=== PATIENT | female | born 1980 | race Caucasian/White ===

== ENCOUNTER 2016-11-12 00:10 | Inpatient (IN) | payer SELFPAY ==
[~2016-11-12] VITALS: Ht 162.6 cm; Wt 65.1 kg
[~2016-11-12 00:10] MED LIST: AMOX875T PO; CHLO118L4 TP; HYDR-971 PO; METH-37 PO; NITR100C62 PO; ONDA4TAB7 PO
--- NOTE | 2016-11-12 00:47 | PHYS DOC ---
Past Medical History Past Medical History: Anemia, Diabetes-Type I Additional Past Medical Histor: LOW IRON, Past Surgical History: Alcohol Use: None Drug Use: None Adult General Chief Complaint Chief Complaint: MULTIPLE COMPLAINTS HPI HPI Patient is a 36 year old F who presents with chest pain and elevated blood sugars. Patient states she's had elevated blood sugars for the past week which she is a insulin-dependent diabetic. Patient states that the chest pain started today central nonradiating rates the pain 10 out of 10 however in the emergency room she rates the pain a 5 out of 10. Patient denies any shortness of breath. Patient denies any nausea/vomiting/diarrhea. Patient denies any fevers. Patient denies any dysuria. Patient has no other complaints. Review of Systems Review of Systems GEN: Denies fevers, chills, sweats HEENT: Denies blurred vision, sore throat CV: Chest pain RESP: Denies shortness of air, cough GI: Denies n/v/d NEURO: Denies confusion, dizziness MSK: Denies weakness, joint pain/swelling Current Medications Current Medications Current Medications Medications (Trade) Dose Ordered Sig/Lucio Start Time Stop Time Status Last Admin Dose Admin Sodium Chloride 1,000 ml @ 1,000 mls/hr 1X ONCE 11/12/16 01:00 11/12/16 01:59 11/12/16 00:52 1,000 MLS/HR Allergies Allergies Allergies Coded Allergies Type Severity Reaction Last Updated Verified No Known Drug Allergies 03/03/15 No Physical Exam Physical Exam GEN.: No apparent distress. Alert and oriented. HEENT: Head is normocephalic, atraumatic NECK: Supple. LUNGS: CTAB. HEART: Tachycardia, S1, S2 present. Peripheral pulses intact ABDOMEN: Soft, nontender. Positive bowel sounds. EXTREMITIES: Without any cyanosis. NEUROLOGIC: Normal speech, normal tone PSYCHIATRIC: Normal affect, normal mood. SKIN: No ulcerations Current Patient Data Vital Signs Vital Signs Date Time Temp Pulse Resp B/P (MAP) Pulse Ox O2 Delivery O2 Flow Rate FiO2 11/12/16 00:33 98.0 117 20 142/83 (102) 99 Room Air 98.0 Lab Values Laboratory Tests Test 11/12/16 00:16 11/12/16 00:28 11/12/16 00:30 Urine Collection Type Unknown Urine Color Yellow Urine Clarity Clear Urine pH 6.0 Urine Specific [place] 1.025 Urine Protein Negative mg/dL (NEG-TRACE) Urine Glucose (UA) >=1000 mg/dL (NEG) Urine Ketones (Stick) Trace mg/dL (NEG) Urine Blood Small (NEG) Urine Nitrite Negative (NEG) Urine Bilirubin Negative (NEG) Urine Urobilinogen Dipstick 0.2 mg/dL (0.2 mg/dL) Urine Leukocyte Esterase Trace (NEG) Urine RBC Occ /HPF (0-2) Urine WBC 5-10 /HPF (0-4) Urine Squamous Epithelial Cells Few /LPF Urine Bacteria Few /HPF (0-FEW) POC Urine HCG, Qualitative Hcg negative (Negative) White Blood Count 6.4 x10^3/uL (4.0-11.0) Red Blood Count 4.31 x10^6/uL (3.50-5.40) Hemoglobin 13.6 g/dL (12.0-15.5) Hematocrit 41.6 % (36.0-47.0) Mean Corpuscular Volume 97 fL (79-100) Mean Corpuscular Hemoglobin 32 pg (25-35) Mean Corpuscular Hemoglobin Concent 33 g/dL (31-37) Red Cell Distribution Width 16.8 % (11.5-14.5) H Platelet Count 233 x10^3/uL (140-400) Neutrophils (%) (Auto) 66 % (31-73) Lymphocytes (%) (Auto) 24 % (24-48) Monocytes (%) (Auto) 8 % (0-9) Eosinophils (%) (Auto) 2 % (0-3) Basophils (%) (Auto) 1 % (0-3) Neutrophils # (Auto) 4.2 x10^3uL (1.8-7.7) Lymphocytes # (Auto) 1.5 x10^3/uL (1.0-4.8) Monocytes # (Auto) 0.5 x10^3/uL (0.0-1.1) Eosinophils # (Auto) 0.1 x10^3/uL (0.0-0.7) Basophils # (Auto) 0.0 x10^3/uL (0.0-0.2) Sodium Level 134 mmol/L (136-145) L Potassium Level 3.2 mmol/L (3.5-5.1) L Chloride Level 95 mmol/L (98-107) L Carbon Dioxide Level 25 mmol/L (21-32) Anion Gap 14 (6-14) Blood Urea Nitrogen 9 mg/dL (7-20) Creatinine 0.7 mg/dL (0.6-1.0) Estimated GFR (Cockcroft-Gault) 95.2 BUN/Creatinine Ratio 13 (6-20) Glucose Level 488 mg/dL (70-99) H Glucose (Fingerstick) 509 mg/dL (70-99) *H Calcium Level 9.9 mg/dL (8.5-10.1) Total Bilirubin 0.3 mg/dL (0.2-1.0) Aspartate Amino Transferase (AST) 43 U/L (15-37) H Alanine Aminotransferase (ALT) 40 U/L (14-59) Alkaline Phosphatase 151 U/L (46-116) H Troponin I Quantitative < 0.017 ng/mL (0.000-0.055) Total Protein 9.0 g/dL (6.4-8.2) H Albumin 4.4 g/dL (3.4-5.0) Albumin/Globulin Ratio 1.0 (1.0-1.7) Lipase 80 U/L (73-393) Laboratory Tests 11/12/16 00:30 Laboratory Tests 11/12/16 00:30 EKG EKG 0027: EKG shows sinus tachycardia rate of 117 no STEMI[] Radiology/Procedures Radiology/Procedures Chest x-ray NAD[] Course & Med Decision Making Course & Med Decision Making Pertinent Labs and Imaging studies reviewed. (See chart for details) ED course: Patient was seen and examined emergency room cardiac workup was ordered 0040: Lab results of blood sugar being 509 0200: Patient was reevaluated and updated on lab work. We'll make the patient for hyperglycemia for further management and treatment. Discussed CC/HP/PMH with Dr. Vazquez and recommends admit [] MDM: After reviewing the chart, CC/HPI/PMH, physical exam, [lab results], [ radiological results], I do not believe the patient is in DKA however the patient has a blood sugar above 500 with no PCP therefore will admit for further evaluation and management. [] Dragon Disclaimer Dragon Disclaimer This electronic medical record was generated, in whole or in part, using a voice recognition dictation system. Departure Departure Impression: Primary Impression: Hyperglycemia Additional Impression: Chest pain Disposition: ADMITTED INPATIENT Admitting Physician: Ellyn Vazquez Condition: STABLE Referrals: NO PCP (PCP) Problem Qualifiers DEAN BOATENG DO Nov 12, 2016 00:47
[2016-11-12 00:49] LABS: BASO % 1 % (0-3); EOS % 2 % (0-3); HEMATOCRIT 41.6 % (36.0-47.0); HEMOGLOBIN 13.6 g/dL (12.0-15.5); LYMPH # 1.5 x10^3/uL (1.0-4.8); LYMPH % 24 % (24-48); MEAN CORPUSCULAR HEMOGLOBIN 32 pg (25-35); MEAN CORPUSCULAR HGB CONC 33 g/dL (31-37); MEAN CORPUSCULAR VOLUME 97 fL (79-100); MONO % 8 % (0-9); NEUT % 66 % (31-73); PLATELET COUNT 233 x10^3/uL (140-400); RED BLOOD COUNT 4.31 x10^6/uL (3.50-5.40); RED CELL DISTRIBUTION WIDTH 16.8 % (11.5-14.5); WHITE BLOOD COUNT 6.4 x10^3/uL (4.0-11.0)
[2016-11-12 00:52] LABS: BILIRUBIN,URINE NEGATIVE (NEG); GLUCOSE,URINE >=1000 mg/dL (NEG); NITRITE,URINE NEGATIVE (NEG); PROTEIN,URINE NEGATIVE (NEG-TRACE); UROBILINOGEN,URINE 0.2 mg/dL (0.2 mg/dL)
[2016-11-12] MEDS ORDERED: IV NORMAL SALINE 1000ML BAG 1,000 ML IV ONE (01:00)
[2016-11-12 01:02] LABS: BACTERIA,URINE FEW /HPF (0-FEW); RBC,URINE OCC /HPF (0-2); SQUAMOUS EPITHELIAL CELL,UR FEW /LPF
[2016-11-12 01:07] LABS: CALCIUM 9.9 mg/dL (8.5-10.1); CREATININE 0.7 mg/dL (0.6-1.0); GFR 95.2; POTASSIUM 3.2 mmol/L (3.5-5.1)
[2016-11-12 01:11] LABS: ALBUMIN 4.4 g/dL (3.4-5.0); TOTAL BILIRUBIN 0.3 mg/dL (0.2-1.0)
[2016-11-12] MEDS: MORPHINE SULFATE 4 MG/ML DISP.SYRIN. IV PRN ×3 (02:10→08:59)
[2016-11-12] MEDS: IV NORMAL SALINE 1000ML BAG 1,000 ML IV SCH ×2 (02:11→05:57)
[2016-11-12] MEDS ORDERED: ONDANSETRON PF 4 MG/2 ML VIAL. IV PRN (02:15)
[2016-11-12] MEDS ORDERED: INSULIN REGULAR 100 UNIT/ML 10ML VIAL. IV ONE (02:45)
[2016-11-12 02:55] VITALS: BP 133/88
[2016-11-12] MEDS ORDERED: INSU100C4 SQ (06:57)
[2016-11-12 07:40] VITALS: BP 127/71
[2016-11-12] MEDS ORDERED: INSU100I13 SQ (07:55)
--- NOTE | 2016-11-12 08:08 | RAD ---
PA and lateral chest. History: Chest pain PA and lateral views were taken of the chest. Lungs are clear. Heart is normal in size without heart failure. There is no effusion. Impression: 1. No acute chest disease.
[2016-11-12] MEDS ORDERED: POTASSIUM CHLORIDE 20 MEQ TABLET.ER. PO ONE (08:30)
[2016-11-12] MEDS ORDERED: DEXTROSE 50% 25 GM / 50ML DISP.SYRIN. IV PRN (08:45)
[2016-11-12] MEDS ORDERED: INSULIN ASPART 300 UNITS/3 ML INSULN.PEN SQ ONE ×2 (09:00→11:00)
[2016-11-12 10:43] VITALS: BP 136/88
--- NOTE | 2016-11-12 12:52 | EKG ---
[facility] [address] [place] [address] Test Date: 2016-11-12 Test Time: 00:22:59 Pat Name: FLORESITA JORGE Department: Room: [facility] Gender: F Double Backer: [id number] : 1980 Requested By: DEAN BOATENG Order Number: [id number] Reading MD: Marvin Lockhart Measurements Intervals [place] Rate: 117 P: 43 TN: 126 QRS: 43 QRSD: 68 T: 51 QT: 316 QTc: 445 Interpretive Statements SINUS TACHYCARDIA LEFT ATRIAL ABNORMALITY RI6.01 Unconfirmed report Compared to ECG 12/27/2015 23:42:52 Atrial abnormality now present Electronically Signed On 11-30-2016 10:44:10 CDT by Marvin Lockhart
--- NOTE | 2016-11-12 14:41 | SSS ---
ADMIT DATE: 11/12/2016 CHIEF COMPLAINT: Hyperglycemia. HISTORY OF PRESENT ILLNESS: The patient is a pleasant middle-aged female who has diabetes. Basically, she presented to the ER with complaints of chest pain and elevated blood sugars. She was admitted. We did a brief cardiac evaluation, it is all negative. Her glucose is improving. She is back to her baseline. She wants to be discharged. PAST MEDICAL HISTORY: Diabetes. ALLERGIES: None. FAMILY HISTORY: Diabetes. SOCIAL HISTORY: She does not drink, smoke or take drugs. MEDICATIONS: Reviewed. REVIEW OF SYSTEMS: GENERAL: No history of weight change, weakness or fevers. SKIN: No bruising, hair changes or rashes. EYES: No blurred, double or loss of vision. NOSE AND THROAT: No history of nosebleeds, hoarseness or sore throat. HEART: No history of palpitations, chest pain or shortness of breath on exertion. LUNGS: Denies cough, hemoptysis, wheezing or shortness of breath. GASTROINTESTINAL: Denies changes in appetite, nausea, vomiting, diarrhea or constipation. GENITOURINARY: No history of frequency, urgency, hesitancy or nocturia. NEUROLOGIC: Denies history of numbness, tingling, tremor or weakness. PSYCHIATRIC: No history of panic, anxiety or depression. ENDOCRINE: No history of heat or cold intolerance, polyuria or polydipsia. EXTREMITIES: Denies muscle weakness, joint pain, pain on walking or stiffness. PHYSICAL EXAMINATION: VITAL SIGNS: Stable. GENERAL: She is alert, cooperative. HEART: Normal S1, S2. LUNGS: Clear. ABDOMEN: Soft. EXTREMITIES: No edema. SKIN: No rashes. PSYCHIATRIC: She is stable. VASCULAR: Good capillary refill. ENDOCRINE: No thyromegaly. LYMPHATICS: No cervical nodes. HEMATOPOIETIC: No bruising. DISPOSITION: Home. ACTIVITY: As tolerated. DIET: Low sodium. MEDICATIONS: Please see the MRAD. TOTAL TIME: 32 minutes. JB THAPA DO DR: SALVATORE/natividad JOB#: [id number] / [id number]
--- NOTE | 2016-12-01 12:33 | DS ---
DATE OF DISCHARGE: 11/12/2016 ADMISSION DIAGNOSIS: Hyperglycemia. DISCHARGE DIAGNOSIS: Resolving hyperglycemia. HOSPITAL COURSE: The patient is a pleasant 36-year-old female who presented with hyperglycemia. She was admitted. We gave her fluids and insulin. She did well. We discharged to home. DISPOSITION: Home. ACTIVITY: As tolerated. DIET: Low sodium. MEDICATIONS: Please see the MRAD. JB THAPA DO DR: SALVATORE/natividad JOB#: [id number] / [id number]
== END 2016-11-12 12:56 | disposition home or self-care (01) | DRG 638 ==
LOC: ER 00:10 → 6 SOUTH 01:59
PROVIDERS: ADMIT Internal Medicine; ATTEND Internal Medicine
DX: E10.65 Type 1 diabetes mellitus with hyperglycemia (principal); E87.1 Hypo-osmolality and hyponatremia; K21.9 Gastro-esophageal reflux disease without esophagitis; R07.89 Other chest pain; Z83.3 Family history of diabetes mellitus; Z79.4 Long term (current) use of insulin
CPT/HCPCS: 36415; 71020; 80053; 81001; 81025; 82962; 83690; 84484; 85025; 87086; 87186; 93005; 96361; 96374; J1815; J2270; J2405; J7030; 99285-25

== ENCOUNTER 2017-09-27 12:53 | Inpatient (IN) | payer SELFPAY ==
[~2017-09-27] VITALS: Ht 162.6 cm; Wt 68.0 kg
[~2017-09-27 12:53] MED LIST changes: +INSU100C4 SQ; +INSU100I13 SQ
--- NOTE | 2017-09-27 14:38 | PHYS DOC ---
Past Medical History Past Medical History: Anemia, Diabetes-Type I Additional Past Medical Histor: LOW IRON, Past Surgical History: Alcohol Use: None Drug Use: None Adult General Chief Complaint Chief Complaint: VAGINAL BLEEDING HPI HPI Patient is a 37 year old female with a history of diabetes and presents to the ED complaining of vaginal bleeding 3 hours ago. She states she' s had 2 miscarriages and one tubal in the past. LMP was the end of June. States she woke up and then had some lower abdominal cramping. States she had some vaginal bleeding and has been passing clots since 11:00 am. Describes the pain as crampy. Rates the pain as 4 out of 10. Denies nausea/vomiting, headache, diarrhea, blood in stool, dysuria, vaginal discharge, chest pain, shortness of breath or fever. Review of Systems Review of Systems Constitutional: Denies fever or chills [] Eyes: Denies change in visual acuity, redness, or eye pain [] HENT: Denies nasal congestion or sore throat [] Respiratory: Denies cough or shortness of breath [] Cardiovascular: No additional information not addressed in HPI [] GI: Denies abdominal pain, nausea, vomiting, bloody stools or diarrhea [] : Complains of vaginal bleeding. Denies dysuria or hematuria [] Musculoskeletal: Denies back pain or joint pain [] Integument: Denies rash or skin lesions [] Neurologic: Denies headache, focal weakness or sensory changes [] All other systems were reviewed and found to be within normal limits, except as documented in this note. Current Medications Current Medications Current Medications Medications (Trade) Dose Ordered Sig/Lucio Start Time Stop Time Status Last Admin Dose Admin Acetaminophen (Tylenol) 650 mg 1X ONCE 09/27/17 16:30 09/28/17 09:02 DC Morphine Sulfate (Morphine Sulfate) 4 mg 1X ONCE 09/27/17 16:15 09/28/17 09:02 DC 09/27/17 16:15 4 MG Ondansetron HCl (Zofran) 4 mg 1X ONCE 09/27/17 16:15 09/27/17 16:16 DC 09/27/17 16:13 4 MG Allergies Allergies Allergies Coded Allergies Type Severity Reaction Last Updated Verified No Known Drug Allergies 03/03/15 No Physical Exam Physical Exam Constitutional: Well developed, well nourished, no acute distress, non-toxic appearance. [] HENT: Normocephalic, atraumatic Cardiovascular:Heart rate regular rhythm, no murmur [] Lungs & Thorax: Bilateral breath sounds clear to auscultation [] Abdomen: Bowel sounds normal, soft, no tenderness, no masses, no pulsatile masses. [] : Refused Exam. Skin: Warm, dry, no erythema, no rash. [] Back: No tenderness, no CVA tenderness. [] Extremities: No tenderness, no cyanosis, no clubbing, ROM intact, no edema. [] Neurologic: Alert and oriented X 3, normal motor function, normal sensory function, no focal deficits noted. [] Psychologic: Affect normal, judgement normal, mood normal. [] Current Patient Data Vital Signs Vital Signs Date Time Temp Pulse Resp B/P (MAP) Pulse Ox O2 Delivery O2 Flow Rate FiO2 09/27/17 16:30 98 20 126/83 (97) 98 Room Air 09/27/17 14:06 98.6 98.6 Lab Values Laboratory Tests Test 09/27/17 15:30 White Blood Count 5.5 x10^3/uL (4.0-11.0) Red Blood Count 4.38 x10^6/uL (3.50-5.40) Hemoglobin 12.5 g/dL (12.0-15.5) Hematocrit 37.4 % (36.0-47.0) Mean Corpuscular Volume 86 fL (79-100) Mean Corpuscular Hemoglobin 29 pg (25-35) Mean Corpuscular Hemoglobin Concent 33 g/dL (31-37) Red Cell Distribution Width 26.3 % (11.5-14.5) H Platelet Count 245 x10^3/uL (140-400) Neutrophils (%) (Auto) 59 % (31-73) Lymphocytes (%) (Auto) 31 % (24-48) Monocytes (%) (Auto) 7 % (0-9) Eosinophils (%) (Auto) 3 % (0-3) Basophils (%) (Auto) 0 % (0-3) Neutrophils # (Auto) 3.2 x10^3uL (1.8-7.7) Lymphocytes # (Auto) 1.7 x10^3/uL (1.0-4.8) Monocytes # (Auto) 0.4 x10^3/uL (0.0-1.1) Eosinophils # (Auto) 0.1 x10^3/uL (0.0-0.7) Basophils # (Auto) 0.0 x10^3/uL (0.0-0.2) Platelet Estimate Adequate (ADEQUATE) Anisocytosis Mod Maternal Serum HCG Beta Subunit 1 mIU/mL (0-5) Sodium Level 136 mmol/L (136-145) Potassium Level 4.3 mmol/L (3.5-5.1) Chloride Level 101 mmol/L (98-107) Carbon Dioxide Level 22 mmol/L (21-32) Anion Gap 13 (6-14) Blood Urea Nitrogen 7 mg/dL (7-20) Creatinine 0.6 mg/dL (0.6-1.0) Estimated GFR (Cockcroft-Gault) 113.1 BUN/Creatinine Ratio 12 (6-20) Glucose Level 275 mg/dL (70-99) H Calcium Level 9.4 mg/dL (8.5-10.1) Total Bilirubin 0.5 mg/dL (0.2-1.0) Aspartate Amino Transferase (AST) 28 U/L (15-37) Alanine Aminotransferase (ALT) 22 U/L (14-59) Alkaline Phosphatase 110 U/L (46-116) Total Protein 7.3 g/dL (6.4-8.2) Albumin 3.5 g/dL (3.4-5.0) Albumin/Globulin Ratio 0.9 (1.0-1.7) L Laboratory Tests 09/27/17 15:30 Laboratory Tests 09/27/17 15:30 EKG EKG [] Radiology/Procedures Radiology/Procedures PROCEDURE: OB < 14 WKS Early OB ultrasound History: Vaginal bleeding in . No correlative beta hCG levels are not available at time of dictation. Comparison: None this . Technique: Transabdominal imaging was performed for initial evaluation of the pelvis. Endovaginal imaging was performed to evaluate optimally the lower uterine segment and to increase sensitivity for detection of intrauterine . Findings: Transabdominal imaging: Uterus measures 9.7 cm in length. No intrauterine is identified. Left ovary measures by 0.8 x 4.7 x 3.8 cm and demonstrates dominant corpus luteum cyst measuring 3.3 cm. Right ovary measures 2.8 x 2.1 x 3.1 cm and demonstrates small dominant follicle. Both ovaries demonstrate normal vascular flow upon Doppler interrogation and are without evidence of torsion. Endovaginal imaging: No intrauterine is identified. Endometrial thickness is 9 mm. Left ovary measures 4.4 x 2.7 x 4.4 cm and demonstrates dominant follicle measuring 2.5 cm. Right ovary is not seen with endovaginal imaging. No adnexal masses are seen. Impression: 1. No intrauterine is identified. No adnexal masses are seen. Assuming positive beta hCG, statistically most likely etiology is exceedingly early intrauterine . Additional possibilities include ectopic and completed spontaneous , although there is no positive ultrasound evidence of such. Recommend serial beta hCG levels and pelvic ultrasound as clinically indicated.[] Course & Med Decision Making Course & Med Decision Making Pertinent Labs and Imaging studies reviewed. (See chart for details) Patient refused pelvic exam due to cramping/pain. Patient soaked through two chucks in the ED. Discussed case with Dr. Mccullough (GAS [employer]TER), Plan to take patient to the OR for D&C. Patient stable for admission and procedure. Last meal was last night. Dragon Disclaimer Dragon Disclaimer This electronic medical record was generated, in whole or in part, using a voice recognition dictation system. Departure Departure Impression: Primary Impression: Miscarriage Disposition: ADMITTED INPATIENT Admitting Physician: Other (IRENA) Condition: STABLE Referrals: NO PCP (PCP) Scripts Hydrocodone/Apap 5-325 (NORCO 5-325 TABLET) 1 Each Tablet 1 TAB PO PRN Q6HRS PRN for PAIN, #20 TAB 0 Refills Prov: LEVAR MCCULLOUGH MD 09/28/17 Naproxen (NAPROXEN) 500 Mg Tablet 500 MG PO BID, #60 TAB Prov: LEVAR MCCULLOUGH MD 09/28/17 AGUSTIN ARRIETA Sep 27, 2017 14:38
--- NOTE | 2017-09-27 15:33 | RAD ---
Early OB ultrasound History: Vaginal bleeding in . No correlative beta hCG levels are not available at time of dictation. Comparison: None this . Technique: Transabdominal imaging was performed for initial evaluation of the pelvis. Endovaginal imaging was performed to evaluate optimally the lower uterine segment and to increase sensitivity for detection of intrauterine . Findings: Transabdominal imaging: Uterus measures 9.7 cm in length. No intrauterine is identified. Left ovary measures by 0.8 x 4.7 x 3.8 cm and demonstrates dominant corpus luteum cyst measuring 3.3 cm. Right ovary measures 2.8 x 2.1 x 3.1 cm and demonstrates small dominant follicle. Both ovaries demonstrate normal vascular flow upon Doppler interrogation and are without evidence of torsion. Endovaginal imaging: No intrauterine is identified. Endometrial thickness is 9 mm. Left ovary measures 4.4 x 2.7 x 4.4 cm and demonstrates dominant follicle measuring 2.5 cm. Right ovary is not seen with endovaginal imaging. No adnexal masses are seen. Impression: 1. No intrauterine is identified. No adnexal masses are seen. Assuming positive beta hCG, statistically most likely etiology is exceedingly early intrauterine . Additional possibilities include ectopic and completed spontaneous , although there is no positive ultrasound evidence of such. Recommend serial beta hCG levels and pelvic ultrasound as clinically indicated. Electronically signed by: Mega Angeles MD (09/27/2017 3:29 PM) [place] [id number]
[2017-09-27 15:42] LABS: BASO % 0 % (0-3); EOS # 0.1 x10^3/uL (0.0-0.7); EOS % 3 % (0-3); HEMATOCRIT 37.4 % (36.0-47.0); HEMOGLOBIN 12.5 g/dL (12.0-15.5); LYMPH # 1.7 x10^3/uL (1.0-4.8); LYMPH % 31 % (24-48); MEAN CORPUSCULAR HEMOGLOBIN 29 pg (25-35); MEAN CORPUSCULAR HGB CONC 33 g/dL (31-37); MEAN CORPUSCULAR VOLUME 86 fL (79-100); MONO # 0.4 x10^3/uL (0.0-1.1); MONO % 7 % (0-9); NEUT # 3.2 x10^3uL (1.8-7.7); NEUT % 59 % (31-73); PLATELET COUNT 245 x10^3/uL (140-400); RED BLOOD COUNT 4.38 x10^6/uL (3.50-5.40); RED CELL DISTRIBUTION WIDTH 26.3 % (11.5-14.5); WHITE BLOOD COUNT 5.5 x10^3/uL (4.0-11.0)
[2017-09-27 16:00] LABS: CALCIUM 9.4 mg/dL (8.5-10.1); CREATININE 0.6 mg/dL (0.6-1.0); GFR 113.1; POTASSIUM 4.3 mmol/L (3.5-5.1)
[2017-09-27 16:03] LABS: ANISOCYTOSIS MOD; PLT ESTIMATE ADEQUATE (ADEQUATE)
[2017-09-27 16:07] LABS: ALBUMIN 3.5 g/dL (3.4-5.0); ALBUMIN/GLOBULIN RATIO 0.9 (1.0-1.7); TOTAL BILIRUBIN 0.5 mg/dL (0.2-1.0); TOTAL PROTEIN 7.3 g/dL (6.4-8.2)
[2017-09-27] MEDS ORDERED: MORPHINE SULFATE 4 MG/ML VIAL. IV ONE (16:15)
[2017-09-27] MEDS ORDERED: ONDANSETRON PF 4 MG/2 ML VIAL. IV ONE ×2 (16:15→17:15)
[2017-09-27] MEDS ORDERED: ACETAMINOPHEN 325 MG TABLET. PO ONE (16:30)
[2017-09-27] MEDS ORDERED: ACETAMINOPHEN 325 MG TABLET. PO PRN (16:45)
[2017-09-27] MEDS ORDERED: ONDANSETRON PF 4 MG/2 ML VIAL. IV PRN ×4 (16:45→18:00)
[2017-09-27] MEDS: fentaNYL PF VIAL 100 MCG/2 ML VIAL IV PRN ×3 (16:59→23:05)
[2017-09-27] MEDS ORDERED: ONDANSETRON PF 4 MG/2 ML VIAL. ONE (17:28)
[2017-09-27] MEDS ORDERED: DEXAMETHASONE SOD PHOS 20 MG/5 ML VIAL. ONE (17:28)
[2017-09-27] MEDS ORDERED: fentaNYL PF VIAL 100 MCG/2 ML VIAL ONE (17:28)
[2017-09-27] MEDS ORDERED: PROPOFOL 20 ML IV ONE (17:28)
[2017-09-27] MEDS ORDERED: DESFLURANE 16 TO 30 MINUTES. IH ONE (17:28)
[2017-09-27] MEDS ORDERED: IV RINGERS,LACTATED 1000ML 1,000 ML IV SCH (17:45)
[2017-09-27] MEDS ORDERED: HYDROmorphone 2 MG/ML VIAL IV PRN (17:45)
[2017-09-27] MEDS ORDERED: MORPHINE SULFATE 2 MG/ML VIAL. IV PRN (17:45)
[2017-09-27] MEDS ORDERED: LIDOCAINE 1% PF 2 ML VIAL. ID PRN (17:45)
[2017-09-27] MEDS ORDERED: fentaNYL PF VIAL 100 MCG/2 ML VIAL IV PRN ×2 (17:45)
[2017-09-27] MEDS ORDERED: PROCHLORPERAZINE 10 MG/2 ML VIAL. IV PRN (17:45)
[2017-09-27] MEDS ORDERED: 0.9 % SODIUM CHLORIDE 10 ML DISP.SYRIN. IV PRN (18:00)
[2017-09-27] MEDS ORDERED: MAG HYDROX/ALUMINUM HYD/SIMETH 30 ML ORAL.SUSP PO PRN (18:00)
[2017-09-27] MEDS ORDERED: METOCLOPRAMIDE HCL 10 MG/2 ML VIAL. IV PRN (18:00)
[2017-09-27] MEDS ORDERED: KETOROLAC 30 MG/ML VIAL. IV PRN (18:00)
[2017-09-27] MEDS ORDERED: oxyCODONE/APAP 5/325 1 TAB TABLET PO PRN ×2 (18:00)
[2017-09-27] MEDS ORDERED: diphenhydrAMINE HCL 25 MG CAPSULE PO PRN (18:00)
[2017-09-27] MEDS ORDERED: DEXTROSE 50% 25 GM / 50ML DISP.SYRIN. IV PRN (18:00)
[2017-09-27] MEDS ORDERED: ceFAZolin SODIUM 1 GM VIAL ONE (18:02)
[2017-09-27] MEDS: IV NORMAL SALINE 1000ML BAG 1,000 ML IV SCH (19:42)
[2017-09-27 20:10] VITALS: BP 121/78
[2017-09-27] MEDS: NICOTINE 14MG PATCH. TD SCH (22:16)
[2017-09-28 00:10] VITALS: BP 119/80
[2017-09-28 03:46] VITALS: BP 107/66
[2017-09-28] MEDS: IV NORMAL SALINE 1000ML BAG 1,000 ML IV SCH (05:00)
[2017-09-28 05:18] LABS: BASO % 0 % (0-3); EOS % 0 % (0-3); HEMOGLOBIN 11.4 g/dL (12.0-15.5); LYMPH # 0.6 x10^3/uL (1.0-4.8); LYMPH % 5 % (24-48); MEAN CORPUSCULAR HEMOGLOBIN 29 pg (25-35); MEAN CORPUSCULAR HGB CONC 32 g/dL (31-37); MEAN CORPUSCULAR VOLUME 90 fL (79-100); MONO # 0.3 x10^3/uL (0.0-1.1); MONO % 3 % (0-9); NEUT # 9.9 x10^3uL (1.8-7.7); NEUT % 92 % (31-73); PLATELET COUNT 188 x10^3/uL (140-400); RED BLOOD COUNT 3.98 x10^6/uL (3.50-5.40); RED CELL DISTRIBUTION WIDTH 24.5 % (11.5-14.5); WHITE BLOOD COUNT 10.8 x10^3/uL (4.0-11.0)
[2017-09-28 05:28] LABS: ALBUMIN 3.4 g/dL (3.4-5.0); ALBUMIN/GLOBULIN RATIO 1.1 (1.0-1.7); CALCIUM 8.6 mg/dL (8.5-10.1); CREATININE 0.9 mg/dL (0.6-1.0); GFR 70.8; POTASSIUM 4.8 mmol/L (3.5-5.1); TOTAL BILIRUBIN 0.5 mg/dL (0.2-1.0); TOTAL PROTEIN 6.6 g/dL (6.4-8.2)
[2017-09-28] MEDS: INSULIN LISPRO 300 UNITS/3 ML INSULN.PEN. SQ SCH ×2 (05:49→07:14)
[2017-09-28] MEDS: NICOTINE 14MG PATCH. TD SCH (06:14)
[2017-09-28 07:37] LABS: % BANDS 4 % (0-9); % LYMPHS 6 % (24-48); % MONOS 1 % (0-10); % SEGS 89 % (35-66); PLT ESTIMATE ADEQUATE (ADEQUATE)
[2017-09-28] MEDS ORDERED: INSULIN ASPART 100 UNIT/ML 10ML VIAL. SQ ONE (08:45)
[2017-09-28] MEDS ORDERED: NAPR-514 PO (08:53)
[2017-09-28] MEDS ORDERED: HYDR-971 PO (08:53)
--- NOTE | 2017-09-28 08:58 | PDOC1 ---
History and Physical Date of Admission Date of Admission DATE: 09/27/17 TIME: 08:53 Identification/Chief Complaint Chief Complaint AUB History of Present Illness History of Present Illness VB since 0500 Family History Family History: Diabetes Social History Smoke: 1 pack per day ALCOHOL: occassional Current Problem List Problem List Problems Medical Problems: (1) Miscarriage Status: Acute Current Medications Current Medications Current Medications Acetaminophen (Tylenol) 650 mg 1X ONCE PO ; Start 09/27/17 at 16:30; Stop 09/27 at 16:31; Status DC Morphine Sulfate (Morphine Sulfate) 4 mg 1X ONCE IV Last administered on at 16:15; Start 09/27/17 at 16:15; Stop 09/27/17 at 16:16; Status DC Ondansetron HCl (Zofran) 4 mg 1X ONCE IV Last administered on 09/27/17at 16:13 ; Start 09/27/17 at 16:15; Stop 09/27/17 at 16:16; Status DC Ondansetron HCl (Zofran) 4 mg PRN Q8HRS PRN IV NAUSEA/VOMITING; Start 09/27/17 at 16:45; Stop 09/27/17 at 17:48; Status DC Fentanyl Citrate (Fentanyl 2ml Vial) 50 mcg PRN Q1HR PRN IV PAIN Last administered on 09/27/17at 23:05; Start 09/27/17 at 16:45; Stop 09/28/17 at 16:44 Acetaminophen (Tylenol) 650 mg PRN Q4HRS PRN PO FEVER; Start 09/27/17 at 16:45 ; Stop 09/28/17 at 16:44 Ondansetron HCl (Zofran) 4 mg 1X ONCE IV Last administered on 09/27/17at 17:11 ; Start 09/27/17 at 17:15; Stop 09/27/17 at 17:16; Status DC Fentanyl Citrate (Fentanyl 2ml Vial) 100 mcg STK-MED ONCE .ROUTE ; Start at 17:28; Stop 09/27/17 at 17:29; Status DC Desflurane (Suprane) 15 ml STK-MED ONCE IH ; Start 09/27/17 at 17:28; Stop 09/27 at 17:29; Status DC Propofol 20 ml @ As Directed STK-MED ONCE IV ; Start 09/27/17 at 17:28; Stop at 17:29; Status DC Dexamethasone Sodium Phosphate (Decadron) 20 mg STK-MED ONCE .ROUTE ; Start at 17:28; Stop 09/27/17 at 17:29; Status DC Ondansetron HCl (Zofran) 4 mg STK-MED ONCE .ROUTE ; Start 09/27/17 at 17:28; Stop 09/27/17 at 17:29; Status DC Ondansetron HCl (Zofran) 4 mg PRN Q6HRS PRN IV NAUSEA/VOMITING; Start 09/27/17 at 17:45; Stop 09/28/17 at 08:51; Status DC Fentanyl Citrate (Fentanyl 2ml Vial) 25 mcg PRN Q5MIN PRN IV MILD PAIN; Start 09/27/17 at 17:45; Stop 09/28/17 at 00:45; Status DC Fentanyl Citrate (Fentanyl 2ml Vial) 50 mcg PRN Q5MIN PRN IV MODERATE TO SEVERE PAIN; Start 09/27/17 at 17:45; Stop 09/28/17 at 00:45; Status DC Morphine Sulfate (Morphine Sulfate) 1 mg PRN Q10MIN PRN IV SEVERE PAIN; Start 09/27/17 at 17:45; Stop 09/28/17 at 00:45; Status DC Ringer's Solution 1,000 ml @ 30 mls/hr Q24H IV ; Start 09/27/17 at 17:45; Stop 09/28/17 at 00:45; Status DC Lidocaine HCl (Xylocaine-Mpf 1% 2ml Vial) 2 ml 1X PRN PRN ID IV START; Start at 17:45; Stop 09/28/17 at 17:44 Hydromorphone HCl (Dilaudid) 0.5 mg PRN Q10MIN PRN IV SEV PAIN, Second choice; Start 09/27/17 at 17:45; Stop 09/28/17 at 00:46; Status DC Prochlorperazine Edisylate (Compazine) 5 mg PACU PRN PRN IV NAUSEA, MRX1; Start 09/27/17 at 17:45; Stop 09/28/17 at 00:45; Status DC Ondansetron HCl (Zofran) 4 mg PRN Q8HRS PRN IV NAUSEA/VOMITING; Start 09/27/17 at 18:00; Stop 09/27/17 at 18:14; Status DC Cefazolin Sodium (Ancef) 1 gm STK-MED ONCE .ROUTE ; Start 09/27/17 at 18:02; Stop 09/27/17 at 18:03; Status DC Al Hydroxide/Mg Hydroxide (Mylanta Plus Xs) 30 ml PRN Q3HRS PRN PO HEARTBURN / GAS; Start 09/27/17 at 18:00 Diphenhydramine HCl (Benadryl) 25 mg PRN Q6HRS PRN PO ITCHING; Start 09/27/17 at 18:00 Sodium Chloride (Normal Saline Flush) 3 ml QSHIFT PRN IV AFTER MEDS AND BLOOD DRAWS; Start 09/27/17 at 18:00 Sodium Chloride 1,000 ml @ 100 mls/hr Q10H IV Last administered on 09/28/17at 05:00; Start 09/27/17 at 17:53 Insulin Human Lispro (HumaLOG) 0-5 UNITS TIDWMEALS SQ Last administered on 09/28at 07:14; Start 09/28/17 at 08:00 Dextrose (Dextrose 50%-Water Syringe) 12.5 gm PRN Q15MIN PRN IV SEE COMMENTS; Start 09/27/17 at 18:00 Oxycodone/ Acetaminophen (Percocet 5/325) 1 tab PRN Q4HRS PRN PO MILD PAIN, 1ST CHOICE; Start 09/27/17 at 18:00 Oxycodone/ Acetaminophen (Percocet 5/325) 2 tab PRN Q4HRS PRN PO MODERATE PAIN , SEVERE PAIN; Start 09/27/17 at 18:00 Ketorolac Tromethamine (Toradol 30mg Vial) 30 mg PRN Q6HRS PRN IV PAIN; Start 09/27/17 at 18:00; Stop 10/02/17 at 17:59 Ondansetron HCl (Zofran) 4 mg PRN Q6HRS PRN IV NAUESA, 1ST CHOICE Last administered on 09/27/17at 21:23; Start 09/27/17 at 18:00 Metoclopramide HCl (Reglan Vial) 10 mg PRN Q6HRS PRN IV Nausea/Vomiting, 2ND Choice; Start 09/27/17 at 18:00 Nicotine (Nicoderm Cq 14mg) 1 patch DAILY TD ; Start 09/28/17 at 09:00; Stop at 09:00; Status DC Nicotine (Nicoderm Cq 14mg) 1 patch DAILY TD Last administered on 09/27/17at 22: 16; Start 09/27/17 at 22:00 Insulin Aspart (NovoLOG VIAL) 10 unit 1X ONCE SQ Last administered on at 08:45; Start 09/28/17 at 08:45; Stop 09/28/17 at 08:52; Status DC Insulin Human Lispro (HumaLOG) 10 units 1X ONCE SQ ; Start 09/28/17 at 09:00; Stop 09/28/17 at 09:01 Active Scripts Active [place] 5-325 Tablet (Acetaminophen/Hydrocodone Bitart) 1 Each Tablet 1 Tab PO PRN Q6HRS PRN Naproxen 500 Mg Tablet 500 Mg PO BID Robaxin (Methocarbamol) 500 Mg Tablet 500 Mg PO QID [place] 5-325 Tablet (Acetaminophen/Hydrocodone Bitart) 1 Each Tablet 1 Tab PO PRN Q6HRS PRN Macrobid 100 Mg Capsule (Nitrofurantoin Monohyd/M-Cryst) 100 Mg Capsule 100 Mg PO BID Zofran (Ondansetron Hcl) 4 Mg Tablet 4 Mg PO BID PRN Chlorhexidine Gluconate 118 Ml Liquid 5 Ml TP BID rinse and spit [place] 5-325 Tablet (Acetaminophen/Hydrocodone Bitart) 1 Each Tablet 1-2 Tab PO Q4-6HRS Amoxicillin 875 Mg Tablet 1 Tab PO BID Reported Lantus Solostar (Insulin Glargine,Hum.rec.anlog) 100 Unit/1 Ml Insuln.pen 12 Unit SQ QHS Novolog (Insulin Aspart) Unknown Strength Cartridge Unknown Dose SQ Allergies Allergies: Coded Allergies: No Known Drug Allergies (Unverified , 03/03/15) Physical Exam General: Alert, Oriented X3, Cooperative, No acute distress HEENT: PERRLA Lungs: Clear to auscultation, Normal air movement Breasts: Normal, Rt breast nml w/o mass, Lt breast nml w/o mass, Nipples normal Abdomen: Normal bowel sounds, Soft, No tenderness, No hepatosplenomegaly, No masses Rectal Exam: not examined PELVIC: Nml ext genitalia, Nml ext vulva, Nml ext vagina, Other (enlarge uterus 10 week) Extremities: No clubbing, No cyanosis, No edema, Normal pulses, No tenderness/ swelling Skin: No rashes, No breakdown, No significant lesion Vitals Vitals Vital Signs Date Time Temp Pulse Resp B/P (MAP) Pulse Ox O2 Delivery O2 Flow Rate FiO2 09/28/17 03:46 97.5 99 14 107/66 (80) 100 Room Air 97.5 09/27/17 18:11 10 Labs Labs Laboratory Tests Test 09/27/17 15:30 09/27/17 17:19 09/27/17 18:31 09/28/17 04:30 White Blood Count 5.5 x10^3/uL (4.0-11.0) 10.8 x10^3/uL (4.0-11.0) Red Blood Count 4.38 x10^6/uL (3.50-5.40) 3.98 x10^6/uL (3.50-5.40) Hemoglobin 12.5 g/dL (12.0-15.5) 11.4 g/dL (12.0-15.5) Hematocrit 37.4 % (36.0-47.0) 36.0 % (36.0-47.0) Mean Corpuscular Volume 86 fL (79-100) 90 fL (79-100) Mean Corpuscular Hemoglobin 29 pg (25-35) 29 pg (25-35) Mean Corpuscular Hemoglobin Concent 33 g/dL (31-37) 32 g/dL (31-37) Red Cell Distribution Width 26.3 % (11.5-14.5) 24.5 % (11.5-14.5) Platelet Count 245 x10^3/uL (140-400) 188 x10^3/uL (140-400) Neutrophils (%) (Auto) 59 % (31-73) 92 % (31-73) Lymphocytes (%) (Auto) 31 % (24-48) 5 % (24-48) Monocytes (%) (Auto) 7 % (0-9) 3 % (0-9) Eosinophils (%) (Auto) 3 % (0-3) 0 % (0-3) Basophils (%) (Auto) 0 % (0-3) 0 % (0-3) Neutrophils # (Auto) 3.2 x10^3uL (1.8-7.7) 9.9 x10^3uL (1.8-7.7) Lymphocytes # (Auto) 1.7 x10^3/uL (1.0-4.8) 0.6 x10^3/uL (1.0-4.8) Monocytes # (Auto) 0.4 x10^3/uL (0.0-1.1) 0.3 x10^3/uL (0.0-1.1) Eosinophils # (Auto) 0.1 x10^3/uL (0.0-0.7) 0.0 x10^3/uL (0.0-0.7) Basophils # (Auto) 0.0 x10^3/uL (0.0-0.2) 0.0 x10^3/uL (0.0-0.2) Platelet Estimate Adequate (ADEQUATE) Adequate (ADEQUATE) Anisocytosis Mod Maternal Serum HCG Beta Subunit 1 mIU/mL (0-5) Sodium Level 136 mmol/L (136-145) 131 mmol/L (136-145) Potassium Level 4.3 mmol/L (3.5-5.1) 4.8 mmol/L (3.5-5.1) Chloride Level 101 mmol/L (98-107) 97 mmol/L (98-107) Carbon Dioxide Level 22 mmol/L (21-32) 19 mmol/L (21-32) Anion Gap 13 (6-14) 15 (6-14) Blood Urea Nitrogen 7 mg/dL (7-20) 15 mg/dL (7-20) Creatinine 0.6 mg/dL (0.6-1.0) 0.9 mg/dL (0.6-1.0) Estimated GFR (Cockcroft-Gault) 113.1 70.8 BUN/Creatinine Ratio 12 (6-20) 17 (6-20) Glucose Level 275 mg/dL (70-99) 620 mg/dL (70-99) Calcium Level 9.4 mg/dL (8.5-10.1) 8.6 mg/dL (8.5-10.1) Total Bilirubin 0.5 mg/dL (0.2-1.0) 0.5 mg/dL (0.2-1.0) Aspartate Amino Transf (AST/SGOT) 28 U/L (15-37) 16 U/L (15-37) Alanine Aminotransferase (ALT/SGPT) 22 U/L (14-59) 19 U/L (14-59) Alkaline Phosphatase 110 U/L (46-116) 117 U/L (46-116) Total Protein 7.3 g/dL (6.4-8.2) 6.6 g/dL (6.4-8.2) Albumin 3.5 g/dL (3.4-5.0) 3.4 g/dL (3.4-5.0) Albumin/Globulin Ratio 0.9 (1.0-1.7) 1.1 (1.0-1.7) Glucose (Fingerstick) 175 mg/dL (70-99) 100 mg/dL (70-99) Segmented Neutrophils % 89 % (35-66) Band Neutrophils % 4 % (0-9) Lymphocytes % 6 % (24-48) Monocytes % 1 % (0-10) Test 09/28/17 05:44 09/28/17 07:04 09/28/17 08:09 Glucose (Fingerstick) 557 mg/dL (70-99) 460 mg/dL (70-99) 363 mg/dL (70-99) Laboratory Tests Test 09/27/17 15:30 09/27/17 17:19 09/27/17 18:31 09/28/17 04:30 White Blood Count 5.5 x10^3/uL (4.0-11.0) 10.8 x10^3/uL (4.0-11.0) Red Blood Count 4.38 x10^6/uL (3.50-5.40) 3.98 x10^6/uL (3.50-5.40) Hemoglobin 12.5 g/dL (12.0-15.5) 11.4 g/dL (12.0-15.5) Hematocrit 37.4 % (36.0-47.0) 36.0 % (36.0-47.0) Mean Corpuscular Volume 86 fL (79-100) 90 fL (79-100) Mean Corpuscular Hemoglobin 29 pg (25-35) 29 pg (25-35) Mean Corpuscular Hemoglobin Concent 33 g/dL (31-37) 32 g/dL (31-37) Red Cell Distribution Width 26.3 % (11.5-14.5) 24.5 % (11.5-14.5) Platelet Count 245 x10^3/uL (140-400) 188 x10^3/uL (140-400) Neutrophils (%) (Auto) 59 % (31-73) 92 % (31-73) Lymphocytes (%) (Auto) 31 % (24-48) 5 % (24-48) Monocytes (%) (Auto) 7 % (0-9) 3 % (0-9) Eosinophils (%) (Auto) 3 % (0-3) 0 % (0-3) Basophils (%) (Auto) 0 % (0-3) 0 % (0-3) Neutrophils # (Auto) 3.2 x10^3uL (1.8-7.7) 9.9 x10^3uL (1.8-7.7) Lymphocytes # (Auto) 1.7 x10^3/uL (1.0-4.8) 0.6 x10^3/uL (1.0-4.8) Monocytes # (Auto) 0.4 x10^3/uL (0.0-1.1) 0.3 x10^3/uL (0.0-1.1) Eosinophils # (Auto) 0.1 x10^3/uL (0.0-0.7) 0.0 x10^3/uL (0.0-0.7) Basophils # (Auto) 0.0 x10^3/uL (0.0-0.2) 0.0 x10^3/uL (0.0-0.2) Platelet Estimate Adequate (ADEQUATE) Adequate (ADEQUATE) Anisocytosis Mod Maternal Serum HCG Beta Subunit 1 mIU/mL (0-5) Sodium Level 136 mmol/L (136-145) 131 mmol/L (136-145) Potassium Level 4.3 mmol/L (3.5-5.1) 4.8 mmol/L (3.5-5.1) Chloride Level 101 mmol/L (98-107) 97 mmol/L (98-107) Carbon Dioxide Level 22 mmol/L (21-32) 19 mmol/L (21-32) Anion Gap 13 (6-14) 15 (6-14) Blood Urea Nitrogen 7 mg/dL (7-20) 15 mg/dL (7-20) Creatinine 0.6 mg/dL (0.6-1.0) 0.9 mg/dL (0.6-1.0) Estimated GFR (Cockcroft-Gault) 113.1 70.8 BUN/Creatinine Ratio 12 (6-20) 17 (6-20) Glucose Level 275 mg/dL (70-99) 620 mg/dL (70-99) Calcium Level 9.4 mg/dL (8.5-10.1) 8.6 mg/dL (8.5-10.1) Total Bilirubin 0.5 mg/dL (0.2-1.0) 0.5 mg/dL (0.2-1.0) Aspartate Amino Transf (AST/SGOT) 28 U/L (15-37) 16 U/L (15-37) Alanine Aminotransferase (ALT/SGPT) 22 U/L (14-59) 19 U/L (14-59) Alkaline Phosphatase 110 U/L (46-116) 117 U/L (46-116) Total Protein 7.3 g/dL (6.4-8.2) 6.6 g/dL (6.4-8.2) Albumin 3.5 g/dL (3.4-5.0) 3.4 g/dL (3.4-5.0) Albumin/Globulin Ratio 0.9 (1.0-1.7) 1.1 (1.0-1.7) Glucose (Fingerstick) 175 mg/dL (70-99) 100 mg/dL (70-99) Segmented Neutrophils % 89 % (35-66) Band Neutrophils % 4 % (0-9) Lymphocytes % 6 % (24-48) Monocytes % 1 % (0-10) Test 09/28/17 05:44 09/28/17 07:04 09/28/17 08:09 Glucose (Fingerstick) 557 mg/dL (70-99) 460 mg/dL (70-99) 363 mg/dL (70-99) VTE Prophylaxis Ordered VTE Prophylaxis Devices: No VTE Pharmacological Prophylaxi: No Assessment/Plan Assessment/Plan BRAD D & C LEVAR OSBORN MD Sep 28, 2017 08:58
[2017-09-28] MEDS ORDERED: NICOTINE 14MG PATCH. TD SCH (09:00)
[2017-09-28] MEDS ORDERED: INSULIN LISPRO 300 UNITS/3 ML INSULN.PEN. SQ ONE ×2 (09:00)
--- NOTE | 2017-09-28 09:00 | PDOC3 ---
Discharge Summary Visit Information Date of Admission: Sep 27, 2017 Date of Discharge: Sep 28, 2017 Admitting Diagnosis Comment: AUB Final Diagnosis Problems Medical Problems: (1) Miscarriage Status: Acute Brief Hospital Course Allergies Allergies Coded Allergies Type Severity Reaction Last Updated Verified No Known Drug Allergies 03/03/15 No Vital Signs Vital Signs Date Time Temp Pulse Resp B/P (MAP) Pulse Ox O2 Delivery O2 Flow Rate FiO2 09/28/17 03:46 97.5 99 14 107/66 (80) 100 Room Air 97.5 09/27/17 18:11 10 Lab Results Laboratory Tests Test 09/27/17 15:30 09/27/17 17:19 09/27/17 18:31 09/28/17 04:30 White Blood Count 5.5 x10^3/uL (4.0-11.0) 10.8 x10^3/uL (4.0-11.0) Red Blood Count 4.38 x10^6/uL (3.50-5.40) 3.98 x10^6/uL (3.50-5.40) Hemoglobin 12.5 g/dL (12.0-15.5) 11.4 g/dL (12.0-15.5) Hematocrit 37.4 % (36.0-47.0) 36.0 % (36.0-47.0) Mean Corpuscular Volume 86 fL (79-100) 90 fL (79-100) Mean Corpuscular Hemoglobin 29 pg (25-35) 29 pg (25-35) Mean Corpuscular Hemoglobin Concent 33 g/dL (31-37) 32 g/dL (31-37) Red Cell Distribution Width 26.3 % (11.5-14.5) 24.5 % (11.5-14.5) Platelet Count 245 x10^3/uL (140-400) 188 x10^3/uL (140-400) Neutrophils (%) (Auto) 59 % (31-73) 92 % (31-73) Lymphocytes (%) (Auto) 31 % (24-48) 5 % (24-48) Monocytes (%) (Auto) 7 % (0-9) 3 % (0-9) Eosinophils (%) (Auto) 3 % (0-3) 0 % (0-3) Basophils (%) (Auto) 0 % (0-3) 0 % (0-3) Neutrophils # (Auto) 3.2 x10^3uL (1.8-7.7) 9.9 x10^3uL (1.8-7.7) Lymphocytes # (Auto) 1.7 x10^3/uL (1.0-4.8) 0.6 x10^3/uL (1.0-4.8) Monocytes # (Auto) 0.4 x10^3/uL (0.0-1.1) 0.3 x10^3/uL (0.0-1.1) Eosinophils # (Auto) 0.1 x10^3/uL (0.0-0.7) 0.0 x10^3/uL (0.0-0.7) Basophils # (Auto) 0.0 x10^3/uL (0.0-0.2) 0.0 x10^3/uL (0.0-0.2) Platelet Estimate Adequate (ADEQUATE) Adequate (ADEQUATE) Anisocytosis Mod Maternal Serum HCG Beta Subunit 1 mIU/mL (0-5) Sodium Level 136 mmol/L (136-145) 131 mmol/L (136-145) Potassium Level 4.3 mmol/L (3.5-5.1) 4.8 mmol/L (3.5-5.1) Chloride Level 101 mmol/L (98-107) 97 mmol/L (98-107) Carbon Dioxide Level 22 mmol/L (21-32) 19 mmol/L (21-32) Anion Gap 13 (6-14) 15 (6-14) Blood Urea Nitrogen 7 mg/dL (7-20) 15 mg/dL (7-20) Creatinine 0.6 mg/dL (0.6-1.0) 0.9 mg/dL (0.6-1.0) Estimated GFR (Cockcroft-Gault) 113.1 70.8 BUN/Creatinine Ratio 12 (6-20) 17 (6-20) Glucose Level 275 mg/dL (70-99) 620 mg/dL (70-99) Calcium Level 9.4 mg/dL (8.5-10.1) 8.6 mg/dL (8.5-10.1) Total Bilirubin 0.5 mg/dL (0.2-1.0) 0.5 mg/dL (0.2-1.0) Aspartate Amino Transf (AST/SGOT) 28 U/L (15-37) 16 U/L (15-37) Alanine Aminotransferase (ALT/SGPT) 22 U/L (14-59) 19 U/L (14-59) Alkaline Phosphatase 110 U/L (46-116) 117 U/L (46-116) Total Protein 7.3 g/dL (6.4-8.2) 6.6 g/dL (6.4-8.2) Albumin 3.5 g/dL (3.4-5.0) 3.4 g/dL (3.4-5.0) Albumin/Globulin Ratio 0.9 (1.0-1.7) 1.1 (1.0-1.7) Glucose (Fingerstick) 175 mg/dL (70-99) 100 mg/dL (70-99) Segmented Neutrophils % 89 % (35-66) Band Neutrophils % 4 % (0-9) Lymphocytes % 6 % (24-48) Monocytes % 1 % (0-10) Test 09/28/17 05:44 09/28/17 07:04 09/28/17 08:09 Glucose (Fingerstick) 557 mg/dL (70-99) 460 mg/dL (70-99) 363 mg/dL (70-99) Laboratory Tests Test 09/27/17 15:30 09/27/17 17:19 09/27/17 18:31 09/28/17 04:30 White Blood Count 5.5 x10^3/uL (4.0-11.0) 10.8 x10^3/uL (4.0-11.0) Red Blood Count 4.38 x10^6/uL (3.50-5.40) 3.98 x10^6/uL (3.50-5.40) Hemoglobin 12.5 g/dL (12.0-15.5) 11.4 g/dL (12.0-15.5) Hematocrit 37.4 % (36.0-47.0) 36.0 % (36.0-47.0) Mean Corpuscular Volume 86 fL (79-100) 90 fL (79-100) Mean Corpuscular Hemoglobin 29 pg (25-35) 29 pg (25-35) Mean Corpuscular Hemoglobin Concent 33 g/dL (31-37) 32 g/dL (31-37) Red Cell Distribution Width 26.3 % (11.5-14.5) 24.5 % (11.5-14.5) Platelet Count 245 x10^3/uL (140-400) 188 x10^3/uL (140-400) Neutrophils (%) (Auto) 59 % (31-73) 92 % (31-73) Lymphocytes (%) (Auto) 31 % (24-48) 5 % (24-48) Monocytes (%) (Auto) 7 % (0-9) 3 % (0-9) Eosinophils (%) (Auto) 3 % (0-3) 0 % (0-3) Basophils (%) (Auto) 0 % (0-3) 0 % (0-3) Neutrophils # (Auto) 3.2 x10^3uL (1.8-7.7) 9.9 x10^3uL (1.8-7.7) Lymphocytes # (Auto) 1.7 x10^3/uL (1.0-4.8) 0.6 x10^3/uL (1.0-4.8) Monocytes # (Auto) 0.4 x10^3/uL (0.0-1.1) 0.3 x10^3/uL (0.0-1.1) Eosinophils # (Auto) 0.1 x10^3/uL (0.0-0.7) 0.0 x10^3/uL (0.0-0.7) Basophils # (Auto) 0.0 x10^3/uL (0.0-0.2) 0.0 x10^3/uL (0.0-0.2) Platelet Estimate Adequate (ADEQUATE) Adequate (ADEQUATE) Anisocytosis Mod Maternal Serum HCG Beta Subunit 1 mIU/mL (0-5) Sodium Level 136 mmol/L (136-145) 131 mmol/L (136-145) Potassium Level 4.3 mmol/L (3.5-5.1) 4.8 mmol/L (3.5-5.1) Chloride Level 101 mmol/L (98-107) 97 mmol/L (98-107) Carbon Dioxide Level 22 mmol/L (21-32) 19 mmol/L (21-32) Anion Gap 13 (6-14) 15 (6-14) Blood Urea Nitrogen 7 mg/dL (7-20) 15 mg/dL (7-20) Creatinine 0.6 mg/dL (0.6-1.0) 0.9 mg/dL (0.6-1.0) Estimated GFR (Cockcroft-Gault) 113.1 70.8 BUN/Creatinine Ratio 12 (6-20) 17 (6-20) Glucose Level 275 mg/dL (70-99) 620 mg/dL (70-99) Calcium Level 9.4 mg/dL (8.5-10.1) 8.6 mg/dL (8.5-10.1) Total Bilirubin 0.5 mg/dL (0.2-1.0) 0.5 mg/dL (0.2-1.0) Aspartate Amino Transf (AST/SGOT) 28 U/L (15-37) 16 U/L (15-37) Alanine Aminotransferase (ALT/SGPT) 22 U/L (14-59) 19 U/L (14-59) Alkaline Phosphatase 110 U/L (46-116) 117 U/L (46-116) Total Protein 7.3 g/dL (6.4-8.2) 6.6 g/dL (6.4-8.2) Albumin 3.5 g/dL (3.4-5.0) 3.4 g/dL (3.4-5.0) Albumin/Globulin Ratio 0.9 (1.0-1.7) 1.1 (1.0-1.7) Glucose (Fingerstick) 175 mg/dL (70-99) 100 mg/dL (70-99) Segmented Neutrophils % 89 % (35-66) Band Neutrophils % 4 % (0-9) Lymphocytes % 6 % (24-48) Monocytes % 1 % (0-10) Test 09/28/17 05:44 09/28/17 07:04 09/28/17 08:09 Glucose (Fingerstick) 557 mg/dL (70-99) 460 mg/dL (70-99) 363 mg/dL (70-99) Brief Hospital Course Ms. Gibson is a 37 old female who presented with AUB Discharge Information Condition at Discharge: Stable Follow Up: Weeks (1) Disposition/Orders: D/C to Home Scheduled Amoxicillin (Amoxicillin) 875 Mg Tablet, 1 TAB PO BID, #20 Prescribed by: Kaya Guzman APRN on 09/30/151 Chlorhexidine Gluconate (Chlorhexidine Gluconate) 118 Ml Liquid, 5 ML TP BID, #1 rinse and spit Prescribed by: Kaya Guzman APRN on 09/30/15 2321 Hydrocodone/Apap 5-325 ([place] 5-325 Tablet) 1 Each Tablet, 1-2 TAB PO Q4-6HRS, # 20 Prescribed by: Kaya Guzman APRN on 09/30/15 2321 Insulin Glargine,Hum.rec.anlog (Lantus Solostar) 100 Unit/1 Ml Insuln.pen, 12 UNIT SQ QHS, #15 Ref 3 (Reported) Entered as Reported by: AJ WOO on 11/12/16 0755 Methocarbamol (Robaxin) 500 Mg Tablet, 500 MG PO QID, #20 Prescribed by: GOPI BAUTISTA on 01/02/16 2351 Naproxen (Naproxen) 500 Mg Tablet, 500 MG PO BID, #60 Prescribed by: LEVAR OSBORN on 09/28/17 0853 Nitrofurantoin Monohyd/M-Cryst (Macrobid 100 Mg Capsule) 100 Mg Capsule, 100 MG PO BID, #10 Prescribed by: FLOYD GEORGE D.O. on 12/28/15 0143 Scheduled PRN Hydrocodone/Apap 5-325 ([place] 5-325 Tablet) 1 Each Tablet, 1 TAB PO PRN Q6HRS PRN for PAIN, #20 Prescribed by: GOPI BAUTISTA on 01/02/16 2351 Hydrocodone/Apap 5-325 ([place] 5-325 Tablet) 1 Each Tablet, 1 TAB PO PRN Q6HRS PRN for PAIN, #20 Ref 0 Prescribed by: LEVAR OSBORN on 09/28/17 0853 Ondansetron Hcl (Zofran) 4 Mg Tablet, 4 MG PO BID PRN for NAUSEA/VOMITING, #14 Prescribed by: FLOYD GEORGE D.O. on 12/28/15 0109 Miscellaneous Medications Insulin Aspart (Novolog) Unknown Strength Cartridge, Unknown Dose SQ, (Reported) Entered as Reported by: Kayden Mccoy RN on 11/12/16 0657 LEVAR OSBORN MD Sep 28, 2017 09:00
--- NOTE | 2017-09-28 11:05 | OP ---
DATE OF SURGERY: 09/27/2017 PREOPERATIVE DIAGNOSIS: Abnormal uterine bleeding. POSTOPERATIVE DIAGNOSIS: Abnormal uterine bleeding. PROCEDURE: Dilatation and curettage. SURGEON: oDnis Mccullough MD ANESTHESIA: General. ESTIMATED BLOOD LOSS: 100 mL FLUIDS: Crystalloid. SPECIMENS: Endometrial curettings. COMPLICATIONS: None. CONDITION: Stable. DESCRIPTION OF PROCEDURE: After risks, benefits, indications, alternatives, and expectations were discussed in detail with the patient, the patient was brought to OR theater, placed in the dorsal lithotomy position in Norman stirrups. Under adequate general anesthesia, the patient was prepped and draped in usual sterile manner. Exam under anesthesia was performed. Uterus was anteflexed, approximately 10 weeks size and firm. There was considerable amount of clot in the vaginal vault. Cervix was open to fingertip and thick. A sharp curettage was then performed until the usual cry was heard. Curettings were placed on Telfa, handed off to the operative field. Another curettage of all quadrants was performed and endometrial curettings were noted. Procedure was terminated. Previously placed single-tooth tenaculum and posterior weighted speculum were removed. Vaginal vault was wiped down of any blood or debris. Sponge, needle, instrument counts were correct x 2 per nursing staff. The patient went to postop anesthesia recovery in stable condition. DONIS MCCULLOUGH MD DR: RIDDHI/natividad JOB#: [id number] / [id number]
[2017-09-28 16:19] LABS: HEMOGLOBIN A1C 7.9 % (4.8-5.6)
--- NOTE | 2017-10-02 15:09 | PATHOLOGY ---
[facility] Accession Number: [id number] . 01 Material submitted: . ENDOMETRIAL CURETTINGS (POC) . 01 Clinical history: . Miscarriage . 02 Diagnosis: Endometrial curettings: - Segments of secretory endometrium showing extensive glandular / stromal breakdown. [facility]/09/30/2017 . 02 Comment: No chorionic villi are identified. . (JPM:mml; 09/30/17) . 02 Electronically signed: . Mark Denise MD, Pathologist NPI- [id number] . 01 Gross description: . The specimen is received in formalin, labeled "Enid Gibson, endometrial curettings for path/POC" and consists of blood clot admixed with duong-brown soft tissue measuring 3.8 x 3.0 x 0.5 cm. The specimen is entirely submitted in A1-A3. (SD; 09/28/2017) SYU/SYU . 02 Pathologist provided ICD-10: O02.89 . 02 CPT . 329340 [facility]formed at: [facility] [address], [place] [id number] MD Jorge Chappell MD Phone: [phone] [facility]formed [facility]: [facility] [address] [place], [place] [id number] MD Mark Denise MD Phone: [phone]
== END 2017-09-28 13:25 | disposition home or self-care (01) | DRG 770 ==
LOC: ER 12:53 → 3 NORTH 16:30
PROVIDERS: ADMIT Specialist; ATTEND Specialist
PROC: 10D17ZZ Extraction of Products of Conception, Retained, Via Natural or Artificial Opening (ICD-10-PCS; principal; 2017-09-27 16:40)
DX: O03.9 Complete or unspecified spontaneous abortion without complication (principal); O24.011 Pre-existing type 1 diabetes mellitus, in pregnancy, first trimester; O46.91 Antepartum hemorrhage, unspecified, first trimester; F17.210 Nicotine dependence, cigarettes, uncomplicated; O09.40 Supervision of pregnancy with grand multiparity, unspecified trimester; Z79.4 Long term (current) use of insulin; Z83.3 Family history of diabetes mellitus; Z98.891 History of uterine scar from previous surgery; Z3A.14 14 weeks gestation of pregnancy
CPT/HCPCS: 36415; 76801; 80053; 82962; 83036; 84702; 85007; 85025; 86900; 86901; 96374; 96376; J0690; J1100; J1815; J2270; J2405; J2704; J3010; J7030; 99285-25

== ENCOUNTER 2018-10-25 20:17 | Inpatient (IN) | payer SELFPAY ==
[~2018-10-25] VITALS: Ht 162.6 cm; Wt 60.3 kg
[~2018-10-25 20:17] MED LIST changes: +HYDR-3164 PO; -HYDR-971 PO; +NAPR-514 PO
[2018-10-25] MEDS ORDERED: HYDROmorphone 2 MG/ML VIAL IV/SQ PRN (21:00)
[2018-10-25] MEDS ORDERED: diphenhydrAMINE 50 MG/ML VIAL IVP ONE (21:00)
[2018-10-25] MEDS ORDERED: IV NORMAL SALINE 1000ML BAG 1,000 ML IV SCH (21:00)
[2018-10-25] MEDS ORDERED: METOCLOPRAMIDE HCL 10 MG/2 ML VIAL. IV ONE (21:00)
[2018-10-25] MEDS ORDERED: INSULIN REGULAR 100 UNIT/ML 3ML VIAL. IV ONE (21:00)
[2018-10-25 21:04] LABS: BILIRUBIN,URINE NEGATIVE (NEG); CLARITY,URINE CLEAR; COLOR,URINE YELLOW; NITRITE,URINE NEGATIVE (NEG); PROTEIN,URINE NEGATIVE (NEG-TRACE); UROBILINOGEN,URINE 0.2 mg/dL (0.2 mg/dL)
[2018-10-25 21:11] LABS: BARBITURATES NEG (NEG); BENZODIAZEPINES NEG (NEG); CANNABINOIDS NEG (NEG); COCAINE NEG (NEG); METHADONE NEG (NEG); OPIATES NEG (NEG); PHENCYCLIDINE NEG (NEG)
[2018-10-25 21:12] LABS: AMPHETAMINE/METHAMPHETAMINE POS (NEG)
[2018-10-25 21:27] LABS: BASO % 0 % (0-3); EOS % 0 % (0-3); HEMATOCRIT 35.8 % (36.0-47.0); HEMOGLOBIN 10.7 g/dL (12.0-15.5); LYMPH # 0.5 x10^3/uL (1.0-4.8); LYMPH % 3 % (24-48); MEAN CORPUSCULAR HEMOGLOBIN 27 pg (25-35); MEAN CORPUSCULAR HGB CONC 30 g/dL (31-37); MEAN CORPUSCULAR VOLUME 91 fL (79-100); MONO # 0.1 x10^3/uL (0.0-1.1); MONO % 1 % (0-9); NEUT # 16.5 x10^3/uL (1.8-7.7); NEUT % 96 % (31-73); PLATELET COUNT 458 x10^3/uL (140-400); RED BLOOD COUNT 3.93 x10^6/uL (3.50-5.40); RED CELL DISTRIBUTION WIDTH 16.1 % (11.5-14.5); WHITE BLOOD COUNT 17.1 x10^3/uL (4.0-11.0)
[2018-10-25 21:34] LABS: BACTERIA,URINE FEW /HPF (0-FEW); RBC,URINE 0 /HPF (0-2); SQUAMOUS EPITHELIAL CELL,UR FEW /LPF
[2018-10-25 21:41] LABS: ALBUMIN 4.1 g/dL (3.4-5.0); ALBUMIN/GLOBULIN RATIO 1.1 (1.0-1.7); CALCIUM 9.7 mg/dL (8.5-10.1); CREATININE 1.4 mg/dL (0.6-1.0); GFR 42.3; TOTAL BILIRUBIN 0.5 mg/dL (0.2-1.0); TOTAL PROTEIN 7.9 g/dL (6.4-8.2)
[2018-10-25 22:03] LABS: PLT ESTIMATE INCREASED (ADEQUATE)
[2018-10-25 22:06] LABS: ANISOCYTOSIS SLIGHT; POIKILOCYTOSIS SLIGHT; POLYCHROMASIA SLIGHT
[2018-10-25] MEDS ORDERED: IV DEXTROSE 5% 250 ML BAG. IV PRN ×2 (22:15)
[2018-10-25] MEDS ORDERED: INSULIN REGULAR VIAL 150 UNIT in 0.9 % SODIUM CHLORIDE 150ML 150 ML IV PRN ×2 (22:15→23:15)
[2018-10-25] MEDS ORDERED: DEXTROSE 50% 25 GM / 50ML DISP.SYRIN. IV PRN ×2 (22:15)
--- NOTE | 2018-10-25 22:25 | PHYS DOC ---
Past Medical History Past Medical History: Anemia, Diabetes-Type I Additional Past Medical Histor: LOW IRON, Past Surgical History: Alcohol Use: None Drug Use: None Adult General Chief Complaint Chief Complaint: ABDOMINAL PAIN HPI HPI Patient is a 38-year-old female with type 1 diabetes who presents with complaint of acute onset of upper abdominal pain that radiates into her back along with nausea and vomiting that started earlier this morning. Patient states the pain is progressively worsening throughout the day. She rates her pain to be a 10 out of 10 and states that there is nothing that improves the pain. She states the pain is worsened if she tries to eat or when she is throwing up. Patient is not sure how high her blood sugar is. She does indicate that she has had DKA in the past.[] Review of Systems Review of Systems Constitutional: Denies fever or chills [] Respiratory: Denies cough or shortness of breath [] Cardiovascular: No additional information not addressed in HPI [] GI: Complains of abdominal pain with nausea and vomiting. Denies diarrhea [] : Denies dysuria or hematuria [] Musculoskeletal: Complains of mid back pain [] Integument: Denies rash or skin lesions [] All other systems were reviewed and found to be within normal limits, except as documented in this note. Current Medications Current Medications Current Medications Medications (Trade) Dose Ordered Sig/Lucio Start Time Stop Time Status Last Admin Dose Admin Diphenhydramine HCl (Benadryl) 25 mg 1X ONCE 10/25/18 21:00 10/25/18 21:01 DC 10/25/18 21:05 25 MG Hydromorphone HCl (Dilaudid) 1 mg PRN Q15MIN PRN 10/25/18 21:00 10/26/18 20:59 10/25/18 21:05 1 MG Insulin Human Regular (HumuLIN R VIAL) 10 unit 1X ONCE 10/25/18 21:00 10/25/18 21:01 DC 10/25/18 21:05 10 UNIT Metoclopramide HCl (Reglan Vial) 10 mg 1X ONCE 10/25/18 21:00 10/25/18 21:01 DC 10/25/18 21:05 10 MG Sodium Chloride 1,000 ml @ 1,000 mls/hr Q1H 10/25/18 21:00 10/25/18 21:59 DC 10/25/18 21:05 1,000 MLS/HR Allergies Allergies Allergies Coded Allergies Type Severity Reaction Last Updated Verified No Known Drug Allergies 03/03/15 No Physical Exam Physical Exam Constitutional: Well developed, well nourished, in moderate distress. [] HENT: Normocephalic, atraumatic, bilateral external ears normal, oropharynx dry, no oral exudates, nose normal. [] Eyes: PERRLA, EOMI, conjunctiva normal, no discharge. [] Neck: Normal range of motion, no tenderness, supple, no stridor. [] Cardiovascular: Tachycardic rate with regular rhythm[] Lungs & Thorax: Bilateral breath sounds clear to auscultation [] Abdomen: Bowel sounds normal, soft, with moderate tenderness to palpation in epigastric region. [] Skin: Warm, dry, no erythema, no rash. [] Extremities: No tenderness, no cyanosis, no clubbing, ROM intact, no edema. [] Neurologic: Alert and oriented X 3, no focal deficits noted. [] Current Patient Data Vital Signs Vital Signs Date Time Temp Pulse Resp B/P (MAP) Pulse Ox O2 Delivery O2 Flow Rate FiO2 10/25/18 21:51 124 106/57 (73) 100 Room Air 10/25/18 21:05 18 10/25/18 20:20 97.9 97.9 Lab Values Laboratory Tests Test 10/25/18 20:40 10/25/18 20:45 10/25/18 20:48 10/25/18 21:00 Urine Collection Type U cath Urine Color Yellow Urine Clarity Clear Urine pH 5.0 Urine Specific [place] 1.025 Urine Protein Negative mg/dL (NEG-TRACE) Urine Glucose (UA) >=1000 mg/dL (NEG) Urine Ketones (Stick) >=80 mg/dL (NEG) Urine Blood Negative (NEG) Urine Nitrite Negative (NEG) Urine Bilirubin Negative (NEG) Urine Urobilinogen Dipstick 0.2 mg/dL (0.2 mg/dL) Urine Leukocyte Esterase Negative (NEG) Urine RBC 0 /HPF (0-2) Urine WBC 1-4 /HPF (0-4) Urine Squamous Epithelial Cells Few /LPF Urine Bacteria Few /HPF (0-FEW) Urine Opiates Screen Neg (NEG) Urine Methadone Screen Neg (NEG) Urine Barbiturates Neg (NEG) Urine Phencyclidine Screen Neg (NEG) Urine Amphetamine/Methamphetamine Pos (NEG) Urine Benzodiazepines Screen Neg (NEG) Urine Cocaine Screen Neg (NEG) Urine Cannabinoids Screen Neg (NEG) Urine Ethyl Alcohol Neg (NEG) POC Urine HCG, Qualitative Hcg negative (Negative) O2 Saturation 96 % (92-99) Arterial Blood pH 7.03 (7.35-7.45) *L Arterial Blood pCO2 at Patient Temp < 15 mmHg (35-46) *L Arterial Blood pO2 at Patient Temp 117 mmHg (85-108) H Arterial Blood HCO3 4 mmol/L (21-28) L Arterial Blood Base Excess -25 mmol/L (-3-3) L White Blood Count 17.1 x10^3/uL (4.0-11.0) H Red Blood Count 3.93 x10^6/uL (3.50-5.40) Hemoglobin 10.7 g/dL (12.0-15.5) L Hematocrit 35.8 % (36.0-47.0) L Mean Corpuscular Volume 91 fL (79-100) Mean Corpuscular Hemoglobin 27 pg (25-35) Mean Corpuscular Hemoglobin Concent 30 g/dL (31-37) L Red Cell Distribution Width 16.1 % (11.5-14.5) H Platelet Count 458 x10^3/uL (140-400) H Neutrophils (%) (Auto) 96 % (31-73) H Lymphocytes (%) (Auto) 3 % (24-48) L Monocytes (%) (Auto) 1 % (0-9) Eosinophils (%) (Auto) 0 % (0-3) Basophils (%) (Auto) 0 % (0-3) Neutrophils # (Auto) 16.5 x10^3/uL (1.8-7.7) H Lymphocytes # (Auto) 0.5 x10^3/uL (1.0-4.8) L Monocytes # (Auto) 0.1 x10^3/uL (0.0-1.1) Eosinophils # (Auto) 0.0 x10^3/uL (0.0-0.7) Basophils # (Auto) 0.0 x10^3/uL (0.0-0.2) Platelet Estimate Increased (ADEQUATE) Polychromasia Slight Poikilocytosis Slight Anisocytosis Slight Sodium Level 139 mmol/L (136-145) Potassium Level 5.0 mmol/L (3.5-5.1) Chloride Level 96 mmol/L (98-107) L Carbon Dioxide Level 6 mmol/L (21-32) *L Anion Gap 37 (6-14) H Blood Urea Nitrogen 28 mg/dL (7-20) H Creatinine 1.4 mg/dL (0.6-1.0) H Estimated GFR (Cockcroft-Gault) 42.3 BUN/Creatinine Ratio 20 (6-20) Glucose Level 743 mg/dL (70-99) *H Calcium Level 9.7 mg/dL (8.5-10.1) Total Bilirubin 0.5 mg/dL (0.2-1.0) Aspartate Amino Transferase (AST) 6 U/L (15-37) L Alanine Aminotransferase (ALT) 18 U/L (14-59) Alkaline Phosphatase 131 U/L (46-116) H Total Protein 7.9 g/dL (6.4-8.2) Albumin 4.1 g/dL (3.4-5.0) Albumin/Globulin Ratio 1.1 (1.0-1.7) Lipase 222 U/L (73-393) Acetone Level Mod pos (NEG) Laboratory Tests 10/25/18 21:00 Laboratory Tests 10/25/18 21:00 EKG EKG [] Radiology/Procedures Radiology/Procedures [] Course & Med Decision Making Course & Med Decision Making Pertinent Labs and Imaging studies reviewed. (See chart for details) [] Dragon Disclaimer Dragon Disclaimer This electronic medical record was generated, in whole or in part, using a voice recognition dictation system. Departure Departure Impression: Primary Impression: DKA (diabetic ketoacidoses) Disposition: ADMITTED INPATIENT Admitting Physician: PEPE (Dr. Martin) Condition: IMPROVED Referrals: NO PCP (PCP) Problem Qualifiers Primary Impression: DKA (diabetic ketoacidoses) Diabetes mellitus type: type 1 Diabetes mellitus complication detail: without coma Qualified Codes: E10.10 - Type 1 diabetes mellitus with ketoac idosis without coma DENYS HOOD Jr. DO Oct 25, 2018 22:25
[2018-10-25 22:38] LABS: BASE EXCESS ABG -25 mmol/L (-3-3); HCO3 ABG 4 mmol/L (21-28); PO2 ABG 117 mmHg (85-108); SAT O2 ABG 96 % (92-99)
[2018-10-25 22:39] LABS: PCO2 ABG < 15 mmHg (35-46)
--- NOTE | 2018-10-25 22:53 | RAD ---
CT scan of the abdomen and pelvis without contrast 06/24/2018 CLINICAL HISTORY: Abdominal pain. TECHNIQUE: Unenhanced, contiguous, 5 mm axial sections were obtained through the abdomen and pelvis. One or more of the following individualized dose reduction techniques were utilized for this study: 1. Automated exposure control. 2. Adjustment of the mA and/or kV according to patient size. 3. Use of iterative reconstruction technique. FINDINGS: Images through the lung bases demonstrate minimal dependent subsegmental atelectasis bilaterally. The liver, spleen, pancreas, adrenal glands and kidneys are within normal limits. The abdominal aorta tapers normally. The appendix is well-visualized and is within normal limits. Images through the pelvis demonstrate the urinary bladder distended with urine. Calcifications are seen within the pelvis consistent with phleboliths. A 3.7 cm oval-shaped low-attenuation structure seen in the left adnexa. This likely represents a left ovarian cyst. No free fluid is seen. Minimal S-shaped curvature of the thoracolumbar spine is noted. IMPRESSION: 3.7 cm probable left ovarian cyst. Electronically signed by: Jalen Clayton MD (10/25/2018 10:50 PM) [facility]
[2018-10-25] MEDS ORDERED: IV NORMAL SALINE 1000ML BAG 1,000 ML IV ONE (23:00)
[2018-10-25] MEDS ORDERED: SODIUM BICARB ADULT 8.4% 50 MEQ/50 ML DISP.SYRIN. IV ONE (23:00)
[2018-10-25] MEDS ORDERED: POTASSIUM CHLORIDE 10MEQ 100 ML IV PRN ×3 (23:15)
[2018-10-25 23:45] VITALS: BP 113/77
[2018-10-25] MEDS ORDERED: IV 1/2 NORMAL SALINE 1,000 ML IV ONE (23:45)
--- NOTE | 2018-10-25 23:50 | NUR ---
Patient admitted to room 103. Pt taken to restroom and set up in bed. Pt is very anxious at this time due to severe dry mouth, but then calmed after drinking a few sips of water. Pt answered admission questions, but could not tell this RN a good emergency contact number or exactly how much insulin she is currently supposed to be on at home. DKA protocol in place at time of admit. Patient oriented to room and plan of care was discussed.
[2018-10-26] VITALS (17 sets, daily range): BP systolic 104–139; BP diastolic 47–94
[2018-10-26 01:33] LABS: CREATININE 1.5 mg/dL (0.6-1.0); GFR 39.1; MAGNESIUM 1.9 mg/dL (1.8-2.4); PHOSPHORUS 4.4 mg/dL (2.6-4.7); POTASSIUM 4.4 mmol/L (3.5-5.1)
[2018-10-26] MEDS: POTASSIUM CHLORIDE 10MEQ 100 ML IV SCH ×4 (02:20→07:47)
[2018-10-26] MEDS: IV 1/2 NORMAL SALINE 1,000 ML IV SCH ×2 (02:20→06:30)
[2018-10-26] MEDS ORDERED: FERR325T14 PO (02:58)
[2018-10-26] MEDS ORDERED: GABA300C18 PO (02:58)
[2018-10-26] MEDS: IV DEXTROSE 5 %-0.45 % NACL 1,000 ML IV SCH ×2 (03:33→07:47)
[2018-10-26] MEDS: ONDANSETRON PF 4 MG/2 ML VIAL. IV PRN ×2 (03:33→12:12)
[2018-10-26 05:10] LABS: CREATININE 1.3 mg/dL (0.6-1.0); GFR 46.1; MAGNESIUM 1.6 mg/dL (1.8-2.4); POTASSIUM 4.3 mmol/L (3.5-5.1)
[2018-10-26] MEDS ORDERED: MAGNESIUM SULFATE 4GM 100 ML IV ONE (07:00)
[2018-10-26] MEDS: INSULIN LISPRO 300 UNITS/3 ML VIAL. SQ SCH ×3 (08:00→17:25)
[2018-10-26 10:05] LABS: CALCIUM 8.3 mg/dL (8.5-10.1); GFR 62.4; MAGNESIUM 2.6 mg/dL (1.8-2.4); POTASSIUM 3.8 mmol/L (3.5-5.1)
[2018-10-26] MEDS ORDERED: PANTOPRAZOLE 40 MG TABLET.DR. PO ONE (10:45)
--- NOTE | 2018-10-26 11:25 | HP ---
ADMIT DATE: 10/26/2018 CHIEF COMPLAINT: Abdominal pain. HISTORY OF PRESENT ILLNESS: The patient is a pleasant 38-year-old female, type 1 diabetic since she was 15. She is well known to our service. She gets admitted periodically with DKA. Once again, she presents with DKA. She has abdominal pain. She has got some nausea. Her anion gap is elevated to 37. The patient is being admitted to the ICU with IV fluids and IV insulin. PAST MEDICAL HISTORY: Noncompliance, DKA, diabetes, anemia, . ALLERGIES: None. FAMILY HISTORY: Diabetes. SOCIAL HISTORY: She does not drink, smoke, or take drugs. MEDICATIONS: Reviewed, please refer to the MRAD. REVIEW OF SYSTEMS: GENERAL: No history of weight change, weakness or fevers. SKIN: No bruising, hair changes or rashes. EYES: No blurred, double or loss of vision. NOSE AND THROAT: No history of nosebleeds, hoarseness or sore throat. HEART: No history of palpitations, chest pain or shortness of breath on exertion. LUNGS: Denies cough, hemoptysis, wheezing or shortness of breath. GASTROINTESTINAL: She complains of abdominal pain. GENITOURINARY: No history of frequency, urgency, hesitancy or nocturia. NEUROLOGIC: Denies history of numbness, tingling, tremor or weakness. PSYCHIATRIC: No history of panic, anxiety or depression. ENDOCRINE: No history of heat or cold intolerance, polyuria or polydipsia. EXTREMITIES: Denies muscle weakness, joint pain, pain on walking or stiffness. PHYSICAL EXAMINATION: VITALS: Within normal limits and are stable. GENERAL: No apparent distress. Alert and oriented. HEENT: Head is normocephalic, atraumatic, pupils were equally round and reactive to light and accommodation. NECK: Supple, no JVD, no thyromegaly was noted. LUNGS: Clear to auscultation in all lung nogueira without rhonchi or wheezing. HEART: RRR, S1, S2 present. Peripheral pulses intact, no obvious murmurs were noted. ABDOMEN: Soft, nontender. Positive bowel sounds no organomegaly, normal bowel sounds. EXTREMITIES: Without any cyanosis, clubbing, or edema. Pedal pulses intact, Homans sign is negative. NEUROLOGIC: She is quite weak. PSYCHIATRIC: Normal affect, normal mood. Stable. SKIN: No ulcerations or rashes, good skin turgor, no jaundice. VASCULAR: Good capillary refill, neurovascular bundle appears to be intact. LABORATORY DATA: Anion gap was 37. It is now improving and is down to 16, still high. ASSESSMENT AND PLAN: DKA. The patient has been admitted to the ICU on DKA protocol, IV fluids, IV insulin, frequent labs. Once her anion gap clears, we hope to get her on to subcutaneous insulin and advance her diet. PROGNOSIS: Guarded. JB THAPA DO DR: SALVATORE/natividad JOB#: [id number] / [id number]
--- NOTE | 2018-10-26 12:44 | NUR ---
SS following for discharge planning. SS reviewed pt chart. Pt is self pay pt. [facility] following for self pay status. Pt is from home and is currently on room air. Pt positive for Meth. PAT team called for assessment and recommendations. SS met with pt and provided resources for [facility], [facility], $4 medication list, community resource guide, and prescription savings card. No other discharge needs noted at this time. SS will continue to follow for discharge planning.
--- NOTE | 2018-10-26 13:21 | NUR ---
pt arrived to unit at 1300 in stable condition. pt is oriented but drowsy and on RA. pt is rating her pain 7/10 but appears to be resting comfortably and falls back asleep after answering questions. call light is within reach and pt states she does not need anything at this time. received report from VIDAL Valenzuela in ICU. will continue to monitor.
--- NOTE | 2018-10-26 15:22 | NUR ---
SW following pt for dc planning. Chart reviewed and pt is a transfer from ICU. Pt was seen by PAT team. Discharge disposition is home. D/w NICHO Loredo.
[2018-10-26] MEDS: fentaNYL PF VIAL 100 MCG/2 ML VIAL IV PRN (20:49)
[2018-10-27] VITALS (11 sets, daily range): BP systolic 102–136; BP diastolic 53–77
[2018-10-27] MEDS: fentaNYL PF VIAL 100 MCG/2 ML VIAL IV PRN ×5 (03:44→20:39)
--- NOTE | 2018-10-27 07:24 | PDOC ---
PROGRESS NOTES History of Present Illness History of Present Illness ASSESSMENT AND PLAN: DKA. METH ABUSE HX 3.7 cm probable left ovarian cyst. admitted DKA UNCONTROLLED DIABETES protocol, DKA IV fluids, IV insulin, PRN frequent labs. SS subcutaneous insulin and advance her diet. 36 MIN PT EXAM, CHART REVIEW, > 50% OF TIME SPENT WITH EXAM, CHART REVIEW, PT CARE COORDINATION Vitals Vitals Vital Signs Date Time Temp Pulse Resp B/P (MAP) Pulse Ox O2 Delivery O2 Flow Rate FiO2 10/27/18 04:33 18 Room Air 10/27/18 03:00 98.5 92 102/54 (70) 97 98.5 Physical Exam Physical Exam HEENT: Head is normocephalic, atraumatic, pupils were equally round and reactive to light and accommodation. NECK: Supple, no JVD, no thyromegaly was noted. LUNGS: Clear to auscultation in all lung nogueira without rhonchi or wheezing. HEART: RRR, S1, S2 present. Peripheral pulses intact, no obvious murmurs were noted. ABDOMEN: Soft, nontender. Positive bowel sounds no organomegaly, normal bowel sounds. EXTREMITIES: Without any cyanosis, clubbing, or edema. Pedal pulses intact, Homans sign is negative. NEUROLOGIC: She is quite weak. PSYCHIATRIC: Normal affect, normal mood. Stable. SKIN: No ulcerations or rashes, good skin turgor, no jaundice. VASCULAR: Good capillary refill, neurovascular bundle appears to be intact General: Alert, Oriented X3, Cooperative Heart: Regular rate, Normal S1, Normal S2 Lungs: Clear Abdomen: Normal bowel sounds, Soft, No tenderness Extremities: No cyanosis Labs LABS STATUS: REG ER ORD. PHYSICIAN: DENYS HOOD Jr. DO REASON: abd pain PROCEDURE: CT ABDOMEN PELVIS WO CONTRAST CT scan of the abdomen and pelvis without contrast 06/24/2018 CLINICAL HISTORY: Abdominal pain. TECHNIQUE: Unenhanced, contiguous, 5 mm axial sections were obtained through the abdomen and pelvis. One or more of the following individualized dose reduction techniques were utilized for this study: 1. Automated exposure control. 2. Adjustment of the mA and/or kV according to patient size. 3. Use of iterative reconstruction technique. FINDINGS: Images through the lung bases demonstrate minimal dependent subsegmental atelectasis bilaterally. The liver, spleen, pancreas, adrenal glands and kidneys are within normal limits. The abdominal aorta tapers normally. The appendix is well-visualized and is within normal limits. Images through the pelvis demonstrate the urinary bladder distended with urine. Calcifications are seen within the pelvis consistent with phleboliths. A 3.7 cm oval-shaped low-attenuation structure seen in the left adnexa. This likely represents a left ovarian cyst. No free fluid is seen. Minimal S-shaped curvature of the thoracolumbar spine is noted. IMPRESSION: 3.7 cm probable left ovarian cyst. Electronically signed by: Jalen Clayton MD (10/25/2018 10:50 PM) [facility] Laboratory Tests Test 10/26/18 07:49 10/26/18 08:49 10/26/18 09:00 10/26/18 09:58 Glucose (Fingerstick) 149 mg/dL (70-99) 126 mg/dL (70-99) 122 mg/dL (70-99) Sodium Level 141 mmol/L (136-145) Potassium Level 3.8 mmol/L (3.5-5.1) Chloride Level 107 mmol/L (98-107) Carbon Dioxide Level 25 mmol/L (21-32) Anion Gap 9 (6-14) Blood Urea Nitrogen 22 mg/dL (7-20) Creatinine 1.0 mg/dL (0.6-1.0) Estimated GFR (Cockcroft-Gault) 62.4 Glucose Level 120 mg/dL (70-99) Calcium Level 8.3 mg/dL (8.5-10.1) Phosphorus Level 2.0 mg/dL (2.6-4.7) Magnesium Level 2.6 mg/dL (1.8-2.4) Test 10/26/18 12:05 10/26/18 16:44 10/26/18 21:25 Glucose (Fingerstick) 182 mg/dL (70-99) 243 mg/dL (70-99) 253 mg/dL (70-99) Assessment and Plan Assessmemt and Plan Problems Medical Problems: (1) DKA (diabetic ketoacidoses) Status: Acute Comment Review of Relevant I have reviewed the following items olena (where applicable) has been applied. Labs Laboratory Tests Test 10/25/18 20:40 10/25/18 20:45 10/25/18 20:48 10/25/18 21:00 Urine Collection Type U cath Urine Color Yellow Urine Clarity Clear Urine pH 5.0 Urine Specific [place] 1.025 Urine Protein Negative mg/dL (NEG-TRACE) Urine Glucose (UA) >=1000 mg/dL (NEG) Urine Ketones (Stick) >=80 mg/dL (NEG) Urine Blood Negative (NEG) Urine Nitrite Negative (NEG) Urine Bilirubin Negative (NEG) Urine Urobilinogen Dipstick 0.2 mg/dL (0.2 mg/dL) Urine Leukocyte Esterase Negative (NEG) Urine RBC 0 /HPF (0-2) Urine WBC 1-4 /HPF (0-4) Urine Squamous Epithelial Cells Few /LPF Urine Bacteria Few /HPF (0-FEW) Urine Opiates Screen Neg (NEG) Urine Methadone Screen Neg (NEG) Urine Barbiturates Neg (NEG) Urine Phencyclidine Screen Neg (NEG) Urine Amphetamine/Methamphetamine Pos (NEG) Urine Benzodiazepines Screen Neg (NEG) Urine Cocaine Screen Neg (NEG) Urine Cannabinoids Screen Neg (NEG) Urine Ethyl Alcohol Neg (NEG) Bedside Urine HCG, Qualitative Hcg negative (Negative) O2 Saturation 96 % (92-99) Arterial Blood pH 7.03 (7.35-7.45) Arterial Blood pCO2 at Patient Temp < 15 mmHg (35-46) Arterial Blood pO2 at Patient Temp 117 mmHg (85-108) Arterial Blood HCO3 4 mmol/L (21-28) Arterial Blood Base Excess -25 mmol/L (-3-3) White Blood Count 17.1 x10^3/uL (4.0-11.0) Red Blood Count 3.93 x10^6/uL (3.50-5.40) Hemoglobin 10.7 g/dL (12.0-15.5) Hematocrit 35.8 % (36.0-47.0) Mean Corpuscular Volume 91 fL (79-100) Mean Corpuscular Hemoglobin 27 pg (25-35) Mean Corpuscular Hemoglobin Concent 30 g/dL (31-37) Red Cell Distribution Width 16.1 % (11.5-14.5) Platelet Count 458 x10^3/uL (140-400) Neutrophils (%) (Auto) 96 % (31-73) Lymphocytes (%) (Auto) 3 % (24-48) Monocytes (%) (Auto) 1 % (0-9) Eosinophils (%) (Auto) 0 % (0-3) Basophils (%) (Auto) 0 % (0-3) Neutrophils # (Auto) 16.5 x10^3/uL (1.8-7.7) Lymphocytes # (Auto) 0.5 x10^3/uL (1.0-4.8) Monocytes # (Auto) 0.1 x10^3/uL (0.0-1.1) Eosinophils # (Auto) 0.0 x10^3/uL (0.0-0.7) Basophils # (Auto) 0.0 x10^3/uL (0.0-0.2) Platelet Estimate Increased (ADEQUATE) Polychromasia Slight Poikilocytosis Slight Anisocytosis Slight Sodium Level 139 mmol/L (136-145) Potassium Level 5.0 mmol/L (3.5-5.1) Chloride Level 96 mmol/L (98-107) Carbon Dioxide Level 6 mmol/L (21-32) Anion Gap 37 (6-14) Blood Urea Nitrogen 28 mg/dL (7-20) Creatinine 1.4 mg/dL (0.6-1.0) Estimated GFR (Cockcroft-Gault) 42.3 BUN/Creatinine Ratio 20 (6-20) Glucose Level 743 mg/dL (70-99) Calcium Level 9.7 mg/dL (8.5-10.1) Total Bilirubin 0.5 mg/dL (0.2-1.0) Aspartate Amino Transf (AST/SGOT) 6 U/L (15-37) Alanine Aminotransferase (ALT/SGPT) 18 U/L (14-59) Alkaline Phosphatase 131 U/L (46-116) Total Protein 7.9 g/dL (6.4-8.2) Albumin 4.1 g/dL (3.4-5.0) Albumin/Globulin Ratio 1.1 (1.0-1.7) Lipase 222 U/L (73-393) Acetone Level Mod pos (NEG) Test 10/25/18 22:57 10/26/18 00:05 10/26/18 01:08 10/26/18 01:10 Glucose (Fingerstick) 496 mg/dL (70-99) 470 mg/dL (70-99) 379 mg/dL (70-99) Sodium Level 143 mmol/L (136-145) Potassium Level 4.4 mmol/L (3.5-5.1) Chloride Level 102 mmol/L (98-107) Carbon Dioxide Level 12 mmol/L (21-32) Anion Gap 29 (6-14) Blood Urea Nitrogen 29 mg/dL (7-20) Creatinine 1.5 mg/dL (0.6-1.0) Estimated GFR (Cockcroft-Gault) 39.1 Glucose Level 401 mg/dL (70-99) Calcium Level 9.0 mg/dL (8.5-10.1) Phosphorus Level 4.4 mg/dL (2.6-4.7) Magnesium Level 1.9 mg/dL (1.8-2.4) Test 10/26/18 02:17 10/26/18 03:21 10/26/18 04:24 10/26/18 04:35 Glucose (Fingerstick) 283 mg/dL (70-99) 196 mg/dL (70-99) 192 mg/dL (70-99) Sodium Level 142 mmol/L (136-145) Potassium Level 4.3 mmol/L (3.5-5.1) Chloride Level 104 mmol/L (98-107) Carbon Dioxide Level 22 mmol/L (21-32) Anion Gap 16 (6-14) Blood Urea Nitrogen 28 mg/dL (7-20) Creatinine 1.3 mg/dL (0.6-1.0) Estimated GFR (Cockcroft-Gault) 46.1 Glucose Level 189 mg/dL (70-99) Calcium Level 9.0 mg/dL (8.5-10.1) Phosphorus Level 3.0 mg/dL (2.6-4.7) Magnesium Level 1.6 mg/dL (1.8-2.4) Test 10/26/18 05:31 10/26/18 06:42 10/26/18 07:49 10/26/18 08:49 Glucose (Fingerstick) 194 mg/dL (70-99) 167 mg/dL (70-99) 149 mg/dL (70-99) 126 mg/dL (70-99) Test 10/26/18 09:00 10/26/18 09:58 10/26/18 12:05 10/26/18 16:44 Sodium Level 141 mmol/L (136-145) Potassium Level 3.8 mmol/L (3.5-5.1) Chloride Level 107 mmol/L (98-107) Carbon Dioxide Level 25 mmol/L (21-32) Anion Gap 9 (6-14) Blood Urea Nitrogen 22 mg/dL (7-20) Creatinine 1.0 mg/dL (0.6-1.0) Estimated GFR (Cockcroft-Gault) 62.4 Glucose Level 120 mg/dL (70-99) Calcium Level 8.3 mg/dL (8.5-10.1) Phosphorus Level 2.0 mg/dL (2.6-4.7) Magnesium Level 2.6 mg/dL (1.8-2.4) Glucose (Fingerstick) 122 mg/dL (70-99) 182 mg/dL (70-99) 243 mg/dL (70-99) Test 10/26/18 21:25 Glucose (Fingerstick) 253 mg/dL (70-99) Laboratory Tests Test 10/26/18 07:49 10/26/18 08:49 10/26/18 09:00 10/26/18 09:58 Glucose (Fingerstick) 149 mg/dL (70-99) 126 mg/dL (70-99) 122 mg/dL (70-99) Sodium Level 141 mmol/L (136-145) Potassium Level 3.8 mmol/L (3.5-5.1) Chloride Level 107 mmol/L (98-107) Carbon Dioxide Level 25 mmol/L (21-32) Anion Gap 9 (6-14) Blood Urea Nitrogen 22 mg/dL (7-20) Creatinine 1.0 mg/dL (0.6-1.0) Estimated GFR (Cockcroft-Gault) 62.4 Glucose Level 120 mg/dL (70-99) Calcium Level 8.3 mg/dL (8.5-10.1) Phosphorus Level 2.0 mg/dL (2.6-4.7) Magnesium Level 2.6 mg/dL (1.8-2.4) Test 10/26/18 12:05 10/26/18 16:44 10/26/18 21:25 Glucose (Fingerstick) 182 mg/dL (70-99) 243 mg/dL (70-99) 253 mg/dL (70-99) Medications Current Medications Hydromorphone HCl (Dilaudid) 1 mg PRN Q15MIN PRN IV/SQ PAIN GREATER THAN 3/10 Last administered on 10/25/18at 21:05; Start 10/25/18 at 21:00; Stop 10/26/18 at 20:59; Status DC Sodium Chloride 1,000 ml @ 1,000 mls/hr Q1H IV Last administered on 10/25/18at 21:05; Start 10/25/18 at 21:00; Stop 10/25/18 at 21:59; Status DC Metoclopramide HCl (Reglan Vial) 10 mg 1X ONCE IV Last administered on 10/25/18at 21:05; Start 10/25/18 at 21:00; Stop 10/25/18 at 21:01; Status DC Diphenhydramine HCl (Benadryl) 25 mg 1X ONCE IVP Last administered on 10/25/18at 21:05; Start 10/25/18 at 21:00; Stop 10/25/18 at 21:01; Status DC Insulin Human Regular (HumuLIN R VIAL) 10 unit 1X ONCE IV Last administered on 10/25/18at 21:05; Start 10/25/18 at 21:00; Stop 10/25/18 at 21:01; Status DC Insulin Human Regular 150 unit/ Sodium Chloride 151.5 ml @ 0 mls/hr CONT PRN IV SEE I/O RECORD Last administered on 10/25/18at 23:02; Start 10/25/18 at 22:15; Stop 10/26/18 at 12:29; Status DC Dextrose (Dextrose 50%-Water Syringe) 12.5 gm PRN Q15MIN PRN IV LOW BLOOD SUGAR; Start 10/25/18 at 22:15 Dextrose 250 ml PRN Q15MIN PRN IV LOW BLOOD SUGAR; Start 10/25/18 at 22:15 Insulin Human Lispro (HumaLOG) 0-7 UNITS TIDWMEALS SQ Last administered on 10/26/18at 17:25; Start 10/26/18 at 08:00 Dextrose (Dextrose 50%-Water Syringe) 12.5 gm PRN Q15MIN PRN IV SEE COMMENTS; Start 10/25/18 at 22:15; Stop 10/25/18 at 22:16; Status DC Dextrose 250 ml PRN Q15MIN PRN IV SEE COMMENTS; Start 10/25/18 at 22:15; Stop 10/25/18 at 22:16; Status DC Sodium Chloride 1,000 ml @ 1,000 mls/hr 1X ONCE IV ; Start 10/25/18 at 23:00; Stop 10/25/18 at 23:59; Status DC Sodium Bicarbonate (Sodium Bicarb Adult 8.4% Syr) 50 meq 1X ONCE IV Last administered on 10/26/18at 00:21; Start 10/25/18 at 23:00; Stop 10/25/18 at 23:01; Status DC Insulin Human Regular 150 unit/ Sodium Chloride 151.5 ml @ 0 mls/hr CONT PRN PRN IV PER PROTOCOL; Start 10/25/18 at 23:15; Status Cancel Potassium Chloride/Water 100 ml @ 100 mls/hr PRN Q1HR PRN IV SEE COMMENTS; Start 10/25/18 at 23:15; Stop 10/26/18 at 12:29; Status DC Potassium Chloride/Water 100 ml @ 100 mls/hr PRN Q1HR PRN IV SEE COMMENTS; Start 10/25/18 at 23:15; Stop 10/26/18 at 12:29; Status DC Potassium Chloride/Water 100 ml @ 100 mls/hr PRN Q1HR PRN IV SEE COMMENTS; Start 10/25/18 at 23:15; Stop 10/26/18 at 12:29; Status DC Sodium Chloride 1,000 ml @ 500 mls/hr 1X ONCE IV Last administered on 10/26/18at 00:15; Start 10/25/18 at 23:45; Stop 10/26/18 at 03:29; Status DC Ondansetron HCl (Zofran) 4 mg PRN Q4HRS PRN IV NAUSEA/VOMITING 1ST CHOICE Last administered on 10/26/18at 12:14; Start 10/26/18 at 01:30 Fentanyl Citrate (Fentanyl 2ml Vial) 25 mcg PRN Q3HRS PRN IV SEVERE PAIN 7-10 Last administered on 10/27/18at 03:44; Start 10/26/18 at 01:30 Sodium Chloride 1,000 ml @ 250 mls/hr Q4H IV Last administered on 10/26/18at 02:20; Start 10/26/18 at 02:30; Stop 10/26/18 at 06:33; Status DC Potassium Chloride/Water 100 ml @ 100 mls/hr Q1H IV Last administered on 10/26/18at 03:55; Start 10/26/18 at 03:00; Stop 10/26/18 at 04:59; Status DC Dextrose/Sodium Chloride 1,000 ml @ 250 mls/hr Q4H IV Last administered on 10/26/18at 07:47; Start 10/26/18 at 03:30; Stop 10/26/18 at 12:29; Status DC Potassium Chloride/Water 100 ml @ 100 mls/hr Q1H IV Last administered on 10/26/18at 07:47; Start 10/26/18 at 06:00; Stop 10/26/18 at 07:59; Status DC Magnesium Sulfate 100 ml @ 25 mls/hr 1X ONCE IV Last administered on 10/26/18at 06:34; Start 10/26/18 at 07:00; Stop 10/26/18 at 10:59; Status DC Pantoprazole Sodium (Protonix) 40 mg DAILYAC PO ; Start 10/27/18 at 07:30 Pantoprazole Sodium (Protonix) 40 mg 1X ONCE PO Last administered on 10/26/18at 10:39; Start 10/26/18 at 10:45; Stop 10/26/18 at 10:46; Status DC Active Scripts Active [place] 5-325 Tablet (Acetaminophen/Hydrocodone Bitart) 1 Each Tablet 1 Tab PO PRN Q6HRS PRN Naproxen 500 Mg Tablet 500 Mg PO BID Robaxin (Methocarbamol) 500 Mg Tablet 500 Mg PO QID [place] 5-325 Tablet (Acetaminophen/Hydrocodone Bitart) 1 Each Tablet 1 Tab PO PRN Q6HRS PRN Macrobid 100 Mg Capsule (Nitrofurantoin Monohyd/M-Cryst) 100 Mg Capsule 100 Mg PO BID Zofran (Ondansetron Hcl) 4 Mg Tablet 4 Mg PO BID PRN Chlorhexidine Gluconate 118 Ml Liquid 5 Ml TP BID rinse and spit [place] 5-325 Tablet (Acetaminophen/Hydrocodone Bitart) 1 Each Tablet 1-2 Tab PO Q4-6HRS Reported Ferrous Sulfate 325 Mg Tablet 1 Tab PO DAILY Gabapentin (Gabapentin) 300 Mg Capsule 300 Mg PO TID Lantus Solostar (Insulin Glargine,Hum.rec.anlog) 100 Unit/1 Ml Insuln.pen 12 Unit SQ QHS Novolog (Insulin Aspart) Unknown Strength Cartridge Unknown Dose SQ Vitals/I & O Vital Sign - Last 24 Hours 10/26/18 10/26/18 10/26/18 10/26/18 08:00 08:00 09:00 10:00 Temp 98.6 98.6 Pulse 110 102 102 Resp 19 19 18 B/P (MAP) 119/63 (81) 112/57 (75) 107/58 (74) Pulse Ox 98 98 98 O2 Delivery Room Air Room Air Room Air Room Air 10/26/18 10/26/18 10/26/18 10/26/18 12:00 13:08 15:38 19:00 Temp 98.4 98.8 98.8 98.4 98.8 98.8 Pulse 102 103 108 Resp 17 16 18 B/P (MAP) 112/60 (77) 104/47 (66) 119/70 (86) Pulse Ox 99 99 99 O2 Delivery Room Air Room Air Room Air Room Air 10/26/18 10/26/18 10/27/18 10/27/18 20:00 23:00 03:00 03:44 Temp 99.1 98.5 99.1 98.5 Pulse 103 92 Resp 18 18 20 B/P (MAP) 125/68 (87) 102/54 (70) Pulse Ox 96 97 O2 Delivery Room Air Room Air Room Air Room Air 10/27/18 04:33 Resp 18 O2 Delivery Room Air Intake and Output 10/26/18 10/26/18 10/27/18 14:59 22:59 06:59 Intake Total 300 ml Balance 300 ml LINO BUITRAGO MD Oct 27, 2018 07:24
[2018-10-27] MEDS: INSULIN LISPRO 300 UNITS/3 ML VIAL. SQ SCH ×2 (08:00→13:15)
--- NOTE | 2018-10-27 08:02 | NUR ---
Dr. Hernandez paged at [phone] and [phone] for fsbg of [phone]. No return phone call at this time. Shift change completed. Mora RN caring for pt now, up to date of pt lab and no return physician call yet. Lab previously ordered stat, no yet drawn yet either.
--- NOTE | 2018-10-27 08:45 | NUR ---
CALL PLACED TO DR. THAPA REGARDING PATIENTS BLOOD GLUCOSE [phone] FROM LAB DRAW AND NO CALL BACK HAS BEEN RECEIVED SINCE NIGHT NURSE PLACED A CALL PRIOR TO LEAVING, PATIENT ASYMPTOMATIC AND WITHOUT S/S OF HYPOGLYCEMIA.
--- NOTE | 2018-10-27 09:05 | NUR ---
CALL NUMBER THREE PLACED TO [address]. THAPA OR CUT OUT MARKER MD REGARDING BLOOD SUGAR LEVEL AWAITING CALL BACK AT THIS TIME.
[2018-10-27] MEDS: PANTOPRAZOLE 40 MG TABLET.DR. PO SCH (09:13)
[2018-10-27] MEDS: ONDANSETRON PF 4 MG/2 ML VIAL. IV PRN ×3 (09:14→21:57)
--- NOTE | 2018-10-27 09:25 | NUR ---
CALL PLACED TO DR. BUITRAGO AT THIS TIME REGARDING BLOOD SUGAR LEVEL, WILL NOTIFY NURSING COMMERCIAL LOAN ADMINISTRATOR NEXT.
[2018-10-27] MEDS ORDERED: INSULIN LISPRO 300 UNITS/3 ML VIAL. SQ ONE (09:45)
--- NOTE | 2018-10-27 09:56 | NUR ---
RECEIVED A CALL BACK FROM DR. BUITRAGO ORDERS RECEIVED TO GIVE 10 UNITS OF NOVOLOG INSULIN NOW AND RECHECK BLOOD SUGAR LEVELS EVERY 30 MINS. RETURN CALL IF BLOOD SUGAR LEVELS ARE NOT DECREASING.
[2018-10-27 14:15] LABS: BASO # 0.1 x10^3/uL (0.0-0.2); BASO % 0 % (0-3); EOS # 0.1 x10^3/uL (0.0-0.7); EOS % 1 % (0-3); HEMATOCRIT 32.4 % (36.0-47.0); HEMOGLOBIN 9.8 g/dL (12.0-15.5); LYMPH # 1.4 x10^3/uL (1.0-4.8); LYMPH % 13 % (24-48); MEAN CORPUSCULAR HEMOGLOBIN 27 pg (25-35); MEAN CORPUSCULAR HGB CONC 30 g/dL (31-37); MEAN CORPUSCULAR VOLUME 91 fL (79-100); MONO # 0.4 x10^3/uL (0.0-1.1); MONO % 4 % (0-9); NEUT # 9.3 x10^3/uL (1.8-7.7); NEUT % 82 % (31-73); PLATELET COUNT 308 x10^3/uL (140-400); RED BLOOD COUNT 3.57 x10^6/uL (3.50-5.40); RED CELL DISTRIBUTION WIDTH 16.5 % (11.5-14.5); WHITE BLOOD COUNT 11.3 x10^3/uL (4.0-11.0)
[2018-10-27 14:27] LABS: ALBUMIN 3.4 g/dL (3.4-5.0); CALCIUM 9.1 mg/dL (8.5-10.1); GFR 62.4; POTASSIUM 5.6 mmol/L (3.5-5.1); TOTAL BILIRUBIN 0.4 mg/dL (0.2-1.0); TOTAL PROTEIN 6.7 g/dL (6.4-8.2)
--- NOTE | 2018-10-27 15:30 | NUR ---
DR. BUITRAGO INFORMED THAT PATIENTS' BLOOD SUGAR LEVELS HAVE DECREASED BUT HER ANION GAP LEVEL IS 21, STATED HE WOULD RESTART INSULIN DRIP AND TRANSFER TO ICU FOR CLOSER OBSERVATION.
[2018-10-27 15:44] LABS: CALCIUM 9.5 mg/dL (8.5-10.1); GFR 62.4; POTASSIUM 4.8 mmol/L (3.5-5.1)
[2018-10-27] MEDS ORDERED: INSULIN REGULAR VIAL 150 UNIT in 0.9 % SODIUM CHLORIDE 150ML 150 ML IV PRN (16:45)
[2018-10-27] MEDS ORDERED: DEXTROSE 50% 25 GM / 50ML DISP.SYRIN. IV PRN (16:45)
[2018-10-27] MEDS ORDERED: IV NORMAL SALINE 1000ML BAG 1,000 ML IV SCH (17:30)
[2018-10-27] MEDS ORDERED: IV DEXTROSE 5% - 0.9 % NACL 1,000 ML IV SCH (17:45)
--- NOTE | 2018-10-27 19:02 | PDOC ---
PROGRESS NOTES History of Present Illness History of Present Illness ASSESSMENT AND PLAN: DKA. incompletely resolved METH ABUSE HX 3.7 cm probable left ovarian cyst. admitted DKA UNCONTROLLED DIABETES protocol, DKA IV fluids, IV insulin, PRN frequent labs. SS subcutaneous insulin and advance her diet. transfer to [facility], dka protocol , drip 36 MIN PT EXAM, CHART REVIEW cc time , Vitals Vitals Vital Signs Date Time Temp Pulse Resp B/P (MAP) Pulse Ox O2 Delivery O2 Flow Rate FiO2 10/27/18 18:45 18 96 Room Air 10/27/18 18:00 107 123/71 (88) 10/27/18 17:33 99.1 99.1 Physical Exam Physical Exam HEENT: Head is normocephalic, atraumatic, pupils were equally round and reactive to light and accommodation. NECK: Supple, no JVD, no thyromegaly was noted. LUNGS: Clear to auscultation in all lung nogue[place] without rhonchi or wheezing. HEART: RRR, S1, S2 present. Peripheral pulses intact, no obvious murmurs were noted. ABDOMEN: Soft, nontender. Positive bowel sounds no organomegaly, normal bowel sounds. EXTREMITIES: Without any cyanosis, clubbing, or edema. Pedal pulses intact, Homans sign is negative. NEUROLOGIC: She is quite weak. PSYCHIATRIC: Normal affect, normal mood. Stable. SKIN: No ulcerations or rashes, good skin turgor, no jaundice. VASCULAR: Good capillary refill, neurovascular bundle appears to be intact General: Alert, Oriented X3, Cooperative, mild distress Heart: Regular rate, Normal S1, Normal S2 Lungs: Clear Abdomen: Normal bowel sounds, Soft, No tenderness Extremities: No cyanosis Labs LABS CT scan of the abdomen and pelvis without contrast 06/24/2018 CLINICAL HISTORY: Abdominal pain. TECHNIQUE: Unenhanced, contiguous, 5 mm axial sections were obtained through the abdomen and pelvis. One or more of the following individualized dose reduction techniques were utilized for this study: 1. Automated exposure control. 2. Adjustment of the mA and/or kV according to patient size. 3. Use of iterative reconstruction technique. FINDINGS: Images through the lung bases demonstrate minimal dependent subsegmental atelectasis bilaterally. The liver, spleen, pancreas, adrenal glands and kidneys are within normal limits. The abdominal aorta tapers normally. The appendix is well-visualized and is within normal limits. Images through the pelvis demonstrate the urinary bladder distended with urine. Calcifications are seen within the pelvis consistent with phleboliths. A 3.7 cm oval-shaped low-attenuation structure seen in the left adnexa. This likely represents a left ovarian cyst. No free fluid is seen. Minimal S-shaped curvature of the thoracolumbar spine is noted. IMPRESSION: 3.7 cm probable left ovarian cyst. Electronically signed by: Jalen Clayton MD (10/25/2018 10:50 PM) [facility] Laboratory Tests Test 10/26/18 21:25 10/27/18 07:30 10/27/18 08:05 10/27/18 10:21 Glucose (Fingerstick) 253 mg/dL (70-99) 537 mg/dL (70-99) 514 mg/dL (70-99) White Blood Count 11.3 x10^3/uL (4.0-11.0) Red Blood Count 3.57 x10^6/uL (3.50-5.40) Hemoglobin 9.8 g/dL (12.0-15.5) Hematocrit 32.4 % (36.0-47.0) Mean Corpuscular Volume 91 fL (79-100) Mean Corpuscular Hemoglobin 27 pg (25-35) Mean Corpuscular Hemoglobin Concent 30 g/dL (31-37) Red Cell Distribution Width 16.5 % (11.5-14.5) Platelet Count 308 x10^3/uL (140-400) Neutrophils (%) (Auto) 82 % (31-73) Lymphocytes (%) (Auto) 13 % (24-48) Monocytes (%) (Auto) 4 % (0-9) Eosinophils (%) (Auto) 1 % (0-3) Basophils (%) (Auto) 0 % (0-3) Neutrophils # (Auto) 9.3 x10^3/uL (1.8-7.7) Lymphocytes # (Auto) 1.4 x10^3/uL (1.0-4.8) Monocytes # (Auto) 0.4 x10^3/uL (0.0-1.1) Eosinophils # (Auto) 0.1 x10^3/uL (0.0-0.7) Basophils # (Auto) 0.1 x10^3/uL (0.0-0.2) Sodium Level 134 mmol/L (136-145) Potassium Level 5.6 mmol/L (3.5-5.1) Chloride Level 97 mmol/L (98-107) Carbon Dioxide Level 11 mmol/L (21-32) Anion Gap 26 (6-14) Blood Urea Nitrogen 15 mg/dL (7-20) Creatinine 1.0 mg/dL (0.6-1.0) Estimated GFR (Cockcroft-Gault) 62.4 BUN/Creatinine Ratio 15 (6-20) Glucose Level 529 mg/dL (70-99) Calcium Level 9.1 mg/dL (8.5-10.1) Total Bilirubin 0.4 mg/dL (0.2-1.0) Aspartate Amino Transf (AST/SGOT) 9 U/L (15-37) Alanine Aminotransferase (ALT/SGPT) 14 U/L (14-59) Alkaline Phosphatase 112 U/L (46-116) Total Protein 6.7 g/dL (6.4-8.2) Albumin 3.4 g/dL (3.4-5.0) Albumin/Globulin Ratio 1.0 (1.0-1.7) Test 10/27/18 11:04 10/27/18 11:35 10/27/18 12:55 10/27/18 15:05 Glucose (Fingerstick) 437 mg/dL (70-99) 384 mg/dL (70-99) 296 mg/dL (70-99) 200 mg/dL (70-99) Test 10/27/18 15:20 10/27/18 16:48 10/27/18 18:28 Sodium Level 139 mmol/L (136-145) Potassium Level 4.8 mmol/L (3.5-5.1) Chloride Level 103 mmol/L (98-107) Carbon Dioxide Level 15 mmol/L (21-32) Anion Gap 21 (6-14) Blood Urea Nitrogen 14 mg/dL (7-20) Creatinine 1.0 mg/dL (0.6-1.0) Estimated GFR (Cockcroft-Gault) 62.4 Glucose Level 223 mg/dL (70-99) Calcium Level 9.5 mg/dL (8.5-10.1) Glucose (Fingerstick) 189 mg/dL (70-99) 198 mg/dL (70-99) Assessment and Plan Assessmemt and Plan Problems Medical Problems: (1) DKA (diabetic ketoacidoses) Status: Acute Comment Review of Relevant I have reviewed the following items olena (where applicable) has been applied. Labs Laboratory Tests Test 10/25/18 20:40 10/25/18 20:45 10/25/18 20:48 10/25/18 21:00 Urine Collection Type U cath Urine Color Yellow Urine Clarity Clear Urine pH 5.0 Urine Specific [place] 1.025 Urine Protein Negative mg/dL (NEG-TRACE) Urine Glucose (UA) >=1000 mg/dL (NEG) Urine Ketones (Stick) >=80 mg/dL (NEG) Urine Blood Negative (NEG) Urine Nitrite Negative (NEG) Urine Bilirubin Negative (NEG) Urine Urobilinogen Dipstick 0.2 mg/dL (0.2 mg/dL) Urine Leukocyte Esterase Negative (NEG) Urine RBC 0 /HPF (0-2) Urine WBC 1-4 /HPF (0-4) Urine Squamous Epithelial Cells Few /LPF Urine Bacteria Few /HPF (0-FEW) Urine Opiates Screen Neg (NEG) Urine Methadone Screen Neg (NEG) Urine Barbiturates Neg (NEG) Urine Phencyclidine Screen Neg (NEG) Urine Amphetamine/Methamphetamine Pos (NEG) Urine Benzodiazepines Screen Neg (NEG) Urine Cocaine Screen Neg (NEG) Urine Cannabinoids Screen Neg (NEG) Urine Ethyl Alcohol Neg (NEG) Bedside Urine HCG, Qualitative Hcg negative (Negative) O2 Saturation 96 % (92-99) Arterial Blood pH 7.03 (7.35-7.45) Arterial Blood pCO2 at Patient Temp < 15 mmHg (35-46) Arterial Blood pO2 at Patient Temp 117 mmHg (85-108) Arterial Blood HCO3 4 mmol/L (21-28) Arterial Blood Base Excess -25 mmol/L (-3-3) White Blood Count 17.1 x10^3/uL (4.0-11.0) Red Blood Count 3.93 x10^6/uL (3.50-5.40) Hemoglobin 10.7 g/dL (12.0-15.5) Hematocrit 35.8 % (36.0-47.0) Mean Corpuscular Volume 91 fL (79-100) Mean Corpuscular Hemoglobin 27 pg (25-35) Mean Corpuscular Hemoglobin Concent 30 g/dL (31-37) Red Cell Distribution Width 16.1 % (11.5-14.5) Platelet Count 458 x10^3/uL (140-400) Neutrophils (%) (Auto) 96 % (31-73) Lymphocytes (%) (Auto) 3 % (24-48) Monocytes (%) (Auto) 1 % (0-9) Eosinophils (%) (Auto) 0 % (0-3) Basophils (%) (Auto) 0 % (0-3) Neutrophils # (Auto) 16.5 x10^3/uL (1.8-7.7) Lymphocytes # (Auto) 0.5 x10^3/uL (1.0-4.8) Monocytes # (Auto) 0.1 x10^3/uL (0.0-1.1) Eosinophils # (Auto) 0.0 x10^3/uL (0.0-0.7) Basophils # (Auto) 0.0 x10^3/uL (0.0-0.2) Platelet Estimate Increased (ADEQUATE) Polychromasia Slight Poikilocytosis Slight Anisocytosis Slight Sodium Level 139 mmol/L (136-145) Potassium Level 5.0 mmol/L (3.5-5.1) Chloride Level 96 mmol/L (98-107) Carbon Dioxide Level 6 mmol/L (21-32) Anion Gap 37 (6-14) Blood Urea Nitrogen 28 mg/dL (7-20) Creatinine 1.4 mg/dL (0.6-1.0) Estimated GFR (Cockcroft-Gault) 42.3 BUN/Creatinine Ratio 20 (6-20) Glucose Level 743 mg/dL (70-99) Calcium Level 9.7 mg/dL (8.5-10.1) Total Bilirubin 0.5 mg/dL (0.2-1.0) Aspartate Amino Transf (AST/SGOT) 6 U/L (15-37) Alanine Aminotransferase (ALT/SGPT) 18 U/L (14-59) Alkaline Phosphatase 131 U/L (46-116) Total Protein 7.9 g/dL (6.4-8.2) Albumin 4.1 g/dL (3.4-5.0) Albumin/Globulin Ratio 1.1 (1.0-1.7) Lipase 222 U/L (73-393) Acetone Level Mod pos (NEG) Test 10/25/18 22:57 10/26/18 00:05 10/26/18 01:08 10/26/18 01:10 Glucose (Fingerstick) 496 mg/dL (70-99) 470 mg/dL (70-99) 379 mg/dL (70-99) Sodium Level 143 mmol/L (136-145) Potassium Level 4.4 mmol/L (3.5-5.1) Chloride Level 102 mmol/L (98-107) Carbon Dioxide Level 12 mmol/L (21-32) Anion Gap 29 (6-14) Blood Urea Nitrogen 29 mg/dL (7-20) Creatinine 1.5 mg/dL (0.6-1.0) Estimated GFR (Cockcroft-Gault) 39.1 Glucose Level 401 mg/dL (70-99) Calcium Level 9.0 mg/dL (8.5-10.1) Phosphorus Level 4.4 mg/dL (2.6-4.7) Magnesium Level 1.9 mg/dL (1.8-2.4) Test 10/26/18 02:17 10/26/18 03:21 10/26/18 04:24 10/26/18 04:35 Glucose (Fingerstick) 283 mg/dL (70-99) 196 mg/dL (70-99) 192 mg/dL (70-99) Sodium Level 142 mmol/L (136-145) Potassium Level 4.3 mmol/L (3.5-5.1) Chloride Level 104 mmol/L (98-107) Carbon Dioxide Level 22 mmol/L (21-32) Anion Gap 16 (6-14) Blood Urea Nitrogen 28 mg/dL (7-20) Creatinine 1.3 mg/dL (0.6-1.0) Estimated GFR (Cockcroft-Gault) 46.1 Glucose Level 189 mg/dL (70-99) Calcium Level 9.0 mg/dL (8.5-10.1) Phosphorus Level 3.0 mg/dL (2.6-4.7) Magnesium Level 1.6 mg/dL (1.8-2.4) Test 10/26/18 05:31 10/26/18 06:42 10/26/18 07:49 10/26/18 08:49 Glucose (Fingerstick) 194 mg/dL (70-99) 167 mg/dL (70-99) 149 mg/dL (70-99) 126 mg/dL (70-99) Test 10/26/18 09:00 10/26/18 09:58 10/26/18 12:05 10/26/18 16:44 Sodium Level 141 mmol/L (136-145) Potassium Level 3.8 mmol/L (3.5-5.1) Chloride Level 107 mmol/L (98-107) Carbon Dioxide Level 25 mmol/L (21-32) Anion Gap 9 (6-14) Blood Urea Nitrogen 22 mg/dL (7-20) Creatinine 1.0 mg/dL (0.6-1.0) Estimated GFR (Cockcroft-Gault) 62.4 Glucose Level 120 mg/dL (70-99) Calcium Level 8.3 mg/dL (8.5-10.1) Phosphorus Level 2.0 mg/dL (2.6-4.7) Magnesium Level 2.6 mg/dL (1.8-2.4) Glucose (Fingerstick) 122 mg/dL (70-99) 182 mg/dL (70-99) 243 mg/dL (70-99) Test 10/26/18 21:25 10/27/18 07:30 10/27/18 08:05 10/27/18 10:21 Glucose (Fingerstick) 253 mg/dL (70-99) 537 mg/dL (70-99) 514 mg/dL (70-99) White Blood Count 11.3 x10^3/uL (4.0-11.0) Red Blood Count 3.57 x10^6/uL (3.50-5.40) Hemoglobin 9.8 g/dL (12.0-15.5) Hematocrit 32.4 % (36.0-47.0) Mean Corpuscular Volume 91 fL (79-100) Mean Corpuscular Hemoglobin 27 pg (25-35) Mean Corpuscular Hemoglobin Concent 30 g/dL (31-37) Red Cell Distribution Width 16.5 % (11.5-14.5) Platelet Count 308 x10^3/uL (140-400) Neutrophils (%) (Auto) 82 % (31-73) Lymphocytes (%) (Auto) 13 % (24-48) Monocytes (%) (Auto) 4 % (0-9) Eosinophils (%) (Auto) 1 % (0-3) Basophils (%) (Auto) 0 % (0-3) Neutrophils # (Auto) 9.3 x10^3/uL (1.8-7.7) Lymphocytes # (Auto) 1.4 x10^3/uL (1.0-4.8) Monocytes # (Auto) 0.4 x10^3/uL (0.0-1.1) Eosinophils # (Auto) 0.1 x10^3/uL (0.0-0.7) Basophils # (Auto) 0.1 x10^3/uL (0.0-0.2) Sodium Level 134 mmol/L (136-145) Potassium Level 5.6 mmol/L (3.5-5.1) Chloride Level 97 mmol/L (98-107) Carbon Dioxide Level 11 mmol/L (21-32) Anion Gap 26 (6-14) Blood Urea Nitrogen 15 mg/dL (7-20) Creatinine 1.0 mg/dL (0.6-1.0) Estimated GFR (Cockcroft-Gault) 62.4 BUN/Creatinine Ratio 15 (6-20) Glucose Level 529 mg/dL (70-99) Calcium Level 9.1 mg/dL (8.5-10.1) Total Bilirubin 0.4 mg/dL (0.2-1.0) Aspartate Amino Transf (AST/SGOT) 9 U/L (15-37) Alanine Aminotransferase (ALT/SGPT) 14 U/L (14-59) Alkaline Phosphatase 112 U/L (46-116) Total Protein 6.7 g/dL (6.4-8.2) Albumin 3.4 g/dL (3.4-5.0) Albumin/Globulin Ratio 1.0 (1.0-1.7) Test 10/27/18 11:04 10/27/18 11:35 10/27/18 12:55 10/27/18 15:05 Glucose (Fingerstick) 437 mg/dL (70-99) 384 mg/dL (70-99) 296 mg/dL (70-99) 200 mg/dL (70-99) Test 10/27/18 15:20 10/27/18 16:48 10/27/18 18:28 Sodium Level 139 mmol/L (136-145) Potassium Level 4.8 mmol/L (3.5-5.1) Chloride Level 103 mmol/L (98-107) Carbon Dioxide Level 15 mmol/L (21-32) Anion Gap 21 (6-14) Blood Urea Nitrogen 14 mg/dL (7-20) Creatinine 1.0 mg/dL (0.6-1.0) Estimated GFR (Cockcroft-Gault) 62.4 Glucose Level 223 mg/dL (70-99) Calcium Level 9.5 mg/dL (8.5-10.1) Glucose (Fingerstick) 189 mg/dL (70-99) 198 mg/dL (70-99) Laboratory Tests Test 10/26/18 21:25 10/27/18 07:30 10/27/18 08:05 10/27/18 10:21 Glucose (Fingerstick) 253 mg/dL (70-99) 537 mg/dL (70-99) 514 mg/dL (70-99) White Blood Count 11.3 x10^3/uL (4.0-11.0) Red Blood Count 3.57 x10^6/uL (3.50-5.40) Hemoglobin 9.8 g/dL (12.0-15.5) Hematocrit 32.4 % (36.0-47.0) Mean Corpuscular Volume 91 fL (79-100) Mean Corpuscular Hemoglobin 27 pg (25-35) Mean Corpuscular Hemoglobin Concent 30 g/dL (31-37) Red Cell Distribution Width 16.5 % (11.5-14.5) Platelet Count 308 x10^3/uL (140-400) Neutrophils (%) (Auto) 82 % (31-73) Lymphocytes (%) (Auto) 13 % (24-48) Monocytes (%) (Auto) 4 % (0-9) Eosinophils (%) (Auto) 1 % (0-3) Basophils (%) (Auto) 0 % (0-3) Neutrophils # (Auto) 9.3 x10^3/uL (1.8-7.7) Lymphocytes # (Auto) 1.4 x10^3/uL (1.0-4.8) Monocytes # (Auto) 0.4 x10^3/uL (0.0-1.1) Eosinophils # (Auto) 0.1 x10^3/uL (0.0-0.7) Basophils # (Auto) 0.1 x10^3/uL (0.0-0.2) Sodium Level 134 mmol/L (136-145) Potassium Level 5.6 mmol/L (3.5-5.1) Chloride Level 97 mmol/L (98-107) Carbon Dioxide Level 11 mmol/L (21-32) Anion Gap 26 (6-14) Blood Urea Nitrogen 15 mg/dL (7-20) Creatinine 1.0 mg/dL (0.6-1.0) Estimated GFR (Cockcroft-Gault) 62.4 BUN/Creatinine Ratio 15 (6-20) Glucose Level 529 mg/dL (70-99) Calcium Level 9.1 mg/dL (8.5-10.1) Total Bilirubin 0.4 mg/dL (0.2-1.0) Aspartate Amino Transf (AST/SGOT) 9 U/L (15-37) Alanine Aminotransferase (ALT/SGPT) 14 U/L (14-59) Alkaline Phosphatase 112 U/L (46-116) Total Protein 6.7 g/dL (6.4-8.2) Albumin 3.4 g/dL (3.4-5.0) Albumin/Globulin Ratio 1.0 (1.0-1.7) Test 10/27/18 11:04 10/27/18 11:35 10/27/18 12:55 10/27/18 15:05 Glucose (Fingerstick) 437 mg/dL (70-99) 384 mg/dL (70-99) 296 mg/dL (70-99) 200 mg/dL (70-99) Test 10/27/18 15:20 10/27/18 16:48 10/27/18 18:28 Sodium Level 139 mmol/L (136-145) Potassium Level 4.8 mmol/L (3.5-5.1) Chloride Level 103 mmol/L (98-107) Carbon Dioxide Level 15 mmol/L (21-32) Anion Gap 21 (6-14) Blood Urea Nitrogen 14 mg/dL (7-20) Creatinine 1.0 mg/dL (0.6-1.0) Estimated GFR (Cockcroft-Gault) 62.4 Glucose Level 223 mg/dL (70-99) Calcium Level 9.5 mg/dL (8.5-10.1) Glucose (Fingerstick) 189 mg/dL (70-99) 198 mg/dL (70-99) Medications Current Medications Hydromorphone HCl (Dilaudid) 1 mg PRN Q15MIN PRN IV/SQ PAIN GREATER THAN 3/10 Last administered on 10/25/18at 21:05; Start 10/25/18 at 21:00; Stop 10/26/18 at 20:59; Status DC Sodium Chloride 1,000 ml @ 1,000 mls/hr Q1H IV Last administered on 10/25/18at 21:05; Start 10/25/18 at 21:00; Stop 10/25/18 at 21:59; Status DC Metoclopramide HCl (Reglan Vial) 10 mg 1X ONCE IV Last administered on 10/25/18at 21:05; Start 10/25/18 at 21:00; Stop 10/25/18 at 21:01; Status DC Diphenhydramine HCl (Benadryl) 25 mg 1X ONCE IVP Last administered on 10/25/18at 21:05; Start 10/25/18 at 21:00; Stop 10/25/18 at 21:01; Status DC Insulin Human Regular (HumuLIN R VIAL) 10 unit 1X ONCE IV Last administered on 10/25/18at 21:05; Start 10/25/18 at 21:00; Stop 10/25/18 at 21:01; Status DC Insulin Human Regular 150 unit/ Sodium Chloride 151.5 ml @ 0 mls/hr CONT PRN IV SEE I/O RECORD Last administered on 10/25/18at 23:02; Start 10/25/18 at 22:15; Stop 10/26/18 at 12:29; Status DC Dextrose (Dextrose 50%-Water Syringe) 12.5 gm PRN Q15MIN PRN IV LOW BLOOD SUGAR; Start 10/25/18 at 22:15; Stop 10/27/18 at 16:40; Status DC Dextrose 250 ml PRN Q15MIN PRN IV LOW BLOOD SUGAR; Start 10/25/18 at 22:15; Stop 10/27/18 at 16:40; Status DC Insulin Human Lispro (HumaLOG) 0-7 UNITS TIDWMEALS SQ Last administered on 10/27/18at 13:15; Start 10/26/18 at 08:00; Stop 10/27/18 at 17:16; Status DC Dextrose (Dextrose 50%-Water Syringe) 12.5 gm PRN Q15MIN PRN IV SEE COMMENTS; Start 10/25/18 at 22:15; Stop 10/25/18 at 22:16; Status DC Dextrose 250 ml PRN Q15MIN PRN IV SEE COMMENTS; Start 10/25/18 at 22:15; Stop 10/25/18 at 22:16; Status DC Sodium Chloride 1,000 ml @ 1,000 mls/hr 1X ONCE IV ; Start 10/25/18 at 23:00; Stop 10/25/18 at 23:59; Status DC Sodium Bicarbonate (Sodium Bicarb Adult 8.4% Syr) 50 meq 1X ONCE IV Last administered on 10/26/18at 00:21; Start 10/25/18 at 23:00; Stop 10/25/18 at 23:01; Status DC Insulin Human Regular 150 unit/ Sodium Chloride 151.5 ml @ 0 mls/hr CONT PRN PRN IV PER PROTOCOL; Start 10/25/18 at 23:15; Status Cancel Potassium Chloride/Water 100 ml @ 100 mls/hr PRN Q1HR PRN IV SEE COMMENTS; Start 10/25/18 at 23:15; Stop 10/26/18 at 12:29; Status DC Potassium Chloride/Water 100 ml @ 100 mls/hr PRN Q1HR PRN IV SEE COMMENTS; Start 10/25/18 at 23:15; Stop 10/26/18 at 12:29; Status DC Potassium Chloride/Water 100 ml @ 100 mls/hr PRN Q1HR PRN IV SEE COMMENTS; Start 10/25/18 at 23:15; Stop 10/26/18 at 12:29; Status DC Sodium Chloride 1,000 ml @ 500 mls/hr 1X ONCE IV Last administered on 10/26/18at 00:15; Start 10/25/18 at 23:45; Stop 10/26/18 at 03:29; Status DC Ondansetron HCl (Zofran) 4 mg PRN Q4HRS PRN IV NAUSEA/VOMITING 1ST CHOICE Last administered on 10/27/18at 17:35; Start 10/26/18 at 01:30 Fentanyl Citrate (Fentanyl 2ml Vial) 25 mcg PRN Q3HRS PRN IV SEVERE PAIN 7-10 Last administered on 10/27/18at 17:35; Start 10/26/18 at 01:30 Sodium Chloride 1,000 ml @ 250 mls/hr Q4H IV Last administered on 10/26/18at 02:20; Start 10/26/18 at 02:30; Stop 10/26/18 at 06:33; Status DC Potassium Chloride/Water 100 ml @ 100 mls/hr Q1H IV Last administered on 10/26/18at 03:55; Start 10/26/18 at 03:00; Stop 10/26/18 at 04:59; Status DC Dextrose/Sodium Chloride 1,000 ml @ 250 mls/hr Q4H IV Last administered on 10/26/18at 07:47; Start 10/26/18 at 03:30; Stop 10/26/18 at 12:29; Status DC Potassium Chloride/Water 100 ml @ 100 mls/hr Q1H IV Last administered on 10/26/18at 07:47; Start 10/26/18 at 06:00; Stop 10/26/18 at 07:59; Status DC Magnesium Sulfate 100 ml @ 25 mls/hr 1X ONCE IV Last administered on 10/26/18at 06:34; Start 10/26/18 at 07:00; Stop 10/26/18 at 10:59; Status DC Pantoprazole Sodium (Protonix) 40 mg DAILYAC PO Last administered on 10/27/18at 09:14; Start 10/27/18 at 07:30 Pantoprazole Sodium (Protonix) 40 mg 1X ONCE PO Last administered on 10/26/18at 10:39; Start 10/26/18 at 10:45; Stop 10/26/18 at 10:46; Status DC Insulin Human Lispro (HumaLOG) 10 units 1X ONCE SQ Last administered on 10/27/18at 09:56; Start 10/27/18 at 09:45; Stop 10/27/18 at 09:47; Status DC Insulin Human Regular 150 unit/ Sodium Chloride 151.5 ml @ 0 mls/hr CONT PRN IV SEE I/O RECORD Last administered on 10/27/18at 17:30; Start 10/27/18 at 16:45 Dextrose (Dextrose 50%-Water Syringe) 12.5 gm PRN Q15MIN PRN IV LOW BLOOD SUGAR; Start 10/27/18 at 16:45 Sodium Chloride 1,000 ml @ 125 mls/hr Q8H IV Last administered on 10/27/18at 17:30; Start 10/27/18 at 17:30; Stop 10/27/18 at 17:41; Status DC Dextrose/Sodium Chloride 1,000 ml @ 150 mls/hr Q6H40M IV Last administered on 10/27/18at 17:43; Start 10/27/18 at 17:45 Active Scripts Active [place] 5-325 Tablet (Acetaminophen/Hydrocodone Bitart) 1 Each Tablet 1 Tab PO PRN Q6HRS PRN Naproxen 500 Mg Tablet 500 Mg PO BID Robaxin (Methocarbamol) 500 Mg Tablet 500 Mg PO QID [place] 5-325 Tablet (Acetaminophen/Hydrocodone Bitart) 1 Each Tablet 1 Tab PO PRN Q6HRS PRN Macrobid 100 Mg Capsule (Nitrofurantoin Monohyd/M-Cryst) 100 Mg Capsule 100 Mg PO BID Zofran (Ondansetron Hcl) 4 Mg Tablet 4 Mg PO BID PRN Chlorhexidine Gluconate 118 Ml Liquid 5 Ml TP BID rinse and spit [place] 5-325 Tablet (Acetaminophen/Hydrocodone Bitart) 1 Each Tablet 1-2 Tab PO Q4-6HRS Reported Ferrous Sulfate 325 Mg Tablet 1 Tab PO DAILY Gabapentin (Gabapentin) 300 Mg Capsule 300 Mg PO TID Lantus Solostar (Insulin Glargine,Hum.rec.anlog) 100 Unit/1 Ml Insuln.pen 12 Unit SQ QHS Novolog (Insulin Aspart) Unknown Strength Cartridge Unknown Dose SQ Vitals/I & O Vital Sign - Last 24 Hours 10/26/18 10/26/18 10/26/18 10/27/18 19:00 20:00 23:00 03:00 Temp 98.8 99.1 98.5 98.8 99.1 98.5 Pulse 108 103 92 Resp 18 18 18 B/P (MAP) 119/70 (86) 125/68 (87) 102/54 (70) Pulse Ox 99 96 97 O2 Delivery Room Air Room Air Room Air Room Air 10/27/18 10/27/18 10/27/18 10/27/18 03:44 04:33 07:00 07:32 Temp 97.7 97.7 Pulse 105 Resp 20 18 18 20 B/P (MAP) 115/53 (73) Pulse Ox 100 O2 Delivery Room Air Room Air Room Air Room Air 10/27/18 10/27/18 10/27/18 10/27/18 09:07 11:00 14:03 15:00 Temp 98.3 98.4 98.3 98.4 Pulse 112 104 Resp 20 16 20 18 B/P (MAP) 136/71 (92) 136/72 (93) Pulse Ox 93 100 94 100 O2 Delivery Room Air Room Air Room Air Room Air 10/27/18 10/27/18 10/27/18 10/27/18 17:30 17:33 17:35 18:00 Temp 99.1 99.1 Pulse 100 107 Resp 16 16 18 B/P (MAP) 127/77 (94) 123/71 (88) Pulse Ox 99 100 99 O2 Delivery Room Air Room Air Room Air Room Air 10/27/18 18:45 Resp 18 Pulse Ox 96 O2 Delivery Room Air Intake and Output 10/26/18 10/26/18 10/27/18 15:00 23:00 07:00 Intake Total 300 ml Balance 300 ml LINO BUITRAGO MD Oct 27, 2018 19:02
[2018-10-27] MEDS: cefTRIAXone IV Push 1 GM VIAL. IVP SCH (20:39)
[2018-10-27 22:10] LABS: CALCIUM 9.3 mg/dL (8.5-10.1); CREATININE 0.8 mg/dL (0.6-1.0); GFR 80.7; POTASSIUM 4.4 mmol/L (3.5-5.1)
[2018-10-28] VITALS (15 sets, daily range): BP systolic 86–128; BP diastolic 50–73
[2018-10-28] MEDS ORDERED: DEXTROSE 50% 25 GM / 50ML DISP.SYRIN. IV PRN (00:15)
[2018-10-28] MEDS ORDERED: IV DEXTROSE 5% 250 ML BAG. IV PRN (00:15)
[2018-10-28] MEDS: IV NORMAL SALINE 1000ML BAG 1,000 ML IV SCH ×3 (00:37→15:23)
[2018-10-28] MEDS: fentaNYL PF VIAL 100 MCG/2 ML VIAL IV PRN ×7 (00:42→22:01)
[2018-10-28] MEDS ORDERED: INSULIN GLARGINE SYRINGE. SQ ONE (01:00)
[2018-10-28 05:15] LABS: BASO % 0 % (0-3); EOS # 0.2 x10^3/uL (0.0-0.7); EOS % 2 % (0-3); HEMATOCRIT 27.1 % (36.0-47.0); HEMOGLOBIN 8.7 g/dL (12.0-15.5); LYMPH # 1.5 x10^3/uL (1.0-4.8); LYMPH % 22 % (24-48); MEAN CORPUSCULAR HEMOGLOBIN 27 pg (25-35); MEAN CORPUSCULAR HGB CONC 32 g/dL (31-37); MEAN CORPUSCULAR VOLUME 85 fL (79-100); MONO # 0.5 x10^3/uL (0.0-1.1); MONO % 7 % (0-9); NEUT # 4.8 x10^3/uL (1.8-7.7); NEUT % 69 % (31-73); PLATELET COUNT 244 x10^3/uL (140-400); RED BLOOD COUNT 3.18 x10^6/uL (3.50-5.40); RED CELL DISTRIBUTION WIDTH 15.5 % (11.5-14.5)
[2018-10-28 05:37] LABS: CALCIUM 8.7 mg/dL (8.5-10.1); CREATININE 0.7 mg/dL (0.6-1.0); GFR 94.2; POTASSIUM 3.8 mmol/L (3.5-5.1)
[2018-10-28] MEDS: PANTOPRAZOLE 40 MG TABLET.DR. PO SCH (07:25)
[2018-10-28] MEDS: INSULIN LISPRO 300 UNITS/3 ML VIAL. SQ SCH ×5 (07:26→17:57)
--- NOTE | 2018-10-28 12:06 | PDOC ---
[facility] [facility] PROGRESS NOTE Chief Complaint Chief Complaint DKA Noncompliance history Anemia Meth abuse Hx Probable left ovarian cyst History of Present Illness History of Present Illness 10/28/18 Pt seen/examined in the ICU Pt's anion gap has improved to 11 DW RN plan to transfer pt to floor Chart Reviewed Vitals/I&O Vitals/I&O: Vital Signs Date Time Temp Pulse Resp B/P (MAP) Pulse Ox O2 Delivery O2 Flow Rate FiO2 10/28/18 11:00 98.0 78 17 99/56 (70) 100 Room Air 98.0 I & O 10/27/18 10/27/18 10/28/18 15:00 23:00 07:00 Intake Total 500 ml 1278 ml Output Total 1100 ml 720 ml Balance -600 ml -720 ml 1278 ml Physical Exam Physical Exam: HEENT: Head is normocephalic, atraumatic, pupils were equally round and reactive to light and accommodation. NECK: Supple, no JVD, no thyromegaly was noted. LUNGS: Clear to auscultation in all lung nogueira without rhonchi or wheezing. HEART: RRR, S1, S2 present. Peripheral pulses intact, no obvious murmurs were noted. ABDOMEN: Soft, nontender. Positive bowel sounds no organomegaly, normal bowel sounds. EXTREMITIES: Without any cyanosis, clubbing, or edema. Pedal pulses intact, Homans sign is negative. NEUROLOGIC: She is quite weak. PSYCHIATRIC: Normal affect, normal mood. Stable. SKIN: No ulcerations or rashes, good skin turgor, no jaundice. VASCULAR: Good capillary refill, neurovascular bundle appears to be intact General: Alert, Oriented X3, Cooperative, mild distress Heart: Regular rate, Normal S1, Normal S2 Lungs: Clear Abdomen: Normal bowel sounds, Soft, No tenderness Extremities: No cyanosis Labs Labs: Laboratory Tests Test 10/27/18 12:55 10/27/18 15:05 10/27/18 15:20 10/27/18 16:48 Glucose (Fingerstick) 296 mg/dL (70-99) 200 mg/dL (70-99) 189 mg/dL (70-99) Sodium Level 139 mmol/L (136-145) Potassium Level 4.8 mmol/L (3.5-5.1) Chloride Level 103 mmol/L (98-107) Carbon Dioxide Level 15 mmol/L (21-32) Anion Gap 21 (6-14) Blood Urea Nitrogen 14 mg/dL (7-20) Creatinine 1.0 mg/dL (0.6-1.0) Estimated GFR (Cockcroft-Gault) 62.4 Glucose Level 223 mg/dL (70-99) Calcium Level 9.5 mg/dL (8.5-10.1) Test 10/27/18 18:28 10/27/18 19:36 10/27/18 20:40 10/27/18 21:55 Glucose (Fingerstick) 198 mg/dL (70-99) 102 mg/dL (70-99) 90 mg/dL (70-99) 84 mg/dL (70-99) Test 10/27/18 21:58 10/27/18 23:04 10/28/18 00:37 10/28/18 02:30 Sodium Level 137 mmol/L (136-145) Potassium Level 4.4 mmol/L (3.5-5.1) Chloride Level 106 mmol/L (98-107) Carbon Dioxide Level 18 mmol/L (21-32) Anion Gap 13 (6-14) Blood Urea Nitrogen 12 mg/dL (7-20) Creatinine 0.8 mg/dL (0.6-1.0) Estimated GFR (Cockcroft-Gault) 80.7 Glucose Level 89 mg/dL (70-99) Calcium Level 9.3 mg/dL (8.5-10.1) Glucose (Fingerstick) 109 mg/dL (70-99) 97 mg/dL (70-99) 135 mg/dL (70-99) Test 10/28/18 04:30 10/28/18 07:16 10/28/18 11:07 White Blood Count 7.0 x10^3/uL (4.0-11.0) Red Blood Count 3.18 x10^6/uL (3.50-5.40) Hemoglobin 8.7 g/dL (12.0-15.5) Hematocrit 27.1 % (36.0-47.0) Mean Corpuscular Volume 85 fL (79-100) Mean Corpuscular Hemoglobin 27 pg (25-35) Mean Corpuscular Hemoglobin Concent 32 g/dL (31-37) Red Cell Distribution Width 15.5 % (11.5-14.5) Platelet Count 244 x10^3/uL (140-400) Neutrophils (%) (Auto) 69 % (31-73) Lymphocytes (%) (Auto) 22 % (24-48) Monocytes (%) (Auto) 7 % (0-9) Eosinophils (%) (Auto) 2 % (0-3) Basophils (%) (Auto) 0 % (0-3) Neutrophils # (Auto) 4.8 x10^3/uL (1.8-7.7) Lymphocytes # (Auto) 1.5 x10^3/uL (1.0-4.8) Monocytes # (Auto) 0.5 x10^3/uL (0.0-1.1) Eosinophils # (Auto) 0.2 x10^3/uL (0.0-0.7) Basophils # (Auto) 0.0 x10^3/uL (0.0-0.2) Sodium Level 141 mmol/L (136-145) Potassium Level 3.8 mmol/L (3.5-5.1) Chloride Level 108 mmol/L (98-107) Carbon Dioxide Level 22 mmol/L (21-32) Anion Gap 11 (6-14) Blood Urea Nitrogen 10 mg/dL (7-20) Creatinine 0.7 mg/dL (0.6-1.0) Estimated GFR (Cockcroft-Gault) 94.2 Glucose Level 194 mg/dL (70-99) Calcium Level 8.7 mg/dL (8.5-10.1) Glucose (Fingerstick) 310 mg/dL (70-99) 203 mg/dL (70-99) Review of Systems Review of Systems: co weakness no co chest pain Assessment and Plan Assessmemt and Plan Problems Medical Problems: (1) DKA (diabetic ketoacidoses) Status: Acute Assessment: DKA Noncompliance history Anemia Meth abuse Hx Probable left ovarian cyst Plan: ICU monitoring IV Fluids Increase long acting insulin Switch to SubQ insulin Novolog 10 TID PT/OT DVT prophylaxis Home Meds Transfer pt to the floor Probable discharge tomorrow Comment Review of Relevant I have reviewed the following items olena (where applicable) has been applied. Medications: Current Medications Medications (Trade) Dose Ordered Sig/Lucio Route PRN Reason Start Time Stop Time Status Last Admin Dose Admin Insulin Human Regular 150 unit/ Sodium Chloride 151.5 ml @ 0 mls/hr CONT PRN IV SEE I/O RECORD 10/27/18 16:45 10/28/18 00:11 DC 10/27/18 17:30 Sodium Chloride 1,000 ml @ 125 mls/hr Q8H IV 10/27/18 17:30 10/27/18 17:41 DC 10/27/18 17:30 Dextrose/Sodium Chloride 1,000 ml @ 150 mls/hr Q6H40M IV 10/27/18 17:45 10/28/18 00:11 DC 10/27/18 17:43 Ceftriaxone Sodium (Rocephin) 1 gm Q24H IVP 10/27/18 20:00 10/27/18 20:39 Sodium Chloride 1,000 ml @ 125 mls/hr Q8H IV 10/28/18 00:15 10/28/18 08:35 Insulin Human Lispro (HumaLOG) 0-9 UNITS TIDWMEALS SQ 10/28/18 08:00 10/28/18 07:26 Insulin Glargine (Lantus Syringe) 12 unit 1X ONCE SQ 10/28/18 01:00 10/28/18 01:01 DC 10/28/18 00:40 JB THAPA III DO Oct 28, 2018 12:06
--- NOTE | 2018-10-28 15:29 | NUR ---
Received pt as a transfer from ICU at 1515,arrived per w/c to room 572,medicated for pain and positioned for comfort.
[2018-10-28] MEDS ORDERED: INSULIN GLARGINE SYRINGE. SQ SCH (21:00)
[2018-10-28] MEDS: cefTRIAXone IV Push 1 GM VIAL. IVP SCH (21:06)
[2018-10-28] MEDS: LACTOBACILLUS RHAMNOSUS GG 1 CAPSULE. PO SCH (21:06)
[2018-10-28] MEDS: INSULIN GLARGINE SYRINGE. SQ SCH (21:14)
[2018-10-29] MEDS: IV NORMAL SALINE 1000ML BAG 1,000 ML IV SCH ×3 (00:20→16:52)
[2018-10-29] MEDS: fentaNYL PF VIAL 100 MCG/2 ML VIAL IV PRN ×6 (01:04→20:17)
[2018-10-29 03:00] VITALS: BP 114/66
[2018-10-29 03:07] LABS: HEMOGLOBIN A1C 9.3 % (4.8-5.6)
[2018-10-29 07:00] VITALS: BP 113/69
[2018-10-29 07:49] LABS: BASO % 0 % (0-3); EOS # 0.1 x10^3/uL (0.0-0.7); EOS % 4 % (0-3); HEMATOCRIT 26.5 % (36.0-47.0); HEMOGLOBIN 8.5 g/dL (12.0-15.5); LYMPH # 1.4 x10^3/uL (1.0-4.8); LYMPH % 34 % (24-48); MEAN CORPUSCULAR HEMOGLOBIN 27 pg (25-35); MEAN CORPUSCULAR HGB CONC 32 g/dL (31-37); MEAN CORPUSCULAR VOLUME 85 fL (79-100); MONO # 0.4 x10^3/uL (0.0-1.1); MONO % 9 % (0-9); NEUT # 2.2 x10^3/uL (1.8-7.7); NEUT % 53 % (31-73); PLATELET COUNT 187 x10^3/uL (140-400); RED BLOOD COUNT 3.11 x10^6/uL (3.50-5.40); RED CELL DISTRIBUTION WIDTH 15.6 % (11.5-14.5); WHITE BLOOD COUNT 4.1 x10^3/uL (4.0-11.0)
--- NOTE | 2018-10-29 07:59 | PDOC ---
PROGRESS NOTES Chief Complaint Chief Complaint DKA Noncompliance history Anemia Meth abuse Hx Probable 3.7cm left ovarian cyst History of Present Illness History of Present Illness Ms Gibson is a 38yo F w/ PMHx DM admitted with DKA to ICU. Recovering on the floor now. She is c/o left foot pain, notes she was seen at [facility] for a fracture, has 3 bones fractured. She notes worsening pain and swelling, but also notes she has been walking on it without her boot. Otherwise glucose better controlled. Gap closed. Taking PO well. 10/28/18 Pt seen/examined in the ICU Pt's anion gap has improved to 11 DW RN plan to transfer pt to floor Chart Reviewed Plan: Left foot XR 3view and likely d/c after with boot, anti-inflammatories Educated on methamphetamine and alcohol abstinence Vitals Vitals Vital Signs Date Time Temp Pulse Resp B/P (MAP) Pulse Ox O2 Delivery O2 Flow Rate FiO2 10/29/18 06:01 98 Room Air 10/29/18 03:00 98.3 82 18 114/66 (82) 98.3 Physical Exam Physical Exam HEENT: Head is normocephalic, atraumatic, pupils were equally round and reactive to light and accommodation. NECK: Supple, no JVD, no thyromegaly was noted. LUNGS: Clear to auscultation in all lung nogueira without rhonchi or wheezing. HEART: RRR, S1, S2 present. Peripheral pulses intact, no obvious murmurs were noted. ABDOMEN: Soft, nontender. Positive bowel sounds no organomegaly, normal bowel sounds. EXTREMITIES: Without any cyanosis, clubbing, or edema. Pedal pulses intact, Homans sign is negative. NEUROLOGIC: She is quite weak. PSYCHIATRIC: Normal affect, normal mood. Stable. SKIN: No ulcerations or rashes, good skin turgor, no jaundice. VASCULAR: Good capillary refill, neurovascular bundle appears to be intact General: Alert, Oriented X3, Cooperative, mild distress Heart: Regular rate, Normal S1, Normal S2 Lungs: Clear Abdomen: Normal bowel sounds, Soft, No tenderness Extremities: No cyanosis Labs LABS Laboratory Tests Test 10/28/18 11:07 10/28/18 16:39 10/28/18 17:52 10/28/18 20:47 Glucose (Fingerstick) 203 mg/dL (70-99) 87 mg/dL (70-99) 128 mg/dL (70-99) 131 mg/dL (70-99) Test 10/29/18 06:35 White Blood Count 4.1 x10^3/uL (4.0-11.0) Red Blood Count 3.11 x10^6/uL (3.50-5.40) Hemoglobin 8.5 g/dL (12.0-15.5) Hematocrit 26.5 % (36.0-47.0) Mean Corpuscular Volume 85 fL (79-100) Mean Corpuscular Hemoglobin 27 pg (25-35) Mean Corpuscular Hemoglobin Concent 32 g/dL (31-37) Red Cell Distribution Width 15.6 % (11.5-14.5) Platelet Count 187 x10^3/uL (140-400) Neutrophils (%) (Auto) 53 % (31-73) Lymphocytes (%) (Auto) 34 % (24-48) Monocytes (%) (Auto) 9 % (0-9) Eosinophils (%) (Auto) 4 % (0-3) Basophils (%) (Auto) 0 % (0-3) Neutrophils # (Auto) 2.2 x10^3/uL (1.8-7.7) Lymphocytes # (Auto) 1.4 x10^3/uL (1.0-4.8) Monocytes # (Auto) 0.4 x10^3/uL (0.0-1.1) Eosinophils # (Auto) 0.1 x10^3/uL (0.0-0.7) Basophils # (Auto) 0.0 x10^3/uL (0.0-0.2) Assessment and Plan Assessmemt and Plan Problems Medical Problems: (1) DKA (diabetic ketoacidoses) Status: Acute Comment Review of Relevant I have reviewed the following items olena (where applicable) has been applied. Labs Laboratory Tests Test 10/27/18 08:05 10/27/18 10:21 10/27/18 11:04 10/27/18 11:35 White Blood Count 11.3 x10^3/uL (4.0-11.0) Red Blood Count 3.57 x10^6/uL (3.50-5.40) Hemoglobin 9.8 g/dL (12.0-15.5) Hematocrit 32.4 % (36.0-47.0) Mean Corpuscular Volume 91 fL (79-100) Mean Corpuscular Hemoglobin 27 pg (25-35) Mean Corpuscular Hemoglobin Concent 30 g/dL (31-37) Red Cell Distribution Width 16.5 % (11.5-14.5) Platelet Count 308 x10^3/uL (140-400) Neutrophils (%) (Auto) 82 % (31-73) Lymphocytes (%) (Auto) 13 % (24-48) Monocytes (%) (Auto) 4 % (0-9) Eosinophils (%) (Auto) 1 % (0-3) Basophils (%) (Auto) 0 % (0-3) Neutrophils # (Auto) 9.3 x10^3/uL (1.8-7.7) Lymphocytes # (Auto) 1.4 x10^3/uL (1.0-4.8) Monocytes # (Auto) 0.4 x10^3/uL (0.0-1.1) Eosinophils # (Auto) 0.1 x10^3/uL (0.0-0.7) Basophils # (Auto) 0.1 x10^3/uL (0.0-0.2) Sodium Level 134 mmol/L (136-145) Potassium Level 5.6 mmol/L (3.5-5.1) Chloride Level 97 mmol/L (98-107) Carbon Dioxide Level 11 mmol/L (21-32) Anion Gap 26 (6-14) Blood Urea Nitrogen 15 mg/dL (7-20) Creatinine 1.0 mg/dL (0.6-1.0) Estimated GFR (Cockcroft-Gault) 62.4 BUN/Creatinine Ratio 15 (6-20) Glucose Level 529 mg/dL (70-99) Hemoglobin A1c 9.3 % (4.8-5.6) Calcium Level 9.1 mg/dL (8.5-10.1) Total Bilirubin 0.4 mg/dL (0.2-1.0) Aspartate Amino Transf (AST/SGOT) 9 U/L (15-37) Alanine Aminotransferase (ALT/SGPT) 14 U/L (14-59) Alkaline Phosphatase 112 U/L (46-116) Total Protein 6.7 g/dL (6.4-8.2) Albumin 3.4 g/dL (3.4-5.0) Albumin/Globulin Ratio 1.0 (1.0-1.7) Glucose (Fingerstick) 514 mg/dL (70-99) 437 mg/dL (70-99) 384 mg/dL (70-99) Test 10/27/18 12:55 10/27/18 15:05 10/27/18 15:20 10/27/18 16:48 Glucose (Fingerstick) 296 mg/dL (70-99) 200 mg/dL (70-99) 189 mg/dL (70-99) Sodium Level 139 mmol/L (136-145) Potassium Level 4.8 mmol/L (3.5-5.1) Chloride Level 103 mmol/L (98-107) Carbon Dioxide Level 15 mmol/L (21-32) Anion Gap 21 (6-14) Blood Urea Nitrogen 14 mg/dL (7-20) Creatinine 1.0 mg/dL (0.6-1.0) Estimated GFR (Cockcroft-Gault) 62.4 Glucose Level 223 mg/dL (70-99) Calcium Level 9.5 mg/dL (8.5-10.1) Test 10/27/18 18:28 10/27/18 19:36 10/27/18 20:40 10/27/18 21:55 Glucose (Fingerstick) 198 mg/dL (70-99) 102 mg/dL (70-99) 90 mg/dL (70-99) 84 mg/dL (70-99) Test 10/27/18 21:58 10/27/18 23:04 10/28/18 00:37 10/28/18 02:30 Sodium Level 137 mmol/L (136-145) Potassium Level 4.4 mmol/L (3.5-5.1) Chloride Level 106 mmol/L (98-107) Carbon Dioxide Level 18 mmol/L (21-32) Anion Gap 13 (6-14) Blood Urea Nitrogen 12 mg/dL (7-20) Creatinine 0.8 mg/dL (0.6-1.0) Estimated GFR (Cockcroft-Gault) 80.7 Glucose Level 89 mg/dL (70-99) Calcium Level 9.3 mg/dL (8.5-10.1) Glucose (Fingerstick) 109 mg/dL (70-99) 97 mg/dL (70-99) 135 mg/dL (70-99) Test 10/28/18 04:30 10/28/18 07:16 10/28/18 11:07 10/28/18 16:39 White Blood Count 7.0 x10^3/uL (4.0-11.0) Red Blood Count 3.18 x10^6/uL (3.50-5.40) Hemoglobin 8.7 g/dL (12.0-15.5) Hematocrit 27.1 % (36.0-47.0) Mean Corpuscular Volume 85 fL (79-100) Mean Corpuscular Hemoglobin 27 pg (25-35) Mean Corpuscular Hemoglobin Concent 32 g/dL (31-37) Red Cell Distribution Width 15.5 % (11.5-14.5) Platelet Count 244 x10^3/uL (140-400) Neutrophils (%) (Auto) 69 % (31-73) Lymphocytes (%) (Auto) 22 % (24-48) Monocytes (%) (Auto) 7 % (0-9) Eosinophils (%) (Auto) 2 % (0-3) Basophils (%) (Auto) 0 % (0-3) Neutrophils # (Auto) 4.8 x10^3/uL (1.8-7.7) Lymphocytes # (Auto) 1.5 x10^3/uL (1.0-4.8) Monocytes # (Auto) 0.5 x10^3/uL (0.0-1.1) Eosinophils # (Auto) 0.2 x10^3/uL (0.0-0.7) Basophils # (Auto) 0.0 x10^3/uL (0.0-0.2) Sodium Level 141 mmol/L (136-145) Potassium Level 3.8 mmol/L (3.5-5.1) Chloride Level 108 mmol/L (98-107) Carbon Dioxide Level 22 mmol/L (21-32) Anion Gap 11 (6-14) Blood Urea Nitrogen 10 mg/dL (7-20) Creatinine 0.7 mg/dL (0.6-1.0) Estimated GFR (Cockcroft-Gault) 94.2 Glucose Level 194 mg/dL (70-99) Calcium Level 8.7 mg/dL (8.5-10.1) Glucose (Fingerstick) 310 mg/dL (70-99) 203 mg/dL (70-99) 87 mg/dL (70-99) Test 10/28/18 17:52 10/28/18 20:47 10/29/18 06:35 Glucose (Fingerstick) 128 mg/dL (70-99) 131 mg/dL (70-99) White Blood Count 4.1 x10^3/uL (4.0-11.0) Red Blood Count 3.11 x10^6/uL (3.50-5.40) Hemoglobin 8.5 g/dL (12.0-15.5) Hematocrit 26.5 % (36.0-47.0) Mean Corpuscular Volume 85 fL (79-100) Mean Corpuscular Hemoglobin 27 pg (25-35) Mean Corpuscular Hemoglobin Concent 32 g/dL (31-37) Red Cell Distribution Width 15.6 % (11.5-14.5) Platelet Count 187 x10^3/uL (140-400) Neutrophils (%) (Auto) 53 % (31-73) Lymphocytes (%) (Auto) 34 % (24-48) Monocytes (%) (Auto) 9 % (0-9) Eosinophils (%) (Auto) 4 % (0-3) Basophils (%) (Auto) 0 % (0-3) Neutrophils # (Auto) 2.2 x10^3/uL (1.8-7.7) Lymphocytes # (Auto) 1.4 x10^3/uL (1.0-4.8) Monocytes # (Auto) 0.4 x10^3/uL (0.0-1.1) Eosinophils # (Auto) 0.1 x10^3/uL (0.0-0.7) Basophils # (Auto) 0.0 x10^3/uL (0.0-0.2) Laboratory Tests Test 10/28/18 11:07 10/28/18 16:39 10/28/18 17:52 10/28/18 20:47 Glucose (Fingerstick) 203 mg/dL (70-99) 87 mg/dL (70-99) 128 mg/dL (70-99) 131 mg/dL (70-99) Test 10/29/18 06:35 White Blood Count 4.1 x10^3/uL (4.0-11.0) Red Blood Count 3.11 x10^6/uL (3.50-5.40) Hemoglobin 8.5 g/dL (12.0-15.5) Hematocrit 26.5 % (36.0-47.0) Mean Corpuscular Volume 85 fL (79-100) Mean Corpuscular Hemoglobin 27 pg (25-35) Mean Corpuscular Hemoglobin Concent 32 g/dL (31-37) Red Cell Distribution Width 15.6 % (11.5-14.5) Platelet Count 187 x10^3/uL (140-400) Neutrophils (%) (Auto) 53 % (31-73) Lymphocytes (%) (Auto) 34 % (24-48) Monocytes (%) (Auto) 9 % (0-9) Eosinophils (%) (Auto) 4 % (0-3) Basophils (%) (Auto) 0 % (0-3) Neutrophils # (Auto) 2.2 x10^3/uL (1.8-7.7) Lymphocytes # (Auto) 1.4 x10^3/uL (1.0-4.8) Monocytes # (Auto) 0.4 x10^3/uL (0.0-1.1) Eosinophils # (Auto) 0.1 x10^3/uL (0.0-0.7) Basophils # (Auto) 0.0 x10^3/uL (0.0-0.2) Microbiology 10/27/18 Blood Culture - Preliminary, Resulted NO GROWTH AFTER 1 DAY Medications Current Medications Hydromorphone HCl (Dilaudid) 1 mg PRN Q15MIN PRN IV/SQ PAIN GREATER THAN 3/10 Last administered on 10/25/18at 21:05; Start 10/25/18 at 21:00; Stop 10/26/18 at 20:59; Status DC Sodium Chloride 1,000 ml @ 1,000 mls/hr Q1H IV Last administered on 10/25/18at 21:05; Start 10/25/18 at 21:00; Stop 10/25/18 at 21:59; Status DC Metoclopramide HCl (Reglan Vial) 10 mg 1X ONCE IV Last administered on 10/25/18at 21:05; Start 10/25/18 at 21:00; Stop 10/25/18 at 21:01; Status DC Diphenhydramine HCl (Benadryl) 25 mg 1X ONCE IVP Last administered on 10/25/18at 21:05; Start 10/25/18 at 21:00; Stop 10/25/18 at 21:01; Status DC Insulin Human Regular (HumuLIN R VIAL) 10 unit 1X ONCE IV Last administered on 10/25/18at 21:05; Start 10/25/18 at 21:00; Stop 10/25/18 at 21:01; Status DC Insulin Human Regular 150 unit/ Sodium Chloride 151.5 ml @ 0 mls/hr CONT PRN IV SEE I/O RECORD Last administered on 10/25/18at 23:02; Start 10/25/18 at 22:15; Stop 10/26/18 at 12:29; Status DC Dextrose (Dextrose 50%-Water Syringe) 12.5 gm PRN Q15MIN PRN IV LOW BLOOD SUGAR; Start 10/25/18 at 22:15; Stop 10/27/18 at 16:40; Status DC Dextrose 250 ml PRN Q15MIN PRN IV LOW BLOOD SUGAR; Start 10/25/18 at 22:15; Stop 10/27/18 at 16:40; Status DC Insulin Human Lispro (HumaLOG) 0-7 UNITS TIDWMEALS SQ Last administered on 10/27/18at 13:15; Start 10/26/18 at 08:00; Stop 10/27/18 at 17:16; Status DC Dextrose (Dextrose 50%-Water Syringe) 12.5 gm PRN Q15MIN PRN IV SEE COMMENTS; Start 10/25/18 at 22:15; Stop 10/25/18 at 22:16; Status DC Dextrose 250 ml PRN Q15MIN PRN IV SEE COMMENTS; Start 10/25/18 at 22:15; Stop 10/25/18 at 22:16; Status DC Sodium Chloride 1,000 ml @ 1,000 mls/hr 1X ONCE IV ; Start 10/25/18 at 23:00; Stop 10/25/18 at 23:59; Status DC Sodium Bicarbonate (Sodium Bicarb Adult 8.4% Syr) 50 meq 1X ONCE IV Last administered on 10/26/18at 00:21; Start 10/25/18 at 23:00; Stop 10/25/18 at 23:01; Status DC Insulin Human Regular 150 unit/ Sodium Chloride 151.5 ml @ 0 mls/hr CONT PRN PRN IV PER PROTOCOL; Start 10/25/18 at 23:15; Status Cancel Potassium Chloride/Water 100 ml @ 100 mls/hr PRN Q1HR PRN IV SEE COMMENTS; S tart 10/25/18 at 23:15; Stop 10/26/18 at 12:29; Status DC Potassium Chloride/Water 100 ml @ 100 mls/hr PRN Q1HR PRN IV SEE COMMENTS; Start 10/25/18 at 23:15; Stop 10/26/18 at 12:29; Status DC Potassium Chloride/Water 100 ml @ 100 mls/hr PRN Q1HR PRN IV SEE COMMENTS; Start 10/25/18 at 23:15; Stop 10/26/18 at 12:29; Status DC Sodium Chloride 1,000 ml @ 500 mls/hr 1X ONCE IV Last administered on 10/26/18at 00:15; Start 10/25/18 at 23:45; Stop 10/26/18 at 03:29; Status DC Ondansetron HCl (Zofran) 4 mg PRN Q4HRS PRN IV NAUSEA/VOMITING 1ST CHOICE Last administered on 10/27/18at 21:57; Start 10/26/18 at 01:30 Fentanyl Citrate (Fentanyl 2ml Vial) 25 mcg PRN Q3HRS PRN IV SEVERE PAIN 7-10 Last administered on 10/29/18at 06:01; Start 10/26/18 at 01:30 Sodium Chloride 1,000 ml @ 250 mls/hr Q4H IV Last administered on 10/26/18at 02:20; Start 10/26/18 at 02:30; Stop 10/26/18 at 06:33; Status DC Potassium Chloride/Water 100 ml @ 100 mls/hr Q1H IV Last administered on 10/26/18at 03:55; Start 10/26/18 at 03:00; Stop 10/26/18 at 04:59; Status DC Dextrose/Sodium Chloride 1,000 ml @ 250 mls/hr Q4H IV Last administered on 10/26/18at 07:47; Start 10/26/18 at 03:30; Stop 10/26/18 at 12:29; Status DC Potassium Chloride/Water 100 ml @ 100 mls/hr Q1H IV Last administered on 10/26/18at 07:47; Start 10/26/18 at 06:00; Stop 10/26/18 at 07:59; Status DC Magnesium Sulfate 100 ml @ 25 mls/hr 1X ONCE IV Last administered on 10/26/18at 06:34; Start 10/26/18 at 07:00; Stop 10/26/18 at 10:59; Status DC Pantoprazole Sodium (Protonix) 40 mg DAILYAC PO Last administered on 10/28/18at 07:26; Start 10/27/18 at 07:30 Pantoprazole Sodium (Protonix) 40 mg 1X ONCE PO Last administered on 10/26/18at 10:39; Start 10/26/18 at 10:45; Stop 10/26/18 at 10:46; Status DC Insulin Human Lispro (HumaLOG) 10 units 1X ONCE SQ Last administered on 10/27/18at 09:56; Start 10/27/18 at 09:45; Stop 10/27/18 at 09:47; Status DC Insulin Human Regular 150 unit/ Sodium Chloride 151.5 ml @ 0 mls/hr CONT PRN IV SEE I/O RECORD Last administered on 10/27/18at 17:30; Start 10/27/18 at 16:45; Stop 10/28/18 at 00:11; Status DC Dextrose (Dextrose 50%-Water Syringe) 12.5 gm PRN Q15MIN PRN IV LOW BLOOD SUGAR; Start 10/27/18 at 16:45 Sodium Chloride 1,000 ml @ 125 mls/hr Q8H IV Last administered on 10/27/18at 17:30; Start 10/27/18 at 17:30; Stop 10/27/18 at 17:41; Status DC Dextrose/Sodium Chloride 1,000 ml @ 150 mls/hr Q6H40M IV Last administered on 10/27/18at 17:43; Start 10/27/18 at 17:45; Stop 10/28/18 at 00:11; Status DC Ceftriaxone Sodium (Rocephin) 1 gm Q24H IVP Last administered on 10/28/18at 21:14; Start 10/27/18 at 20:00 Insulin Glargine (Lantus Syringe) 12 unit QHS SQ ; Start 10/28/18 at 21:00; Stop 10/28/18 at 11:25; Status DC Sodium Chloride 1,000 ml @ 125 mls/hr Q8H IV Last administered on 10/29/18at 00:20; Start 10/28/18 at 00:15 Insulin Human Lispro (HumaLOG) 0-9 UNITS TIDWMEALS SQ Last administered on 10/28/18at 12:16; Start 10/28/18 at 08:00 Dextrose (Dextrose 50%-Water Syringe) 12.5 gm PRN Q15MIN PRN IV SEE COMMENTS; Start 10/28/18 at 00:15; Stop 10/28/18 at 20:32; Status DC Dextrose 250 ml PRN Q15MIN PRN IV SEE COMMENTS; Start 10/28/18 at 00:15 Insulin Glargine (Lantus Syringe) 12 unit 1X ONCE SQ Last administered on 10/28/18at 00:40; Start 10/28/18 at 01:00; Stop 10/28/18 at 01:01; Status DC Insulin Glargine (Lantus Syringe) 20 unit QHS SQ Last administered on 10/28/18at 21:14; Start 10/28/18 at 21:00 Insulin Human Lispro (HumaLOG) 10 units TIDWMEALS SQ Last administered on 10/28/18at 17:58; Start 10/28/18 at 12:00 Lactobacillus Rhamnosus (Culturelle) 1 cap BID PO Last administered on 10/28/18at 21:14; Start 10/28/18 at 21:00 Active Scripts Active [place] 5-325 Tablet (Acetaminophen/Hydrocodone Bitart) 1 Each Tablet 1 Tab PO PRN Q6HRS PRN Naproxen 500 Mg Tablet 500 Mg PO BID Robaxin (Methocarbamol) 500 Mg Tablet 500 Mg PO QID [place] 5-325 Tablet (Acetaminophen/Hydrocodone Bitart) 1 Each Tablet 1 Tab PO PRN Q6HRS PRN Macrobid 100 Mg Capsule (Nitrofurantoin Monohyd/M-Cryst) 100 Mg Capsule 100 Mg PO BID Zofran (Ondansetron Hcl) 4 Mg Tablet 4 Mg PO BID PRN Chlorhexidine Gluconate 118 Ml Liquid 5 Ml TP BID rinse and spit [place] 5-325 Tablet (Acetaminophen/Hydrocodone Bitart) 1 Each Tablet 1-2 Tab PO Q4-6HRS Reported Ferrous Sulfate 325 Mg Tablet 1 Tab PO DAILY Gabapentin (Gabapentin) 300 Mg Capsule 300 Mg PO TID Lantus Solostar (Insulin Glargine,Hum.rec.anlog) 100 Unit/1 Ml Insuln.pen 12 Unit SQ QHS Novolog (Insulin Aspart) Unknown Strength Cartridge Unknown Dose SQ Vitals/I & O Vital Sign - Last 24 Hours 10/28/18 10/28/18 10/28/18 10/28/18 08:00 08:00 08:41 09:00 Temp 98.3 98.0 98.3 98.0 Pulse 82 86 Resp 16 16 B/P (MAP) 105/50 (68) 107/66 (80) Pulse Ox 100 100 O2 Delivery Room Air Room Air Room Air Room Air 10/28/18 10/28/18 10/28/18 10/28/18 09:25 10:00 11:00 12:16 Temp 98.5 98.0 98.5 98.0 Pulse 86 78 Resp 16 17 B/P (MAP) 100/55 (70) 99/56 (70) Pulse Ox 100 100 O2 Delivery Room Air Room Air Room Air Room Air 10/28/18 10/28/18 10/28/18 10/28/18 12:48 14:39 15:24 16:19 Temp 98.5 98.5 Pulse 93 Resp 16 20 20 B/P (MAP) 96/61 (73) Pulse Ox 100 100 100 O2 Delivery Room Air Room Air Room Air Room Air 10/28/18 10/28/18 10/28/18 10/28/18 18:25 19:00 19:09 20:00 Temp 98.3 98.3 Pulse 96 Resp 20 18 20 B/P (MAP) 118/63 (81) Pulse Ox 100 97 100 O2 Delivery Room Air Room Air Room Air Room Air 10/28/18 10/28/18 10/28/18 10/29/18 22:03 22:35 23:00 01:04 Temp 98.5 98.5 Pulse 96 Resp 18 B/P (MAP) 128/73 (91) Pulse Ox 97 100 100 O2 Delivery Room Air Room Air Room Air Room Air 10/29/18 10/29/18 03:00 06:01 Temp 98.3 98.3 Pulse 82 Resp 18 B/P (MAP) 114/66 (82) Pulse Ox 98 98 O2 Delivery Room Air Room Air Intake and Output 10/28/18 10/28/18 10/29/18 14:59 22:59 06:59 Intake Total 1680 ml 240 ml Balance 1680 ml 240 ml COREY CAN MD Oct 29, 2018 07:59
[2018-10-29 08:07] LABS: CALCIUM 8.1 mg/dL (8.5-10.1); CREATININE 0.7 mg/dL (0.6-1.0); GFR 94.2; POTASSIUM 3.6 mmol/L (3.5-5.1)
[2018-10-29] MEDS: PANTOPRAZOLE 40 MG TABLET.DR. PO SCH (08:12)
[2018-10-29] MEDS: LACTOBACILLUS RHAMNOSUS GG 1 CAPSULE. PO SCH ×2 (08:12→20:18)
[2018-10-29] MEDS: INSULIN LISPRO 300 UNITS/3 ML VIAL. SQ SCH ×6 (08:21→16:55)
[2018-10-29 11:00] VITALS: BP 114/68
--- NOTE | 2018-10-29 14:03 | NUR ---
PERCY following pt. PERCY left a health resource guide and [facility] services information with RN. Will continue to follow pending dc needs.
[2018-10-29] MEDS ORDERED: ACETAMINOPHEN 325 MG TABLET. PO PRN (14:15)
[2018-10-29] MEDS ORDERED: TRAM50TA PO (14:56)
[2018-10-29] MEDS ORDERED: IBUP-1027 PO (14:56)
[2018-10-29] MEDS ORDERED: PANT40TA77 PO (14:56)
[2018-10-29 15:00] VITALS: BP 129/71
[2018-10-29] MEDS ORDERED: NALT50TA PO (15:21)
--- NOTE | 2018-10-29 15:23 | PDOC3 ---
Discharge Summary Visit Information Date of Admission: Oct 25, 2018 Date of Discharge: Oct 30, 2018 Admitting Diagnosis: DKA Final Diagnosis Problems Medical Problems: (1) DKA (diabetic ketoacidoses) Status: Acute Brief Hospital Course Allergies Allergies Coded Allergies Type Severity Reaction Last Updated Verified No Known Drug Allergies 03/03/15 No Vital Signs Vital Signs Date Time Temp Pulse Resp B/P (MAP) Pulse Ox O2 Delivery O2 Flow Rate FiO2 10/29/18 13:23 Room Air 10/29/18 11:00 98.0 91 17 114/68 (83) 100 98.0 Lab Results Laboratory Tests Test 10/27/18 16:48 10/27/18 18:28 10/27/18 19:36 10/27/18 20:40 Glucose (Fingerstick) 189 mg/dL (70-99) 198 mg/dL (70-99) 102 mg/dL (70-99) 90 mg/dL (70-99) Test 10/27/18 21:55 10/27/18 21:58 10/27/18 23:04 10/28/18 00:37 Glucose (Fingerstick) 84 mg/dL (70-99) 109 mg/dL (70-99) 97 mg/dL (70-99) Sodium Level 137 mmol/L (136-145) Potassium Level 4.4 mmol/L (3.5-5.1) Chloride Level 106 mmol/L (98-107) Carbon Dioxide Level 18 mmol/L (21-32) Anion Gap 13 (6-14) Blood Urea Nitrogen 12 mg/dL (7-20) Creatinine 0.8 mg/dL (0.6-1.0) Estimated GFR (Cockcroft-Gault) 80.7 Glucose Level 89 mg/dL (70-99) Calcium Level 9.3 mg/dL (8.5-10.1) Test 10/28/18 02:30 10/28/18 04:30 10/28/18 07:16 10/28/18 11:07 Glucose (Fingerstick) 135 mg/dL (70-99) 310 mg/dL (70-99) 203 mg/dL (70-99) White Blood Count 7.0 x10^3/uL (4.0-11.0) Red Blood Count 3.18 x10^6/uL (3.50-5.40) Hemoglobin 8.7 g/dL (12.0-15.5) Hematocrit 27.1 % (36.0-47.0) Mean Corpuscular Volume 85 fL (79-100) Mean Corpuscular Hemoglobin 27 pg (25-35) Mean Corpuscular Hemoglobin Concent 32 g/dL (31-37) Red Cell Distribution Width 15.5 % (11.5-14.5) Platelet Count 244 x10^3/uL (140-400) Neutrophils (%) (Auto) 69 % (31-73) Lymphocytes (%) (Auto) 22 % (24-48) Monocytes (%) (Auto) 7 % (0-9) Eosinophils (%) (Auto) 2 % (0-3) Basophils (%) (Auto) 0 % (0-3) Neutrophils # (Auto) 4.8 x10^3/uL (1.8-7.7) Lymphocytes # (Auto) 1.5 x10^3/uL (1.0-4.8) Monocytes # (Auto) 0.5 x10^3/uL (0.0-1.1) Eosinophils # (Auto) 0.2 x10^3/uL (0.0-0.7) Basophils # (Auto) 0.0 x10^3/uL (0.0-0.2) Sodium Level 141 mmol/L (136-145) Potassium Level 3.8 mmol/L (3.5-5.1) Chloride Level 108 mmol/L (98-107) Carbon Dioxide Level 22 mmol/L (21-32) Anion Gap 11 (6-14) Blood Urea Nitrogen 10 mg/dL (7-20) Creatinine 0.7 mg/dL (0.6-1.0) Estimated GFR (Cockcroft-Gault) 94.2 Glucose Level 194 mg/dL (70-99) Calcium Level 8.7 mg/dL (8.5-10.1) Test 10/28/18 16:39 10/28/18 17:52 10/28/18 20:47 10/29/18 06:35 Glucose (Fingerstick) 87 mg/dL (70-99) 128 mg/dL (70-99) 131 mg/dL (70-99) White Blood Count 4.1 x10^3/uL (4.0-11.0) Red Blood Count 3.11 x10^6/uL (3.50-5.40) Hemoglobin 8.5 g/dL (12.0-15.5) Hematocrit 26.5 % (36.0-47.0) Mean Corpuscular Volume 85 fL (79-100) Mean Corpuscular Hemoglobin 27 pg (25-35) Mean Corpuscular Hemoglobin Concent 32 g/dL (31-37) Red Cell Distribution Width 15.6 % (11.5-14.5) Platelet Count 187 x10^3/uL (140-400) Neutrophils (%) (Auto) 53 % (31-73) Lymphocytes (%) (Auto) 34 % (24-48) Monocytes (%) (Auto) 9 % (0-9) Eosinophils (%) (Auto) 4 % (0-3) Basophils (%) (Auto) 0 % (0-3) Neutrophils # (Auto) 2.2 x10^3/uL (1.8-7.7) Lymphocytes # (Auto) 1.4 x10^3/uL (1.0-4.8) Monocytes # (Auto) 0.4 x10^3/uL (0.0-1.1) Eosinophils # (Auto) 0.1 x10^3/uL (0.0-0.7) Basophils # (Auto) 0.0 x10^3/uL (0.0-0.2) Sodium Level 142 mmol/L (136-145) Potassium Level 3.6 mmol/L (3.5-5.1) Chloride Level 110 mmol/L (98-107) Carbon Dioxide Level 24 mmol/L (21-32) Anion Gap 8 (6-14) Blood Urea Nitrogen 3 mg/dL (7-20) Creatinine 0.7 mg/dL (0.6-1.0) Estimated GFR (Cockcroft-Gault) 94.2 Glucose Level 274 mg/dL (70-99) Calcium Level 8.1 mg/dL (8.5-10.1) Test 10/29/18 07:49 10/29/18 11:47 10/29/18 12:57 Glucose (Fingerstick) 278 mg/dL (70-99) 64 mg/dL (70-99) 96 mg/dL (70-99) Laboratory Tests Test 10/28/18 16:39 10/28/18 17:52 10/28/18 20:47 10/29/18 06:35 Glucose (Fingerstick) 87 mg/dL (70-99) 128 mg/dL (70-99) 131 mg/dL (70-99) White Blood Count 4.1 x10^3/uL (4.0-11.0) Red Blood Count 3.11 x10^6/uL (3.50-5.40) Hemoglobin 8.5 g/dL (12.0-15.5) Hematocrit 26.5 % (36.0-47.0) Mean Corpuscular Volume 85 fL (79-100) Mean Corpuscular Hemoglobin 27 pg (25-35) Mean Corpuscular Hemoglobin Concent 32 g/dL (31-37) Red Cell Distribution Width 15.6 % (11.5-14.5) Platelet Count 187 x10^3/uL (140-400) Neutrophils (%) (Auto) 53 % (31-73) Lymphocytes (%) (Auto) 34 % (24-48) Monocytes (%) (Auto) 9 % (0-9) Eosinophils (%) (Auto) 4 % (0-3) Basophils (%) (Auto) 0 % (0-3) Neutrophils # (Auto) 2.2 x10^3/uL (1.8-7.7) Lymphocytes # (Auto) 1.4 x10^3/uL (1.0-4.8) Monocytes # (Auto) 0.4 x10^3/uL (0.0-1.1) Eosinophils # (Auto) 0.1 x10^3/uL (0.0-0.7) Basophils # (Auto) 0.0 x10^3/uL (0.0-0.2) Sodium Level 142 mmol/L (136-145) Potassium Level 3.6 mmol/L (3.5-5.1) Chloride Level 110 mmol/L (98-107) Carbon Dioxide Level 24 mmol/L (21-32) Anion Gap 8 (6-14) Blood Urea Nitrogen 3 mg/dL (7-20) Creatinine 0.7 mg/dL (0.6-1.0) Estimated GFR (Cockcroft-Gault) 94.2 Glucose Level 274 mg/dL (70-99) Calcium Level 8.1 mg/dL (8.5-10.1) Test 10/29/18 07:49 10/29/18 11:47 10/29/18 12:57 Glucose (Fingerstick) 278 mg/dL (70-99) 64 mg/dL (70-99) 96 mg/dL (70-99) Brief Hospital Course Ms Gibson is a 38yo F w/ PMHx DM admitted with DKA to ICU. Recovering on the floor now. She is c/o left foot pain, notes she was seen at [facility] for a fracture, has 3 bones fractured. She notes worsening pain and swelling, but also notes she has been walking on it without her boot. Otherwise glucose better controlled. Gap closed. Taking PO well. Left foot XR confirmed her 2nd and 3rd metatarsal fractures, non-displaced. Has [facility] ortho f/u and her nephew is bringing her boot for the next 6-8 weeks to wear XR - Nondisplaced fractures of the base of the second and third metatarsal. No tarsometatarsal offset to suggest Lisfranc injury however these are nonweightbearing views and Lisfranc injury is not entirely excluded. 10/28/18 Pt seen/examined in the ICU Pt's anion gap has improved to 11 DW RN plan to transfer pt to floor Chart Reviewed DKA Noncompliance history Anemia Meth abuse Hx Probable 3.7cm left ovarian cyst Plan: Left foot XR 3view and likely d/c after with boot, anti-inflammatories Educated on methamphetamine and alcohol abstinence Greater than 30 minutes spent on discharge Discharge Information Condition at Discharge: Improved Follow Up: Weeks (1) Disposition/Orders: D/C to Home Scheduled Ferrous Sulfate (Ferrous Sulfate) 325 Mg Tablet, 1 TAB PO DAILY for supplement, #30 Ref 3 (Reported) Entered as Reported by: PACO MORENO RN on 10/26/18257 Last Taken: UNKNOWN on Unknown Date & Time Last Action: New Order on 10/26/18257 by PACO MORENO RN Gabapentin (Gabapentin ) 300 Mg Capsule, 300 MG PO TID for NEUROGENIC PAIN, (Reported) Entered as Reported by: PACO MORENO RN on 10/26/18257 Last Taken: UNKNOWN on Unknown Date & Time Last Action: New Order on 10/26/18 0258 by PACO MORENO, RN Insulin Glargine,Hum.rec.anlog (Lantus Solostar) 100 Unit/1 Ml Insuln.pen, 12 UNIT SQ QHS, #15 Ref 3 (Reported) Entered as Reported by: AJ AMNA on 11/12/16 0755 Last Action: Converted on 10/28/18 0008 by Lc Bae Naltrexone Hcl (Naltrexone Hcl) 50 Mg Tablet, 1 TAB PO DAILY for ETOh dependence for 30 Days, #30 Ref 2 Take daily when feeling urge to drink or use other substances. Do not take within 48 hours of using opioid medications (wait until done taking tramadol() Prescribed by: COREY CAN MD on 10/29/18 1521 Pantoprazole Sodium (Pantoprazole Sodium ) 40 Mg Tablet.dr, 40 MG PO DAILYAC for GERD for 30 Days, #30 Ref 1 Prescribed by: COREY CAN MD on 10/29/18 1456 Scheduled PRN Ibuprofen (Ibuprofen) 400 Mg Tablet, 800 MG PO PRN Q6HRS PRN for INFLAMMATION for 30 Days, #120 Prescribed by: COREY CAN MD on 10/29/18 1456 Ondansetron Hcl (Zofran) 4 Mg Tablet, 4 MG PO BID PRN for NAUSEA/VOMITING, #14 Prescribed by: FLOYD GEORGE D.O. on 12/28/15 0109 Tramadol Hcl (Tramadol Hcl) 50 Mg Tablet, 50 MG PO PRN Q6HRS PRN for MODERATE PAIN for 6 Days, #12 Prescribed by: COREY CAN MD on 10/29/18 1456 Miscellaneous Medications Insulin Aspart (Novolog) Unknown Strength Cartridge, Unknown Dose SQ, (Reported) Entered as Reported by: Kayden Mccoy RN on 11/12/16 0657 Discontinued Medications Chlorhexidine Gluconate (Chlorhexidine Gluconate) 118 Ml Liquid, 5 ML TP BID, #1 rinse and spit Prescribed by: Kaya Guzman APRN on 09/30/15 2321 Hydrocodone/Apap 5-325 (Gardena 5-325 Tablet) 1 Each Tablet, 1-2 TAB PO Q4-6HRS, #20 Prescribed by: Kaya Guzman APRN on 09/30/15 2321 Hydrocodone/Apap 5-325 (Gardena 5-325 Tablet) 1 Each Tablet, 1 TAB PO PRN Q6HRS PRN for PAIN, #20 Prescribed by: GOPI BAUTISTA on 01/02/16 2351 Hydrocodone/Apap 5-325 (Gardena 5-325 Tablet) 1 Each Tablet, 1 TAB PO PRN Q6HRS PRN for PAIN, #20 Ref 0 Prescribed by: LEVAR OSBORN on 09/28/17 0853 Methocarbamol (Robaxin) 500 Mg Tablet, 500 MG PO QID, #20 Prescribed by: GOPI BAUTISTA on 01/02/16 2351 Naproxen (Naproxen) 500 Mg Tablet, 500 MG PO BID, #60 Prescribed by: LEVAR OSBORN on 09/28/17 0853 Nitrofurantoin Monohyd/M-Cryst (Macrobid 100 Mg Capsule) 100 Mg Capsule, 100 MG PO BID, #10 Prescribed by: FLOYD GEORGE D.O. on 12/28/15 0143 COREY CAN MD Oct 29, 2018 15:23
--- NOTE | 2018-10-29 17:35 | RAD ---
EXAM: AP, oblique and lateral views of the left foot DATE: 10/29/2018 2:16 PM INDICATION: Fracture, pain and swelling COMPARISON: No Prior FINDINGS: Transverse fractures through the base of the second and third metatarsal shafts are seen. No tarsometatarsal offset on this nonweightbearing view. Moderate soft tissue swelling about the forefoot. IMPRESSION: Nondisplaced fractures of the base of the second and third metatarsal. No tarsometatarsal offset to suggest Lisfranc injury however these are nonweightbearing views and Lisfranc injury is not entirely excluded. Electronically signed by: Mayo Hall MD (10/29/2018 5:32 PM) [facility]
[2018-10-29] MEDS: traMADol 50 MG TABLET PO PRN (18:03)
[2018-10-29 19:00] VITALS: BP 135/81
[2018-10-29] MEDS: cefTRIAXone IV Push 1 GM VIAL. IVP SCH (20:18)
--- NOTE | 2018-10-29 20:37 | NUR ---
This nurse paged MD with results of foot x-ray and asked about DC orders. This nurse spoke with Dr. Hernandez. stated to hold pt. tonight and DC in the morning. Will continue to monitor.
[2018-10-29] MEDS: IBUPROFEN 400 MG TABLET. PO PRN (21:45)
[2018-10-29] MEDS: INSULIN GLARGINE SYRINGE. SQ SCH (21:48)
[2018-10-29 23:00] VITALS: BP 128/76
[2018-10-30] MEDS: traMADol 50 MG TABLET PO PRN ×2 (00:13→11:15)
[2018-10-30] MEDS: IV NORMAL SALINE 1000ML BAG 1,000 ML IV SCH ×2 (01:11→10:21)
[2018-10-30 03:00] VITALS: BP 127/77
[2018-10-30 05:06] LABS: BASO % 1 % (0-3); EOS # 0.1 x10^3/uL (0.0-0.7); EOS % 4 % (0-3); HEMATOCRIT 27.4 % (36.0-47.0); HEMOGLOBIN 8.8 g/dL (12.0-15.5); LYMPH # 1.2 x10^3/uL (1.0-4.8); LYMPH % 35 % (24-48); MEAN CORPUSCULAR HEMOGLOBIN 27 pg (25-35); MEAN CORPUSCULAR HGB CONC 32 g/dL (31-37); MEAN CORPUSCULAR VOLUME 84 fL (79-100); MONO # 0.3 x10^3/uL (0.0-1.1); MONO % 9 % (0-9); NEUT # 1.8 x10^3/uL (1.8-7.7); NEUT % 51 % (31-73); PLATELET COUNT 180 x10^3/uL (140-400); RED BLOOD COUNT 3.26 x10^6/uL (3.50-5.40); RED CELL DISTRIBUTION WIDTH 15.6 % (11.5-14.5); WHITE BLOOD COUNT 3.6 x10^3/uL (4.0-11.0)
[2018-10-30] MEDS: PANTOPRAZOLE 40 MG TABLET.DR. PO SCH (05:23)
[2018-10-30] MEDS: IBUPROFEN 400 MG TABLET. PO PRN (05:24)
[2018-10-30 05:27] LABS: CALCIUM 8.4 mg/dL (8.5-10.1); CREATININE 0.6 mg/dL (0.6-1.0); GFR 112.5; POTASSIUM 3.5 mmol/L (3.5-5.1)
[2018-10-30 07:00] VITALS: BP_SYST 115; BP_SYST 145; BP_DIAS 70; BP_DIAS 79
--- NOTE | 2018-10-30 08:23 | PDOC ---
PROGRESS NOTES Chief Complaint Chief Complaint DKA Noncompliance history Anemia Meth abuse Hx Probable 3.7cm left ovarian cyst Left foot fracture History of Present Illness History of Present Illness Ms Gibson is a 38yo F w/ PMHx DM admitted with DKA to ICU. Recovering on the floor now. She is c/o left foot pain, notes she was seen at [facility] for a fracture, has 3 bones fractured. She notes worsening pain and swelling, but also notes she has been walking on it without her boot. Otherwise glucose better controlled. Gap closed. Taking PO well. 10/28/18 Pt seen/examined in the ICU Pt's anion gap has improved to 11 DW RN plan to transfer pt to floor Chart Reviewed Plan: Left foot XR 3view and likely d/c after with boot, anti-inflammatories Educated on methamphetamine and alcohol abstinence Vitals Vitals Vital Signs Date Time Temp Pulse Resp B/P (MAP) Pulse Ox O2 Delivery O2 Flow Rate FiO2 10/30/18 07:00 98.2 80 18 115/70 (85) 97 Room Air 98.2 Physical Exam Physical Exam HEENT: Head is normocephalic, atraumatic, pupils were equally round and reactive to light and accommodation. NECK: Supple, no JVD, no thyromegaly was noted. LUNGS: Clear to auscultation in all lung nogueira without rhonchi or wheezing. HEART: RRR, S1, S2 present. Peripheral pulses intact, no obvious murmurs were noted. ABDOMEN: Soft, nontender. Positive bowel sounds no organomegaly, normal bowel sounds. EXTREMITIES: Without any cyanosis, clubbing, or edema. Pedal pulses intact, Homans sign is negative. NEUROLOGIC: She is quite weak. PSYCHIATRIC: Normal affect, normal mood. Stable. SKIN: No ulcerations or rashes, good skin turgor, no jaundice. VASCULAR: Good capillary refill, neurovascular bundle appears to be intact General: Alert, Oriented X3, Cooperative, mild distress Heart: Regular rate, Normal S1, Normal S2 Lungs: Clear Abdomen: Normal bowel sounds, Soft, No tenderness Extremities: No cyanosis Labs LABS Laboratory Tests Test 10/29/18 11:47 10/29/18 12:57 10/29/18 16:40 10/29/18 20:15 Glucose (Fingerstick) 64 mg/dL (70-99) 96 mg/dL (70-99) 318 mg/dL (70-99) 267 mg/dL (70-99) Test 10/29/18 20:54 10/30/18 04:25 10/30/18 08:02 Glucose (Fingerstick) 221 mg/dL (70-99) 298 mg/dL (70-99) White Blood Count 3.6 x10^3/uL (4.0-11.0) Red Blood Count 3.26 x10^6/uL (3.50-5.40) Hemoglobin 8.8 g/dL (12.0-15.5) Hematocrit 27.4 % (36.0-47.0) Mean Corpuscular Volume 84 fL (79-100) Mean Corpuscular Hemoglobin 27 pg (25-35) Mean Corpuscular Hemoglobin Concent 32 g/dL (31-37) Red Cell Distribution Width 15.6 % (11.5-14.5) Platelet Count 180 x10^3/uL (140-400) Neutrophils (%) (Auto) 51 % (31-73) Lymphocytes (%) (Auto) 35 % (24-48) Monocytes (%) (Auto) 9 % (0-9) Eosinophils (%) (Auto) 4 % (0-3) Basophils (%) (Auto) 1 % (0-3) Neutrophils # (Auto) 1.8 x10^3/uL (1.8-7.7) Lymphocytes # (Auto) 1.2 x10^3/uL (1.0-4.8) Monocytes # (Auto) 0.3 x10^3/uL (0.0-1.1) Eosinophils # (Auto) 0.1 x10^3/uL (0.0-0.7) Basophils # (Auto) 0.0 x10^3/uL (0.0-0.2) Sodium Level 139 mmol/L (136-145) Potassium Level 3.5 mmol/L (3.5-5.1) Chloride Level 104 mmol/L (98-107) Carbon Dioxide Level 31 mmol/L (21-32) Anion Gap 4 (6-14) Blood Urea Nitrogen 7 mg/dL (7-20) Creatinine 0.6 mg/dL (0.6-1.0) Estimated GFR (Cockcroft-Gault) 112.5 Glucose Level 370 mg/dL (70-99) Calcium Level 8.4 mg/dL (8.5-10.1) Assessment and Plan Assessmemt and Plan Problems Medical Problems: (1) DKA (diabetic ketoacidoses) Status: Acute Comment Review of Relevant I have reviewed the following items olena (where applicable) has been applied. Labs Laboratory Tests Test 10/28/18 11:07 10/28/18 16:39 10/28/18 17:52 10/28/18 20:47 Glucose (Fingerstick) 203 mg/dL (70-99) 87 mg/dL (70-99) 128 mg/dL (70-99) 131 mg/dL (70-99) Test 10/29/18 06:35 10/29/18 07:49 10/29/18 11:47 10/29/18 12:57 White Blood Count 4.1 x10^3/uL (4.0-11.0) Red Blood Count 3.11 x10^6/uL (3.50-5.40) Hemoglobin 8.5 g/dL (12.0-15.5) Hematocrit 26.5 % (36.0-47.0) Mean Corpuscular Volume 85 fL (79-100) Mean Corpuscular Hemoglobin 27 pg (25-35) Mean Corpuscular Hemoglobin Concent 32 g/dL (31-37) Red Cell Distribution Width 15.6 % (11.5-14.5) Platelet Count 187 x10^3/uL (140-400) Neutrophils (%) (Auto) 53 % (31-73) Lymphocytes (%) (Auto) 34 % (24-48) Monocytes (%) (Auto) 9 % (0-9) Eosinophils (%) (Auto) 4 % (0-3) Basophils (%) (Auto) 0 % (0-3) Neutrophils # (Auto) 2.2 x10^3/uL (1.8-7.7) Lymphocytes # (Auto) 1.4 x10^3/uL (1.0-4.8) Monocytes # (Auto) 0.4 x10^3/uL (0.0-1.1) Eosinophils # (Auto) 0.1 x10^3/uL (0.0-0.7) Basophils # (Auto) 0.0 x10^3/uL (0.0-0.2) Sodium Level 142 mmol/L (136-145) Potassium Level 3.6 mmol/L (3.5-5.1) Chloride Level 110 mmol/L (98-107) Carbon Dioxide Level 24 mmol/L (21-32) Anion Gap 8 (6-14) Blood Urea Nitrogen 3 mg/dL (7-20) Creatinine 0.7 mg/dL (0.6-1.0) Estimated GFR (Cockcroft-Gault) 94.2 Glucose Level 274 mg/dL (70-99) Calcium Level 8.1 mg/dL (8.5-10.1) Glucose (Fingerstick) 278 mg/dL (70-99) 64 mg/dL (70-99) 96 mg/dL (70-99) Test 10/29/18 16:40 10/29/18 20:15 10/29/18 20:54 10/30/18 04:25 Glucose (Fingerstick) 318 mg/dL (70-99) 267 mg/dL (70-99) 221 mg/dL (70-99) White Blood Count 3.6 x10^3/uL (4.0-11.0) Red Blood Count 3.26 x10^6/uL (3.50-5.40) Hemoglobin 8.8 g/dL (12.0-15.5) Hematocrit 27.4 % (36.0-47.0) Mean Corpuscular Volume 84 fL (79-100) Mean Corpuscular Hemoglobin 27 pg (25-35) Mean Corpuscular Hemoglobin Concent 32 g/dL (31-37) Red Cell Distribution Width 15.6 % (11.5-14.5) Platelet Count 180 x10^3/uL (140-400) Neutrophils (%) (Auto) 51 % (31-73) Lymphocytes (%) (Auto) 35 % (24-48) Monocytes (%) (Auto) 9 % (0-9) Eosinophils (%) (Auto) 4 % (0-3) Basophils (%) (Auto) 1 % (0-3) Neutrophils # (Auto) 1.8 x10^3/uL (1.8-7.7) Lymphocytes # (Auto) 1.2 x10^3/uL (1.0-4.8) Monocytes # (Auto) 0.3 x10^3/uL (0.0-1.1) Eosinophils # (Auto) 0.1 x10^3/uL (0.0-0.7) Basophils # (Auto) 0.0 x10^3/uL (0.0-0.2) Sodium Level 139 mmol/L (136-145) Potassium Level 3.5 mmol/L (3.5-5.1) Chloride Level 104 mmol/L (98-107) Carbon Dioxide Level 31 mmol/L (21-32) Anion Gap 4 (6-14) Blood Urea Nitrogen 7 mg/dL (7-20) Creatinine 0.6 mg/dL (0.6-1.0) Estimated GFR (Cockcroft-Gault) 112.5 Glucose Level 370 mg/dL (70-99) Calcium Level 8.4 mg/dL (8.5-10.1) Test 10/30/18 08:02 Glucose (Fingerstick) 298 mg/dL (70-99) Laboratory Tests Test 10/29/18 11:47 10/29/18 12:57 10/29/18 16:40 10/29/18 20:15 Glucose (Fingerstick) 64 mg/dL (70-99) 96 mg/dL (70-99) 318 mg/dL (70-99) 267 mg/dL (70-99) Test 10/29/18 20:54 10/30/18 04:25 10/30/18 08:02 Glucose (Fingerstick) 221 mg/dL (70-99) 298 mg/dL (70-99) White Blood Count 3.6 x10^3/uL (4.0-11.0) Red Blood Count 3.26 x10^6/uL (3.50-5.40) Hemoglobin 8.8 g/dL (12.0-15.5) Hematocrit 27.4 % (36.0-47.0) Mean Corpuscular Volume 84 fL (79-100) Mean Corpuscular Hemoglobin 27 pg (25-35) Mean Corpuscular Hemoglobin Concent 32 g/dL (31-37) Red Cell Distribution Width 15.6 % (11.5-14.5) Platelet Count 180 x10^3/uL (140-400) Neutrophils (%) (Auto) 51 % (31-73) Lymphocytes (%) (Auto) 35 % (24-48) Monocytes (%) (Auto) 9 % (0-9) Eosinophils (%) (Auto) 4 % (0-3) Basophils (%) (Auto) 1 % (0-3) Neutrophils # (Auto) 1.8 x10^3/uL (1.8-7.7) Lymphocytes # (Auto) 1.2 x10^3/uL (1.0-4.8) Monocytes # (Auto) 0.3 x10^3/uL (0.0-1.1) Eosinophils # (Auto) 0.1 x10^3/uL (0.0-0.7) Basophils # (Auto) 0.0 x10^3/uL (0.0-0.2) Sodium Level 139 mmol/L (136-145) Potassium Level 3.5 mmol/L (3.5-5.1) Chloride Level 104 mmol/L (98-107) Carbon Dioxide Level 31 mmol/L (21-32) Anion Gap 4 (6-14) Blood Urea Nitrogen 7 mg/dL (7-20) Creatinine 0.6 mg/dL (0.6-1.0) Estimated GFR (Cockcroft-Gault) 112.5 Glucose Level 370 mg/dL (70-99) Calcium Level 8.4 mg/dL (8.5-10.1) Microbiology 10/27/18 Blood Culture - Preliminary, Resulted NO GROWTH AFTER 2 DAYS Medications Current Medications Hydromorphone HCl (Dilaudid) 1 mg PRN Q15MIN PRN IV/SQ PAIN GREATER THAN 3/10 Last administered on 10/25/18at 21:05; Start 10/25/18 at 21:00; Stop 10/26/18 at 20:59; Status DC Sodium Chloride 1,000 ml @ 1,000 mls/hr Q1H IV Last administered on 10/25/18at 21:05; Start 10/25/18 at 21:00; Stop 10/25/18 at 21:59; Status DC Metoclopramide HCl (Reglan Vial) 10 mg 1X ONCE IV Last administered on 10/25/18at 21:05; Start 10/25/18 at 21:00; Stop 10/25/18 at 21:01; Status DC Diphenhydramine HCl (Benadryl) 25 mg 1X ONCE IVP Last administered on 10/25/18at 21:05; Start 10/25/18 at 21:00; Stop 10/25/18 at 21:01; Status DC Insulin Human Regular (HumuLIN R VIAL) 10 unit 1X ONCE IV Last administered on 10/25/18at 21:05; Start 10/25/18 at 21:00; Stop 10/25/18 at 21:01; Status DC Insulin Human Regular 150 unit/ Sodium Chloride 151.5 ml @ 0 mls/hr CONT PRN IV SEE I/O RECORD Last administered on 10/25/18at 23:02; Start 10/25/18 at 22:15; Stop 10/26/18 at 12:29; Status DC Dextrose (Dextrose 50%-Water Syringe) 12.5 gm PRN Q15MIN PRN IV LOW BLOOD SUGAR; Start 10/25/18 at 22:15; Stop 10/27/18 at 16:40; Status DC Dextrose 250 ml PRN Q15MIN PRN IV LOW BLOOD SUGAR; Start 10/25/18 at 22:15; Stop 10/27/18 at 16:40; Status DC Insulin Human Lispro (HumaLOG) 0-7 UNITS TIDWMEALS SQ Last administered on at 13:15; Start 10/26/18 at 08:00; Stop 10/27/18 at 17:16; Status DC Dextrose (Dextrose 50%-Water Syringe) 12.5 gm PRN Q15MIN PRN IV SEE COMMENTS; Start 10/25/18 at 22:15; Stop 10/25/18 at 22:16; Status DC Dextrose 250 ml PRN Q15MIN PRN IV SEE COMMENTS; Start 10/25/18 at 22:15; Stop 10/25/18 at 22:16; Status DC Sodium Chloride 1,000 ml @ 1,000 mls/hr 1X ONCE IV ; Start 10/25/18 at 23:00; Stop 10/25/18 at 23:59; Status DC Sodium Bicarbonate (Sodium Bicarb Adult 8.4% Syr) 50 meq 1X ONCE IV Last administered on 10/26/18at 00:21; Start 10/25/18 at 23:00; Stop 10/25/18 at 23:01; Status DC Insulin Human Regular 150 unit/ Sodium Chloride 151.5 ml @ 0 mls/hr CONT PRN PRN IV PER PROTOCOL; Start 10/25/18 at 23:15; Status Cancel Potassium Chloride/Water 100 ml @ 100 mls/hr PRN Q1HR PRN IV SEE COMMENTS; Start 10/25/18 at 23:15; Stop 10/26/18 at 12:29; Status DC Potassium Chloride/Water 100 ml @ 100 mls/hr PRN Q1HR PRN IV SEE COMMENTS; Start 10/25/18 at 23:15; Stop 10/26/18 at 12:29; Status DC Potassium Chloride/Water 100 ml @ 100 mls/hr PRN Q1HR PRN IV SEE COMMENTS; Start 10/25/18 at 23:15; Stop 10/26/18 at 12:29; Status DC Sodium Chloride 1,000 ml @ 500 mls/hr 1X ONCE IV Last administered on 10/26/18at 00:15; Start 10/25/18 at 23:45; Stop 10/26/18 at 03:29; Status DC Ondansetron HCl (Zofran) 4 mg PRN Q4HRS PRN IV NAUSEA/VOMITING 1ST CHOICE Last administered on 10/27/18at 21:57; Start 10/26/18 at 01:30 Fentanyl Citrate (Fentanyl 2ml Vial) 25 mcg PRN Q3HRS PRN IV SEVERE PAIN 7-10 Last administered on 10/29/18at 20:17; Start 10/26/18 at 01:30 Sodium Chloride 1,000 ml @ 250 mls/hr Q4H IV Last administered on 10/26/18at 02:20; Start 10/26/18 at 02:30; Stop 10/26/18 at 06:33; Status DC Potassium Chloride/Water 100 ml @ 100 mls/hr Q1H IV Last administered on 10/26/18at 03:55; Start 10/26/18 at 03:00; Stop 10/26/18 at 04:59; Status DC Dextrose/Sodium Chloride 1,000 ml @ 250 mls/hr Q4H IV Last administered on 10/26/18at 07:47; Start 10/26/18 at 03:30; Stop 10/26/18 at 12:29; Status DC Potassium Chloride/Water 100 ml @ 100 mls/hr Q1H IV Last administered on 10/26/18at 07:47; Start 10/26/18 at 06:00; Stop 10/26/18 at 07:59; Status DC Magnesium Sulfate 100 ml @ 25 mls/hr 1X ONCE IV Last administered on 10/26/18at 06:34; Start 10/26/18 at 07:00; Stop 10/26/18 at 10:59; Status DC Pantoprazole Sodium (Protonix) 40 mg DAILYAC PO Last administered on 10/30/18at 05:24; Start 10/27/18 at 07:30 Pantoprazole Sodium (Protonix) 40 mg 1X ONCE PO Last administered on 10/26/18at 10:39; Start 10/26/18 at 10:45; Stop 10/26/18 at 10:46; Status DC Insulin Human Lispro (HumaLOG) 10 units 1X ONCE SQ Last administered on 10/27/18at 09:56; Start 10/27/18 at 09:45; Stop 10/27/18 at 09:47; Status DC Insulin Human Regular 150 unit/ Sodium Chloride 151.5 ml @ 0 mls/hr CONT PRN IV SEE I/O RECORD Last administered on 10/27/18at 17:30; Start 10/27/18 at 16:45; Stop 10/28/18 at 00:11; Status DC Dextrose (Dextrose 50%-Water Syringe) 12.5 gm PRN Q15MIN PRN IV LOW BLOOD SUGAR; Start 10/27/18 at 16:45 Sodium Chloride 1,000 ml @ 125 mls/hr Q8H IV Last administered on 10/27/18at 17:30; Start 10/27/18 at 17:30; Stop 10/27/18 at 17:41; Status DC Dextrose/Sodium Chloride 1,000 ml @ 150 mls/hr Q6H40M IV Last administered on 10/27/18at 17:43; Start 10/27/18 at 17:45; Stop 10/28/18 at 00:11; Status DC Ceftriaxone Sodium (Rocephin) 1 gm Q24H IVP Last administered on 10/29/18at 20:19; Start 10/27/18 at 20:00 Insulin Glargine (Lantus Syringe) 12 unit QHS SQ ; Start 10/28/18 at 21:00; Stop 10/28/18 at 11:25; Status DC Sodium Chloride 1,000 ml @ 125 mls/hr Q8H IV Last administered on 10/30/18at 01:11; Start 10/28/18 at 00:15 Insulin Human Lispro (HumaLOG) 0-9 UNITS TIDWMEALS SQ Last administered on 10/29/18at 08:22; Start 10/28/18 at 08:00 Dextrose (Dextrose 50%-Water Syringe) 12.5 gm PRN Q15MIN PRN IV SEE COMMENTS; Start 10/28/18 at 00:15; Stop 10/28/18 at 20:32; Status DC Dextrose 250 ml PRN Q15MIN PRN IV SEE COMMENTS; Start 10/28/18 at 00:15 Insulin Glargine (Lantus Syringe) 12 unit 1X ONCE SQ Last administered on 10/28/18at 00:40; Start 10/28/18 at 01:00; Stop 10/28/18 at 01:01; Status DC Insulin Glargine (Lantus Syringe) 20 unit QHS SQ Last administered on 10/29/18at 21:48; Start 10/28/18 at 21:00 Insulin Human Lispro (HumaLOG) 10 units TIDWMEALS SQ Last administered on at 16:56; Start 10/28/18 at 12:00 Lactobacillus Rhamnosus (Culturelle) 1 cap BID PO Last administered on 10/29/18at 20:19; Start 10/28/18 at 21:00 Acetaminophen (Tylenol) 650 mg PRN Q6HRS PRN PO MILD PAIN 1-3; Start 10/29/18 at 14:15 Ibuprofen (Motrin) 800 mg PRN Q6HRS PRN PO INFLAMMATION Last administered on 10/30/18at 05:24; Start 10/29/18 at 14:15 Tramadol HCl (Ultram) 50 mg PRN Q6HRS PRN PO MODERATE PAIN Last administered on 10/30/18at 00:13; Start 10/29/18 at 16:00 Active Scripts Active Naltrexone Hcl 50 Mg Tablet 1 Tab PO DAILY 30 Days Take daily when feeling urge to drink or use other substances. Do not take within 48 hours of using opioid medications (wait until done taking tramadol() Pantoprazole Sodium (Pantoprazole Sodium) 40 Mg Tablet.dr 40 Mg PO DAILYAC 30 Days Tramadol Hcl 50 Mg Tablet 50 Mg PO PRN Q6HRS PRN 6 Days Ibuprofen 400 Mg Tablet 800 Mg PO PRN Q6HRS PRN 30 Days Zofran (Ondansetron Hcl) 4 Mg Tablet 4 Mg PO BID PRN Reported Ferrous Sulfate 325 Mg Tablet 1 Tab PO DAILY Gabapentin (Gabapentin) 300 Mg Capsule 300 Mg PO TID Lantus Solostar (Insulin Glargine,Hum.rec.anlog) 100 Unit/1 Ml Insuln.pen 12 Unit SQ QHS Novolog (Insulin Aspart) Unknown Strength Cartridge Unknown Dose SQ Vitals/I & O Vital Sign - Last 24 Hours 10/29/18 10/29/18 10/29/18 10/29/18 09:02 11:00 12:07 12:19 Temp 98.0 98.0 Pulse 91 Resp 17 B/P (MAP) 114/68 (83) Pulse Ox 100 O2 Delivery Room Air Room Air Room Air Room Air 10/29/18 10/29/18 10/29/18 10/29/18 13:23 15:00 15:44 18:03 Temp 98.2 98.2 Pulse 88 Resp 18 B/P (MAP) 129/71 (90) Pulse Ox 99 O2 Delivery Room Air Room Air Room Air Room Air 10/29/18 10/29/18 10/29/18 10/29/18 19:00 19:04 20:00 20:17 Temp 98.1 98.1 Pulse 83 Resp 18 18 B/P (MAP) 135/81 (99) Pulse Ox 98 99 O2 Delivery Room Air Room Air Room Air Room Air 10/29/18 10/29/18 10/30/18 10/30/18 21:44 23:00 00:13 02:22 Temp 98.1 98.1 Pulse 89 Resp 18 16 18 18 B/P (MAP) 128/76 (93) Pulse Ox 99 98 99 99 O2 Delivery Room Air Room Air Room Air Room Air 10/30/18 10/30/18 03:00 07:00 Temp 98.0 98.2 98.0 98.2 Pulse 90 80 Resp 16 18 B/P (MAP) 127/77 (94) 115/70 (85) Pulse Ox 93 97 O2 Delivery Room Air Room Air Intake and Output 10/29/18 10/29/18 10/30/18 14:59 22:59 06:59 Intake Total 1680 ml Balance 1680 ml COREY CAN MD Oct 30, 2018 08:22
[2018-10-30] MEDS: LACTOBACILLUS RHAMNOSUS GG 1 CAPSULE. PO SCH (08:27)
[2018-10-30] MEDS: INSULIN LISPRO 300 UNITS/3 ML VIAL. SQ SCH ×4 (08:30→12:00)
[2018-10-30 11:00] VITALS: BP 104/66
--- NOTE | 2018-10-30 12:37 | NUR ---
Pt glucose 53 at lunch time. Apple juice given and recheck performed. Pt glucose increased to 99. This RN non-administered pt's sliding scale and scheduled dose. Will continue to monitor this pt.
--- NOTE | 2018-10-30 15:00 | NUR ---
Pt left the unit by wheelchair at approx 1500 via private vehicle. Pt IV removed, no complications. Pt stable upon discharge. Discharge information discussed, additional concerns addressed.
== END 2018-10-30 15:04 | disposition home or self-care (01) | DRG 639 ==
LOC: ER 20:17 → 1 WEST ICU 22:14 → 5 SOUTH 10-26 13:20 → 1 WEST ICU 10-27 17:04 → 5 SOUTH 10-28 14:56
PROVIDERS: ADMIT Family Medicine; ATTEND Family Medicine
DX: E10.10 Type 1 diabetes mellitus with ketoacidosis without coma (principal); S92.323A Displaced fracture of second metatarsal bone, unspecified foot, initial encounter for closed fracture; D64.9 Anemia, unspecified; F15.10 Other stimulant abuse, uncomplicated; N83.202 Unspecified ovarian cyst, left side; S92.333A Displaced fracture of third metatarsal bone, unspecified foot, initial encounter for closed fracture; Z83.3 Family history of diabetes mellitus; Z91.19 Patient's noncompliance with other medical treatment and regimen; Z79.4 Long term (current) use of insulin; Y93.89 Activity, other specified; Y92.89 Other specified places as the place of occurrence of the external cause; Y99.8 Other external cause status; X58.XXXA Exposure to other specified factors, initial encounter
CPT/HCPCS: 36415; 36600; 73630; 74176; 80048; 80053; 80307; 81001; 81025; 82010; 82805; 82962; 83036; 83690; 83735; 84100; 85025; 87040; 96361; 96365; 96375; J0696; J1170; J1200; J1815; J2405; J2765; J3010; J3475; J3480; J7030; J7042; 99285-25; G0378

== ENCOUNTER 2019-09-06 19:55 | Inpatient (IN) | payer MEDICAID ==
[~2019-09-06] VITALS: Ht 162.6 cm; Wt 57.6 kg
[~2019-09-06 19:55] MED LIST changes: +ACET325T9 PO; +BUSP5TAB PO; +CIPR250T30 PO; +CITA20TA9 PO; +DAPT350V IV; +DOXY100C2 PO; +DOXY100T PO; +ERTA1VIA16 IJ; +FERR325T14 PO; +GABA300C18 PO; +HYDR-2761 PO; +HYDR50CA2 PO; +IBUP-1027 PO; +INSU100I11 SQ; +INSU100V8 SQ; +LACT1CAP19 PO; +NALT50TA PO; +PANT40TA77 PO; +TRAM50TA PO
[2019-09-06 21:05] LABS: BASO # 0.1 x10^3/uL (0.0-0.2); BASO % 1 % (0-3); EOS # 0.2 x10^3/uL (0.0-0.7); EOS % 3 % (0-3); HEMATOCRIT 30.6 % (36.0-47.0); HEMOGLOBIN 9.5 g/dL (12.0-15.5); LYMPH # 1.4 x10^3/uL (1.0-4.8); LYMPH % 23 % (24-48); MEAN CORPUSCULAR HEMOGLOBIN 24 pg (25-35); MEAN CORPUSCULAR HGB CONC 31 g/dL (31-37); MEAN CORPUSCULAR VOLUME 78 fL (79-100); MONO # 0.4 x10^3/uL (0.0-1.1); MONO % 6 % (0-9); NEUT # 4.1 x10^3/uL (1.8-7.7); NEUT % 66 % (31-73); PLATELET COUNT 246 x10^3/uL (140-400); RED BLOOD COUNT 3.89 x10^6/uL (3.50-5.40); WHITE BLOOD COUNT 6.2 x10^3/uL (4.0-11.0)
[2019-09-06 21:07] LABS: CALCIUM 8.9 mg/dL (8.5-10.1); GFR 62.1; PROTHROMBIN TIME PATIENT 12.6 SEC (11.7-14.0)
[2019-09-06 21:12] LABS: ALBUMIN 3.1 g/dL (3.4-5.0); ALBUMIN/GLOBULIN RATIO 0.7 (1.0-1.7); TOTAL BILIRUBIN 0.2 mg/dL (0.2-1.0); TOTAL PROTEIN 7.8 g/dL (6.4-8.2)
--- NOTE | 2019-09-06 21:13 | PHYS DOC ---
Past Medical History Past Medical History: Diabetes-Type I Additional Past Medical Histor: LOW IRON, (ISHMAELAGUSTIN APRN) Past Surgical History: Other Additional Past Surgical Histo: R AND L TOE SURGERY (AGUSTIN QUIÑONES APRN) Smoking Status: Current Every Day Smoker Additional Information: Alcohol Use: Heavy Drug Use: None (AGUSTIN QUIÑONES APRN) General Adult EDM: Chief Complaint: MULTIPLE COMPLAINTS HPI: HPI: Patient is a 39 year old [female patient who presents with wound to her right second toe. Patient reports she has had this swelling, discomfort, drainage from her right second toe for the last week. States she has not had any fevers, she has not been able to check her temperature at home however. Also reports she is a diabetic, she is taking her insulin, however she has not been checking it at home she has no way to check it at home with her machine not working. States she had previously had wounds on her bilateral great toes, surgically cleaned out, last was several months ago and reports she has had improvement with it. Also reports she believes she has an STI, as her partner former that he had which she believes is gonorrhea. States she has not been treated for anything, states she is not having any vaginal discharge, however she does have a little bit of abdominal cramping now and then. Also reports cramping pain in her right leg, causing discomfort (AGUSTIN QUIÑONES APRN) Review of Systems: Review of Systems: Constitutional: Denies fever or chills. [] Eyes: Denies change in visual acuity. [] HENT: Denies nasal congestion or sore throat. [] Respiratory: Denies cough or shortness of breath. [] Cardiovascular: Denies chest pain or edema. [] GI: Denies nausea, vomiting, bloody stools or diarrhea. [] Does report some abdominal cramping : Denies dysuria. Does report she believes she has been exposed to an STD [] Musculoskeletal: Complains of discomfort and pain to her right second digit of foot, as well as cramping and shooting pain up her right leg. [] Integument: Reports erythematous wound on foot Neurologic: Denies headache, focal weakness or sensory changes. [] Endocrine: Denies polyuria or polydipsia. [] Lymphatic: Denies swollen glands. [] Psychiatric: Denies depression or anxiety. [] (AGUSTIN QUIÑONES APRN) Heart Score: Risk Factors: Risk Factors: DM, Current or recent (<one month) smoker, HTN, HLP, family history of CAD, obesity. Risk Scores: Score 0 - 3: 2.5% MACE over next 6 weeks - Discharge Home Score 4 - 6: 20.3% MACE over next 6 weeks - Admit for Clinical Observation Score 7 - 10: 72.7% MACE over next 6 weeks - Early Invasive Strategies (AGUSTIN QUIÑONES APRN) Current Medications: Current Medications Medications (Trade) Dose Ordered Sig/Lucio Start Time Stop Time Status Last Admin Dose Admin Ketorolac Tromethamine (Toradol 15mg Vial) 15 mg 1X ONCE 09/06/19 21:15 09/06/19 21:16 UNV Sodium Chloride 1,000 ml @ 1,000 mls/hr 1X ONCE 09/06/19 21:15 09/06/19 22:14 UNV (AGUSTIN QUIÑONES APRN) Allergies: Allergies: Allergies Coded Allergies Type Severity Reaction Last Updated Verified I S O L A T I O N *CONTACT* Allergy Unknown Swelling 07/16/19 Yes No Known Medication Allergies Allergy Unknown Swelling 07/16/19 Yes (AGUSTIN QUIÑONES APRN) Physical Exam: PE: Constitutional: Well developed, well nourished, no acute distress, non-toxic appearance. [] HENT: Normocephalic,, nose normal. [] Eyes: PERRLA, EOMI, conjunctiva normal, no discharge. [] Neck: Normal range of motion, no tenderness, supple, no stridor. [] Cardiovascular:Heart rate regular rhythm, no murmur [] Lungs & Thorax: Bilateral breath sounds clear to auscultation [] Abdomen: Bowel sounds normal, soft, no tenderness, no masses, no pulsatile masses. [] Skin: Warm, dry, no erythema, no rash. Right second toe noted market swelling about distal end of foot, with discoloration, purulent drainage, right foot warmer than left foot. Unable to determine capillary refill as nail area developed by wound Back: No tenderness, no CVA tenderness. [] Extremities: No tenderness, no cyanosis, no clubbing, ROM intact, no edema. [] Neurologic: Alert and oriented X 3, normal motor function, normal sensory function, no focal deficits noted. [] Psychologic: Affect normal, judgement normal, mood normal. [] (AGUSTIN QUIÑONES APRN) Current Patient Data: Labs: Laboratory Tests Test 09/06/19 20:14 09/06/19 20:45 Glucose (Fingerstick) 460 mg/dL (70-99) H POC Urine HCG, Qualitative Hcg negative (Negative) Vital Signs: Vital Signs Date Time Temp Pulse Resp B/P (MAP) Pulse Ox O2 Delivery O2 Flow Rate FiO2 09/06/19 20:05 98.6 82 11 133/82 (99) 98 Room Air 98.6 (AGUSTIN QUIÑONES APRN) EKG: EKG: [] (AGUSTIN QUIÑONES APRN) Radiology/Procedures: Radiology/Procedures: CT right lower extremity without contrast HISTORY: Deep lesion to distal toe Axial helical images were obtained from above the ankle through the bottom of the right foot and axial coronal and sagittal reconstruction was performed. FINDINGS: There is a markedly comminuted fracture of the distal phalanx of the great toe. There is a soft tissue injury of the tip of the second toe. The remaining visualized osseous structures appear normal. IMPRESSION: 1. Markedly comminuted fractures of distal phalanx of the great toe. 2. Soft tissue laceration seen over the tip of the second toe without a fracture seen. Electronically signed by: Mookie Hess III, MD (09/06/2019 9:57 PM) [facility] DICTATED and SIGNED BY: MOOKIE HESS III, MD DATE: 09/06/192156 [] CHEST AP ONLY Clinical History: Reason: hyperglycemia / Spl. Instructions: / History: Technique: AP view of the chest was obtained at 09/06/2019 9:14 PM. Comparison: None. Findings: The cardiomediastinal silhouette is normal. The pulmonary vasculature is normal. The lungs and pleural margins are clear. Impression: No evidence of an acute cardiopulmonary process. Electronically signed by: Mookie Hess III, MD (09/06/2019 9:44 PM) [facility] (AGUSTIN QUIÑONES APRN) Course & Med Decision Making: Course & Med Decision Making Pertinent Labs and Imaging studies reviewed. (See chart for details) []DIscussed findings with patient, with hyperglycemia and cellulitis. Will plan for admission Discussed with Dr Guillen for admission, agrees with plan for admission. Administered dosage of antibiotics here, Clindamycin, as well as insulin to manage blood glucose with NS. (AGUSTIN QUIÑONES APRN) Dragon Disclaimer: Dragon Disclaimer: This electronic medical record was generated, in whole or in part, using a voice recognition dictation system. (AGUSTIN QUIÑONES APRN) Departure Departure Impression: Primary Impression: Hyperglycemia Additional Impression: Cellulitis and abscess of toe Qualified Codes: L03.031 - Cellulitis of right toe; L02.611 - Cutaneous abscess of right foot Disposition: ADMITTED INPATIENT Admitting Physician: PEPE (AGUSTIN QUIÑONES APRN) Condition: STABLE Referrals: NO PCP (PCP) Justicifation of Admission Dx: Justifications for Admission: Justification of Admission Dx: Yes Cellulitis: Cellulitis (AGUSTIN QUIÑONES APRN) Attending Signature Attending Signature I have reviewed the PA/SHEET TURNER's note and plan of care. I was available for consultation as needed during the patient's visit in the emergency department. I agree with the clinical impression, plan, and disposition. (JOSR GUILLEN DO) AGUSTIN QUIÑONES APRN Sep 06, 2019 21:13 JOSR GUILLEN DO Sep 07, 2019 02:09
[2019-09-06] MEDS ORDERED: cefTRIAXone IV Push 1 GM VIAL. IVP ONE (21:15)
[2019-09-06] MEDS ORDERED: IV NORMAL SALINE 1000ML BAG 1,000 ML IV ONE (21:15)
[2019-09-06] MEDS ORDERED: KETOROLAC 15 MG/ML VIAL. IVP ONE (21:15)
[2019-09-06 21:27] LABS: BILIRUBIN,URINE NEGATIVE (NEG); CLARITY,URINE CLEAR; COLOR,URINE YELLOW; NITRITE,URINE NEGATIVE (NEG); PROTEIN,URINE NEGATIVE (NEG-TRACE); UROBILINOGEN,URINE 0.2 mg/dL (0.2 mg/dL)
[2019-09-06] MEDS ORDERED: CLINDAMYCIN 600MG PREMIX 50 ML IV ONE (21:30)
[2019-09-06 21:35] LABS: BACTERIA,URINE FEW /HPF (0-FEW); RBC,URINE 0 /HPF (0-2); WBC,URINE 20-40 /HPF (0-4)
[2019-09-06 21:36] LABS: SQUAMOUS EPITHELIAL CELL,UR MOD /LPF
--- NOTE | 2019-09-06 21:47 | RAD ---
CHEST AP ONLY Clinical History: Reason: hyperglycemia / Spl. Instructions: / History: Technique: AP view of the chest was obtained at 09/06/2019 9:14 PM. Comparison: None. Findings: The cardiomediastinal silhouette is normal. The pulmonary vasculature is normal. The lungs and pleural margins are clear. Impression: No evidence of an acute cardiopulmonary process. Electronically signed by: Baljinder Paniagua III, MD (09/06/2019 9:44 PM) [facility]
--- NOTE | 2019-09-06 22:00 | RAD ---
CT right lower extremity without contrast HISTORY: Deep lesion to distal toe Axial helical images were obtained from above the ankle through the bottom of the right foot and axial coronal and sagittal reconstruction was performed. FINDINGS: There is a markedly comminuted fracture of the distal phalanx of the great toe. There is a soft tissue injury of the tip of the second toe. The remaining visualized osseous structures appear normal. IMPRESSION: 1. Markedly comminuted fractures of distal phalanx of the great toe. 2. Soft tissue laceration seen over the tip of the second toe without a fracture seen. Electronically signed by: Baljinder Paniagua III, MD (09/06/2019 9:57 PM) [facility]
[2019-09-06] MEDS ORDERED: MORPHINE SULFATE 2 MG/ML VIAL. IV ONE (22:15)
[2019-09-06] MEDS ORDERED: INSULIN REGULAR 100 UNIT/ML 3ML VIAL. IV ONE (23:45)
[2019-09-06] MEDS ORDERED: ONDANSETRON PF 4 MG/2 ML VIAL. IV PRN (23:45)
[2019-09-06] MEDS ORDERED: DEXTROSE 50% 25 GM / 50ML DISP.SYRIN. IV PRN (23:45)
[2019-09-06] MEDS ORDERED: MORPHINE SULFATE 2 MG/ML VIAL. IV PRN (23:45)
--- NOTE | 2019-09-07 01:49 | NUR ---
Pt.arrived around 0130 via bed from ED w/ a R-great toe wound and hyperglycemia. She is A/Ox4 and will make needs known.
[2019-09-07] MEDS: IV NORMAL SALINE 1000ML BAG 1,000 ML IV SCH ×3 (02:25→21:02)
[2019-09-07 03:00] LABS: CALCIUM 8.7 mg/dL (8.5-10.1); CREATININE 0.9 mg/dL (0.6-1.0); GFR 70.1; POTASSIUM 3.4 mmol/L (3.5-5.1)
[2019-09-07 03:04] LABS: BASO % 1 % (0-3); EOS # 0.2 x10^3/uL (0.0-0.7); EOS % 4 % (0-3); HEMATOCRIT 32.8 % (36.0-47.0); HEMOGLOBIN 9.7 g/dL (12.0-15.5); LYMPH % 37 % (24-48); MEAN CORPUSCULAR HEMOGLOBIN 25 pg (25-35); MEAN CORPUSCULAR HGB CONC 30 g/dL (31-37); MEAN CORPUSCULAR VOLUME 83 fL (79-100); MONO # 0.6 x10^3/uL (0.0-1.1); MONO % 11 % (0-9); NEUT # 2.5 x10^3/uL (1.8-7.7); NEUT % 47 % (31-73); PLATELET COUNT 294 x10^3/uL (140-400); RED BLOOD COUNT 3.97 x10^6/uL (3.50-5.40); WHITE BLOOD COUNT 5.4 x10^3/uL (4.0-11.0)
[2019-09-07 03:51] VITALS: BP 106/72
[2019-09-07 07:00] VITALS: BP 106/65
[2019-09-07] MEDS ORDERED: INSULIN LISPRO 300 UNITS/3 ML VIAL. SQ SCH (08:00)
[2019-09-07] MEDS ORDERED: ACETAMINOPHEN 325 MG TABLET. PO PRN (08:15)
[2019-09-07] MEDS ORDERED: ONDANSETRON PF 4 MG/2 ML VIAL. IV PRN (08:15)
[2019-09-07] MEDS ORDERED: INSULIN LISPRO 300 UNITS/3 ML VIAL. SQ ONE (08:15)
[2019-09-07] MEDS: CITALOPRAM 20 MG TABLET. PO SCH (08:41)
[2019-09-07] MEDS ORDERED: POTASSIUM CHLORIDE 20 MEQ TABLET.ER. PO ONE (08:45)
--- NOTE | 2019-09-07 08:45 | PDOC1 ---
History and Physical Date of Admission Date of Admission DATE: 09/07/19 TIME: 08:37 Identification/Chief Complaint Chief Complaint Right toe pain Source Source: Patient History of Present Illness History of Present Illness Ms Gibson is a 38 yo F w/ PMHx Diabetes type 1, poorly controlled; peripheral neuropathy with foot ulcers, asthma; gastroesophageal reflux; anxiety; anemia; substance abuse with methamphetamine and marijuana admitted for severe right 2nd toe pain with swelling, redness and radiation of the pain up her leg for the past week. She also c/o pain at the prior left great toe surgical site. When the nail fell off her second toe and her pain became unbearable and she noted the redness coming up into her foot she came to the ED. Patient had similar episode back in January and had surgery on that toe, then she returned in June 2019 with the same problem, went to OR for debridement at that time and was ordered for outpatient antibiotics. She believes she has an STI, as her partner informed her he thinks he was diagnosed with gonorrhea. Labs significant for WBC 5.4, CRP 30.6, glucose 320, and Na 138, K3.4,CT of right foot with phalanx fracture of great toe and laceration without signs of bony involvement of right 2nd toe. She continues to intermittently abuse methamphetamines, as well as heavy alcohol use, but has been cutting back significantly since her last visit in June 2019. Admitted for further treatment. Past Medical History Cardiovascular: HTN Pulmonary: Asthma CENTRAL NERVOUS SYSTEM: Periperal neuropathy Psych: Anxiety, Addictions Renal/: No pertinent hx Past Surgical History Past Surgical History: Other Family History Family History: Diabetes, Hypertension Social History ALCOHOL: heavy Drugs: Marijuana, Crystal meth Current Problem List Problem List Problems Medical Problems: (1) Cellulitis and abscess of toe Status: Acute Current Medications Current Medications Current Medications Sodium Chloride 1,000 ml @ 1,000 mls/hr 1X ONCE IV Last administered on 09/06/19at 21:14; Start 09/06/19 at 21:15; Stop 09/06/19 at 22:14; Status DC Ketorolac Tromethamine (Toradol 15mg Vial) 15 mg 1X ONCE IVP Last administered on 09/06/19at 21:14; Start 09/06/19 at 21:15; Stop 09/06/19 at 21:16; Status DC Ceftriaxone Sodium (Rocephin) 1 gm 1X ONCE IVP ; Start 09/06/19 at 21:15; Stop 09/06/19 at 21:13; Status DC Clindamycin Phosphate 50 ml @ 100 mls/hr 1X ONCE IV Last administered on 09/06/19at 21:32; Start 09/06/19 at 21:30; Stop 09/06/19 at 21:59; Status DC Morphine Sulfate (Morphine Sulfate) 2 mg 1X ONCE IV Last administered on 09/07/19at 02:23; Start 09/06/19 at 22:15; Stop 09/06/19 at 22:16; Status DC Insulin Human Regular (HumuLIN R VIAL) 10 unit 1X ONCE IV Last administered on 09/06/19at 23:53; Start 09/06/19 at 23:45; Stop 09/06/19 at 23:49; Status DC Insulin Human Lispro (HumaLOG) 0-5 UNITS TIDWMEALS SQ ; Start 09/07/19 at 08:00; Stop 09/07/19 at 08:19; Status DC Dextrose (Dextrose 50%-Water Syringe) 12.5 gm PRN Q15MIN PRN IV SEE COMMENTS; Start 09/06/19 at 23:45 Ondansetron HCl (Zofran) 4 mg PRN Q8HRS PRN IV NAUSEA/VOMITING; Start 09/06/19 at 23:45; Stop 09/07/19 at 08:19; Status DC Morphine Sulfate (Morphine Sulfate) 2 mg PRN Q2HR PRN IV PAIN; Start 09/06/19 at 23:45; Stop 09/07/19 at 23:44 Sodium Chloride 1,000 ml @ 125 mls/hr Q8H IV Last administered on 09/07/19at 02:25; Start 09/06/19 at 23:45; Stop 09/07/19 at 23:44 Ondansetron HCl (Zofran) 4 mg PRN Q4HRS PRN IV NAUSEA/VOMITING; Start 09/07/19 at 08:15 Acetaminophen (Tylenol) 650 mg PRN Q4HRS PRN PO FEVER > 100.3'F; Start 09/07/19 at 08:15 Citalopram Hydrobromide (CeleXA) 20 mg DAILY PO ; Start 09/07/19 at 09:00 Insulin Glargine (Lantus Syringe) 30 unit QHS SQ ; Start 09/07/19 at 21:00 Insulin Human Lispro (HumaLOG) 9 units TIDWMEALS SQ ; Start 09/07/19 at 12:00 Insulin Human Lispro (HumaLOG) 0-9 UNITS TIDACHC SQ ; Start 09/07/19 at 11:30 Dextrose (Dextrose 50%-Water Syringe) 12.5 gm PRN Q15MIN PRN IV SEE COMMENTS; Start 09/07/19 at 08:15 Insulin Human Lispro (HumaLOG) 18 units 1X ONCE SQ ; Start 09/07/19 at 08:15; Stop 09/07/19 at 08:22; Status DC Active Scripts Active Humalog (Insulin Lispro) 100 Unit/1 Ml Insuln.pen 9 Units SQ TIDAC 30 Days Lantus (Insulin Glargine,Hum.rec.anlog) 100 Unit/1 Ml Vial 30 Unit SQ QHS 30 Days Celexa (Citalopram Hydrobromide) 20 Mg Tablet 20 Mg PO DAILY 30 Days Tylenol (Acetaminophen) 325 Mg Tablet 650 Mg PO PRN Q4HRS PRN 30 Days Allergies Allergies: Coded Allergies: I S O L A T I O N *CONTACT* (Verified Allergy, Unknown, Swelling, 07/16/19) mrsa No Known Medication Allergies (Verified Allergy, Unknown, Swelling, 07/16/19) ROS General: YES: Fatigue, Malaise; No: Chills, Night Sweats, Appetite, Other PSYCHOLOGICAL ROS: No: Anxiety, Behavioral Disorder, Concentration difficultie, Decreased libido, Depression, Disorientation, Hallucinations, Hostility, Irritablity, Memory difficulties, Mood Swings, Obsessive thoughts, Physical abuse, Sexual abuse, Sleep disturbances, Suicidal ideation, Other Eyes: No Blurry vision, No Decreased vision, No Double vision, No Dry eyes, No Excessive tearing, No Eye Pain, No Itchy Eyes, No Loss of vision, No Photophobia, No Scotomata, No Uses contacts, No Uses glasses, No Other HEENT: No: Heacaches, Visual Changes, Hearing change, Nasal congestion, Nasal discharge, Oral lesions, Sinus pain, Sore Throat, Epistaxis, Sneezing, Snoring, Tinnitus, Vertigo, Vocal changes, Other ALLERGY AND IMMUNOLOGY: No: Hives, Insect Bite Sensitivity, Itchy/Watery Eyes, Nasal Congestion, Post Nasal Drip, Seasonal Allergies, Other Hematological and Lymphatic: No: Bleeding Problems, Blood Clots, Blood Transfusions, Brusing, Night Sweats, Pallor, Swollen Lymph Nodes, Other ENDOCRINE: No: Breast Changes, Galactorrhea, Hair Pattern Changes, Hot Flashes, Malaise/lethargy, Mood Swings, Palpitations, Polydipsia/polyuria, Skin Changes, Temperature Intolerance, Unexpected Weight Changes, Other Breast: No New/Changing Breast Lumps, No Nipple changes, No Nipple discharge, No Other Respiratory: No: Cough, Hemoptysis, Orthopnea, Pleuritic Pain, Shortness of breath, SOB with excertion, Sputum Changes, Stridor, Tachypnea, Wheezing, Other Cardiovascular: No Chest Pain, No Palpitations, No Orthopnea, No Paroxysmal Noc. Dyspnea, No Edema, No Lt Headedness, No Other Gastrointestinal: No Nausea, No Vomiting, No Abdominal Pain, No Diarrhea, No Constipation, No Melena, No Hematochezia, No Other Genitourinary: No Dysuria, No Frequency, No Incontinence, No Hematuria, No Retention, No Discharge, No Urgency, No Pain, No Flank Pain, No Other, No , No , No , No , No , No , No Musculoskeletal: Yes Gait Disturbance, Yes Joint Pain; No Joint Stiffness, No Joint Swelling, No Muscle Pain, No Muscular Weakness, No Pain In:, No Swelling In:, No Other Neurological: No Behavorial Changes, No Bowel/Bladder ControlChng, No Confusion, No Dizziness, No Gait Disturbance, No Headaches, No Impaired Coord/balance, No Memory Loss, No Numbness/Tingling, No Seizures, No Speech Problems, No Tremors, No Visual Changes, No Weakness, No Other Skin: Yes Rash, Yes Skin Lesion Changes; No Dry Skin, No Eczema, No Hair Changes, No Lumps, No Mole Changes, No Mottling, No Nail Changes, No Pruritus, No Other, No Acne Physical Exam General: Alert, Oriented X3, Cooperative, mild distress HEENT: Atraumatic, PERRLA, EOMI, Mucous membr. moist/pink Lungs: Clear to auscultation, Normal air movement Heart: S1S2, RRR, no thrills, no rubs, no gallops, no murmurs Abdomen: Normal bowel sounds, Soft, No tenderness, No hepatosplenomegaly, No masses Rectal Exam: not examined Extremities: No clubbing, No cyanosis, No edema, Other (Poorly healing laceration of the left great toe on the medial aspect near the distal phalanx, right great toe small ulcer, right second toe very swollen red to metatarsals with distal ulcer with slight drainage nails missing from great toe and second toe) Skin: No breakdown Neuro: Normal speech, Strength at 5/5 X4 ext, Normal tone, Sensation intact, Cranial nerves 3-12 NL, Reflexes 2+ Psych/Mental Status: Mental status NL, Mood NL Vitals Vitals Vital Signs Date Time Temp Pulse Resp B/P (MAP) Pulse Ox O2 Delivery O2 Flow Rate FiO2 09/07/19 07:00 98.0 91 18 106/65 (79) 98 Room Air 98.0 Labs Labs Laboratory Tests Test 09/06/19 20:14 09/06/19 20:38 09/06/19 20:45 09/06/19 20:47 Glucose (Fingerstick) 460 mg/dL (70-99) Urine Collection Type Unknown Urine Color Yellow Urine Clarity Clear Urine pH 6.0 (<5.0-8.0) Urine Specific [place] >=1.030 (1.000-1.030) Urine Protein Negative mg/dL (NEG-TRACE) Urine Glucose (UA) >=1000 mg/dL (NEG) Urine Ketones (Stick) 40 mg/dL (NEG) Urine Blood Negative (NEG) Urine Nitrite Negative (NEG) Urine Bilirubin Negative (NEG) Urine Urobilinogen Dipstick 0.2 mg/dL (0.2 mg/dL) Urine Leukocyte Esterase Small (NEG) Urine RBC 0 /HPF (0-2) Urine WBC 20-40 /HPF (0-4) Urine Squamous Epithelial Cells Mod /LPF Urine Bacteria Few /HPF (0-FEW) Bedside Urine HCG, Qualitative Hcg negative (Negative) White Blood Count 6.2 x10^3/uL (4.0-11.0) Red Blood Count 3.89 x10^6/uL (3.50-5.40) Hemoglobin 9.5 g/dL (12.0-15.5) Hematocrit 30.6 % (36.0-47.0) Mean Corpuscular Volume 78 fL (79-100) Mean Corpuscular Hemoglobin 24 pg (25-35) Mean Corpuscular Hemoglobin Concent 31 g/dL (31-37) Red Cell Distribution Width 19.0 % (11.5-14.5) Platelet Count 246 x10^3/uL (140-400) Neutrophils (%) (Auto) 66 % (31-73) Lymphocytes (%) (Auto) 23 % (24-48) Monocytes (%) (Auto) 6 % (0-9) Eosinophils (%) (Auto) 3 % (0-3) Basophils (%) (Auto) 1 % (0-3) Neutrophils # (Auto) 4.1 x10^3/uL (1.8-7.7) Lymphocytes # (Auto) 1.4 x10^3/uL (1.0-4.8) Monocytes # (Auto) 0.4 x10^3/uL (0.0-1.1) Eosinophils # (Auto) 0.2 x10^3/uL (0.0-0.7) Basophils # (Auto) 0.1 x10^3/uL (0.0-0.2) Prothrombin Time 12.6 SEC (11.7-14.0) Prothromb Time International Ratio 1.0 (0.8-1.1) Activated Partial Thromboplast Time 20 SEC (24-38) Sodium Level 131 mmol/L (136-145) Potassium Level 4.0 mmol/L (3.5-5.1) Chloride Level 95 mmol/L (98-107) Carbon Dioxide Level 22 mmol/L (21-32) Anion Gap 14 (6-14) Blood Urea Nitrogen 11 mg/dL (7-20) Creatinine 1.0 mg/dL (0.6-1.0) Estimated GFR (Cockcroft-Gault) 62.1 BUN/Creatinine Ratio 11 (6-20) Glucose Level 472 mg/dL (70-99) Lactic Acid Level 2.3 mmol/L (0.4-2.0) Calcium Level 8.9 mg/dL (8.5-10.1) Magnesium Level 1.9 mg/dL (1.8-2.4) Total Bilirubin 0.2 mg/dL (0.2-1.0) Aspartate Amino Transf (AST/SGOT) 13 U/L (15-37) Alanine Aminotransferase (ALT/SGPT) 20 U/L (14-59) Alkaline Phosphatase 196 U/L (46-116) Total Protein 7.8 g/dL (6.4-8.2) Albumin 3.1 g/dL (3.4-5.0) Albumin/Globulin Ratio 0.7 (1.0-1.7) Acetone Level Neg (NEG) Test 09/06/19 23:31 09/07/19 02:00 09/07/19 02:30 09/07/19 07:01 Glucose (Fingerstick) 345 mg/dL (70-99) 364 mg/dL (70-99) White Blood Count 5.4 x10^3/uL (4.0-11.0) Red Blood Count 3.97 x10^6/uL (3.50-5.40) Hemoglobin 9.7 g/dL (12.0-15.5) Hematocrit 32.8 % (36.0-47.0) Mean Corpuscular Volume 83 fL (79-100) Mean Corpuscular Hemoglobin 25 pg (25-35) Mean Corpuscular Hemoglobin Concent 30 g/dL (31-37) Red Cell Distribution Width 20.0 % (11.5-14.5) Platelet Count 294 x10^3/uL (140-400) Neutrophils (%) (Auto) 47 % (31-73) Lymphocytes (%) (Auto) 37 % (24-48) Monocytes (%) (Auto) 11 % (0-9) Eosinophils (%) (Auto) 4 % (0-3) Basophils (%) (Auto) 1 % (0-3) Neutrophils # (Auto) 2.5 x10^3/uL (1.8-7.7) Lymphocytes # (Auto) 2.0 x10^3/uL (1.0-4.8) Monocytes # (Auto) 0.6 x10^3/uL (0.0-1.1) Eosinophils # (Auto) 0.2 x10^3/uL (0.0-0.7) Basophils # (Auto) 0.0 x10^3/uL (0.0-0.2) Sodium Level 138 mmol/L (136-145) Potassium Level 3.4 mmol/L (3.5-5.1) Chloride Level 103 mmol/L (98-107) Carbon Dioxide Level 23 mmol/L (21-32) Anion Gap 12 (6-14) Blood Urea Nitrogen 11 mg/dL (7-20) Creatinine 0.9 mg/dL (0.6-1.0) Estimated GFR (Cockcroft-Gault) 70.1 Glucose Level 220 mg/dL (70-99) Lactic Acid Level 2.9 mmol/L (0.4-2.0) Calcium Level 8.7 mg/dL (8.5-10.1) Laboratory Tests Test 09/06/19 20:14 09/06/19 20:38 09/06/19 20:45 09/06/19 20:47 Glucose (Fingerstick) 460 mg/dL (70-99) Urine Collection Type Unknown Urine Color Yellow Urine Clarity Clear Urine pH 6.0 (<5.0-8.0) Urine Specific [place] >=1.030 (1.000-1.030) Urine Protein Negative mg/dL (NEG-TRACE) Urine Glucose (UA) >=1000 mg/dL (NEG) Urine Ketones (Stick) 40 mg/dL (NEG) Urine Blood Negative (NEG) Urine Nitrite Negative (NEG) Urine Bilirubin Negative (NEG) Urine Urobilinogen Dipstick 0.2 mg/dL (0.2 mg/dL) Urine Leukocyte Esterase Small (NEG) Urine RBC 0 /HPF (0-2) Urine WBC 20-40 /HPF (0-4) Urine Squamous Epithelial Cells Mod /LPF Urine Bacteria Few /HPF (0-FEW) Bedside Urine HCG, Qualitative Hcg negative (Negative) White Blood Count 6.2 x10^3/uL (4.0-11.0) Red Blood Count 3.89 x10^6/uL (3.50-5.40) Hemoglobin 9.5 g/dL (12.0-15.5) Hematocrit 30.6 % (36.0-47.0) Mean Corpuscular Volume 78 fL (79-100) Mean Corpuscular Hemoglobin 24 pg (25-35) Mean Corpuscular Hemoglobin Concent 31 g/dL (31-37) Red Cell Distribution Width 19.0 % (11.5-14.5) Platelet Count 246 x10^3/uL (140-400) Neutrophils (%) (Auto) 66 % (31-73) Lymphocytes (%) (Auto) 23 % (24-48) Monocytes (%) (Auto) 6 % (0-9) Eosinophils (%) (Auto) 3 % (0-3) Basophils (%) (Auto) 1 % (0-3) Neutrophils # (Auto) 4.1 x10^3/uL (1.8-7.7) Lymphocytes # (Auto) 1.4 x10^3/uL (1.0-4.8) Monocytes # (Auto) 0.4 x10^3/uL (0.0-1.1) Eosinophils # (Auto) 0.2 x10^3/uL (0.0-0.7) Basophils # (Auto) 0.1 x10^3/uL (0.0-0.2) Prothrombin Time 12.6 SEC (11.7-14.0) Prothromb Time International Ratio 1.0 (0.8-1.1) Activated Partial Thromboplast Time 20 SEC (24-38) Sodium Level 131 mmol/L (136-145) Potassium Level 4.0 mmol/L (3.5-5.1) Chloride Level 95 mmol/L (98-107) Carbon Dioxide Level 22 mmol/L (21-32) Anion Gap 14 (6-14) Blood Urea Nitrogen 11 mg/dL (7-20) Creatinine 1.0 mg/dL (0.6-1.0) Estimated GFR (Cockcroft-Gault) 62.1 BUN/Creatinine Ratio 11 (6-20) Glucose Level 472 mg/dL (70-99) Lactic Acid Level 2.3 mmol/L (0.4-2.0) Calcium Level 8.9 mg/dL (8.5-10.1) Magnesium Level 1.9 mg/dL (1.8-2.4) Total Bilirubin 0.2 mg/dL (0.2-1.0) Aspartate Amino Transf (AST/SGOT) 13 U/L (15-37) Alanine Aminotransferase (ALT/SGPT) 20 U/L (14-59) Alkaline Phosphatase 196 U/L (46-116) Total Protein 7.8 g/dL (6.4-8.2) Albumin 3.1 g/dL (3.4-5.0) Albumin/Globulin Ratio 0.7 (1.0-1.7) Acetone Level Neg (NEG) Test 09/06/19 23:31 09/07/19 02:00 09/07/19 02:30 09/07/19 07:01 Glucose (Fingerstick) 345 mg/dL (70-99) 364 mg/dL (70-99) White Blood Count 5.4 x10^3/uL (4.0-11.0) Red Blood Count 3.97 x10^6/uL (3.50-5.40) Hemoglobin 9.7 g/dL (12.0-15.5) Hematocrit 32.8 % (36.0-47.0) Mean Corpuscular Volume 83 fL (79-100) Mean Corpuscular Hemoglobin 25 pg (25-35) Mean Corpuscular Hemoglobin Concent 30 g/dL (31-37) Red Cell Distribution Width 20.0 % (11.5-14.5) Platelet Count 294 x10^3/uL (140-400) Neutrophils (%) (Auto) 47 % (31-73) Lymphocytes (%) (Auto) 37 % (24-48) Monocytes (%) (Auto) 11 % (0-9) Eosinophils (%) (Auto) 4 % (0-3) Basophils (%) (Auto) 1 % (0-3) Neutrophils # (Auto) 2.5 x10^3/uL (1.8-7.7) Lymphocytes # (Auto) 2.0 x10^3/uL (1.0-4.8) Monocytes # (Auto) 0.6 x10^3/uL (0.0-1.1) Eosinophils # (Auto) 0.2 x10^3/uL (0.0-0.7) Basophils # (Auto) 0.0 x10^3/uL (0.0-0.2) Sodium Level 138 mmol/L (136-145) Potassium Level 3.4 mmol/L (3.5-5.1) Chloride Level 103 mmol/L (98-107) Carbon Dioxide Level 23 mmol/L (21-32) Anion Gap 12 (6-14) Blood Urea Nitrogen 11 mg/dL (7-20) Creatinine 0.9 mg/dL (0.6-1.0) Estimated GFR (Cockcroft-Gault) 70.1 Glucose Level 220 mg/dL (70-99) Lactic Acid Level 2.9 mmol/L (0.4-2.0) Calcium Level 8.7 mg/dL (8.5-10.1) Images Images CT Right leg: There is a markedly comminuted fracture of the distal phalanx of the great toe. There is a soft tissue injury of the tip of the second toe. The remaining visualized osseous structures appear normal. IMPRESSION: 1. Markedly comminuted fractures of distal phalanx of the great toe. 2. Soft tissue laceration seen over the tip of the second toe without a fracture seen. CXR: AP Findings: The cardiomediastinal silhouette is normal. The pulmonary vasculature is normal. The lungs and pleural margins are clear. Impression: No evidence of an acute cardiopulmonary process. VTE Prophylaxis Ordered VTE Prophylaxis Devices: No VTE Pharmacological Prophylaxi: Yes Assessment/Plan Assessment/Plan A/P: Right 2nd toe ulcer and cellulitis - spreading to foot. CT with no bony involvement, will consult orthopedic surgery, wound care, initiate vancomycine, can cont rocephin for now. Culture ordered Diabetic ulcer, right big toe, status post debridement. feb 2019, to OR 06/15/2019 - I&D down to bone of both great toes. 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 Found with crystals on her person during hospitalization previously. She denies current possession, notes intermittent use a few times a month Heavy alcohol abuse - has cut back Hypokalemia - replace FEN - ADA diet PPX - lovenox FULL CODE Dispo - Inpatient at least 2 midnights. Justicifation of Admission Dx: Justifications for Admission: Justification of Admission Dx: Yes Cellulitis: Cellulitis COREY CAN MD Sep 07, 2019 08:45
[2019-09-07] MEDS ORDERED: VANCOMYCIN 1.25 GM in IV NORMAL SALINE 250ML 250 ML IV ONE (11:00)
[2019-09-07 11:23] VITALS: BP 124/86
[2019-09-07] MEDS: INSULIN LISPRO 300 UNITS/3 ML VIAL. SQ SCH ×5 (11:30→21:37)
[2019-09-07] MEDS: cefTRIAXone IV Push 1 GM VIAL. IVP SCH (12:25)
[2019-09-07] MEDS: HYDROcodone/APAP 5/325MG 1 TAB TABLET PO PRN ×2 (12:40→21:02)
[2019-09-07] MEDS: VANCOMYCIN PER PHARMACY MC PRN (14:24)
--- NOTE | 2019-09-07 14:26 | NUR ---
Pharmacy Vancomycin Dosing Note S:Consulted to monitor and dose vancomycin started 09/07/19. O:FLORESITA JORGE is a 39 year old F with Cellulitis . Height: 5 feet, 4 inches Weight: 53.5 kg [place] Body Weight: 54.70 Adjusted Body Weight: 54.22 Dosing Weight: Actual Other Antibiotics: CTX 09/06 - LABS: Last BUN: 11 Last Creatinine: 0.9 Creatinine Clearance: 71 mL/min Last WBC: 5.4 Last Procalcitonin: - Tmax (past 24 hours): 98.6 Microbiology: 09/06 UCX, BCX PENDING I/O: 1290 Drug Levels: Last level: on at Last dose given 09/07/19 at 1230 Vancomycin Dosing: Loading Dose: 1250 mg x1 Dosing Weight: Actual Target Trough: 10-20 A: Based on: WEIGHT, CRCL~71, P: 1. INITIATE Vancomycin 750 mg IV q12h AFTER 1250 MG LOADING DOSE 2. Follow up Trough level on 09/09/19 at 0030 3. Pharmacy will continue to monitor, follow and adjust therapy as needed. MURIEL URENA [facility], 09/07/19 [id number]
[2019-09-07 15:04] VITALS: BP 113/75
[2019-09-07] MEDS: fentaNYL PF VIAL 100 MCG/2 ML VIAL IVP PRN ×2 (15:32→23:19)
[2019-09-07 20:16] VITALS: BP 146/90
[2019-09-07] MEDS ORDERED: INSULIN GLARGINE SYRINGE. SQ SCH (21:00)
[2019-09-07] MEDS ORDERED: VANCOMYCIN 750 MG in IV NORMAL SALINE 250ML 250 ML IV SCH (21:00)
[2019-09-07] MEDS: INSULIN GLARGINE SYRINGE. SQ SCH (21:15)
[2019-09-07 23:11] VITALS: BP 127/55
[2019-09-08] VITALS (8 sets, daily range): BP systolic 101–132; BP diastolic 55–83
[2019-09-08] MEDS: VANCOMYCIN 750 MG in IV NORMAL SALINE 250ML 250 ML IV SCH ×2 (00:15→14:24)
[2019-09-08] MEDS: fentaNYL PF VIAL 100 MCG/2 ML VIAL IVP PRN ×2 (03:52→23:50)
[2019-09-08] MEDS: HYDROcodone/APAP 5/325MG 1 TAB TABLET PO PRN ×3 (06:28→20:40)
[2019-09-08] MEDS: DEXTROSE 50% 25 GM / 50ML DISP.SYRIN. IV PRN ×2 (06:45→09:26)
[2019-09-08 07:26] LABS: CALCIUM 8.5 mg/dL (8.5-10.1); CREATININE 0.7 mg/dL (0.6-1.0); GFR 93.6; MAGNESIUM 1.7 mg/dL (1.8-2.4); POTASSIUM 4.1 mmol/L (3.5-5.1)
[2019-09-08] MEDS: INSULIN LISPRO 300 UNITS/3 ML VIAL. SQ SCH ×7 (07:30→20:47)
--- NOTE | 2019-09-08 07:44 | PDOC ---
[facility] PROGRESS NOTE Chief Complaint Chief Complaint A/P: Right 2nd toe ulcer and cellulitis - spreading to foot. CT with no bony involvement, consulted orthopedic surgery, wound care, vancomycin + rocephin for now. Culture ordered Diabetic ulcer, right big toe, status post debridement. feb 2019, to OR 06/15/2019 - I&D down to bone of both great toes. 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 Found with crystals on her person during prior hospitalization. She denies current possession, notes intermittent use a few times a month Heavy alcohol abuse - has cut back Hypokalemia - replace ?STI - GC and chlamydia covered by rocephin, will likely be on doxycycline or similar on d/c. She does not want confirmatory testing. Positive blood culture -gram-positive cocci generally contaminants considering this is 1 out of 4 bottles this is my assessment. FEN - ADA diet PPX - lovenox FULL CODE Dispo - Inpatient at least 2 midnights. History of Present Illness History of Present Illness Ms Gibson is a 38 yo F w/ PMHx Diabetes type 1, poorly controlled; peripheral neuropathy with foot ulcers, asthma; gastroesophageal reflux; anxiety; anemia; substance abuse with methamphetamine and marijuana admitted for severe right 2nd toe pain with swelling, redness and radiation of the pain up her leg for the past week. She also c/o pain at the prior left great toe surgical site. When the nail fell off her second toe and her pain became unbearable and she noted the redness coming up into her foot she came to the ED. Patient had similar episode back in January and had surgery on that toe, then she returned in June 2019 with the same problem, went to OR for debridement at that time and was ordered for outpatient antibiotics. She believes she has an STI, as her partner informed her he thinks he was diagnosed with gonorrhea. Labs significant for WBC 5.4, CRP 30.6, glucose 320, and Na 138, K3.4,CT of right foot with phalanx fracture of great toe and laceration without signs of bony involvement of right 2nd toe. She continues to intermittently abuse methamphetamines, as well as heavy alcohol use, but has been cutting back significantly since her last visit in June 2019. Admitted for further treatment. Afebrile, toe pain improved today. Plans for surgery is n.p.o. for surgery. COVID-19 antigen returned negative. Tolerated antibiotics well. 1 out of 4 blood culture bottles positive for gram-positive cocci. Vitals/I&O Vitals/I&O: Vital Signs Date Time Temp Pulse Resp B/P (MAP) Pulse Ox O2 Delivery O2 Flow Rate FiO2 09/08/19 07:22 16 97 Room Air 09/08/19 03:04 97.7 98 121/64 (83) 97.7 I & O 09/07/19 09/07/19 09/08/19 15:00 23:00 07:00 Intake Total 950 ml 900 ml 960 ml Balance 950 ml 900 ml 960 ml Physical Exam General: Alert, Oriented X3, Cooperative, mild distress Lungs: Clear Abdomen: Normal bowel sounds, Soft, No tenderness, No hepatosplenomegaly, No masses Extremities: No clubbing, No cyanosis, No edema, Other (Poorly healing laceration of the left great toe on the medial aspect near the distal phalanx, right great toe small ulcer, right second toe very swollen red to metatarsals with distal ulcer with slight drainage nails missing from great toe and second toe) Skin: No breakdown Labs Labs: Laboratory Tests Test 09/07/19 10:54 09/07/19 15:48 09/07/19 20:34 09/07/19 21:26 Glucose (Fingerstick) 231 mg/dL (70-99) 70 mg/dL (70-99) 386 mg/dL (70-99) SARS-CoV-2 Antigen (Rapid) Negative (NEGATIVE) Test 09/08/19 06:33 09/08/19 06:50 09/08/19 06:57 Glucose (Fingerstick) 61 mg/dL (70-99) 145 mg/dL (70-99) Sodium Level 138 mmol/L (136-145) Potassium Level 4.1 mmol/L (3.5-5.1) Chloride Level 105 mmol/L (98-107) Carbon Dioxide Level 27 mmol/L (21-32) Anion Gap 6 (6-14) Blood Urea Nitrogen 13 mg/dL (7-20) Creatinine 0.7 mg/dL (0.6-1.0) Estimated GFR (Cockcroft-Gault) 93.6 Glucose Level 173 mg/dL (70-99) Calcium Level 8.5 mg/dL (8.5-10.1) Magnesium Level 1.7 mg/dL (1.8-2.4) Assessment and Plan Assessmemt and Plan Problems Medical Problems: (1) Cellulitis and abscess of toe Status: Acute Comment Review of Relevant I have reviewed the following items olena (where applicable) has been applied. Medications: Current Medications Medications (Trade) Dose Ordered Sig/Lcuio Route PRN Reason Start Time Stop Time Status Last Admin Dose Admin Citalopram Hydrobromide (CeleXA) 20 mg DAILY PO 09/07/19 09:00 09/07/19 08:41 Insulin Human Lispro (HumaLOG) 9 units TIDWMEALS SQ 09/07/19 12:00 09/07/19 12:00 Insulin Human Lispro (HumaLOG) 0-9 UNITS TIDACHC SQ 09/07/19 11:30 09/07/19 21:37 Dextrose (Dextrose 50%-Water Syringe) 12.5 gm PRN Q15MIN PRN IV SEE COMMENTS 09/07/19 08:15 09/08/19 06:45 Insulin Human Lispro (HumaLOG) 18 units 1X ONCE SQ 09/07/19 08:15 09/07/19 08:22 DC 09/07/19 08:45 Potassium Chloride (Klor-Con) 40 meq 1X ONCE PO 09/07/19 08:45 09/07/19 08:49 DC 09/07/19 12:24 Acetaminophen/ Hydrocodone Bitart (Lortab 5/325) 1 tab PRN Q6HRS PRN PO PAIN 09/07/19 10:15 09/08/19 06:28 Fentanyl Citrate (Fentanyl 2ml Vial) 25 mcg PRN Q3HRS PRN IVP PAIN 09/07/19 10:15 09/08/19 03:52 Ceftriaxone Sodium (Rocephin) 1 gm Q24H IVP 09/07/19 11:00 09/07/19 12:25 Vancomycin HCl 1.25 gm/Sodium Chloride 250 ml @ 166.667 mls/hr 1X ONCE IV 09/07/19 11:00 09/07/19 12:29 DC 09/07/19 11:00 Vancomycin HCl (Vanco Per Pharmacy) 1 each PRN DAILY PRN MC SEE COMMENTS 09/07/19 10:15 09/07/19 14:24 Vancomycin HCl 750 mg/Sodium Chloride 250 ml @ 250 mls/hr Q12H IV 09/08/19 01:00 09/08/19 00:15 Insulin Glargine (Lantus Syringe) 30 unit QHS SQ 09/07/19 21:15 09/07/19 21:15 Justicifation of Admission Dx: Justifications for Admission: Justification of Admission Dx: Yes Cellulitis: Cellulitis COREY CAN MD Sep 08, 2019 07:44
[2019-09-08] MEDS ORDERED: MAGNESIUM SULFATE 2GM 50 ML IV ONE (08:00)
[2019-09-08] MEDS ORDERED: PROCHLORPERAZINE 10 MG/2 ML VIAL. IV PRN ×2 (08:15→11:00)
[2019-09-08] MEDS ORDERED: IV RINGERS,LACTATED 1000ML 1,000 ML IV SCH ×2 (09:00→10:59)
[2019-09-08] MEDS: VANCOMYCIN PER PHARMACY MC PRN (09:37)
--- NOTE | 2019-09-08 10:05 | CONS ---
DATE OF CONSULTATION: ORTHOPEDIC CONSULTATION REQUESTING PHYSICIAN: Lyndon Hendrix MD REASON FOR CONSULTATION: Right second toe infection. HISTORY OF PRESENT ILLNESS: The patient is a type 1 diabetic since 13 years old who presents with a wound to her right second toe. She said that the swelling and drainage has occurred for about the last week. She said that she initially had her toenail come off, it got red and seem to bubble up and then started draining, starting about a week ago, like it came from the inside out. She indicates that she has had difficulties with her toes in the past and had surgery on both right and left side great toes in the past and has difficulty with sensation on her feet for a long time and has been told she has neuropathy. PAST MEDICAL HISTORY: Again significant for type 1 diabetes, low iron. Also hypertension, asthma, peripheral neuropathy, and anxiety. History of MRSA. PAST SURGICAL HISTORY: Significant for surgeries on both great toes. ALLERGIES: She has no known medication allergies. MEDICATIONS: List is otherwise reviewed. FAMILY HISTORY: Diabetes and hypertension. SOCIAL HISTORY: Denies tobacco use, but heavy alcohol consumption as well as use of marijuana and methamphetamine. REVIEW OF SYSTEMS: Significant for the drainage from her right second toe, healing ongoing from previous surgery on the left great toe months ago and some abdominal pain, concern for a possible risk of sexually transmitted disease. 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 Distal pulses are palpable. She does have redness, fluctuance and purulent discharge from the tip of her second toe on the right side, toenail is missing. She does not appear to have problems and pain over the flexor or extensor tendon sheaths or fluctuance in the dorsum of the foot or involvement of the other toes. She is well-healed from previous surgery on the right great toe and progressive healing noted on the left great toe, both of which have deformities of both toenails due to her previous surgery. She does indicate some radiating pain up the foot occasionally on the right side, not present on the left. She had normal alignment, stability, bilateral hips and knees and no joint swelling, instability or other abnormality. DIAGNOSTIC STUDIES: A CT scan of the right lower extremity reveals some comminution of the distal phalanx of the right great toe, which is old in nature. No specific bony findings on the right second toe, but the skin defect on the tip of the toe is obvious along with the swelling, but does not seem to be having a proximal involvement in the foot. IMPRESSION: 1. Infection, right great toe with probing to bone and clinically osteomyelitis. 2. History of previous bilateral great toe surgeries remotely. 3. Type 1 diabetes, poorly controlled. 4. History of recent drug use. TREATMENT PLAN: I went over with her concern that with the end of her tip of her toe draining pus and closer to the bone is to the area on skin where it is palpable to the bone and losing her toenail as well. It appears as if she would clinically meet the definition of osteomyelitis or infection in the bone that is very difficult to clear if she does not get good coverage over the area even with antibiotics. We had discussed the desirability of surgical exploration of this area to clean out any infection that is present, remove any tissue or infected bone to shorten the area up to where we could get good coverage with the viable tissue that she has. I did talk about the possibility of residual infection, nonhealing and the potential nonsurgical concern of advancing infection, particularly with her poorly controlled diabetes and other risk factors. She agrees to proceed with surgical evaluation and treatment, which can occur tomorrow as she has just eaten dinner at the time of my evaluation. All her questions were answered and we will proceed with surgery depending on the operating room availability. ANA WARNER MD DR: MICHELLE/natividad JOB#: [id number] / [id number]
[2019-09-08] MEDS ORDERED: DEXAMETHASONE SOD PHOS 4 MG/ML VIAL ONE (10:09)
[2019-09-08] MEDS ORDERED: fentaNYL PF VIAL 100 MCG/2 ML VIAL ONE (10:09)
[2019-09-08] MEDS ORDERED: ONDANSETRON PF 4 MG/2 ML VIAL. ONE (10:09)
[2019-09-08] MEDS ORDERED: SEVOFLURANE 31 TO 60 MINUTES. IH ONE (10:09)
[2019-09-08] MEDS ORDERED: PROPOFOL 10 MG/ML (20ML) VIAL. IV ONE (10:09)
[2019-09-08] MEDS ORDERED: LIDOCAINE 2% PF 5 ML VIAL. ONE (10:09)
[2019-09-08] MEDS ORDERED: MIDAZOLAM HCL/PF 2 MG/2 ML VIAL. ONE (10:09)
[2019-09-08] MEDS ORDERED: PHENYLEPHRINE in 0.9% NACL PF 1 MG/10 ML SYRINGE. IV ONE (10:48)
[2019-09-08] MEDS ORDERED: MORPHINE SULFATE 2 MG/ML VIAL. IV PRN (11:00)
[2019-09-08] MEDS ORDERED: fentaNYL PF VIAL 100 MCG/2 ML VIAL IV PRN ×2 (11:00)
[2019-09-08] MEDS ORDERED: HYDROmorphone 2 MG/ML VIAL IV PRN (11:00)
[2019-09-08] MEDS ORDERED: ONDANSETRON PF 4 MG/2 ML VIAL. IV PRN (11:00)
--- NOTE | 2019-09-08 11:55 | NUR ---
PATIENT RETURNED TO THE UNIT PER BED, PATIENT DROWSY BUT EASILY AROUSED, POST OP VITALS STARTED, PATIENTS' RIGHT FOOT UP ON PILLOW, DRESSING C/D/I, WILL MONITOR, WILL ORDER LUNCH TRAY.
[2019-09-08] MEDS: CITALOPRAM 20 MG TABLET. PO SCH (13:03)
[2019-09-08] MEDS: cefTRIAXone IV Push 1 GM VIAL. IVP SCH (13:04)
--- NOTE | 2019-09-08 14:58 | PDOC4 ---
Operative Note Operative Note Date of surgery: 09/08/2019 Preoperative diagnosis: Infection right second toe with osteomyelitis Postoperative diagnosis: Same Operative procedure: Partial amputation right second toe Surgeon: Terrell Anesthesia: General Estimated blood loss: 25 cc Complications: None Specimens: Intraoperative tissue culture sent for aerobic anaerobic Gram stain, tissue of amputation for gross specimen Operative indications: Please see my dictated orthopedic consult for detailed operative indications Operative text: Patient was identified procedure verified patient placed in the supine position on the operating table and after adequate amounts of general anesthesia were administered the right lower extremity was prepped and draped in standard sterile fashion with a thigh tourniquet. After timeout was performed patient procedure identified and verified a fishmouth type incision was made over the distal aspect of the toe and tissue cultures were sent of the devitalized tissue and purulent drainage. Distal phalanx was showing signs of softening and osteomyelitis and was excised back to the uninvolved middle phalanx. Skin was incised in a fishmouth type incision sharply with a scalpel to remove the devitalized tissue and allow adequate closure and removal of the involved nail fold. Bleeding points were controlled by electrocautery and cartilage removed from the distal portion of the middle phalanx to allow better adhesion of tissue to the bone through scarring. Thorough irrigation again carried out with normal saline solution and closure accomplished with nylon suture in a simple fashion. Sterile dressings consisting of Xeroform gauze 4 x 4's and Kerlix were applied. Tourniquet was not inflated throughout the procedure to allow evaluation of the blood supply to the tissue. Patient was returned to recovery room in stable condition having tolerated procedure well. ANA WARNER MD Sep 08, 2019 14:58
[2019-09-08] MEDS ORDERED: INSULIN LISPRO 300 UNITS/3 ML VIAL. SQ ONE (17:15)
[2019-09-08] MEDS: LACTOBACILLUS RHAMNOSUS GG 1 CAPSULE. PO SCH (20:39)
[2019-09-08] MEDS: INSULIN GLARGINE SYRINGE. SQ SCH (20:48)
[2019-09-09 00:59] LABS: CREATININE 0.8 mg/dL (0.6-1.0); GFR 80.3; VANC TR 7.7 mcg/mL (10.0-20.0)
[2019-09-09] MEDS ORDERED: VANCOMYCIN 1 GM in IV NORMAL SALINE 250ML 250 ML IV SCH (01:30)
[2019-09-09] MEDS: VANCOMYCIN PER PHARMACY MC PRN (01:34)
--- NOTE | 2019-09-09 01:36 | NUR ---
Pharmacy Vancomycin Dosing Note S: Consulted to monitor and dose vancomycin started 09/07/19. O: FLORESITA JORGE is a 39 year old F with Cellulitis Bacteremia, . Other Antibiotics: CTX 09/06 - LABS: Last BUN: 13 Last Creatinine: 0.8 Creatinine Clearance: 84 mL/min Last WBC: 5.4 Last Procalcitonin: - Tmax (past 24 hours): 98.6 Microbiology: 09/07 GPR BCX 1/4 BOTTLES, UCX NORMAL CHARLINE I/O: 2810/- 7 VOIDS Drug Levels: Last Trough level: 7.7 on 09/09/19 at 0040 Last dose given 09/08/19 at 1424 Vancomycin Dosing: Dosing Weight: Actual Target Trough: 15-20 A: Based on: Trough, Actual Wt and CrCl P: 1. 09/09/19 0130 Increase Vancomycin 1000 mg IV q12h 2. Follow up Trough level on 09/10/19 at 1300 3. Pharmacy will continue to monitor, follow and adjust therapy as needed. KALA KAPADIA RPH, 09/09/19 0136 Signed: 09/09/19 at 0137 by KALA KAPADIA RPH PHA Signed: 09/09/19 at 0137 by KALA KAPADIA RPH PHA
[2019-09-09 07:00] VITALS: BP 119/78
[2019-09-09] MEDS: INSULIN LISPRO 300 UNITS/3 ML VIAL. SQ SCH ×4 (07:30→12:09)
--- NOTE | 2019-09-09 07:42 | NUR ---
IP: Pt admitted with toe wound. pt has a recent hx of mrsa in foot wounds requiring pt to be in contact precautions.
[2019-09-09] MEDS: fentaNYL PF VIAL 100 MCG/2 ML VIAL IVP PRN ×3 (08:08→17:34)
[2019-09-09] MEDS: LACTOBACILLUS RHAMNOSUS GG 1 CAPSULE. PO SCH (08:09)
[2019-09-09] MEDS: CITALOPRAM 20 MG TABLET. PO SCH (08:09)
[2019-09-09] MEDS: HYDROcodone/APAP 5/325MG 1 TAB TABLET PO PRN ×2 (08:09→17:37)
--- NOTE | 2019-09-09 09:56 | NUR ---
Wound Care Wound care consult for right 2nd toe wound. Pt had partial amputation of R 2nd toe on 09/07. Sutures intact, pt also has plantar wound to R 2nd toe, that is slough covered. Cleanse wound, pictured and measured and redressed with silver contact layer, gauze and tape. Recommend to change every other day. Pt educated on wound care plan of care after discharge. No other wounds noted. WC will continue to follow for possible changes.
--- NOTE | 2019-09-09 10:17 | NUR ---
SW following. Discussed with RN, pt from home, ada diet, surgery yesterday. Last admission, pt discharged home with outpatient IV abx. Possible ID consult. [facility] will continue to follow.
[2019-09-09 11:00] VITALS: BP 103/62
[2019-09-09] MEDS: cefTRIAXone IV Push 1 GM VIAL. IVP SCH (12:22)
--- NOTE | 2019-09-09 13:30 | DS ---
DATE OF DISCHARGE: 09/09/2019 ADMISSION DIAGNOSES: 1. Cellulitis. 2. Hyperglycemia. 2. History of methamphetamine abuse. DISCHARGE DIAGNOSIS: Postop day #1, partial right second toe amputation. CONSULTS: Orthopedics. HOSPITAL COURSE: The patient is a pleasant middle-aged female, who does methamphetamine, basically presented with some hyperglycemia and right second toe that was infected. We admitted the patient, gave her IV antibiotics. We consulted Orthopedics. She was taken for a partial amputation of the right second toe. Today, I saw her and examined her. PHYSICAL EXAMINATION: HEART: Tones were normal. LUNGS: Clear. ABDOMEN: Soft. EXTREMITIES: No edema. The right toe had clean, dry and intact dressing and had some sutures that were intact. Overall, she looks great. We plan to discharge her to home. DISPOSITION: Home. ACTIVITY: As tolerated. DIET: Low sodium. MEDICATIONS: Please see the MRAD. TOTAL TIME: 34 minutes. JB THAPA DO DR: SALVATORE/natividad JOB#: [id number] / [id number]
[2019-09-09 15:12] VITALS: BP 98/51
--- NOTE | 2019-09-09 18:49 | NUR ---
Discharge Note: FLORESITA JORGE POTLATCH Discharge instructions and discharge home medications reviewed with Patient and a copy given. All questions have been answered and understanding verbalized. The following instructions and handouts were given: diet, activity, medication list and follow up instructions provided to patient. wound care instructions provided. Discontinued lines and drains: Peripheral IV discontinued and catheter intact. Patient discharged to Home or Self Care with Family Member via Wheelchair.
--- NOTE | 2019-09-11 17:07 | PATHOLOGY ---
[facility] Accession Number: [id number] . 01 Material submitted: . toe - RIGHT 2ND TOE TISSUE. Modifiers: right, second . 02 Diagnosis: Right second toe partial amputation: - Focal ulceration of toe with acute cellulitis and acute osteomyelitis. - Pseudoepitheliomatous hyperplasia and hyperkeratosis/parakeratosis of skin of toe. (JPM:pit 09/11/2019) QTP 09/11/2019 1630 Local . 02 Electronically signed: . Mark Denise MD, Pathologist NPI- [id number] . 01 Gross description: . The specimen is received in formalin, labeled "Enid Gibson R second toe tissue" and consists of the distal disarticulated segment of toe measuring 1.7 x 2.3 x 1.1 cm. The proximal bone margin is smooth and concave. The skin shows probable ulceration. No nail is present. Kiln Firer Helper longitudinal sections to include the entire bone are submitted in A1 following decalcification. (SDY; 09/10/2019) SYU/SYU 09/10/2019 1010 Local . 02 Pathologist provided ICD-10: M86.171, L03.031, L85.8 . 02 CPT . 435540, [id number] Specimen Comment: A courtesy copy of this report has been sent to [phone], [phone] Specimen Comment: [id number] Specimen Comment: Report sent to / DR BUITRAGO Performed at: 01 [facility] [address], [place] [id number] MD Jorge Chappell MD Phone: [phone] Performed at: 02 [facility] [address] [place], [place] [id number] MD Mark Denise MD Phone: [phone]
[2019-09-29] MEDS ORDERED: DOXY100C2 PO (10:04)
[2019-09-29] MEDS ORDERED: HYDR-2759 PO (10:04)
== END 2019-09-09 18:54 | disposition home or self-care (01) | DRG 617 ==
LOC: ER 19:55 → 5 NORTH 09-07 00:46
PROVIDERS: ADMIT Family Medicine; ATTEND Family Medicine
PROC: 0Y6R0Z2 Detachment at Right 2nd Toe, Mid, Open Approach (ICD-10-PCS; principal; 2019-09-08 10:00)
DX: E10.69 Type 1 diabetes mellitus with other specified complication (principal); L02.611 Cutaneous abscess of right foot; M86.171 Other acute osteomyelitis, right ankle and foot; E10.621 Type 1 diabetes mellitus with foot ulcer; L03.031 Cellulitis of right toe; E10.65 Type 1 diabetes mellitus with hyperglycemia; E10.42 Type 1 diabetes mellitus with diabetic polyneuropathy; E10.610 Type 1 diabetes mellitus with diabetic neuropathic arthropathy; E87.6 Hypokalemia; F10.10 Alcohol abuse, uncomplicated; F12.90 Cannabis use, unspecified, uncomplicated; F15.10 Other stimulant abuse, uncomplicated; I10 Essential (primary) hypertension; J45.909 Unspecified asthma, uncomplicated; L97.519 Non-pressure chronic ulcer of other part of right foot with unspecified severity; Z79.4 Long term (current) use of insulin; Z82.49 Family history of ischemic heart disease and other diseases of the circulatory system; Z83.3 Family history of diabetes mellitus; Z86.14 Personal history of Methicillin resistant Staphylococcus aureus infection; Z87.891 Personal history of nicotine dependence; F41.9 Anxiety disorder, unspecified; K21.9 Gastro-esophageal reflux disease without esophagitis; Z20.828 Contact with and (suspected) exposure to other viral communicable diseases
CPT/HCPCS: 36415; 71045; 73700; 80048; 80053; 80202; 81001; 81025; 82010; 82565; 82962; 83605; 83735; 85025; 85610; 85730; 86140; 87040; 87071; 87075; 87076; 87077; 87086; 87186; 87205; 87426; 88305; 88311; 96365; 96375; A7015; J0696; J1100; J1815; J1885; J2250; J2270; J2370; J2405; J2704; J3010; J3370; J3475; J3490; J7030; J7050; 99285-25; A4461; G0378; U0003-CS

== ENCOUNTER 2019-09-25 00:32 | Inpatient (IN) | payer OTHER ==
[~2019-09-25] VITALS: Ht 154.9 cm; Wt 62.4 kg
[2019-09-25] MEDS ORDERED: PIPERACILLIN/TAZOBACTAM 3.375 GM in IV NORMAL SALINE 50ML 50 ML IV ONE (01:00)
[2019-09-25] MEDS ORDERED: IV NORMAL SALINE 1000ML BAG 1,000 ML IV ONE (01:00)
--- NOTE | 2019-09-25 01:01 | PHYS DOC ---
Past Medical History Past Medical History: Diabetes-Type I Additional Past Medical Histor: LOW IRON, Past Surgical History: Other Additional Past Surgical Histo: R AND L TOE SURGERY Smoking Status: Current Every Day Smoker Alcohol Use: Heavy Drug Use: None General Adult EDM: Chief Complaint: TOE PROBLEM HPI: HPI: Patient is a 39 year old female who presents with 6 to 7-day history of right foot redness and pain. Patient has poorly controlled diabetes and had surgery on her right second toe about 3 weeks ago and did not follow-up. Patient is noticed redness from the toe streaking up to his foot. Patient denies any fever. Patient describes moderate pain is worse with palpation. Patient says her blood sugars also been running high. Patient denies any vomiting or d iarrhea. Review of Systems: Review of Systems: Constitutional: Denies fever or chills. [] Eyes: Denies change in visual acuity. [] HENT: Denies nasal congestion or sore throat. [] Respiratory: Denies cough or shortness of breath. [] Cardiovascular: Denies chest pain or edema. [] GI: Denies abdominal pain, nausea, vomiting, bloody stools or diarrhea. [] : Denies dysuria. [] Musculoskeletal: Denies back pain or joint pain. [] Integument: Notes redness to right foot Neurologic: Denies headache, focal weakness or sensory changes. [] Endocrine: Complains of polyuria or polydipsia. [] Lymphatic: Denies swollen glands. [] Psychiatric: Denies depression or anxiety. [] Heart Score: Risk Factors: Risk Factors: DM, Current or recent (<one month) smoker, HTN, HLP, family history of CAD, obesity. Risk Scores: Score 0 - 3: 2.5% MACE over next 6 weeks - Discharge Home Score 4 - 6: 20.3% MACE over next 6 weeks - Admit for Clinical Observation Score 7 - 10: 72.7% MACE over next 6 weeks - Early Invasive Strategies Current Medications: Current Medications Medications (Trade) Dose Ordered Sig/Lucio Start Time Stop Time Status Last Admin Dose Admin Piperacillin Sod/ Tazobactam Sod 3.375 gm/Sodium Chloride 50 ml @ 100 mls/hr 1X ONCE 09/25/19 01:00 09/25/19 01:29 UNV Sodium Chloride 1,000 ml @ 1,000 mls/hr 1X ONCE 09/25/19 01:00 09/25/19 01:59 UNV Vancomycin HCl 250 ml @ 250 mls/hr 1X ONCE 09/25/19 01:00 09/25/19 01:59 UNV Allergies: Allergies: Allergies Coded Allergies Type Severity Reaction Last Updated Verified I S O L A T I O N *CONTACT* Allergy Unknown Swelling 07/16/19 Yes No Known Medication Allergies Allergy Unknown 09/08/19 Yes Physical Exam: PE: Constitutional: Well developed, well nourished, mild distress HENT: Normocephalic, atraumatic, bilateral external ears normal, dry oral mucosa, nose normal. [] Eyes: PERRLA, EOMI, conjunctiva normal, no discharge. [] Neck: Normal range of motion, no tenderness, supple, no stridor. [] Cardiovascular: Tachycardic regular rhythm, peripheral pulses intact, blanching to the right second toe Lungs & Thorax: Bilateral breath sounds clear no respiratory distress Abdomen: soft, no tenderness, no masses, no pulsatile masses. [] Skin: Warm, dry, erythema for the second toe to the midfoot no rash. [] Back: No tenderness, no CVA tenderness. [] Extremities: Erythema to the right second toe with sutures in place spreading to the midfoot. Necrosis on the tip of the right second toe Neurologic: Alert and oriented X 3, normal motor function, decreased sensation toes Psychologic: Affect normal, judgement normal, mood normal. [] Current Patient Data: Labs: Laboratory Tests Test 09/25/19 01:05 09/25/19 01:20 09/25/19 01:50 White Blood Count 7.4 x10^3/uL Red Blood Count 4.41 x10^6/uL Hemoglobin 10.6 g/dL Hematocrit 34.0 % Mean Corpuscular Volume 77 fL Mean Corpuscular Hemoglobin 24 pg Mean Corpuscular Hemoglobin Concent 31 g/dL Red Cell Distribution Width 19.0 % Platelet Count 368 x10^3/uL Neutrophils (%) (Auto) 63 % Lymphocytes (%) (Auto) 26 % Monocytes (%) (Auto) 7 % Eosinophils (%) (Auto) 2 % Basophils (%) (Auto) 2 % Neutrophils # (Auto) 4.6 x10^3/uL Lymphocytes # (Auto) 2.0 x10^3/uL Monocytes # (Auto) 0.5 x10^3/uL Eosinophils # (Auto) 0.2 x10^3/uL Basophils # (Auto) 0.1 x10^3/uL Prothrombin Time 11.9 SEC Prothromb Time International Ratio 0.9 Activated Partial Thromboplast Time 22 SEC Lactic Acid Level 4.2 mmol/L Bedside Urine HCG, Qualitative Hcg negative Sodium Level 131 mmol/L Potassium Level 3.4 mmol/L Chloride Level 92 mmol/L Carbon Dioxide Level 31 mmol/L Anion Gap 8 Blood Urea Nitrogen 13 mg/dL Creatinine 1.1 mg/dL Estimated GFR (Cockcroft-Gault) 55.6 BUN/Creatinine Ratio 12 Glucose Level 490 mg/dL Calcium Level 9.2 mg/dL Total Bilirubin 0.3 mg/dL Aspartate Amino Transf (AST/SGOT) 20 U/L Alanine Aminotransferase (ALT/SGPT) 35 U/L Alkaline Phosphatase 203 U/L C-Reactive Protein, Quantitative 8.2 mg/L Total Protein 8.2 g/dL Albumin 3.5 g/dL Albumin/Globulin Ratio 0.7 Ethyl Alcohol Level < 10 mg/dL Acetone Level Neg Current Medications Medications (Trade) Dose Ordered Sig/Lucio Route PRN Reason Start Time Stop Time Status Last Admin Dose Admin Vancomycin HCl 250 ml @ 250 mls/hr 1X ONCE IV 09/25/19 01:30 09/25/19 02:29 DC 09/25/19 02:25 Piperacillin Sod/ Tazobactam Sod 3.375 gm/Sodium Chloride 50 ml @ 100 mls/hr 1X ONCE IV 09/25/19 01:00 09/25/19 01:29 DC 09/25/19 01:18 Sodium Chloride 1,000 ml @ 1,000 mls/hr 1X ONCE IV 09/25/19 01:00 09/25/19 01:59 DC 09/25/19 01:17 Morphine Sulfate (Morphine Sulfate) 4 mg 1X ONCE IV 09/25/19 02:15 09/25/19 02:18 DC 09/25/19 02:24 Ondansetron HCl (Zofran) 4 mg 1X ONCE IVP 09/25/19 02:15 09/25/19 02:18 DC 09/25/19 02:23 Sodium Chloride 1,000 ml @ 1,710 mls/hr Q36M IV 09/25/19 02:15 09/25/19 03:15 Insulin Human Lispro (HumaLOG) 5 units 1X ONCE SQ 09/25/19 02:45 09/25/19 02:46 Ondansetron HCl (Zofran) 4 mg PRN Q8HRS PRN IV NAUSEA/VOMITING 09/25/19 02:45 09/26/19 02:44 Sodium Chloride 1,000 ml @ 125 mls/hr Q8H IV 09/25/19 02:45 09/26/19 02:44 Insulin Human Lispro (HumaLOG) 0-5 UNITS TIDWMEALS SQ 09/25/19 08:00 Dextrose (Dextrose 50%-Water Syringe) 12.5 gm PRN Q15MIN PRN IV SEE COMMENTS 09/25/19 02:45 Vital Signs: Vital Signs Date Time Temp Pulse Resp B/P (MAP) Pulse Ox O2 Delivery O2 Flow Rate FiO2 09/25/19 02:24 20 100 Room Air 09/25/19 00:56 97.7 111 16 143/75 (97) 100 Room Air 97.7 EKG: EKG: [] Radiology/Procedures: Radiology/Procedures: [][facility] [address] [place] [address] IMAGING REPORT Signed PATIENT: FLORESITA JORGE AACCOUNT: [id number] : 1980 LOCATION: ER AGE: 39 SEX: F EXAM STATUS: REG ER ORD. PHYSICIAN: FLOYD WILDER MD REASON: RIGHT TOE INFECTION PROCEDURE: FOOT RIGHT 3V Right foot x-rays 3 views HISTORY: Right toe infection. COMPARISON: CT right foot September 06, 2019. FINDINGS: Soft tissue swelling of the great toe with heterogeneous bony sclerosis and pathologic comminuted fracture throughout the great toe distal phalanx similar to recent CT imaging most likely due to chronic osteomyelitis. There is soft tissue swelling of the distal second toe and probable ulceration with soft tissue emphysema overlying the phalangeal tuft, also stable. No new focus of bone destruction or periostitis or new fracture. IMPRESSION: Osteomyelitis of the great toe distal phalanx associated with pathologic fracture. Soft tissue swelling and ulceration of the great toe and distal second toe. This is similar to recent CT imaging from August 2019. Electronically signed by: Adrián Ferrell MD (09/25/2019 1:47 AM) [facility] [place] DICTATED and SIGNED BY: ADRIÁN FERRELL MD DATE: 09/25/19 0147 Course & Med Decision Making: Course & Med Decision Making Pertinent Labs and Imaging studies reviewed. (See chart for details) [] 39-year-old female type I diabetic presents with cellulitis and osteomyelitis of the right foot. Patient also found to have significant hyperglycemia with a blood sugar of 490. Serum bicarb is good as patient is not DKA. Patient given sepsis bundle fluids in the ER due to a lactic acid over 4 she appears to be perfusing well. Blood pressure is stable. Patient given broad-spectrum antibiotics upon arrival and insulin for her hyperglycemia. Patient will be admitted to Dr. adam for further evaluation and treatment. Patient's sepsis fluid bolus had not finished when her bed was ready upstairs. I documented a vascular reassessment at the time her bed was ready. Shoaib Disclaimer: Shoaib Disclaimer: This electronic medical record was generated, in whole or in part, using a voice recognition dictation system. Departure Departure Impression: Primary Impression: Osteomyelitis of foot, right, acute Additional Impression: Hyperglycemia Disposition: ADMITTED INPATIENT Admitting Physician: PEPE COUCH) Condition: IMPROVED Referrals: NO PCP (PCP) Justicifation of Admission Dx: Justifications for Admission: Justification of Admission Dx: Yes Cellulitis: Cellulitis Date and Time of Assessment Date: Sep 28, 2017 Time: 00:56 Vital Signs Vital Signs: Vital Signs Date Time Temp Pulse Resp B/P (MAP) Pulse Ox O2 Delivery O2 Flow Rate FiO2 09/25/19 02:24 20 100 Room Air 09/25/19 00:56 97.7 111 143/75 (97) 97.7 Temperature Source: Oral (97.7) Respirations Respiratory Effort: Normal Respiratory Pattern: Normal Cardiovascular Pulse Rhythm: Regular Heart: Nml rate, reg. rhythm Lung Sounds Breath Sounds: Clear Capillary Refil Capillary Refill: Rt Hand < 3 seconds Peripheral Pulse Pulse Location: Radial Pulse Strength: Normal (2+) Pulse Assessment Method: NIBP Integumentary Skin: Warm, Dry Skin Moisture: Dry Skin Turgor: Normal Skin Color: warm, dry Fingernail Color: WNL Date and Time of Reassessment Date: Sep 28, 2017 Time: 03:00 Fluid Challenge Is the fluid challenge complet: No (PATIENT HAS A BED UPSTAIRS. ABOUT 300ML IN OF BOLUS. 135/66, T=98, R=16, P=99) IBW Target Volume Used: No BMI > 30: No Blood Culture TIme: 00:53 Time Antibiotics Given: 01:00 Vital Signs Vital Signs: Vital Signs Date Time Temp Pulse Resp B/P (MAP) Pulse Ox O2 Delivery O2 Flow Rate FiO2 09/25/19 02:24 20 100 Room Air 09/25/19 00:56 97.7 111 143/75 (97) 97.7 Temperature Source: Oral (98) Respirations Respiratory Effort: Normal Respiratory Pattern: Normal Cardiovascular Pulse Rhythm: Regular Heart: Nml rate, reg. rhythm Lung Sounds Breath Sounds: Clear Capillary Refil Capillary Refill: Rt Hand < 3 seconds Peripheral Pulse Pulse Location: Radial Pulse Strength: Normal (2+) Pulse Assessment Method: NIBP Integumentary Skin: Warm, Dry Skin Turgor: Normal Skin Color: warm Fingernail Color: WNL FLOYD WILDER MD Sep 25, 2019 01:00
[2019-09-25 01:26] LABS: BASO # 0.1 x10^3/uL (0.0-0.2); BASO % 2 % (0-3); EOS # 0.2 x10^3/uL (0.0-0.7); EOS % 2 % (0-3); HEMOGLOBIN 10.6 g/dL (12.0-15.5); LYMPH % 26 % (24-48); MEAN CORPUSCULAR HEMOGLOBIN 24 pg (25-35); MEAN CORPUSCULAR HGB CONC 31 g/dL (31-37); MEAN CORPUSCULAR VOLUME 77 fL (79-100); MONO # 0.5 x10^3/uL (0.0-1.1); MONO % 7 % (0-9); NEUT # 4.6 x10^3/uL (1.8-7.7); NEUT % 63 % (31-73); PLATELET COUNT 368 x10^3/uL (140-400); RED BLOOD COUNT 4.41 x10^6/uL (3.50-5.40); WHITE BLOOD COUNT 7.4 x10^3/uL (4.0-11.0)
[2019-09-25] MEDS ORDERED: VANCOMYCIN 1GM IVPB FOR OMNI 250 ML IV ONE (01:30)
[2019-09-25 01:32] LABS: PROTHROMBIN TIME PATIENT 11.9 SEC (11.7-14.0)
--- NOTE | 2019-09-25 01:49 | RAD ---
Right foot x-rays 3 views HISTORY: Right toe infection. COMPARISON: CT right foot September 06, 2019. FINDINGS: Soft tissue swelling of the great toe with heterogeneous bony sclerosis and pathologic comminuted fracture throughout the great toe distal phalanx similar to recent CT imaging most likely due to chronic osteomyelitis. There is soft tissue swelling of the distal second toe and probable ulceration with soft tissue emphysema overlying the phalangeal tuft, also stable. No new focus of bone destruction or periostitis or new fracture. IMPRESSION: Osteomyelitis of the great toe distal phalanx associated with pathologic fracture. Soft tissue swelling and ulceration of the great toe and distal second toe. This is similar to recent CT imaging from August 2019. Electronically signed by: Nasir Ferrell MD (09/25/2019 1:47 AM) [facility]
[2019-09-25 02:14] LABS: CALCIUM 9.2 mg/dL (8.5-10.1); CREATININE 1.1 mg/dL (0.6-1.0); GFR 55.6; POTASSIUM 3.4 mmol/L (3.5-5.1)
[2019-09-25] MEDS ORDERED: MORPHINE SULFATE 4 MG/ML VIAL. IV ONE (02:15)
[2019-09-25] MEDS ORDERED: ONDANSETRON PF 4 MG/2 ML VIAL. IVP ONE (02:15)
[2019-09-25 02:19] LABS: ALBUMIN 3.5 g/dL (3.4-5.0); ALBUMIN/GLOBULIN RATIO 0.7 (1.0-1.7); C-REACTIVE PROTEIN 8.2 mg/L (0-3.3); TOTAL BILIRUBIN 0.3 mg/dL (0.2-1.0); TOTAL PROTEIN 8.2 g/dL (6.4-8.2)
[2019-09-25] MEDS: IV NORMAL SALINE 1000ML BAG 1,000 ML IV SCH ×5 (02:35→15:28)
[2019-09-25] MEDS ORDERED: DEXTROSE 50% 25 GM / 50ML DISP.SYRIN. IV PRN (02:45)
[2019-09-25] MEDS ORDERED: INSULIN LISPRO 300 UNITS/3 ML VIAL. SQ ONE (02:45)
[2019-09-25] MEDS ORDERED: ONDANSETRON PF 4 MG/2 ML VIAL. IV PRN (02:45)
[2019-09-25 03:40] VITALS: BP 132/78
[2019-09-25] MEDS ORDERED: HYDR-2759 PO (04:32)
[2019-09-25] MEDS ORDERED: MORPHINE SULFATE 2 MG/ML VIAL. IV PRN (04:45)
[2019-09-25] MEDS ORDERED: ACETAMINOPHEN 325 MG TABLET. PO PRN (04:45)
[2019-09-25] MEDS: HYDROcodone/APAP 5/325MG 1 TAB TABLET PO PRN ×3 (05:16→20:26)
[2019-09-25 07:00] VITALS: BP 97/59
--- NOTE | 2019-09-25 07:44 | NUR ---
IP: Pt adm with continued foot wounds. Pt has hx of mrsa in L foot. Pt to be in contact precautions.
--- NOTE | 2019-09-25 07:53 | PDOC1 ---
History and Physical Date of Admission Date of Admission DATE: 09/25/19 TIME: 07:52 Source Source: Chart review, Patient History of Present Illness History of Present Illness En[place] is a 39 year old female who presents with 6 to 7-day history of right foot redness and pain. Admit with redness, cellulitis near prior I+D for wound infection to her toe. she complains of severe pain, 9/10, better with IV morphine. Patient has poorly controlled diabetes and had surgery on her right second toe about 3 weeks ago and did not follow-up. Patient is noticed redness from the toe streaking up to his foot. Patient denies any fever. Patient describes mo derate pain is worse with palpation. high blood sugars at home, cannot afford her insulin, still smokes Past Medical History Cardiovascular: HTN Pulmonary: Asthma CENTRAL NERVOUS SYSTEM: Periperal neuropathy Psych: Anxiety, Addictions Renal/: No pertinent hx Past Surgical History Past Surgical History: Other Family History Family History: Diabetes, Hypertension Social History Smoke: <1 pack per day ALCOHOL: rare Drugs: Marijuana, Crystal meth Current Problem List Problem List Problems Medical Problems: (1) Osteomyelitis of foot, right, acute Status: Acute Current Medications Current Medications Current Medications Vancomycin HCl 250 ml @ 250 mls/hr 1X ONCE IV Last administered on 09/25/19at 02:25; Start 09/25/19 at 01:30; Stop 09/25/19 at 02:29; Status DC Piperacillin Sod/ Tazobactam Sod 3.375 gm/Sodium Chloride 50 ml @ 100 mls/hr 1X ONCE IV Last administered on 09/25/19at 01:18; Start 09/25/19 at 01:00; Stop 09/25/19 at 01:29; Status DC Sodium Chloride 1,000 ml @ 1,000 mls/hr 1X ONCE IV Last administered on 09/25/19at 01:17; Start 09/25/19 at 01:00; Stop 09/25/19 at 01:59; Status DC Morphine Sulfate (Morphine Sulfate) 4 mg 1X ONCE IV Last administered on 09/25/19at 02:24; Start 09/25/19 at 02:15; Stop 09/25/19 at 02:18; Status DC Ondansetron HCl (Zofran) 4 mg 1X ONCE IVP Last administered on 09/25/19at 02:23; Start 09/25/19 at 02:15; Stop 09/25/19 at 02:18; Status DC Sodium Chloride 1,000 ml @ 1,710 mls/hr Q36M IV Last administered on 09/25/19at 02:35; Start 09/25/19 at 02:15; Stop 09/25/19 at 03:15; Status DC Insulin Human Lispro (HumaLOG) 5 units 1X ONCE SQ Last administered on 09/25/19at 02:38; Start 09/25/19 at 02:45; Stop 09/25/19 at 02:46; Status DC Ondansetron HCl (Zofran) 4 mg PRN Q8HRS PRN IV NAUSEA/VOMITING; Start 09/25/19 at 02:45; Stop 09/26/19 at 02:44 Sodium Chloride 1,000 ml @ 125 mls/hr Q8H IV Last administered on 09/25/19at 05:08; Start 09/25/19 at 02:45; Stop 09/26/19 at 02:44 Insulin Human Lispro (HumaLOG) 0-5 UNITS TIDWMEALS SQ ; Start 09/25/19 at 08:00; Stop 09/25/19 at 07:37; Status DC Dextrose (Dextrose 50%-Water Syringe) 12.5 gm PRN Q15MIN PRN IV SEE COMMENTS; Start 09/25/19 at 02:45; Stop 09/25/19 at 04:40; Status DC Acetaminophen (Tylenol) 650 mg PRN Q4HRS PRN PO FEVER > 100.3'F; Start 09/25/19 at 04:45 Citalopram Hydrobromide (CeleXA) 20 mg DAILY PO ; Start 09/25/19 at 09:00 Insulin Glargine (Lantus Syringe) 30 unit QHS SQ ; Start 09/25/19 at 21:00 Insulin Human Lispro (HumaLOG) 9 units TIDAC SQ ; Start 09/25/19 at 07:30 Morphine Sulfate (Morphine Sulfate) 2 mg PRN Q2HR PRN IV PAIN; Start 09/25/19 at 04:45 Insulin Human Lispro (HumaLOG) 0-7 UNITS TIDWMEALS SQ ; Start 09/25/19 at 08:00 Dextrose (Dextrose 50%-Water Syringe) 12.5 gm PRN Q15MIN PRN IV SEE COMMENTS; Start 09/25/19 at 04:45 Acetaminophen/ Hydrocodone Bitart (Lortab 5/325) 1 tab PRN Q6HRS PRN PO PAIN Last administered on 09/25/19at 05:16; Start 09/25/19 at 05:00 Active Scripts Active Humalog (Insulin Lispro) 100 Unit/1 Ml Insuln.pen 9 Units SQ TIDAC 30 Days Lantus (Insulin Glargine,Hum.rec.anlog) 100 Unit/1 Ml Vial 30 Unit SQ QHS 30 Days Celexa (Citalopram Hydrobromide) 20 Mg Tablet 20 Mg PO DAILY 30 Days Tylenol (Acetaminophen) 325 Mg Tablet 650 Mg PO PRN Q4HRS PRN 30 Days Reported Hydrocodone-Acetamin 5-325 mg (Hydrocodone/Acetaminophen) 1 Each Tablet 5-325 Mg PO PRN Q6HRS PRN Allergies Allergies: Coded Allergies: I S O L A T I O N *CONTACT* (Verified Allergy, Unknown, Swelling, 07/16/19) mrsa No Known Medication Allergies (Verified Allergy, Unknown, 09/08/19) ROS General: YES: Fatigue, Malaise; No: Chills, Night Sweats, Appetite, Other PSYCHOLOGICAL ROS: YES: Irritablity, Sleep disturbances; No: Anxiety, Behavioral Disorder, Concentration difficultie, Decreased libido, Depression, Disorientation, Hallucinations, Hostility, Memory difficulties, Mood Swings, Obsessive thoughts, Suicidal ideation, Other Eyes: No Blurry vision, No Decreased vision, No Double vision, No Dry eyes, No Excessive tearing, No Eye Pain, No Itchy Eyes, No Loss of vision, No Photophobia, No Scotomata, No Uses contacts, No Uses glasses, No Other HEENT: No: Heacaches, Visual Changes, Hearing change, Nasal congestion, Nasal discharge, Oral lesions, Sinus pain, Sore Throat, Epistaxis, Sneezing, Snoring, Tinnitus, Vertigo, Vocal changes, Other Respiratory: No: Cough, Hemoptysis, Orthopnea, Pleuritic Pain, Shortness of breath, SOB with excertion, Sputum Changes, Stridor, Tachypnea, Wheezing, Other Cardiovascular: No Chest Pain, No Palpitations, No Orthopnea, No Paroxysmal Noc. Dyspnea, No Edema, No Lt Headedness, No Other Gastrointestinal: No Nausea, No Vomiting, No Abdominal Pain, No Diarrhea, No Constipation, No Melena, No Hematochezia, No Other Genitourinary: No Dysuria, No Frequency, No Incontinence, No Hematuria, No Retention, No Discharge, No Urgency, No Pain, No Flank Pain, No Other, No , No , No , No , No , No , No Musculoskeletal: Yes Gait Disturbance, Yes Joint Pain, Yes Joint Stiffness Neurological: No Behavorial Changes, No Bowel/Bladder ControlChng, No Confusion, No Dizziness, No Headaches, No Impaired Coord/balance, No Memory Lo ss, No Numbness/Tingling, No Seizures, No Speech Problems, No Tremors, No Visual Changes, No Weakness, No Other Skin: Yes Dry Skin, Yes Nail Changes, Yes Skin Lesion Changes; No Eczema, No Hair Changes, No Lumps, No Mole Changes, No Mottling, No Pruritus, No Rash, No Other, No Acne Physical Exam General: Alert, Oriented X3, Cooperative, mild distress HEENT: Atraumatic, PERRLA Lungs: Clear to auscultation Heart: S1S2, RRR, no murmurs Extremities: No clubbing Skin: Other (redness to left forefoot, stitches still presnet from prior surg, scab over, she reports she can see the bone at times) Neuro: Normal speech Psych/Mental Status: Mental status NL Vitals Vitals Vital Signs Date Time Temp Pulse Resp B/P (MAP) Pulse Ox O2 Delivery O2 Flow Rate FiO2 09/25/19 07:43 Room Air 09/25/19 07:35 100 09/25/19 05:16 18 09/25/19 03:40 97.8 98 132/78 (96) 97.8 Labs Labs Laboratory Tests Test 09/25/19 01:05 09/25/19 01:20 09/25/19 01:50 09/25/19 04:35 White Blood Count 7.4 x10^3/uL (4.0-11.0) Red Blood Count 4.41 x10^6/uL (3.50-5.40) Hemoglobin 10.6 g/dL (12.0-15.5) Hematocrit 34.0 % (36.0-47.0) Mean Corpuscular Volume 77 fL (79-100) Mean Corpuscular Hemoglobin 24 pg (25-35) Mean Corpuscular Hemoglobin Concent 31 g/dL (31-37) Red Cell Distribution Width 19.0 % (11.5-14.5) Platelet Count 368 x10^3/uL (140-400) Neutrophils (%) (Auto) 63 % (31-73) Lymphocytes (%) (Auto) 26 % (24-48) Monocytes (%) (Auto) 7 % (0-9) Eosinophils (%) (Auto) 2 % (0-3) Basophils (%) (Auto) 2 % (0-3) Neutrophils # (Auto) 4.6 x10^3/uL (1.8-7.7) Lymphocytes # (Auto) 2.0 x10^3/uL (1.0-4.8) Monocytes # (Auto) 0.5 x10^3/uL (0.0-1.1) Eosinophils # (Auto) 0.2 x10^3/uL (0.0-0.7) Basophils # (Auto) 0.1 x10^3/uL (0.0-0.2) Prothrombin Time 11.9 SEC (11.7-14.0) Prothromb Time International Ratio 0.9 (0.8-1.1) Activated Partial Thromboplast Time 22 SEC (24-38) Lactic Acid Level 4.2 mmol/L (0.4-2.0) 4.0 mmol/L (0.4-2.0) Bedside Urine HCG, Qualitative Hcg negative (Negative) Sodium Level 131 mmol/L (136-145) Potassium Level 3.4 mmol/L (3.5-5.1) Chloride Level 92 mmol/L (98-107) Carbon Dioxide Level 31 mmol/L (21-32) Anion Gap 8 (6-14) Blood Urea Nitrogen 13 mg/dL (7-20) Creatinine 1.1 mg/dL (0.6-1.0) Estimated GFR (Cockcroft-Gault) 55.6 BUN/Creatinine Ratio 12 (6-20) Glucose Level 490 mg/dL (70-99) Calcium Level 9.2 mg/dL (8.5-10.1) Total Bilirubin 0.3 mg/dL (0.2-1.0) Aspartate Amino Transf (AST/SGOT) 20 U/L (15-37) Alanine Aminotransferase (ALT/SGPT) 35 U/L (14-59) Alkaline Phosphatase 203 U/L (46-116) C-Reactive Protein, Quantitative 8.2 mg/L (0-3.3) Total Protein 8.2 g/dL (6.4-8.2) Albumin 3.5 g/dL (3.4-5.0) Albumin/Globulin Ratio 0.7 (1.0-1.7) Ethyl Alcohol Level < 10 mg/dL (0-10) Acetone Level Neg (NEG) Test 09/25/19 07:40 Glucose (Fingerstick) 163 mg/dL (70-99) Laboratory Tests Test 09/25/19 01:05 09/25/19 01:20 09/25/19 01:50 09/25/19 04:35 White Blood Count 7.4 x10^3/uL (4.0-11.0) Red Blood Count 4.41 x10^6/uL (3.50-5.40) Hemoglobin 10.6 g/dL (12.0-15.5) Hematocrit 34.0 % (36.0-47.0) Mean Corpuscular Volume 77 fL (79-100) Mean Corpuscular Hemoglobin 24 pg (25-35) Mean Corpuscular Hemoglobin Concent 31 g/dL (31-37) Red Cell Distribution Width 19.0 % (11.5-14.5) Platelet Count 368 x10^3/uL (140-400) Neutrophils (%) (Auto) 63 % (31-73) Lymphocytes (%) (Auto) 26 % (24-48) Monocytes (%) (Auto) 7 % (0-9) Eosinophils (%) (Auto) 2 % (0-3) Basophils (%) (Auto) 2 % (0-3) Neutrophils # (Auto) 4.6 x10^3/uL (1.8-7.7) Lymphocytes # (Auto) 2.0 x10^3/uL (1.0-4.8) Monocytes # (Auto) 0.5 x10^3/uL (0.0-1.1) Eosinophils # (Auto) 0.2 x10^3/uL (0.0-0.7) Basophils # (Auto) 0.1 x10^3/uL (0.0-0.2) Prothrombin Time 11.9 SEC (11.7-14.0) Prothromb Time International Ratio 0.9 (0.8-1.1) Activated Partial Thromboplast Time 22 SEC (24-38) Lactic Acid Level 4.2 mmol/L (0.4-2.0) 4.0 mmol/L (0.4-2.0) Bedside Urine HCG, Qualitative Hcg negative (Negative) Sodium Level 131 mmol/L (136-145) Potassium Level 3.4 mmol/L (3.5-5.1) Chloride Level 92 mmol/L (98-107) Carbon Dioxide Level 31 mmol/L (21-32) Anion Gap 8 (6-14) Blood Urea Nitrogen 13 mg/dL (7-20) Creatinine 1.1 mg/dL (0.6-1.0) Estimated GFR (Cockcroft-Gault) 55.6 BUN/Creatinine Ratio 12 (6-20) Glucose Level 490 mg/dL (70-99) Calcium Level 9.2 mg/dL (8.5-10.1) Total Bilirubin 0.3 mg/dL (0.2-1.0) Aspartate Amino Transf (AST/SGOT) 20 U/L (15-37) Alanine Aminotransferase (ALT/SGPT) 35 U/L (14-59) Alkaline Phosphatase 203 U/L (46-116) C-Reactive Protein, Quantitative 8.2 mg/L (0-3.3) Total Protein 8.2 g/dL (6.4-8.2) Albumin 3.5 g/dL (3.4-5.0) Albumin/Globulin Ratio 0.7 (1.0-1.7) Ethyl Alcohol Level < 10 mg/dL (0-10) Acetone Level Neg (NEG) Test 09/25/19 07:40 Glucose (Fingerstick) 163 mg/dL (70-99) VTE Prophylaxis Ordered VTE Prophylaxis Devices: Contraindicated VTE Pharmacological Prophylaxi: Yes Assessment/Plan Assessment/Plan right second toe osteomyelitis cellulitis in Dm1, poor control dm1, not compliant, last A1c 13.6, 3 mos ago, will recheck tobacco use disorder, cessation discussion given admitted, ortho consult, broad IV abx, lactate elevation from osteo, does not meet SIRS criteria Justicifation of Admission Dx: Justifications for Admission: Justification of Admission Dx: Yes Cellulitis: Cellulitis POOJA BLACKMAN MD Sep 25, 2019 07:53
[2019-09-25] MEDS ORDERED: INSULIN LISPRO 300 UNITS/3 ML VIAL. SQ SCH (08:00)
[2019-09-25] MEDS ORDERED: PIP/TAZO PER PHARMACY MC PRN (08:15)
[2019-09-25] MEDS ORDERED: NICOTINE POLACRILEX 2MG GUM PACKAGE of 12. BC PRN (08:15)
[2019-09-25] MEDS ORDERED: NICOTINE 14MG PATCH. TD PRN (08:15)
[2019-09-25] MEDS: CITALOPRAM 20 MG TABLET. PO SCH (08:43)
[2019-09-25] MEDS: INSULIN LISPRO 300 UNITS/3 ML VIAL. SQ SCH ×6 (08:46→16:49)
[2019-09-25] MEDS: VANCOMYCIN PER PHARMACY MC PRN (09:07)
--- NOTE | 2019-09-25 09:11 | NUR ---
Pharmacy Vancomycin Dosing Note S:Consulted to monitor and dose vancomycin started 09/24/19. O:FLORESITA JORGE is a 39 year old F with Cellulitis . Height: 5 feet, 1 inches Weight: 54.8 kg [place] Body Weight: 47.80 Adjusted Body Weight: 50.60 Dosing Weight: Actual Other Antibiotics: ZOSYN LABS: Last BUN: Last Creatinine: 1.1 Creatinine Clearance: 55 mL/min Last WBC: 7.4 Last Procalcitonin: Tmax (past 24 hours): Microbiology: I/O: 1100/ Drug Levels: Last level: on at Last dose given 09/24/19 at 0220 Vancomycin Dosing: Loading Dose: 1000 mg x1 Dosing Weight: Actual Target Trough: 10-20 A: Based on: WEIGHT AND RENAL FUNCTION, 1GM GIVEN IN ER 12 HRS AGO. P: 1. Begin Vancomycin 750 mg IV q24h AT 1400 TODAY 2. Follow up Trough level on 09/27/19 at 1330 3. Pharmacy will continue to monitor, follow and adjust therapy as needed. ARLETTE CANO [facility] [place], 09/25/19 0904
--- NOTE | 2019-09-25 09:43 | NUR ---
SW following. Discussed with RN, pt on ada diet, room air, consults and labs pending. SW will continue to follow.
[2019-09-25] MEDS: PIPERACILLIN/TAZOBACTAM 3.375 GM in IV NORMAL SALINE 50ML 50 ML IV SCH ×3 (10:06→23:18)
[2019-09-25 11:07] VITALS: BP 108/71
--- NOTE | 2019-09-25 11:42 | PDOC2 ---
CONSULT Date of Consult Date of Consult DATE: 09/25/19 TIME: 11:41 Reason for Consult Reason for Consult: Right second toe and right great toe Identification/Chief Complaint Chief Complaint Right second toe dehiscence, right great toe swelling and deformity Source Source: Chart review, Patient History of Present Illness Reason for Visit: Floresita is a 39 year old female who presents with 6 to 7-day history of right foot redness and pain. Admit with redness, cellulitis near prior I+D for wound infection to her toe. she complains of severe pain, 9/10, better with IV morphine. Patient has poorly controlled type 1 diabetes since age 15, severe peripheral neuropathy and had surgery on her right second toe about 3 weeks ago and did not follow-up. Patient is noticed redness from the toe streaking up to his foot. Patient denies any fever. Patient describes moderate pain is worse with palpation. high blood sugars at home, cannot afford her insulin,still smokes. She worked most recently in [employer] but has not worked for a year and a half. She lives with her grandmother. She said she is applied for disability twice but been denied both times. She does not have health insurance. She is willing to consider stopping smoking but wanted a last cigarette. We discussed the risks and benefits of starting Chantix, and picking a quit date for smoking and she would like to start Chantix. Past Medical History Past Medical History Type 1 diabetes since age 15 Cardiovascular: HTN Pulmonary: Asthma CENTRAL NERVOUS SYSTEM: Periperal neuropathy Psych: Anxiety, Addictions Renal/: No pertinent hx Past Surgical History Past Surgical History: Other Family History Family History: Diabetes, Hypertension Social History <1 pack per day ALCOHOL: rare Drugs: Marijuana, Crystal meth Current Problem List Problem List Problems Medical Problems: (1) Osteomyelitis of foot, right, acute Status: Acute Current Medications Current Medications Current Medications Vancomycin HCl 250 ml @ 250 mls/hr 1X ONCE IV Last administered on 09/25/19at 02:25; Start 09/25/19 at 01:30; Stop 09/25/19 at 02:29; Status DC Piperacillin Sod/ Tazobactam Sod 3.375 gm/Sodium Chloride 50 ml @ 100 mls/hr 1X ONCE IV Last administered on 09/25/19at 01:18; Start 09/25/19 at 01:00; Stop 09/25/19 at 01:29; Status DC Sodium Chloride 1,000 ml @ 1,000 mls/hr 1X ONCE IV Last administered on 09/25/19at 01:17; Start 09/25/19 at 01:00; Stop 09/25/19 at 01:59; Status DC Morphine Sulfate (Morphine Sulfate) 4 mg 1X ONCE IV Last administered on 09/25/19at 02:24; Start 09/25/19 at 02:15; Stop 09/25/19 at 02:18; Status DC Ondansetron HCl (Zofran) 4 mg 1X ONCE IVP Last administered on 09/25/19at 02:23; Start 09/25/19 at 02:15; Stop 09/25/19 at 02:18; Status DC Sodium Chloride 1,000 ml @ 1,710 mls/hr Q36M IV Last administered on 09/25/19at 02:35; Start 09/25/19 at 02:15; Stop 09/25/19 at 03:15; Status DC Insulin Human Lispro (HumaLOG) 5 units 1X ONCE SQ Last administered on 09/25/19at 02:38; Start 09/25/19 at 02:45; Stop 09/25/19 at 02:46; Status DC Ondansetron HCl (Zofran) 4 mg PRN Q8HRS PRN IV NAUSEA/VOMITING; Start 09/25/19 at 02:45; Stop 09/26/19 at 02:44 Sodium Chloride 1,000 ml @ 125 mls/hr Q8H IV Last administered on 09/25/19at 05:08; Start 09/25/19 at 02:45; Stop 09/26/19 at 02:44 Insulin Human Lispro (HumaLOG) 0-5 UNITS TIDWMEALS SQ ; Start 09/25/19 at 08:00; Stop 09/25/19 at 07:37; Status DC Dextrose (Dextrose 50%-Water Syringe) 12.5 gm PRN Q15MIN PRN IV SEE COMMENTS; Start 09/25/19 at 02:45; Stop 09/25/19 at 04:40; Status DC Acetaminophen (Tylenol) 650 mg PRN Q4HRS PRN PO FEVER > 100.3'F; Start 09/25/19 at 04:45 Citalopram Hydrobromide (CeleXA) 20 mg DAILY PO Last administered on 09/25/19at 08:43; Start 09/25/19 at 09:00 Insulin Glargine (Lantus Syringe) 30 unit QHS SQ ; Start 09/25/19 at 21:00; Stop 09/25/19 at 08:11; Status DC Insulin Human Lispro (HumaLOG) 9 units TIDAC SQ Last administered on 09/25/19at 08:46; Start 09/25/19 at 07:30 Morphine Sulfate (Morphine Sulfate) 2 mg PRN Q2HR PRN IV PAIN; Start 09/25/19 at 04:45; Stop 09/25/19 at 08:11; Status DC Insulin Human Lispro (HumaLOG) 0-7 UNITS TIDWMEALS SQ Last administered on 09/25/19at 08:46; Start 09/25/19 at 08:00 Dextrose (Dextrose 50%-Water Syringe) 12.5 gm PRN Q15MIN PRN IV SEE COMMENTS; Start 09/25/19 at 04:45 Acetaminophen/ Hydrocodone Bitart (Lortab 5/325) 1 tab PRN Q6HRS PRN PO PAIN Last administered on 09/25/19at 05:16; Start 09/25/19 at 05:00 Vancomycin HCl (Vanco Per Pharmacy) 1 each PRN DAILY PRN MC SEE COMMENTS Last administered on 09/25/19at 09:07; Start 09/25/19 at 08:15 Piperacillin Sod/ Tazobactam Sod (Zosyn Per Pharmacy) 1 each PRN DAILY PRN MC SEE COMMENTS; Start 09/25/19 at 08:15 Morphine Sulfate (Morphine Sulfate) 4 mg PRN Q2HR PRN IV PAIN; Start 09/25/19 at 08:15 Piperacillin Sod/ Tazobactam Sod 3.375 gm/Sodium Chloride 50 ml @ 100 mls/hr Q6HRS IV Last administered on 09/25/19at 10:06; Start 09/25/19 at 10:00 Insulin Glargine (Lantus Syringe) 20 unit QHS SQ ; Start 09/25/19 at 21:00 Nicotine Polacrilex (Nicorette Gum) 1 each PRN Q1HR PRN BC SMOKING CESSATION; Start 09/25/19 at 08:15 Nicotine (Nicoderm Cq 14mg) 1 patch PRN DAILY PRN TD SMOKING CESSATION; Start 09/25/19 at 08:15 Vancomycin HCl 750 mg/Sodium Chloride 250 ml @ 250 mls/hr Q24H IV ; Start 09/25/19 at 14:00 Vancomycin HCl (Vancomycin Trough Level) 1 each 1X ONCE MC ; Start 09/27/19 at 13:30; Stop 09/27/19 at 13:31 Active Scripts Active Humalog (Insulin Lispro) 100 Unit/1 Ml Insuln.pen 9 Units SQ TIDAC 30 Days Lantus (Insulin Glargine,Hum.rec.anlog) 100 Unit/1 Ml Vial 30 Unit SQ QHS 30 Days Celexa (Citalopram Hydrobromide) 20 Mg Tablet 20 Mg PO DAILY 30 Days Tylenol (Acetaminophen) 325 Mg Tablet 650 Mg PO PRN Q4HRS PRN 30 Days Reported Hydrocodone-Acetamin 5-325 mg (Hydrocodone/Acetaminophen) 1 Each Tablet 5-325 Mg PO PRN Q6HRS PRN Allergies Allergies: Coded Allergies: I S O L A T I O N *CONTACT* (Verified Allergy, Unknown, Swelling, 07/16/19) mrsa No Known Medication Allergies (Verified Allergy, Unknown, 09/08/19) ROS Review of System Constitutional: Denies fever or chills. Eyes: Denies change in visual acuity. HENT: Denies nasal congestion or sore throat. Respiratory: Denies cough or shortness of breath. Cardiovascular: Denies chest pain or edema. GI: Denies abdominal pain, nausea, vomiting, bloody stools or diarrhea. : Denies dysuria. Musculoskeletal: Denies back pain or joint pain. Integument: Notes redness to right foot Neurologic: Denies headache, focal weakness. She has severe sensory loss in both feet, up to the level of the ankle. Endocrine: Complains of polyuria or polydipsia. Lymphatic: Denies swollen glands. Psychiatric: Denies depression or anxiety. She does admit to some PTSD symptoms, but denies ever being suicidal. She rarely has dreams that she can recall, so if she gets side effects from the Chantix she will note the vivid dreams. Physical Exam General: Alert, Cooperative HEENT: Atraumatic Lungs: Normal air movement Heart: Regular rate Abdomen: Soft Extremities: Other (Right second toe has a fishmouth flap which is completely open. The plantar aspect is somewhat blackened and is probably nonviable. There is no acute drainage. I did not probe deeply but I suspect there is bone within the flaps. The great toe has swelling and abnormality of the distal phalanx. She notes that it does not look correct, but she does not have much p ain because of the severe neuropathy. I suspect osteomyelitis based on the examination of the great toe, but there is no open wound to the great toe.) Skin: Other (Open second toe incision as above.) Neuro: Other (Decreased sensation both feet. She has palpable pulses of the right foot.) Psych/Mental Status: Mood NL Vitals VITALS Vital Signs Date Time Temp Pulse Resp B/P (MAP) Pulse Ox O2 Delivery O2 Flow Rate FiO2 09/25/19 11:07 97.6 100 16 108/71 (83) 100 Room Air 97.6 Labs Labs Laboratory Tests Test 09/25/19 01:05 09/25/19 01:20 09/25/19 01:50 09/25/19 04:35 White Blood Count 7.4 x10^3/uL (4.0-11.0) Red Blood Count 4.41 x10^6/uL (3.50-5.40) Hemoglobin 10.6 g/dL (12.0-15.5) Hematocrit 34.0 % (36.0-47.0) Mean Corpuscular Volume 77 fL (79-100) Mean Corpuscular Hemoglobin 24 pg (25-35) Mean Corpuscular Hemoglobin Concent 31 g/dL (31-37) Red Cell Distribution Width 19.0 % (11.5-14.5) Platelet Count 368 x10^3/uL (140-400) Neutrophils (%) (Auto) 63 % (31-73) Lymphocytes (%) (Auto) 26 % (24-48) Monocytes (%) (Auto) 7 % (0-9) Eosinophils (%) (Auto) 2 % (0-3) Basophils (%) (Auto) 2 % (0-3) Neutrophils # (Auto) 4.6 x10^3/uL (1.8-7.7) Lymphocytes # (Auto) 2.0 x10^3/uL (1.0-4.8) Monocytes # (Auto) 0.5 x10^3/uL (0.0-1.1) Eosinophils # (Auto) 0.2 x10^3/uL (0.0-0.7) Basophils # (Auto) 0.1 x10^3/uL (0.0-0.2) Prothrombin Time 11.9 SEC (11.7-14.0) Prothromb Time International Ratio 0.9 (0.8-1.1) Activated Partial Thromboplast Time 22 SEC (24-38) Lactic Acid Level 4.2 mmol/L (0.4-2.0) 4.0 mmol/L (0.4-2.0) Bedside Urine HCG, Qualitative Hcg negative (Negative) Sodium Level 131 mmol/L (136-145) Potassium Level 3.4 mmol/L (3.5-5.1) Chloride Level 92 mmol/L (98-107) Carbon Dioxide Level 31 mmol/L (21-32) Anion Gap 8 (6-14) Blood Urea Nitrogen 13 mg/dL (7-20) Creatinine 1.1 mg/dL (0.6-1.0) Estimated GFR (Cockcroft-Gault) 55.6 BUN/Creatinine Ratio 12 (6-20) Glucose Level 490 mg/dL (70-99) Calcium Level 9.2 mg/dL (8.5-10.1) Total Bilirubin 0.3 mg/dL (0.2-1.0) Aspartate Amino Transf (AST/SGOT) 20 U/L (15-37) Alanine Aminotransferase (ALT/SGPT) 35 U/L (14-59) Alkaline Phosphatase 203 U/L (46-116) C-Reactive Protein, Quantitative 8.2 mg/L (0-3.3) Total Protein 8.2 g/dL (6.4-8.2) Albumin 3.5 g/dL (3.4-5.0) Albumin/Globulin Ratio 0.7 (1.0-1.7) Ethyl Alcohol Level < 10 mg/dL (0-10) Acetone Level Neg (NEG) Test 09/25/19 07:40 Glucose (Fingerstick) 163 mg/dL (70-99) Laboratory Tests Test 09/25/19 01:05 09/25/19 01:20 09/25/19 01:50 09/25/19 04:35 White Blood Count 7.4 x10^3/uL (4.0-11.0) Red Blood Count 4.41 x10^6/uL (3.50-5.40) Hemoglobin 10.6 g/dL (12.0-15.5) Hematocrit 34.0 % (36.0-47.0) Mean Corpuscular Volume 77 fL (79-100) Mean Corpuscular Hemoglobin 24 pg (25-35) Mean Corpuscular Hemoglobin Concent 31 g/dL (31-37) Red Cell Distribution Width 19.0 % (11.5-14.5) Platelet Count 368 x10^3/uL (140-400) Neutrophils (%) (Auto) 63 % (31-73) Lymphocytes (%) (Auto) 26 % (24-48) Monocytes (%) (Auto) 7 % (0-9) Eosinophils (%) (Auto) 2 % (0-3) Basophils (%) (Auto) 2 % (0-3) Neutrophils # (Auto) 4.6 x10^3/uL (1.8-7.7) Lymphocytes # (Auto) 2.0 x10^3/uL (1.0-4.8) Monocytes # (Auto) 0.5 x10^3/uL (0.0-1.1) Eosinophils # (Auto) 0.2 x10^3/uL (0.0-0.7) Basophils # (Auto) 0.1 x10^3/uL (0.0-0.2) Prothrombin Time 11.9 SEC (11.7-14.0) Prothromb Time International Ratio 0.9 (0.8-1.1) Activated Partial Thromboplast Time 22 SEC (24-38) Lactic Acid Level 4.2 mmol/L (0.4-2.0) 4.0 mmol/L (0.4-2.0) Bedside Urine HCG, Qualitative Hcg negative (Negative) Sodium Level 131 mmol/L (136-145) Potassium Level 3.4 mmol/L (3.5-5.1) Chloride Level 92 mmol/L (98-107) Carbon Dioxide Level 31 mmol/L (21-32) Anion Gap 8 (6-14) Blood Urea Nitrogen 13 mg/dL (7-20) Creatinine 1.1 mg/dL (0.6-1.0) Estimated GFR (Cockcroft-Gault) 55.6 BUN/Creatinine Ratio 12 (6-20) Glucose Level 490 mg/dL (70-99) Calcium Level 9.2 mg/dL (8.5-10.1) Total Bilirubin 0.3 mg/dL (0.2-1.0) Aspartate Amino Transf (AST/SGOT) 20 U/L (15-37) Alanine Aminotransferase (ALT/SGPT) 35 U/L (14-59) Alkaline Phosphatase 203 U/L (46-116) C-Reactive Protein, Quantitative 8.2 mg/L (0-3.3) Total Protein 8.2 g/dL (6.4-8.2) Albumin 3.5 g/dL (3.4-5.0) Albumin/Globulin Ratio 0.7 (1.0-1.7) Ethyl Alcohol Level < 10 mg/dL (0-10) Acetone Level Neg (NEG) Test 09/25/19 07:40 Glucose (Fingerstick) 163 mg/dL (70-99) Images Images [facility] [address] [place] [address] IMAGING REPORT Signed PATIENT: FLORESITA JORGE ACCOUNT: [id number] MRN#: [id number] : 1980 LOCATION: ER AGE: 39 SEX: F EXAM STATUS: REG ER ORD. PHYSICIAN: FLOYD WILDER MD REASON: RIGHT TOE INFECTION PROCEDURE: FOOT RIGHT 3V Right foot x-rays 3 views HISTORY: Right toe infection. COMPARISON: CT right foot September 06, 2019. FINDINGS: Soft tissue swelling of the great toe with heterogeneous bony sclerosis and pathologic comminuted fracture throughout the great toe distal phalanx similar to recent CT imaging most likely due to chronic osteomyelitis. There is soft tissue swelling of the distal second toe and probable ulceration with soft tissue emphysema overlying the phalangeal tuft, also stable. No new focus of bone destruction or periostitis or new fracture. IMPRESSION: Osteomyelitis of the great toe distal phalanx associated with pathologic fracture. Soft tissue swelling and ulceration of the great toe and distal second toe. This is similar to recent CT imaging from August 2019. Electronically signed by: Adrián Ferrell MD (09/25/2019 1:47 AM) [facility] DICTATED and SIGNED BY: ADRIÁN FERRELL MD DATE: 09/25/19 0147 Assessment/Plan Assessment/Plan osteomyelitis right great toe, and open wound second toe with dehiscence of her previous amputation. I spoke to her about return to the operating room for closure of the second toe. The great toe has osteomyelitis of the distal phalanx and I recommended partial amputation of the great toe, through the interphalangeal joint. She agrees with that plan. She also stated interest in stopping smoking after I counseled her on the benefits of that. I will start Chantix. If she has side effects such as vivid dreams or suicidal ideation she will let us know and we can stop that again. She will pick a quit date for smoking approximately 7 days from now. MOOKIE GUTIERREZ MD Sep 25, 2019 11:42
[2019-09-25] MEDS: MORPHINE SULFATE 4 MG/ML VIAL. IV PRN ×2 (13:36→22:26)
[2019-09-25] MEDS ORDERED: VANCOMYCIN 750 MG in IV NORMAL SALINE 250ML 250 ML IV SCH (14:00)
--- NOTE | 2019-09-25 15:07 | NUR ---
Wound Care Wound Type/Assessment: Consult to eval and treat diabetic ulcer to R 2nd toe. Sutures noted in wound bed, wound unapproximated. Dark soft eschar to distal tip of toe with yellow slough in wound bed. Bone palpated. Significant swelling noted. Pictures present in chart. No other open area on head to toe inspection. Treatment Recommendations/Plan: Pending consult with Carmita. Holding off on consults to ID and vascular to see what Carmita plans to do, and pt has already been started on IV ABT. Pt also has a history of noncompliance with taking ABT after DC, keeping follow up appointments, and history of drug use. R 2nd toe: Cleanse and apply betadine moistened gauze to wound and secure with tape. Change daily and PRN. Follow up planned for 09/26 Education provided: Discussed frequent position changes to prevent new areas of skin breakdown, and likely course of treatment. Offloading surface/device: Heel touch WB recommended to R foot. Will probably need a toe-relief shoe Recommended Referrals/Tests: Ortho referral pending
[2019-09-25 15:29] VITALS: BP 118/73
--- NOTE | 2019-09-25 16:58 | NUR ---
Review and agree with documentation by Shauna Walton computer science intern
[2019-09-25 19:13] VITALS: BP 96/57
[2019-09-25] MEDS: LACTOBACILLUS RHAMNOSUS GG 1 CAPSULE. PO SCH (20:25)
[2019-09-25] MEDS: VARENICLINE 0.5 MG TABLET. PO SCH (20:26)
[2019-09-25] MEDS: INSULIN GLARGINE SYRINGE. SQ SCH (20:30)
[2019-09-25] MEDS ORDERED: INSULIN GLARGINE SYRINGE. SQ SCH (21:00)
[2019-09-25 23:12] VITALS: BP 99/66
[2019-09-26] VITALS (10 sets, daily range): BP systolic 96–149; BP diastolic 63–85
[2019-09-26] MEDS: MORPHINE SULFATE 4 MG/ML VIAL. IV PRN ×3 (04:11→20:34)
[2019-09-26] MEDS: HYDROcodone/APAP 5/325MG 1 TAB TABLET PO PRN ×2 (04:14→19:49)
[2019-09-26 05:46] LABS: ALBUMIN 2.7 g/dL (3.4-5.0); ALBUMIN/GLOBULIN RATIO 0.8 (1.0-1.7); CALCIUM 8.1 mg/dL (8.5-10.1); CREATININE 0.5 mg/dL (0.6-1.0); GFR 138.1; POTASSIUM 5.2 mmol/L (3.5-5.1); TOTAL BILIRUBIN 0.2 mg/dL (0.2-1.0); TOTAL PROTEIN 6.2 g/dL (6.4-8.2)
[2019-09-26] MEDS: PIPERACILLIN/TAZOBACTAM 3.375 GM in IV NORMAL SALINE 50ML 50 ML IV SCH ×3 (06:23→19:52)
[2019-09-26] MEDS: INSULIN LISPRO 300 UNITS/3 ML VIAL. SQ SCH ×6 (08:16→16:41)
[2019-09-26] MEDS: MULTIVITAMIN with MINERAL TABLET. PO SCH (08:56)
[2019-09-26] MEDS: VARENICLINE 0.5 MG TABLET. PO SCH (08:56)
[2019-09-26] MEDS: LACTOBACILLUS RHAMNOSUS GG 1 CAPSULE. PO SCH ×2 (08:56→21:08)
[2019-09-26] MEDS: CITALOPRAM 20 MG TABLET. PO SCH (08:56)
[2019-09-26 09:04] LABS: BASO % 1 % (0-3); EOS # 0.1 x10^3/uL (0.0-0.7); EOS % 4 % (0-3); HEMOGLOBIN 8.2 g/dL (12.0-15.5); LYMPH # 1.2 x10^3/uL (1.0-4.8); LYMPH % 36 % (24-48); MEAN CORPUSCULAR HEMOGLOBIN 24 pg (25-35); MEAN CORPUSCULAR HGB CONC 30 g/dL (31-37); MEAN CORPUSCULAR VOLUME 79 fL (79-100); MONO # 0.3 x10^3/uL (0.0-1.1); MONO % 9 % (0-9); NEUT # 1.7 x10^3/uL (1.8-7.7); NEUT % 51 % (31-73); PLATELET COUNT 217 x10^3/uL (140-400); RED BLOOD COUNT 3.43 x10^6/uL (3.50-5.40); RED CELL DISTRIBUTION WIDTH 19.2 % (11.5-14.5); WHITE BLOOD COUNT 3.3 x10^3/uL (4.0-11.0)
--- NOTE | 2019-09-26 10:48 | NUR ---
SS following for discharge planning. SS reviewed pt chart and discussed with pt RN. Pt is from home and is currently on room air. COVID19 negative. Pt is self pay. Pt on IV Zosyn and IV Vancomycin. Pt having toe amputation today. SS will continue to follow for discharge planning.
[2019-09-26] MEDS: VANCOMYCIN PER PHARMACY MC PRN (10:59)
[2019-09-26] MEDS ORDERED: MULTIVIT INFUSN,ADULT 4,VIT K 10 ML, THIAMINE INJ 100 MG, FOLIC ACID INJ 1 MG in IV NOR... IV ONE (11:00)
--- NOTE | 2019-09-26 11:15 | PDOC ---
PROGRESS NOTES Date of Service: DATE: 09/26/19 TIME: 11:14 Chief Complaint Chief Complaint right second toe osteomyelitis cellulitis in Dm1, poor control dm1, not compliant, last A1c 13.6, 3 mos ago, will recheck tobacco use disorder, cessation discussion given admitted, ortho consult, broad IV abx, lactate elevation from osteo, does not meet SIRS criteria alcohol use, abuse, 6 prior admits this year History of Present Illness History of Present Illness to surgery today for toe removal, Dr. Vizcarra, vinnieo, Vitals Vitals Vital Signs Date Time Temp Pulse Resp B/P (MAP) Pulse Ox O2 Delivery O2 Flow Rate FiO2 09/26/19 10:39 98.0 90 16 96/63 (74) 96 Room Air 98.0 Physical Exam General: Alert, Cooperative Heart: Regular rate Lungs: Clear Abdomen: Soft Extremities: Other (Right second toe has a fishmouth flap which is completely open. The plantar aspect is somewhat blackened and is probably nonviable. There is no acute drainage. I did not probe deeply but I suspect there is bone within the flaps. The great toe has swelling and abnormality of the distal phalanx. She notes that it does not look correct, but she does not have much pain because of the severe neuropathy. I suspect osteomyelitis based on the examination of the great toe, but there is no open wound to the great toe.) Skin: Other (Open second toe incision as above.) Labs LABS Laboratory Tests Test 09/25/19 11:44 09/25/19 16:43 09/25/19 19:45 09/25/19 23:30 Glucose (Fingerstick) 66 mg/dL (70-99) 171 mg/dL (70-99) 85 mg/dL (70-99) SARS-CoV-2 Antigen (Rapid) Negative (NEGATIVE) Test 09/26/19 04:30 09/26/19 07:03 09/26/19 08:30 Sodium Level 138 mmol/L (136-145) Potassium Level 5.2 mmol/L (3.5-5.1) Chloride Level 104 mmol/L (98-107) Carbon Dioxide Level 25 mmol/L (21-32) Anion Gap 9 (6-14) Blood Urea Nitrogen 16 mg/dL (7-20) Creatinine 0.5 mg/dL (0.6-1.0) Estimated GFR (Cockcroft-Gault) 138.1 BUN/Creatinine Ratio 32 (6-20) Glucose Level 301 mg/dL (70-99) Calcium Level 8.1 mg/dL (8.5-10.1) Total Bilirubin 0.2 mg/dL (0.2-1.0) Aspartate Amino Transf (AST/SGOT) 293 U/L (15-37) Alanine Aminotransferase (ALT/SGPT) 104 U/L (14-59) Alkaline Phosphatase 213 U/L (46-116) Total Protein 6.2 g/dL (6.4-8.2) Albumin 2.7 g/dL (3.4-5.0) Albumin/Globulin Ratio 0.8 (1.0-1.7) Glucose (Fingerstick) 316 mg/dL (70-99) White Blood Count 3.3 x10^3/uL (4.0-11.0) Red Blood Count 3.43 x10^6/uL (3.50-5.40) Hemoglobin 8.2 g/dL (12.0-15.5) Hematocrit 27.0 % (36.0-47.0) Mean Corpuscular Volume 79 fL (79-100) Mean Corpuscular Hemoglobin 24 pg (25-35) Mean Corpuscular Hemoglobin Concent 30 g/dL (31-37) Red Cell Distribution Width 19.2 % (11.5-14.5) Platelet Count 217 x10^3/uL (140-400) Neutrophils (%) (Auto) 51 % (31-73) Lymphocytes (%) (Auto) 36 % (24-48) Monocytes (%) (Auto) 9 % (0-9) Eosinophils (%) (Auto) 4 % (0-3) Basophils (%) (Auto) 1 % (0-3) Neutrophils # (Auto) 1.7 x10^3/uL (1.8-7.7) Lymphocytes # (Auto) 1.2 x10^3/uL (1.0-4.8) Monocytes # (Auto) 0.3 x10^3/uL (0.0-1.1) Eosinophils # (Auto) 0.1 x10^3/uL (0.0-0.7) Basophils # (Auto) 0.0 x10^3/uL (0.0-0.2) Assessment and Plan Assessmemt and Plan Problems Medical Problems: (1) Osteomyelitis of foot, right, acute Status: Acute Comment Review of Relevant I have reviewed the following items olena (where applicable) has been applied. Labs Laboratory Tests Test 09/25/19 01:05 09/25/19 01:20 09/25/19 01:50 09/25/19 04:35 White Blood Count 7.4 x10^3/uL (4.0-11.0) Red Blood Count 4.41 x10^6/uL (3.50-5.40) Hemoglobin 10.6 g/dL (12.0-15.5) Hematocrit 34.0 % (36.0-47.0) Mean Corpuscular Volume 77 fL (79-100) Mean Corpuscular Hemoglobin 24 pg (25-35) Mean Corpuscular Hemoglobin Concent 31 g/dL (31-37) Red Cell Distribution Width 19.0 % (11.5-14.5) Platelet Count 368 x10^3/uL (140-400) Neutrophils (%) (Auto) 63 % (31-73) Lymphocytes (%) (Auto) 26 % (24-48) Monocytes (%) (Auto) 7 % (0-9) Eosinophils (%) (Auto) 2 % (0-3) Basophils (%) (Auto) 2 % (0-3) Neutrophils # (Auto) 4.6 x10^3/uL (1.8-7.7) Lymphocytes # (Auto) 2.0 x10^3/uL (1.0-4.8) Monocytes # (Auto) 0.5 x10^3/uL (0.0-1.1) Eosinophils # (Auto) 0.2 x10^3/uL (0.0-0.7) Basophils # (Auto) 0.1 x10^3/uL (0.0-0.2) Prothrombin Time 11.9 SEC (11.7-14.0) Prothromb Time International Ratio 0.9 (0.8-1.1) Activated Partial Thromboplast Time 22 SEC (24-38) Lactic Acid Level 4.2 mmol/L (0.4-2.0) 4.0 mmol/L (0.4-2.0) Bedside Urine HCG, Qualitative Hcg negative (Negative) Sodium Level 131 mmol/L (136-145) Potassium Level 3.4 mmol/L (3.5-5.1) Chloride Level 92 mmol/L (98-107) Carbon Dioxide Level 31 mmol/L (21-32) Anion Gap 8 (6-14) Blood Urea Nitrogen 13 mg/dL (7-20) Creatinine 1.1 mg/dL (0.6-1.0) Estimated GFR (Cockcroft-Gault) 55.6 BUN/Creatinine Ratio 12 (6-20) Glucose Level 490 mg/dL (70-99) Calcium Level 9.2 mg/dL (8.5-10.1) Total Bilirubin 0.3 mg/dL (0.2-1.0) Aspartate Amino Transf (AST/SGOT) 20 U/L (15-37) Alanine Aminotransferase (ALT/SGPT) 35 U/L (14-59) Alkaline Phosphatase 203 U/L (46-116) C-Reactive Protein, Quantitative 8.2 mg/L (0-3.3) Total Protein 8.2 g/dL (6.4-8.2) Albumin 3.5 g/dL (3.4-5.0) Albumin/Globulin Ratio 0.7 (1.0-1.7) Ethyl Alcohol Level < 10 mg/dL (0-10) Acetone Level Neg (NEG) Test 09/25/19 07:40 09/25/19 11:44 09/25/19 16:43 09/25/19 19:45 Glucose (Fingerstick) 163 mg/dL (70-99) 66 mg/dL (70-99) 171 mg/dL (70-99) 85 mg/dL (70-99) Test 09/25/19 23:30 09/26/19 04:30 09/26/19 07:03 09/26/19 08:30 SARS-CoV-2 Antigen (Rapid) Negative (NEGATIVE) Sodium Level 138 mmol/L (136-145) Potassium Level 5.2 mmol/L (3.5-5.1) Chloride Level 104 mmol/L (98-107) Carbon Dioxide Level 25 mmol/L (21-32) Anion Gap 9 (6-14) Blood Urea Nitrogen 16 mg/dL (7-20) Creatinine 0.5 mg/dL (0.6-1.0) Estimated GFR (Cockcroft-Gault) 138.1 BUN/Creatinine Ratio 32 (6-20) Glucose Level 301 mg/dL (70-99) Calcium Level 8.1 mg/dL (8.5-10.1) Total Bilirubin 0.2 mg/dL (0.2-1.0) Aspartate Amino Transf (AST/SGOT) 293 U/L (15-37) Alanine Aminotransferase (ALT/SGPT) 104 U/L (14-59) Alkaline Phosphatase 213 U/L (46-116) Total Protein 6.2 g/dL (6.4-8.2) Albumin 2.7 g/dL (3.4-5.0) Albumin/Globulin Ratio 0.8 (1.0-1.7) Glucose (Fingerstick) 316 mg/dL (70-99) White Blood Count 3.3 x10^3/uL (4.0-11.0) Red Blood Count 3.43 x10^6/uL (3.50-5.40) Hemoglobin 8.2 g/dL (12.0-15.5) Hematocrit 27.0 % (36.0-47.0) Mean Corpuscular Volume 79 fL (79-100) Mean Corpuscular Hemoglobin 24 pg (25-35) Mean Corpuscular Hemoglobin Concent 30 g/dL (31-37) Red Cell Distribution Width 19.2 % (11.5-14.5) Platelet Count 217 x10^3/uL (140-400) Neutrophils (%) (Auto) 51 % (31-73) Lymphocytes (%) (Auto) 36 % (24-48) Monocytes (%) (Auto) 9 % (0-9) Eosinophils (%) (Auto) 4 % (0-3) Basophils (%) (Auto) 1 % (0-3) Neutrophils # (Auto) 1.7 x10^3/uL (1.8-7.7) Lymphocytes # (Auto) 1.2 x10^3/uL (1.0-4.8) Monocytes # (Auto) 0.3 x10^3/uL (0.0-1.1) Eosinophils # (Auto) 0.1 x10^3/uL (0.0-0.7) Basophils # (Auto) 0.0 x10^3/uL (0.0-0.2) Laboratory Tests Test 09/25/19 11:44 09/25/19 16:43 09/25/19 19:45 09/25/19 23:30 Glucose (Fingerstick) 66 mg/dL (70-99) 171 mg/dL (70-99) 85 mg/dL (70-99) SARS-CoV-2 Antigen (Rapid) Negative (NEGATIVE) Test 09/26/19 04:30 09/26/19 07:03 09/26/19 08:30 Sodium Level 138 mmol/L (136-145) Potassium Level 5.2 mmol/L (3.5-5.1) Chloride Level 104 mmol/L (98-107) Carbon Dioxide Level 25 mmol/L (21-32) Anion Gap 9 (6-14) Blood Urea Nitrogen 16 mg/dL (7-20) Creatinine 0.5 mg/dL (0.6-1.0) Estimated GFR (Cockcroft-Gault) 138.1 BUN/Creatinine Ratio 32 (6-20) Glucose Level 301 mg/dL (70-99) Calcium Level 8.1 mg/dL (8.5-10.1) Total Bilirubin 0.2 mg/dL (0.2-1.0) Aspartate Amino Transf (AST/SGOT) 293 U/L (15-37) Alanine Aminotransferase (ALT/SGPT) 104 U/L (14-59) Alkaline Phosphatase 213 U/L (46-116) Total Protein 6.2 g/dL (6.4-8.2) Albumin 2.7 g/dL (3.4-5.0) Albumin/Globulin Ratio 0.8 (1.0-1.7) Glucose (Fingerstick) 316 mg/dL (70-99) White Blood Count 3.3 x10^3/uL (4.0-11.0) Red Blood Count 3.43 x10^6/uL (3.50-5.40) Hemoglobin 8.2 g/dL (12.0-15.5) Hematocrit 27.0 % (36.0-47.0) Mean Corpuscular Volume 79 fL (79-100) Mean Corpuscular Hemoglobin 24 pg (25-35) Mean Corpuscular Hemoglobin Concent 30 g/dL (31-37) Red Cell Distribution Width 19.2 % (11.5-14.5) Platelet Count 217 x10^3/uL (140-400) Neutrophils (%) (Auto) 51 % (31-73) Lymphocytes (%) (Auto) 36 % (24-48) Monocytes (%) (Auto) 9 % (0-9) Eosinophils (%) (Auto) 4 % (0-3) Basophils (%) (Auto) 1 % (0-3) Neutrophils # (Auto) 1.7 x10^3/uL (1.8-7.7) Lymphocytes # (Auto) 1.2 x10^3/uL (1.0-4.8) Monocytes # (Auto) 0.3 x10^3/uL (0.0-1.1) Eosinophils # (Auto) 0.1 x10^3/uL (0.0-0.7) Basophils # (Auto) 0.0 x10^3/uL (0.0-0.2) Microbiology 09/25/19 Blood Culture - Preliminary, Resulted NO GROWTH AFTER 1 DAY Medications Current Medications Vancomycin HCl 250 ml @ 250 mls/hr 1X ONCE IV Last administered on 09/25/19at 02:25; Start 09/25/19 at 01:30; Stop 09/25/19 at 02:29; Status DC Piperacillin Sod/ Tazobactam Sod 3.375 gm/Sodium Chloride 50 ml @ 100 mls/hr 1X ONCE IV Last administered on 09/25/19at 01:18; Start 09/25/19 at 01:00; Stop 09/25/19 at 01:29; Status DC Sodium Chloride 1,000 ml @ 1,000 mls/hr 1X ONCE IV Last administered on 09/25/19at 01:17; Start 09/25/19 at 01:00; Stop 09/25/19 at 01:59; Status DC Morphine Sulfate (Morphine Sulfate) 4 mg 1X ONCE IV Last administered on 09/25/19at 02:24; Start 09/25/19 at 02:15; Stop 09/25/19 at 02:18; Status DC Ondansetron HCl (Zofran) 4 mg 1X ONCE IVP Last administered on 09/25/19at 02:23; Start 09/25/19 at 02:15; Stop 09/25/19 at 02:18; Status DC Sodium Chloride 1,000 ml @ 1,710 mls/hr Q36M IV Last administered on 09/25/19at 02:35; Start 09/25/19 at 02:15; Stop 09/25/19 at 03:15; Status DC Insulin Human Lispro (HumaLOG) 5 units 1X ONCE SQ Last administered on 0at 02:38; Start 09/25/19 at 02:45; Stop 09/25/19 at 02:46; Status DC Ondansetron HCl (Zofran) 4 mg PRN Q8HRS PRN IV NAUSEA/VOMITING; Start 09/25/19 at 02:45; Stop 09/26/19 at 02:44; Status DC Sodium Chloride 1,000 ml @ 125 mls/hr Q8H IV Last administered on 09/25/19at 15:28; Start 09/25/19 at 02:45; Stop 09/26/19 at 02:44; Status DC Insulin Human Lispro (HumaLOG) 0-5 UNITS TIDWMEALS SQ ; Start 09/25/19 at 08:00; Stop 09/25/19 at 07:37; Status DC Dextrose (Dextrose 50%-Water Syringe) 12.5 gm PRN Q15MIN PRN IV SEE COMMENTS; Start 09/25/19 at 02:45; Stop 09/25/19 at 04:40; Status DC Acetaminophen (Tylenol) 650 mg PRN Q4HRS PRN PO FEVER > 100.3'F; Start 09/25/19 at 04:45 Citalopram Hydrobromide (CeleXA) 20 mg DAILY PO Last administered on 09/26/19at 08:56; Start 09/25/19 at 09:00 Insulin Glargine (Lantus Syringe) 30 unit QHS SQ ; Start 09/25/19 at 21:00; Stop 09/25/19 at 08:11; Status DC Insulin Human Lispro (HumaLOG) 9 units TIDAC SQ Last administered on 09/26/19at 08:17; Start 09/25/19 at 07:30 Morphine Sulfate (Morphine Sulfate) 2 mg PRN Q2HR PRN IV PAIN; Start 09/25/19 at 04:45; Stop 09/25/19 at 08:11; Status DC Insulin Human Lispro (HumaLOG) 0-7 UNITS TIDWMEALS SQ Last administered on 09/26/19at 08:16; Start 09/25/19 at 08:00 Dextrose (Dextrose 50%-Water Syringe) 12.5 gm PRN Q15MIN PRN IV SEE COMMENTS; Start 09/25/19 at 04:45 Acetaminophen/ Hydrocodone Bitart (Lortab 5/325) 1 tab PRN Q6HRS PRN PO PAIN Last administered on 09/26/19at 04:14; Start 09/25/19 at 05:00 Vancomycin HCl (Vanco Per Pharmacy) 1 each PRN DAILY PRN MC SEE COMMENTS Last administered on 09/26/19at 10:59; Start 09/25/19 at 08:15 Piperacillin Sod/ Tazobactam Sod (Zosyn Per Pharmacy) 1 each PRN DAILY PRN MC SEE COMMENTS; Start 09/25/19 at 08:15 Morphine Sulfate (Morphine Sulfate) 4 mg PRN Q2HR PRN IV PAIN Last administered on 09/26/19at 08:56; Start 09/25/19 at 08:15 Piperacillin Sod/ Tazobactam Sod 3.375 gm/Sodium Chloride 50 ml @ 100 mls/hr Q6HRS IV Last administered on 09/26/19at 06:23; Start 09/25/19 at 10:00 Insulin Glargine (Lantus Syringe) 20 unit QHS SQ Last administered on 09/25/19at 20:30; Start 09/25/19 at 21:00 Nicotine Polacrilex (Nicorette Gum) 1 each PRN Q1HR PRN BC SMOKING CESSATION; Start 09/25/19 at 08:15 Nicotine (Nicoderm Cq 14mg) 1 patch PRN DAILY PRN TD SMOKING CESSATION; Start 09/25/19 at 08:15 Vancomycin HCl 750 mg/Sodium Chloride 250 ml @ 250 mls/hr Q24H IV Last administered on 09/25/19at 13:34; Start 09/25/19 at 14:00; Stop 09/26/19 at 10:43; Status DC Vancomycin HCl (Vancomycin Trough Level) 1 each 1X ONCE MC ; Start 09/28/19 at 01:30; Stop 09/28/19 at 01:31 Multivitamins (Thera M Plus) 1 tab DAILY PO Last administered on 09/26/19at 08:56; Start 09/26/19 at 09:00 Lactobacillus Rhamnosus (Culturelle) 1 cap BID PO Last administered on 09/26/19at 08:56; Start 09/25/19 at 21:00 Varenicline (Chantix) 0.5 mg DAILY PO Last administered on 09/26/19at 08:56; Start 09/25/19 at 20:00 Multivitamins 10 ml/Thiamine HCl 100 mg/Folic Acid 1 mg/Sodium Chloride 1,011.2 ml @ 1,000.088 mls/hr 1X ONCE IV ; Start 09/26/19 at 11:00; Stop 09/26/19 at 11:11; Status DC Lorazepam (Ativan Inj) 1 mg PRN Q4HRS PRN IVP ANXIETY / AGITATION; Start 09/26/19 at 10:30 Lorazepam (Ativan Inj) 2 mg PRN Q4HRS PRN IVP ANXIETY / AGITATION; Start 09/26/19 at 10:30 Vancomycin HCl 750 mg/Sodium Chloride 250 ml @ 250 mls/hr Q12H IV ; Start 09/26/19 at 14:00 Active Scripts Active Humalog (Insulin Lispro) 100 Unit/1 Ml Insuln.pen 9 Units SQ TIDAC 30 Days Lantus (Insulin Glargine,Hum.rec.anlog) 100 Unit/1 Ml Vial 30 Unit SQ QHS 30 Days Celexa (Citalopram Hydrobromide) 20 Mg Tablet 20 Mg PO DAILY 30 Days Tylenol (Acetaminophen) 325 Mg Tablet 650 Mg PO PRN Q4HRS PRN 30 Days Reported Hydrocodone-Acetamin 5-325 mg (Hydrocodone/Acetaminophen) 1 Each Tablet 5-325 Mg PO PRN Q6HRS PRN Vitals/I & O Vital Sign - Last 24 Hours 09/25/19 09/25/19 09/25/19 09/25/19 13:36 14:15 15:29 16:14 Temp 97.6 97.6 Pulse 96 Resp 18 B/P (MAP) 118/73 (88) Pulse Ox 100 100 98 98 O2 Delivery Room Air Room Air Room Air Room Air 09/25/19 09/25/19 09/25/19 09/25/19 17:03 19:13 20:00 20:26 Temp 97.2 97.2 Pulse 97 Resp 16 20 B/P (MAP) 96/57 (70) Pulse Ox 98 99 99 O2 Delivery Room Air Room Air Room Air Room Air 09/25/19 09/25/19 09/25/19 09/25/19 21:30 22:26 23:00 23:12 Temp 97.6 97.6 Pulse 97 Resp 22 18 18 16 B/P (MAP) 99/66 (77) Pulse Ox 99 99 99 95 O2 Delivery Room Air Room Air Room Air Room Air 09/26/19 09/26/19 09/26/19 09/26/19 03:13 04:11 04:14 04:41 Temp 97.5 97.5 Pulse 86 Resp 18 18 B/P (MAP) 109/73 (85) Pulse Ox 97 95 95 95 O2 Delivery Room Air Room Air Room Air Room Air 09/26/19 09/26/19 09/26/19 09/26/19 05:20 07:00 08:00 10:39 Temp 97.7 98.0 97.7 98.0 Pulse 88 90 Resp 20 16 16 B/P (MAP) 100/67 (78) 96/63 (74) Pulse Ox 95 96 96 O2 Delivery Room Air Room Air Room Air Room Air Intake and Output 09/25/19 09/25/19 09/26/19 15:00 23:00 07:00 Intake Total 720 ml 1440 ml 300 ml Balance 720 ml 1440 ml 300 ml Nutrition Consultation Dietary Evaluation: Recommendations by RD: Dietary education by RD, Increase Calorie Intake, Protein supplementation Comments: Rec ADA/Cardiac Diet per pmhx Todd BID Pt had no questions over Type 1 Diabetes Nutrition Therapy given last month Continue with MVI for wound healing Expected Outcomes/Goals: Increase PO intake >75% of meals Interpretation of weight loss: >10% in 6 months Malnutrition Findings: Food and Nutrition Intake (Mod: <75% est energy req 7days Weight Status: Appropriate Justicifation of Admission Dx: Justifications for Admission: Justification of Admission Dx: Yes Cellulitis: Cellulitis POOJA BLACKMAN MD Sep 26, 2019 11:15
[2019-09-26] MEDS: DEXTROSE 50% 25 GM / 50ML DISP.SYRIN. IV PRN ×2 (11:24→15:29)
--- NOTE | 2019-09-26 13:24 | SNU/HH DC ---
DISCHARGE WITH HOME HEALTH DISCHARGE INFORMATION: Final Diagnosis: Problems Medical Problems: (1) Osteomyelitis of foot, right, acute Status: Acute Condition on Discharge: Stable HOME HEALTH: Face to Face: I certify this patient is under my care and that I, or a nurse practitioner or physician's assistant branch manager working with me, had a face to face encounter that meets the physician face to face encounter requirements with this patient on []. POST DISCHARGE ORDERS: Activity Instructions for Disc: Activity as tolerated Weight Bearing Status after Di: Partial weight bearing Bathing Instructions: Shower-keep dressing dry, No Tub Bath until see Wound/Incision Care: Change dressing, Reinforce dressing PRN, Other, see below CHECKS AFTER DISCHARGE: Checks after discharge: Check blood press - daily, Check blood sugar, ac/hs, Check your Temp as needed TREATMENT/EQUIPMENT ORDERS: Adaptive Equipment Issued: None CERTIFICATION STATEMENT: Certification Statement: Certification Statement: Based on the above finding, I certify that this patient is confined to the home and needs intermittent longterm care, physical therapy and/or speech therapy, or continues to need occupational therapy.~ This patient is under my care, and I have initiated the establishment of the plan of care.~ This patient will be followed by myself or a community physician who will periodically review the plan of care. Home Meds Active Scripts Doxycycline Hyclate (DOXYCYCLINE HYCLATE) 100 Mg Capsule, 1 CAP PO BID for INFECTION, #10 CAP Prov:POOJA BLACKMAN MD 09/29/19 Hydrocodone/Acetaminophen (Hydrocodone-Acetamin 5-325 mg) 1 Each Tablet, 5-325 MG PO PRN Q6HRS PRN for PAIN, #30 TAB Prov:POOJA BLACKMAN MD 09/29/19 Insulin Lispro (HUMALOG) 100 Unit/1 Ml Insuln.pen, 9 UNITS SQ TIDAC for DIABETES for 30 Days, #2 EACH Prov:LINO BUITRAGO MD 06/24/19 Insulin Glargine,Hum.rec.anlog (LANTUS) 100 Unit/1 Ml Vial, 30 UNIT SQ QHS for DIABETES for 30 Days, #2 EACH Prov:LINO BUIRTAGO MD 06/24/19 Citalopram Hydrobromide (CELEXA) 20 Mg Tablet, 20 MG PO DAILY for MOOD for 30 Days, #30 TAB Prov:LINO BUITRAGO MD 06/24/19 Acetaminophen (TYLENOL) 325 Mg Tablet, 650 MG PO PRN Q4HRS PRN for FEVER > 100.3'F for 30 Days, #60 TAB Prov:LINO BUITRAGO MD 06/24/19 POOJA BLACKMAN MD Sep 26, 2019 13:24
[2019-09-26] MEDS: VANCOMYCIN 750 MG in IV NORMAL SALINE 250ML 250 ML IV SCH (13:48)
[2019-09-26] MEDS ORDERED: IV RINGERS,LACTATED 1000ML 1,000 ML IV SCH (16:00)
[2019-09-26] MEDS ORDERED: ONDANSETRON PF 4 MG/2 ML VIAL. ONE (17:30)
[2019-09-26] MEDS ORDERED: LIDOCAINE 2% PF 5 ML VIAL. ONE (17:30)
[2019-09-26] MEDS ORDERED: PROPOFOL 10 MG/ML (20ML) VIAL. IV ONE (17:30)
[2019-09-26] MEDS ORDERED: PHENYLEPHRINE in 0.9% NACL PF 1 MG/10 ML SYRINGE. IV ONE (17:34)
--- NOTE | 2019-09-26 18:29 | PDOC4 ---
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 E10.52 Other acute osteomyelitis, right ankle and foot M86.171 Wound dehiscence of toe amputation stump, with open wound T87.81 Pathologic fracture right great toe distal phalanx, secondary to the osteomyelitis M84.477A Post-Op Diagnosis: same Procedure: Amputation, toe interphalangeal joint, (revision) CPT 27699-D2 right second toe, with closure 3 cm open wound Amputation, toe interphalangeal joint CPT 11349-Q7 right great toe Surgeon: Mookie Vizcarra MD Anesthesia: General EBL: 10 mL Specimens Obtained: right great toe amputation specimen, right second toe cul ture for aerobic and anaerobic Complications: none Drains: none Tourniquet time: 8 minutes Tourniquet pressure: 250 mm Hg Indications for Procedure: This 39-year-old woman with type 1 diabetes, severe peripheral neuropathy and open wounds on her first and second toes, who had second toe interphalangeal joint amputation by my partner Dr. Tejada on September 08, 2019. She was unable to maintain all of her postoperative care, and was unfortunately noncompliant with follow-up or prescribed medications. She had a bloody sock that was stuck to her second toe, and when she removed the sock it tore out all of the sutures. She now has additional gangrenous tissue at the second toe, and a completely open wound with likely exposed bone and probable recurrent bone infection. I recommended revision amputation, irrigation and closure. At her great toe she also has a chronic deformity, enlargement of the distal phalanx, a small distal open wound, and has complications of diabetes with a pathologic fracture of the distal phalanx, and osteomyelitis of the distal phalanx. I recommended interphalangeal joint amputation of the right great toe. We talked about the risks benefits and alternatives of surgery. I recommended that she stop smoking and have counseled her and started medications for that. We talked about offloading and other ways to help protect this while it heals. We talked about the importance of maintaining her postoperative care to help with healing and prevent need for higher level amputations. If she continues on her current course of noncompliance, she will likely require a below-knee amputation in the not too distant future. All of her questions about surgery were answered and she desires to proceed. Procedure in Detail: The patient was identified in the preoperative holding area. The correct right great toe and right second toe were marked by me. The patient was taken to the operating room where general anesthesia was used. The patient was positioned supine on the operating table. A tourniquet was applied to the calf. The patient remains on scheduled antibiotics so no additional antibiotics were used. A timeout procedure was performed. The skin was prepared in sterile fashion using Betadine. Sterile drapes were applied. The hindfoot and calf was exsanguinated with an Esmarch bandage. The tourniquet was inflated. The previous fishmouth incision of the second toe was completely open already. There was purulent drainage. Cultures were taken. I excised necrotic skin of the plantar flap, and revised the fishmouth flaps of the amputation removing several millimeters of skin from both the dorsal and plantar flaps, using a 15 blade scalpel. I removed additional bone of the middle phalanx, which appeared infected and softened, using a rongeurs, back to a healthy stable cortex. Copious saline irrigation was used. Betadine lavage was used briefly and rinsed with saline. At the great toe, fishmouth type incision was planned with a skin marker. A 10 blade scalpel was used for sharp dissection through the skin, subcutaneous cutaneous tissue and tendons. The interphalangeal joint was exposed and transected with a 15 blade scalpel. The distal phalanx specimen was removed and sent as a specimen. The skin flaps will allow closure without tension. Betadine lavage was used followed by copious saline irrigation. The tourniquet was released. Bovie electrocautery was used for hemostasis. The second toe was closed in a single layer with #3-0 Prolene simple and horizontal mattress sutures. The great toe incision was closed in a single layer with #2-0 nylon sutures using simple and horizontal mattress sutures. Xeroform and a bulky sterile dressing were applied. Needle and sponge counts were correct. There were no apparent complications. MOOKIE VIZCARRA MD Sep 26, 2019 18:29
[2019-09-26] MEDS ORDERED: SEVOFLURANE 61 TO 120 MINUTES. IH ONE (18:31)
[2019-09-26] MEDS: INSULIN GLARGINE SYRINGE. SQ SCH (21:13)
[2019-09-27 00:09] LABS: HEMOGLOBIN A1C 13.1 % (4.8-5.6)
[2019-09-27] MEDS: PIPERACILLIN/TAZOBACTAM 3.375 GM in IV NORMAL SALINE 50ML 50 ML IV SCH ×3 (00:59→12:00)
[2019-09-27] MEDS: MORPHINE SULFATE 4 MG/ML VIAL. IV PRN ×2 (02:06→10:34)
[2019-09-27] MEDS: VANCOMYCIN 750 MG in IV NORMAL SALINE 250ML 250 ML IV SCH (02:09)
[2019-09-27 02:35] VITALS: BP 107/66
[2019-09-27 05:48] LABS: CREATININE 0.7 mg/dL (0.6-1.0); GFR 93.6
[2019-09-27 07:00] VITALS: BP 107/74
[2019-09-27] MEDS: CITALOPRAM 20 MG TABLET. PO SCH (08:23)
[2019-09-27] MEDS: HYDROcodone/APAP 5/325MG 1 TAB TABLET PO PRN (08:23)
[2019-09-27] MEDS: VARENICLINE 0.5 MG TABLET. PO SCH (08:23)
[2019-09-27] MEDS: LACTOBACILLUS RHAMNOSUS GG 1 CAPSULE. PO SCH ×2 (08:23→21:13)
[2019-09-27] MEDS: MULTIVITAMIN with MINERAL TABLET. PO SCH (08:23)
[2019-09-27] MEDS: INSULIN LISPRO 300 UNITS/3 ML VIAL. SQ SCH ×6 (08:28→17:29)
--- NOTE | 2019-09-27 09:51 | NUR ---
Paged Dr. Stuart d/t sepsis screening +. New orders to give 1L NS Bolus. ICU charge nurse notified.
[2019-09-27] MEDS ORDERED: IV NORMAL SALINE 1000ML BAG 1,000 ML IV ONE (10:00)
[2019-09-27 11:10] VITALS: BP 105/58
[2019-09-27] MEDS: VANCOMYCIN PER PHARMACY MC PRN (12:05)
--- NOTE | 2019-09-27 13:11 | NUR ---
SS following for discharge planning. SS reviewed pt chart and discussed with pt RN. Pt is currently on room air. Pt on IV Vancomycin and IV Zosyn. Pt had toe amputation on 09/26/2019. Pt is self pay. Discharge plan is to home when medically ready. SS will continue to follow for discharge planning.
[2019-09-27] MEDS: LINEZOLID 600 MG TABLET PO SCH ×2 (14:35→21:13)
[2019-09-27] MEDS: MORPHINE IR 15 MG TABLET PO PRN ×2 (14:38→18:45)
[2019-09-27 15:18] VITALS: BP 112/67
--- NOTE | 2019-09-27 16:15 | NUR ---
Wound Care Wound care follow up for post op assessment. Pt had partial amputations of right great and 2nd toes. Incisions are approximated with sutures. Dressing changed with xeroform and kerlix. WC will sign off at this time, please reconsult if new wounds develop.
--- NOTE | 2019-09-27 17:25 | PDOC ---
PROGRESS NOTES Date of Service: DATE: 09/27/19 TIME: 17:24 Chief Complaint Chief Complaint right second toe osteomyelitis cellulitis in Dm1, poor control dm1, not compliant, last A1c 13.6, 3 mos ago, will recheck tobacco use disorder, cessation discussion given admitted, ortho consult, broad IV abx, lactate elevation from osteo, does not meet SIRS criteria alcohol use, abuse, 6 prior admits this year History of Present Illness History of Present Illness POD #1 toe removal, Dr. Vizcarra, osteo, Vitals Vitals Vital Signs Date Time Temp Pulse Resp B/P (MAP) Pulse Ox O2 Delivery O2 Flow Rate FiO2 09/27/19 15:40 16 Room Air 09/27/19 15:18 98.0 90 112/67 (82) 98 98.0 09/26/19 18:18 8 Physical Exam General: Alert, Cooperative Heart: Regular rate Lungs: Clear Abdomen: Soft Extremities: No cyanosis, Other (Right second toe has a fishmouth flap which is completely open. The plantar aspect is somewhat blackened and is probably nonviable. There is no acute drainage. I did not probe deeply but I suspect there is bone within the flaps. The great toe has swelling and abnormality of the distal phalanx. She notes that it does not look correct, but she does not have much pain because of the severe neuropathy. I suspect osteomyelitis based on the examination of the great toe, but there is no open wound to the great toe.) Skin: No rashes, Other (Open second toe incision as above.) Labs LABS Laboratory Tests Test 09/26/19 18:22 09/26/19 20:53 09/27/19 05:00 09/27/19 07:41 Glucose (Fingerstick) 101 mg/dL (70-99) 276 mg/dL (70-99) 145 mg/dL (70-99) Creatinine 0.7 mg/dL (0.6-1.0) Estimated GFR (Cockcroft-Gault) 93.6 Test 09/27/19 11:05 09/27/19 11:32 09/27/19 16:56 Glucose (Fingerstick) 50 mg/dL (70-99) 130 mg/dL (70-99) 236 mg/dL (70-99) Assessment and Plan Assessmemt and Plan Problems Medical Problems: (1) Osteomyelitis of foot, right, acute Status: Acute Comment Review of Relevant I have reviewed the following items olena (where applicable) has been applied. Labs Laboratory Tests Test 09/25/19 19:45 09/25/19 23:30 09/26/19 04:30 09/26/19 07:03 Glucose (Fingerstick) 85 mg/dL (70-99) 316 mg/dL (70-99) SARS-CoV-2 Antigen (Rapid) Negative (NEGATIVE) Sodium Level 138 mmol/L (136-145) Potassium Level 5.2 mmol/L (3.5-5.1) Chloride Level 104 mmol/L (98-107) Carbon Dioxide Level 25 mmol/L (21-32) Anion Gap 9 (6-14) Blood Urea Nitrogen 16 mg/dL (7-20) Creatinine 0.5 mg/dL (0.6-1.0) Estimated GFR (Cockcroft-Gault) 138.1 BUN/Creatinine Ratio 32 (6-20) Glucose Level 301 mg/dL (70-99) Hemoglobin A1c 13.1 % (4.8-5.6) Calcium Level 8.1 mg/dL (8.5-10.1) Total Bilirubin 0.2 mg/dL (0.2-1.0) Aspartate Amino Transf (AST/SGOT) 293 U/L (15-37) Alanine Aminotransferase (ALT/SGPT) 104 U/L (14-59) Alkaline Phosphatase 213 U/L (46-116) Total Protein 6.2 g/dL (6.4-8.2) Albumin 2.7 g/dL (3.4-5.0) Albumin/Globulin Ratio 0.8 (1.0-1.7) Test 09/26/19 08:30 09/26/19 11:18 09/26/19 15:25 09/26/19 16:06 White Blood Count 3.3 x10^3/uL (4.0-11.0) Red Blood Count 3.43 x10^6/uL (3.50-5.40) Hemoglobin 8.2 g/dL (12.0-15.5) Hematocrit 27.0 % (36.0-47.0) Mean Corpuscular Volume 79 fL (79-100) Mean Corpuscular Hemoglobin 24 pg (25-35) Mean Corpuscular Hemoglobin Concent 30 g/dL (31-37) Red Cell Distribution Width 19.2 % (11.5-14.5) Platelet Count 217 x10^3/uL (140-400) Neutrophils (%) (Auto) 51 % (31-73) Lymphocytes (%) (Auto) 36 % (24-48) Monocytes (%) (Auto) 9 % (0-9) Eosinophils (%) (Auto) 4 % (0-3) Basophils (%) (Auto) 1 % (0-3) Neutrophils # (Auto) 1.7 x10^3/uL (1.8-7.7) Lymphocytes # (Auto) 1.2 x10^3/uL (1.0-4.8) Monocytes # (Auto) 0.3 x10^3/uL (0.0-1.1) Eosinophils # (Auto) 0.1 x10^3/uL (0.0-0.7) Basophils # (Auto) 0.0 x10^3/uL (0.0-0.2) Glucose (Fingerstick) 59 mg/dL (70-99) 70 mg/dL (70-99) 119 mg/dL (70-99) Test 09/26/19 18:22 09/26/19 20:53 09/27/19 05:00 09/27/19 07:41 Glucose (Fingerstick) 101 mg/dL (70-99) 276 mg/dL (70-99) 145 mg/dL (70-99) Creatinine 0.7 mg/dL (0.6-1.0) Estimated GFR (Cockcroft-Gault) 93.6 Test 09/27/19 11:05 09/27/19 11:32 09/27/19 16:56 Glucose (Fingerstick) 50 mg/dL (70-99) 130 mg/dL (70-99) 236 mg/dL (70-99) Laboratory Tests Test 09/26/19 18:22 09/26/19 20:53 09/27/19 05:00 09/27/19 07:41 Glucose (Fingerstick) 101 mg/dL (70-99) 276 mg/dL (70-99) 145 mg/dL (70-99) Creatinine 0.7 mg/dL (0.6-1.0) Estimated GFR (Cockcroft-Gault) 93.6 Test 09/27/19 11:05 09/27/19 11:32 09/27/19 16:56 Glucose (Fingerstick) 50 mg/dL (70-99) 130 mg/dL (70-99) 236 mg/dL (70-99) Microbiology 09/26/19 Gram Stain - Final, Resulted 09/26/19 Aerobic and Anaerobic Culture, Resulted Pending 09/25/19 Blood Culture - Preliminary, Resulted NO GROWTH AFTER 2 DAYS Medications Current Medications Vancomycin HCl 250 ml @ 250 mls/hr 1X ONCE IV Last administered on 09/25/19at 02:25; Start 09/25/19 at 01:30; Stop 09/25/19 at 02:29; Status DC Piperacillin Sod/ Tazobactam Sod 3.375 gm/Sodium Chloride 50 ml @ 100 mls/hr 1X ONCE IV Last administered on 09/25/19at 01:18; Start 09/25/19 at 01:00; Stop 09/25/19 at 01:29; Status DC Sodium Chloride 1,000 ml @ 1,000 mls/hr 1X ONCE IV Last administered on 09/25/19at 01:17; Start 09/25/19 at 01:00; Stop 09/25/19 at 01:59; Status DC Morphine Sulfate (Morphine Sulfate) 4 mg 1X ONCE IV Last administered on 09/25/19at 02:24; Start 09/25/19 at 02:15; Stop 09/25/19 at 02:18; Status DC Ondansetron HCl (Zofran) 4 mg 1X ONCE IVP Last administered on 09/25/19at 02:23; Start 09/25/19 at 02:15; Stop 09/25/19 at 02:18; Status DC Sodium Chloride 1,000 ml @ 1,710 mls/hr Q36M IV Last administered on 09/25/19at 02:35; Start 09/25/19 at 02:15; Stop 09/25/19 at 03:15; Status DC Insulin Human Lispro (HumaLOG) 5 units 1X ONCE SQ Last administered on 09/25/19at 02:38; Start 09/25/19 at 02:45; Stop 09/25/19 at 02:46; Status DC Ondansetron HCl (Zofran) 4 mg PRN Q8HRS PRN IV NAUSEA/VOMITING; Start 09/25/19 at 02:45; Stop 09/26/19 at 02:44; Status DC Sodium Chloride 1,000 ml @ 125 mls/hr Q8H IV Last administered on 09/25/19at 15:28; Start 09/25/19 at 02:45; Stop 09/26/19 at 02:44; Status DC Insulin Human Lispro (HumaLOG) 0-5 UNITS TIDWMEALS SQ ; Start 09/25/19 at 08:00; Stop 09/25/19 at 07:37; Status DC Dextrose (Dextrose 50%-Water Syringe) 12.5 gm PRN Q15MIN PRN IV SEE COMMENTS; Start 09/25/19 at 02:45; Stop 09/25/19 at 04:40; Status DC Acetaminophen (Tylenol) 650 mg PRN Q4HRS PRN PO FEVER > 100.3'F; Start 09/25/19 at 04:45 Citalopram Hydrobromide (CeleXA) 20 mg DAILY PO Last administered on 09/27/19at 08:23; Start 09/25/19 at 09:00; Stop 09/27/19 at 14:13; Status DC Insulin Glargine (Lantus Syringe) 30 unit QHS SQ ; Start 09/25/19 at 21:00; Stop 09/25/19 at 08:11; Status DC Insulin Human Lispro (HumaLOG) 9 units TIDAC SQ Last administered on 09/27/19at 08:28; Start 09/25/19 at 07:30; Stop 09/27/19 at 11:57; Status DC Morphine Sulfate (Morphine Sulfate) 2 mg PRN Q2HR PRN IV PAIN; Start 09/25/19 at 04:45; Stop 09/25/19 at 08:11; Status DC Insulin Human Lispro (HumaLOG) 0-7 UNITS TIDWMEALS SQ Last administered on 09/26/19at 08:16; Start 09/25/19 at 08:00 Dextrose (Dextrose 50%-Water Syringe) 12.5 gm PRN Q15MIN PRN IV SEE COMMENTS Last administered on 09/26/19at 15:29; Start 09/25/19 at 04:45 Acetaminophen/ Hydrocodone Bitart (Lortab 5/325) 1 tab PRN Q6HRS PRN PO PAIN Last administered on 09/27/19at 08:23; Start 09/25/19 at 05:00 Vancomycin HCl (Vanco Per Pharmacy) 1 each PRN DAILY PRN MC SEE COMMENTS Last administered on 09/27/19at 12:05; Start 09/25/19 at 08:15; Stop 09/27/19 at 14:13; Status DC Piperacillin Sod/ Tazobactam Sod (Zosyn Per Pharmacy) 1 each PRN DAILY PRN MC SEE COMMENTS; Start 09/25/19 at 08:15; Stop 09/27/19 at 16:15; Status DC Morphine Sulfate (Morphine Sulfate) 4 mg PRN Q2HR PRN IV PAIN Last administered on 09/27/19at 10:34; Start 09/25/19 at 08:15 Piperacillin Sod/ Tazobactam Sod 3.375 gm/Sodium Chloride 50 ml @ 100 mls/hr Q6HRS IV Last administered on 09/27/19at 06:24; Start 09/25/19 at 10:00; Stop 09/27/19 at 14:13; Status DC Insulin Glargine (Lantus Syringe) 20 unit QHS SQ Last administered on 09/26/19at 21:13; Start 09/25/19 at 21:00 Nicotine Polacrilex (Nicorette Gum) 1 each PRN Q1HR PRN BC SMOKING CESSATION; Start 09/25/19 at 08:15 Nicotine (Nicoderm Cq 14mg) 1 patch PRN DAILY PRN TD SMOKING CESSATION; Start 09/25/19 at 08:15 Vancomycin HCl 750 mg/Sodium Chloride 250 ml @ 250 mls/hr Q24H IV Last administered on 09/25/19at 13:34; Start 09/25/19 at 14:00; Stop 09/26/19 at 10:43; Status DC Vancomycin HCl (Vancomycin Trough Level) 1 each 1X ONCE MC ; Start 09/28/19 at 01:30; Stop 09/27/19 at 14:13; Status DC Multivitamins (Thera M Plus) 1 tab DAILY PO Last administered on 09/27/19at 08:23; Start 09/26/19 at 09:00 Lactobacillus Rhamnosus (Culturelle) 1 cap BID PO Last administered on 09/27/19at 08:23; Start 09/25/19 at 21:00 Varenicline (Chantix) 0.5 mg DAILY PO Last administered on 09/27/19at 08:23; Start 09/25/19 at 20:00 Multivitamins 10 ml/Thiamine HCl 100 mg/Folic Acid 1 mg/Sodium Chloride 1,011.2 ml @ 1,000.088 mls/hr 1X ONCE IV ; Start 09/26/19 at 11:00; Stop 09/26/19 at 11:11; Status DC Lorazepam (Ativan Inj) 1 mg PRN Q4HRS PRN IVP ANXIETY / AGITATION (1st choic; Start 09/26/19 at 10:30 Lorazepam (Ativan Inj) 2 mg PRN Q4HRS PRN IVP ANXIETY / AGITATION (2nd Choic; Start 09/26/19 at 10:30 Vancomycin HCl 750 mg/Sodium Chloride 250 ml @ 250 mls/hr Q12H IV Last administered on 09/27/19at 02:09; Start 09/26/19 at 14:00; Stop 09/27/19 at 14 :13; Status DC Ringer's Solution 1,000 ml @ 0 mls/hr Q0M IV Last administered on 09/26/19at 16:00; Start 09/26/19 at 16:00 Propofol (Diprivan) 200 mg STK-MED ONCE IV ; Start 09/26/19 at 17:30; Stop 09/26/19 at 17:31; Status DC Lidocaine HCl (Lidocaine Pf 2% Vial) 5 ml STK-MED ONCE .ROUTE ; Start 09/26/19 at 17:30; Stop 09/26/19 at 17:31; Status DC Ondansetron HCl (Zofran) 4 mg STK-MED ONCE .ROUTE ; Start 09/26/19 at 17:30; Stop 09/26/19 at 17:31; Status DC Phenylephrine HCl (PHENYLEPHRINE in 0.9% NACL PF) 1 mg STK-MED ONCE IV ; Start 09/26/19 at 17:34; Stop 09/26/19 at 17:35; Status DC Sevoflurane (Ultane) 60 ml STK-MED ONCE IH ; Start 09/26/19 at 18:31; Stop 09/26/19 at 18:31; Status DC Sodium Chloride 1,000 ml @ 1,000 mls/hr 1X ONCE IV Last administered on 09/27/19at 10:02; Start 09/27/19 at 10:00; Stop 09/27/19 at 10:59; Status DC Insulin Human Lispro (HumaLOG) 5 units TIDAC SQ ; Start 09/27/19 at 16:30 Morphine Sulfate (Morphine Ir) 15 mg PRN Q4HRS PRN PO MODERATE TO SEVERE PAIN Last administered on 09/27/19at 14:38; Start 09/27/19 at 14:00 Citalopram Hydrobromide (CeleXA) 10 mg DAILY PO ; Start 09/28/19 at 09:00 Linezolid (Zyvox) 600 mg BID PO Last administered on 09/27/19at 14:35; Start 09/27/19 at 14:15 Active Scripts Active Humalog (Insulin Lispro) 100 Unit/1 Ml Insuln.pen 9 Units SQ TIDAC 30 Days Lantus (Insulin Glargine,Hum.rec.anlog) 100 Unit/1 Ml Vial 30 Unit SQ QHS 30 Days Celexa (Citalopram Hydrobromide) 20 Mg Tablet 20 Mg PO DAILY 30 Days Tylenol (Acetaminophen) 325 Mg Tablet 650 Mg PO PRN Q4HRS PRN 30 Days Reported Hydrocodone-Acetamin 5-325 mg (Hydrocodone/Acetaminophen) 1 Each Tablet 5-325 Mg PO PRN Q6HRS PRN Vitals/I & O Vital Sign - Last 24 Hours 09/26/19 09/26/19 09/26/19 09/26/19 18:18 18:18 18:35 18:45 Temp 97.3 97.3 97.3 97.3 Pulse 83 89 Resp 14 14 B/P (MAP) 148/92 125/67 Pulse Ox 97 96 O2 Delivery Simple Mask Mask Room Air Room Air O2 Flow Rate 8 8 09/26/19 09/26/19 09/26/19 09/26/19 18:51 19:06 19:49 19:54 Temp 97.5 97.5 Pulse 91 88 94 Resp 16 20 B/P (MAP) 145/85 (105) 149/79 (102) 133/77 (95) Pulse Ox 100 O2 Delivery Room Air Room Air 8/1309/26/19 09/26/19 09/26/19 20:00 20:16 20:34 20:42 Pulse 90 95 Resp 20 18 B/P (MAP) 129/73 (91) 109/76 (87) Pulse Ox 100 O2 Delivery Room Air Room Air Room Air 09/26/19 09/26/19 09/26/19 09/27/19 20:49 21:00 22:42 02:06 Temp 98.2 98.2 Pulse 93 Resp 19 20 16 20 B/P (MAP) 106/73 (84) Pulse Ox 97 O2 Delivery Room Air Room Air Room Air Room Air 09/27/19 09/27/19 09/27/19 09/27/19 02:35 02:35 07:00 08:00 Temp 98.0 97.8 98.0 97.8 Pulse 93 71 Resp 18 16 16 B/P (MAP) 107/66 (80) 107/74 (85) Pulse Ox 97 97 O2 Delivery Room Air Room Air Room Air Room Air 09/27/19 09/27/19 09/27/19 09/27/19 08:23 09:23 10:34 11:04 Resp 14 16 14 14 O2 Delivery Room Air Room Air Room Air 09/27/19 09/27/19 09/27/19 09/27/19 11:10 14:38 15:18 15:40 Temp 98.4 98.0 98.4 98.0 Pulse 101 90 Resp 18 14 16 16 B/P (MAP) 105/58 (74) 112/67 (82) Pulse Ox 97 98 O2 Delivery Room Air Room Air Room Air Room Air Intake and Output 09/26/19 09/26/19 09/27/19 15:00 23:00 07:00 Intake Total 1610 ml 550 ml 960 ml Output Total 25 ml Balance 1610 ml 525 ml 960 ml Nutrition Consultation Dietary Evaluation: Recommendations by RD: Dietary education by RD, Increase Calorie Intake, Protein supplementation Comments: Rec ADA/Cardiac Diet per pmhx Todd BID Pt had no questions over Type 1 Diabetes Nutrition Therapy given last month Continue with MVI for wound healing Expected Outcomes/Goals: Increase PO intake >75% of meals Interpretation of weight loss: >10% in 6 months Malnutrition Findings: Food and Nutrition Intake (Mod: <75% est energy req 7days Weight Status: Appropriate Justicifation of Admission Dx: Justifications for Admission: Justification of Admission Dx: Yes Cellulitis: Cellulitis POOJA BLACKMAN MD Sep 27, 2019 17:25
[2019-09-27 19:00] VITALS: BP 105/64
[2019-09-27] MEDS: INSULIN GLARGINE SYRINGE. SQ SCH (21:23)
[2019-09-27 22:59] VITALS: BP 99/54
[2019-09-28 03:45] VITALS: BP 128/68
[2019-09-28 05:50] LABS: CREATININE 0.8 mg/dL (0.6-1.0); GFR 80.3
[2019-09-28 07:00] VITALS: BP 115/78
[2019-09-28] MEDS: MORPHINE IR 15 MG TABLET PO PRN (08:28)
[2019-09-28] MEDS: MULTIVITAMIN with MINERAL TABLET. PO SCH (08:28)
[2019-09-28] MEDS: LACTOBACILLUS RHAMNOSUS GG 1 CAPSULE. PO SCH ×2 (08:28→20:03)
[2019-09-28] MEDS: LINEZOLID 600 MG TABLET PO SCH ×2 (08:28→20:02)
[2019-09-28] MEDS: VARENICLINE 0.5 MG TABLET. PO SCH (08:28)
[2019-09-28] MEDS: CITALOPRAM 20 MG TABLET. PO SCH (08:29)
[2019-09-28] MEDS: INSULIN LISPRO 300 UNITS/3 ML VIAL. SQ SCH ×6 (08:37→17:29)
[2019-09-28 11:02] VITALS: BP 113/77
--- NOTE | 2019-09-28 14:13 | PDOC ---
PROGRESS NOTES Date of Service: DATE: 09/28/19 TIME: 14:11 Chief Complaint Chief Complaint right second toe osteomyelitis cellulitis in Dm1, poor control dm1, not compliant, last A1c 13.6, 3 mos ago, the repeat this time is same, 13.1, terrible compliance tobacco use disorder, cessation discussion given alcohol use, abuse, History of Present Illness History of Present Illness s/p surg for toe removal, Dr. Vizcarra, harpreet, banana bag given before surgery DC tele cont Zyvox, blood sugar control may DC any time, if she stays another day she might actually improve and not be readmitted this time Vitals Vitals Vital Signs Date Time Temp Pulse Resp B/P (MAP) Pulse Ox O2 Delivery O2 Flow Rate FiO2 09/28/19 11:02 98.0 95 18 113/77 (89) 97 Room Air 98.0 Physical Exam General: Alert, Cooperative Heart: Regular rate Lungs: Clear Abdomen: Soft Extremities: No cyanosis, Other (Right second toe has a fishmouth flap which is completely open. The plantar aspect is somewhat blackened and is probably nonviable. There is no acute drainage. I did not probe deeply but I suspect there is bone within the flaps. The great toe has swelling and abnormality of the distal phalanx. She notes that it does not look correct, but she does not have much pain because of the severe neuropathy. I suspect osteomyelitis based on the examination of the great toe, but there is no open wound to the great toe.) Skin: No rashes, Other (Open second toe incision as above.) Labs LABS Laboratory Tests Test 09/27/19 16:56 09/27/19 20:57 09/28/19 04:30 09/28/19 07:55 Glucose (Fingerstick) 236 mg/dL (70-99) 125 mg/dL (70-99) 418 mg/dL (70-99) Creatinine 0.8 mg/dL (0.6-1.0) Estimated GFR (Cockcroft-Gault) 80.3 Test 09/28/19 11:49 Glucose (Fingerstick) 128 mg/dL (70-99) Assessment and Plan Assessmemt and Plan Problems Medical Problems: (1) Osteomyelitis of foot, right, acute Status: Acute Comment Review of Relevant I have reviewed the following items olena (where applicable) has been applied. Labs Laboratory Tests Test 09/26/19 15:25 09/26/19 16:06 09/26/19 18:22 09/26/19 20:53 Glucose (Fingerstick) 70 mg/dL (70-99) 119 mg/dL (70-99) 101 mg/dL (70-99) 276 mg/dL (70-99) Test 09/27/19 05:00 09/27/19 07:41 09/27/19 11:05 09/27/19 11:32 Creatinine 0.7 mg/dL (0.6-1.0) Estimated GFR (Cockcroft-Gault) 93.6 Glucose (Fingerstick) 145 mg/dL (70-99) 50 mg/dL (70-99) 130 mg/dL (70-99) Test 09/27/19 16:56 09/27/19 20:57 09/28/19 04:30 09/28/19 07:55 Glucose (Fingerstick) 236 mg/dL (70-99) 125 mg/dL (70-99) 418 mg/dL (70-99) Creatinine 0.8 mg/dL (0.6-1.0) Estimated GFR (Cockcroft-Gault) 80.3 Test 09/28/19 11:49 Glucose (Fingerstick) 128 mg/dL (70-99) Laboratory Tests Test 09/27/19 16:56 09/27/19 20:57 09/28/19 04:30 09/28/19 07:55 Glucose (Fingerstick) 236 mg/dL (70-99) 125 mg/dL (70-99) 418 mg/dL (70-99) Creatinine 0.8 mg/dL (0.6-1.0) Estimated GFR (Cockcroft-Gault) 80.3 Test 09/28/19 11:49 Glucose (Fingerstick) 128 mg/dL (70-99) Microbiology 09/26/19 Gram Stain - Final, Resulted 09/26/19 Aerobic and Anaerobic Culture, Resulted Pending 09/25/19 Blood Culture - Preliminary, Resulted NO GROWTH AFTER 3 DAYS Medications Current Medications Vancomycin HCl 250 ml @ 250 mls/hr 1X ONCE IV Last administered on 09/25/19at 02:25; Start 09/25/19 at 01:30; Stop 09/25/19 at 02:29; Status DC Piperacillin Sod/ Tazobactam Sod 3.375 gm/Sodium Chloride 50 ml @ 100 mls/hr 1X ONCE IV Last administered on 09/25/19at 01:18; Start 09/25/19 at 01:00; Stop 09/25/19 at 01:29; Status DC Sodium Chloride 1,000 ml @ 1,000 mls/hr 1X ONCE IV Last administered on 09/25/19at 01:17; Start 09/25/19 at 01:00; Stop 09/25/19 at 01:59; Status DC Morphine Sulfate (Morphine Sulfate) 4 mg 1X ONCE IV Last administered on 09/25/19at 02:24; Start 09/25/19 at 02:15; Stop 09/25/19 at 02:18; Status DC Ondansetron HCl (Zofran) 4 mg 1X ONCE IVP Last administered on 09/25/19at 02:23; Start 09/25/19 at 02:15; Stop 09/25/19 at 02:18; Status DC Sodium Chloride 1,000 ml @ 1,710 mls/hr Q36M IV Last administered on 09/25/19at 02:35; Start 09/25/19 at 02:15; Stop 09/25/19 at 03:15; Status DC Insulin Human Lispro (HumaLOG) 5 units 1X ONCE SQ Last administered on 09/25/19at 02:38; Start 09/25/19 at 02:45; Stop 09/25/19 at 02:46; Status DC Ondansetron HCl (Zofran) 4 mg PRN Q8HRS PRN IV NAUSEA/VOMITING; Start 09/25/19 at 02:45; Stop 09/26/19 at 02:44; Status DC Sodium Chloride 1,000 ml @ 125 mls/hr Q8H IV Last administered on 09/25/19at 15:28; Start 09/25/19 at 02:45; Stop 09/26/19 at 02:44; Status DC Insulin Human Lispro (HumaLOG) 0-5 UNITS TIDWMEALS SQ ; Start 09/25/19 at 08:00; Stop 09/25/19 at 07:37; Status DC Dextrose (Dextrose 50%-Water Syringe) 12.5 gm PRN Q15MIN PRN IV SEE COMMENTS; Start 09/25/19 at 02:45; Stop 09/25/19 at 04:40; Status DC Acetaminophen (Tylenol) 650 mg PRN Q4HRS PRN PO FEVER > 100.3'F; Start 09/25/19 at 04:45 Citalopram Hydrobromide (CeleXA) 20 mg DAILY PO Last administered on 09/27/19at 08:23; Start 09/25/19 at 09:00; Stop 09/27/19 at 14:13; Status DC Insulin Glargine (Lantus Syringe) 30 unit QHS SQ ; Start 09/25/19 at 21:00; Stop 09/25/19 at 08:11; Status DC Insulin Human Lispro (HumaLOG) 9 units TIDAC SQ Last administered on 09/27/19at 08:28; Start 09/25/19 at 07:30; Stop 09/27/19 at 11:57; Status DC Morphine Sulfate (Morphine Sulfate) 2 mg PRN Q2HR PRN IV PAIN; Start 09/25/19 at 04:45; Stop 09/25/19 at 08:11; Status DC Insulin Human Lispro (HumaLOG) 0-7 UNITS TIDWMEALS SQ Last administered on 09/28/19at 08:37; Start 09/25/19 at 08:00 Dextrose (Dextrose 50%-Water Syringe) 12.5 gm PRN Q15MIN PRN IV SEE COMMENTS Last administered on 09/26/19at 15:29; Start 09/25/19 at 04:45 Acetaminophen/ Hydrocodone Bitart (Lortab 5/325) 1 tab PRN Q6HRS PRN PO MILD PAIN 1-3 Last administered on 09/27/19at 08:23; Start 09/25/19 at 05:00 Vancomycin HCl (Vanco Per Pharmacy) 1 each PRN DAILY PRN MC SEE COMMENTS Last administered on 09/27/19at 12:05; Start 09/25/19 at 08:15; Stop 09/27/19 at 14:13; Status DC Piperacillin Sod/ Tazobactam Sod (Zosyn Per Pharmacy) 1 each PRN DAILY PRN MC SEE COMMENTS; Start 09/25/19 at 08:15; Stop 09/27/19 at 16:15; Status DC Morphine Sulfate (Morphine Sulfate) 4 mg PRN Q2HR PRN IV PAIN Last administered on 09/27/19at 10:34; Start 09/25/19 at 08:15 Piperacillin Sod/ Tazobactam Sod 3.375 gm/Sodium Chloride 50 ml @ 100 mls/hr Q6 HRS IV Last administered on 09/27/19at 06:24; Start 09/25/19 at 10:00; Stop 09/27/19 at 14:13; Status DC Insulin Glargine (Lantus Syringe) 20 unit QHS SQ Last administered on 09/27/19at 21:23; Start 09/25/19 at 21:00 Nicotine Polacrilex (Nicorette Gum) 1 each PRN Q1HR PRN BC SMOKING CESSATION; Start 09/25/19 at 08:15 Nicotine (Nicoderm Cq 14mg) 1 patch PRN DAILY PRN TD SMOKING CESSATION; Start 09/25/19 at 08:15 Vancomycin HCl 750 mg/Sodium Chloride 250 ml @ 250 mls/hr Q24H IV Last administered on 09/25/19at 13:34; Start 09/25/19 at 14:00; Stop 09/26/19 at 10:43; Status DC Vancomycin HCl (Vancomycin Trough Level) 1 each 1X ONCE MC ; Start 09/28/19 at 01:30; Stop 09/27/19 at 14:13; Status DC Multivitamins (Thera M Plus) 1 tab DAILY PO Last administered on 09/28/19at 08:28; Start 09/26/19 at 09:00 Lactobacillus Rhamnosus (Culturelle) 1 cap BID PO Last administered on 09/28/19at 08:28; Start 09/25/19 at 21:00 Varenicline (Chantix) 0.5 mg DAILY PO Last administered on 09/28/19at 08:28; Start 09/25/19 at 20:00 Multivitamins 10 ml/Thiamine HCl 100 mg/Folic Acid 1 mg/Sodium Chloride 1,011.2 ml @ 1,000.088 mls/hr 1X ONCE IV ; Start 09/26/19 at 11:00; Stop 09/26/19 at 11:11; Status DC Lorazepam (Ativan Inj) 1 mg PRN Q4HRS PRN IVP ANXIETY / AGITATION (1st choic; Start 8/13/20 at 10:30 Lorazepam (Ativan Inj) 2 mg PRN Q4HRS PRN IVP ANXIETY / AGITATION (2nd Choic; Start 09/26/19 at 10:30 Vancomycin HCl 750 mg/Sodium Chloride 250 ml @ 250 mls/hr Q12H IV Last administered on 09/27/19at 02:09; Start 09/26/19 at 14:00; Stop 09/27/19 at 14:13; Status DC Ringer's Solution 1,000 ml @ 0 mls/hr Q0M IV Last administered on 09/26/19at 16:00; Start 09/26/19 at 16:00 Propofol (Diprivan) 200 mg STK-MED ONCE IV ; Start 09/26/19 at 17:30; Stop 09/26/19 at 17:31; Status DC Lidocaine HCl (Lidocaine Pf 2% Vial) 5 ml STK-MED ONCE .ROUTE ; Start 09/26/19 at 17:30; Stop 09/26/19 at 17:31; Status DC Ondansetron HCl (Zofran) 4 mg STK-MED ONCE .ROUTE ; Start 09/26/19 at 17:30; Stop 09/26/19 at 17:31; Status DC Phenylephrine HCl (PHENYLEPHRINE in 0.9% NACL PF) 1 mg STK-MED ONCE IV ; Start 09/26/19 at 17:34; Stop 09/26/19 at 17:35; Status DC Sevoflurane (Ultane) 60 ml STK-MED ONCE IH ; Start 09/26/19 at 18:31; Stop 09/26/19 at 18:31; Status DC Sodium Chloride 1,000 ml @ 1,000 mls/hr 1X ONCE IV Last administered on 09/27/19at 10:02; Start 09/27/19 at 10:00; Stop 09/27/19 at 10:59; Status DC Insulin Human Lispro (HumaLOG) 5 units TIDAC SQ Last administered on 09/28/19at 08:37; Start 09/27/19 at 16:30 Morphine Sulfate (Morphine Ir) 15 mg PRN Q4HRS PRN PO MODERATE TO SEVERE PAIN Last administered on 09/28/19at 08:28; Start 09/27/19 at 14:00 Citalopram Hydrobromide (CeleXA) 10 mg DAILY PO Last administered on 09/28/19at 08:29; Start 09/28/19 at 09:00 Linezolid (Zyvox) 600 mg BID PO Last administered on 09/28/19at 08:28; Start 09/27/19 at 14:15 Active Scripts Active Humalog (Insulin Lispro) 100 Unit/1 Ml Insuln.pen 9 Units SQ TIDAC 30 Days Lantus (Insulin Glargine,Hum.rec.anlog) 100 Unit/1 Ml Vial 30 Unit SQ QHS 30 Days Celexa (Citalopram Hydrobromide) 20 Mg Tablet 20 Mg PO DAILY 30 Days Tylenol (Acetaminophen) 325 Mg Tablet 650 Mg PO PRN Q4HRS PRN 30 Days Reported Hydrocodone-Acetamin 5-325 mg (Hydrocodone/Acetaminophen) 1 Each Tablet 5-325 Mg PO PRN Q6HRS PRN Vitals/I & O Vital Sign - Last 24 Hours 09/27/19 09/27/19 09/27/19 09/27/19 14:38 15:18 15:40 18:45 Temp 98.0 98.0 Pulse 90 Resp 14 16 16 16 B/P (MAP) 112/67 (82) Pulse Ox 98 O2 Delivery Room Air Room Air Room Air Room Air 09/27/19 09/27/19 09/27/19 09/27/19 19:00 19:45 20:00 22:59 Temp 98.6 98.4 98.6 98.4 Pulse 96 93 Resp 18 22 18 B/P (MAP) 105/64 (78) 99/54 (69) Pulse Ox 97 94 O2 Delivery Room Air Room Air Room Air Room Air 09/28/19 09/28/19 09/28/19 09/28/19 03:45 07:00 08:00 08:28 Temp 97.8 98.2 97.8 98.2 Pulse 90 93 Resp 20 20 18 B/P (MAP) 128/68 (88) 115/78 (90) Pulse Ox 96 98 O2 Delivery Room Air Room Air Room Air Room Air 09/28/19 09/28/19 09:28 11:02 Temp 98.0 98.0 Pulse 95 Resp 18 18 B/P (MAP) 113/77 (89) Pulse Ox 97 O2 Delivery Room Air Room Air Intake and Output 809/27/19 09/28/19 15:00 23:00 07:00 Intake Total 600 ml 600 ml Output Total 0 ml Balance 600 ml 600 ml Nutrition Consultation Dietary Evaluation: Recommendations by RD: Dietary education by RD, Increase Calorie Intake, Protein supplementation Comments: Rec ADA/Cardiac Diet per pmhx Todd BID - will make sure on diet order Continue w/MVI for wound healing Continue w/glucerna TID, adjust flavor per pt preference Expected Outcomes/Goals: Increase PO intake >75% of meals - met, goal ongoing Interpretation of weight loss: >10% in 6 months Malnutrition Findings: Food and Nutrition Intake (Mod: <75% est energy req 7days Weight Status: Appropriate Justicifation of Admission Dx: Justifications for Admission: Justification of Admission Dx: Yes Cellulitis: Cellulitis POOJA BLACKMAN MD Sep 28, 2019 14:13
[2019-09-28 15:00] VITALS: BP 107/66
[2019-09-28 19:45] VITALS: BP 105/62
[2019-09-28] MEDS: HYDROcodone/APAP 5/325MG 1 TAB TABLET PO PRN (20:02)
[2019-09-28] MEDS: INSULIN GLARGINE SYRINGE. SQ SCH (20:07)
[2019-09-28 23:37] VITALS: BP 119/79
[2019-09-29 03:25] VITALS: BP 132/72
[2019-09-29] MEDS: HYDROcodone/APAP 5/325MG 1 TAB TABLET PO PRN ×2 (03:56→14:53)
[2019-09-29 06:04] LABS: BASO % 1 % (0-3); EOS # 0.2 x10^3/uL (0.0-0.7); EOS % 3 % (0-3); HEMATOCRIT 27.8 % (36.0-47.0); HEMOGLOBIN 8.6 g/dL (12.0-15.5); LYMPH % 27 % (24-48); MEAN CORPUSCULAR HEMOGLOBIN 24 pg (25-35); MEAN CORPUSCULAR HGB CONC 31 g/dL (31-37); MEAN CORPUSCULAR VOLUME 78 fL (79-100); MONO # 0.5 x10^3/uL (0.0-1.1); MONO % 6 % (0-9); NEUT # 4.7 x10^3/uL (1.8-7.7); NEUT % 64 % (31-73); PLATELET COUNT 249 x10^3/uL (140-400); RED BLOOD COUNT 3.59 x10^6/uL (3.50-5.40); RED CELL DISTRIBUTION WIDTH 19.2 % (11.5-14.5); WHITE BLOOD COUNT 7.4 x10^3/uL (4.0-11.0)
[2019-09-29 06:09] LABS: CALCIUM 8.6 mg/dL (8.5-10.1); CREATININE 0.6 mg/dL (0.6-1.0); GFR 111.9; POTASSIUM 4.4 mmol/L (3.5-5.1)
[2019-09-29 07:00] VITALS: BP 110/71
[2019-09-29] MEDS: LINEZOLID 600 MG TABLET PO SCH (08:17)
[2019-09-29] MEDS: MULTIVITAMIN with MINERAL TABLET. PO SCH (08:17)
[2019-09-29] MEDS: VARENICLINE 0.5 MG TABLET. PO SCH (08:17)
[2019-09-29] MEDS: CITALOPRAM 20 MG TABLET. PO SCH (08:17)
[2019-09-29] MEDS: LACTOBACILLUS RHAMNOSUS GG 1 CAPSULE. PO SCH (08:17)
[2019-09-29] MEDS: MORPHINE IR 15 MG TABLET PO PRN ×3 (08:19→17:16)
[2019-09-29] MEDS: INSULIN LISPRO 300 UNITS/3 ML VIAL. SQ SCH ×6 (08:23→17:20)
[2019-09-29] MEDS ORDERED: DOXY100C2 PO (10:04)
[2019-09-29] MEDS ORDERED: HYDR-2759 PO (10:04)
--- NOTE | 2019-09-29 10:07 | PDOC3 ---
Discharge Summary Visit Information Date of Admission: Sep 25, 2019 Date of Discharge: Sep 29, 2019 Final Diagnosis right second toe osteomyelitis cellulitis in Dm1, poor control dm1, not compliant, last A1c 13.6, 3 mos ago, the repeat this time is same, 13.1, terrible compliance tobacco use disorder, cessation discussion given alcohol use, abuse, Problems Medical Problems: (1) Osteomyelitis of foot, right, acute Status: Acute Brief Hospital Course Allergies Allergies Coded Allergies Type Severity Reaction Last Updated Verified I S O L A T I O N *CONTACT* Allergy Unknown Swelling 09/26/19 Yes No Known Medication Allergies Allergy Unknown 09/26/19 Yes Vital Signs Vital Signs Date Time Temp Pulse Resp B/P (MAP) Pulse Ox O2 Delivery O2 Flow Rate FiO2 09/29/19 09:19 18 Room Air 09/29/19 07:00 98.0 87 110/71 (84) 97 98.0 Lab Results Laboratory Tests Test 09/27/19 11:05 09/27/19 11:32 09/27/19 16:56 09/27/19 20:57 Glucose (Fingerstick) 50 mg/dL (70-99) 130 mg/dL (70-99) 236 mg/dL (70-99) 125 mg/dL (70-99) Test 09/28/19 04:30 09/28/19 07:55 09/28/19 11:49 09/28/19 16:42 Creatinine 0.8 mg/dL (0.6-1.0) Estimated GFR (Cockcroft-Gault) 80.3 Glucose (Fingerstick) 418 mg/dL (70-99) 128 mg/dL (70-99) 316 mg/dL (70-99) Test 09/28/19 20:01 09/29/19 05:30 09/29/19 07:36 Glucose (Fingerstick) 199 mg/dL (70-99) 210 mg/dL (70-99) White Blood Count 7.4 x10^3/uL (4.0-11.0) Red Blood Count 3.59 x10^6/uL (3.50-5.40) Hemoglobin 8.6 g/dL (12.0-15.5) Hematocrit 27.8 % (36.0-47.0) Mean Corpuscular Volume 78 fL (79-100) Mean Corpuscular Hemoglobin 24 pg (25-35) Mean Corpuscular Hemoglobin Concent 31 g/dL (31-37) Red Cell Distribution Width 19.2 % (11.5-14.5) Platelet Count 249 x10^3/uL (140-400) Neutrophils (%) (Auto) 64 % (31-73) Lymphocytes (%) (Auto) 27 % (24-48) Monocytes (%) (Auto) 6 % (0-9) Eosinophils (%) (Auto) 3 % (0-3) Basophils (%) (Auto) 1 % (0-3) Neutrophils # (Auto) 4.7 x10^3/uL (1.8-7.7) Lymphocytes # (Auto) 2.0 x10^3/uL (1.0-4.8) Monocytes # (Auto) 0.5 x10^3/uL (0.0-1.1) Eosinophils # (Auto) 0.2 x10^3/uL (0.0-0.7) Basophils # (Auto) 0.0 x10^3/uL (0.0-0.2) Sodium Level 134 mmol/L (136-145) Potassium Level 4.4 mmol/L (3.5-5.1) Chloride Level 100 mmol/L (98-107) Carbon Dioxide Level 31 mmol/L (21-32) Anion Gap 3 (6-14) Blood Urea Nitrogen 21 mg/dL (7-20) Creatinine 0.6 mg/dL (0.6-1.0) Estimated GFR (Cockcroft-Gault) 111.9 Glucose Level 271 mg/dL (70-99) Calcium Level 8.6 mg/dL (8.5-10.1) Laboratory Tests Test 09/28/19 11:49 09/28/19 16:42 09/28/19 20:01 09/29/19 05:30 Glucose (Fingerstick) 128 mg/dL (70-99) 316 mg/dL (70-99) 199 mg/dL (70-99) White Blood Count 7.4 x10^3/uL (4.0-11.0) Red Blood Count 3.59 x10^6/uL (3.50-5.40) Hemoglobin 8.6 g/dL (12.0-15.5) Hematocrit 27.8 % (36.0-47.0) Mean Corpuscular Volume 78 fL (79-100) Mean Corpuscular Hemoglobin 24 pg (25-35) Mean Corpuscular Hemoglobin Concent 31 g/dL (31-37) Red Cell Distribution Width 19.2 % (11.5-14.5) Platelet Count 249 x10^3/uL (140-400) Neutrophils (%) (Auto) 64 % (31-73) Lymphocytes (%) (Auto) 27 % (24-48) Monocytes (%) (Auto) 6 % (0-9) Eosinophils (%) (Auto) 3 % (0-3) Basophils (%) (Auto) 1 % (0-3) Neutrophils # (Auto) 4.7 x10^3/uL (1.8-7.7) Lymphocytes # (Auto) 2.0 x10^3/uL (1.0-4.8) Monocytes # (Auto) 0.5 x10^3/uL (0.0-1.1) Eosinophils # (Auto) 0.2 x10^3/uL (0.0-0.7) Basophils # (Auto) 0.0 x10^3/uL (0.0-0.2) Sodium Level 134 mmol/L (136-145) Potassium Level 4.4 mmol/L (3.5-5.1) Chloride Level 100 mmol/L (98-107) Carbon Dioxide Level 31 mmol/L (21-32) Anion Gap 3 (6-14) Blood Urea Nitrogen 21 mg/dL (7-20) Creatinine 0.6 mg/dL (0.6-1.0) Estimated GFR (Cockcroft-Gault) 111.9 Glucose Level 271 mg/dL (70-99) Calcium Level 8.6 mg/dL (8.5-10.1) Test 09/29/19 07:36 Glucose (Fingerstick) 210 mg/dL (70-99) Brief Hospital Course Ms. Gibson is a 39 old admiot for sepsis, osteo, surg toe removal Dr. Vizcarra, banana bag given before surgery Zyvox given 2 days after surg, hx MRSA, will dc on Doxy, Discharge Information Condition at Discharge: Improved Follow Up: Weeks Disposition/Orders: D/C to Home Scheduled Citalopram Hydrobromide (Celexa) 20 Mg Tablet, 20 MG PO DAILY for MOOD for 30 Days, #30 Prescribed by: LINO BUITRAGO MD on 06/24/191545 Last Action: Continued on 09/25/19431 by LINO JEAN Doxycycline Hyclate (Doxycycline Hyclate) 100 Mg Capsule, 1 CAP PO BID for INFECTION, #10 Prescribed by: POOJA BLACKMAN on 09/29/191003 Insulin Glargine,Hum.rec.anlog (Lantus) 100 Unit/1 Ml Vial, 30 UNIT SQ QHS for DIABETES for 30 Days, #2 Prescribed by: LINO BUITRAGO MD on 06/24/191545 Last Action: Continued on 09/25/19431 by LINO JEAN Insulin Lispro (Humalog) 100 Unit/1 Ml Insuln.pen, 9 UNITS SQ TIDAC for DIABETES for 30 Days, #2 Prescribed by: LINO BUITRAGO MD on 06/24/191545 Last Action: Converted on 09/25/19431 by LINO JEAN Scheduled PRN Acetaminophen (Tylenol) 325 Mg Tablet, 650 MG PO PRN Q4HRS PRN for FEVER > 100.3'F for 30 Days, #60 Prescribed by: LINO BUITRAGO MD on 06/24/191545 Last Action: Continued on 09/25/19431 by LINO JEAN Hydrocodone/Acetaminophen (Hydrocodone-Acetamin 5-325 mg) 1 Each Tablet, 5-325 MG PO PRN Q6HRS PRN for PAIN, #30 Prescribed by: POOJA BLACKMAN on 09/29/19 100 Patient Instructions Patient Instructions face to face discussed Justicifation of Admission Dx: Justifications for Admission: Justification of Admission Dx: Yes Cellulitis: Cellulitis POOJA BLACKMAN MD Sep 29, 2019 10:07
[2019-09-29 11:22] VITALS: BP 90/52
[2019-09-29 14:51] VITALS: BP 117/69
--- NOTE | 2019-09-29 18:30 | NUR ---
Discharge Note: [facility] Discharge instructions and discharge home medications reviewed with Patient and a copy given. All questions have been answered and understanding verbalized. Wound care and follow up instructions provided to patient. All belongings taken with patient upon discharge. The following instructions and handouts were given: wound care, smoking cessation, hyperglycemia Discontinued lines and drains: Peripheral IV intact. Patient discharged to Home or Self Care with Self via Wheelchair
--- NOTE | 2019-10-01 15:07 | PATHOLOGY ---
[facility] Accession Number: [id number] . 01 Material submitted: . toe - RIGHT GREAT TOE DISTAL PHALANX. Modifiers: right, great, distal . 01 Clinical history: . Osteomyelitis . 02 Diagnosis: Distal right great toe amputation: - Bony remodeling and focal fibrosis of distal phalangeal bone with focal chronic osteomyelitis. 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 02 Electronically signed: . Mark Denise MD, Pathologist NPI- [id number] . 01 Gross description: . The specimen is received in formalin, labeled "Enid Gibson, right great toe distal phalanx". Received is a partial amputated digit measuring 3.3 x 2.3 x 2.3 cm in greatest dimensions. The bone margin is smooth and concave in appearance, consistent with disarticulation. The skin and soft tissue margins are inked black. The skin is absent on the plantar aspect. The nail is absent. The epidermal surface in the nail area is white and duong to light duong and flaky in appearance. At the distal most aspect of the specimen, there is a poorly circumscribed light duong lesion measuring 0.8 x 0.8 cm. A full-thickness longitudinal cross-section is submitted in cassette A1, following decalcification. (CAA; 09/30/2019) QA/QA 09/30/2019 1137 Local . 02 Pathologist provided ICD-10: M86.171 . 02 CPT . 065190, 108189 Specimen Comment: A courtesy copy of this report has been sent to [phone] Specimen Comment: [id number] Specimen Comment: Report sent to / DR BLACKMAN Performed at: 01 [facility] [address], [place], [place] [id number] MD Jorge Chappell MD Phone: [phone] Performed at: 02 [facility] [address] [place], [place] [id number] MD Mark Denise MD Phone: [phone]
== END 2019-09-29 18:30 | disposition home or self-care (01) | DRG 503 ==
LOC: ER 00:32 → 2 SOUTH 02:36
PROVIDERS: ADMIT Internal Medicine; ATTEND Internal Medicine
PROC: 0Y6R0Z1 Detachment at Right 2nd Toe, High, Open Approach (ICD-10-PCS; principal; 2019-09-26 16:30)
DX: T87.81 Dehiscence of amputation stump (principal); A41.9 Sepsis, unspecified organism; E10.52 Type 1 diabetes mellitus with diabetic peripheral angiopathy with gangrene; M86.171 Other acute osteomyelitis, right ankle and foot; Z71.6 Tobacco abuse counseling; L03.031 Cellulitis of right toe; E10.42 Type 1 diabetes mellitus with diabetic polyneuropathy; E10.621 Type 1 diabetes mellitus with foot ulcer; E10.65 Type 1 diabetes mellitus with hyperglycemia; E10.69 Type 1 diabetes mellitus with other specified complication; F17.210 Nicotine dependence, cigarettes, uncomplicated; I10 Essential (primary) hypertension; J45.909 Unspecified asthma, uncomplicated; L97.509 Non-pressure chronic ulcer of other part of unspecified foot with unspecified severity; Z79.4 Long term (current) use of insulin; Z82.49 Family history of ischemic heart disease and other diseases of the circulatory system; Z83.3 Family history of diabetes mellitus; Z86.14 Personal history of Methicillin resistant Staphylococcus aureus infection; Z91.19 Patient's noncompliance with other medical treatment and regimen; F41.9 Anxiety disorder, unspecified; Z20.828 Contact with and (suspected) exposure to other viral communicable diseases; Z89.411 Acquired absence of right great toe
CPT/HCPCS: 36415; 73630; 80048; 80053; 81025; 82010; 82565; 82962; 83036; 83605; 85025; 85610; 85730; 86140; 87040; 87071; 87075; 87076; 87077; 87186; 87426; 88305; 88311; 96365; 96367; 96372; 96375; A7015; G0480; J1815; J2270; J2370; J2405; J2543; J2704; J3370; J7030; J7050; J7120; 97116-GP; 99285-25; A4461; G0378; U0003-CS

== ENCOUNTER 2020-07-29 01:17 | Emergency (ER) | payer SELFPAY ==
[~2020-07-29] VITALS: Ht 162.6 cm; Wt 90.0 kg
[~2020-07-29 01:17] MED LIST changes: +HYDR-2759 PO
[2020-07-29] MEDS ORDERED: IV NORMAL SALINE 1000ML BAG 1,000 ML IV ONE (02:00)
[2020-07-29] MEDS ORDERED: fentaNYL PF VIAL 100 MCG/2 ML VIAL IVP ONE (02:00)
--- NOTE | 2020-07-29 02:01 | PHYS DOC ---
Past Medical History Past Medical History: Diabetes-Type I Additional Past Medical Histor: LOW IRON, Past Surgical History: Other Additional Past Surgical Histo: R AND L TOE SURGERY Smoking Status: Current Every Day Smoker Alcohol Use: Heavy Drug Use: Methamphetamine Social History History of heavy alcohol and meth, has not used in x1 year due to recent time in half-way General Adult EDM: Chief Complaint: MULTIPLE COMPLAINTS HPI: HPI: Patient is a 39-year-old female presenting via POV for right sided abdominal pain. Onset was 2 days ago without any known inciting event, trauma or ingestion. Nothing known makes better or worse. Patient reports sharp pain that is located in right upper quadrant and has been worsening since onset with radiation into her right back canal. Also reports development of chest pain today, states she has had intermittent episodes of substernal chest pain that cause her to be dizzy and nauseous during events. Last episode of chest pain was approximately 3 hours prior to arrival without any known inciting event. No fever, recent changes in health, no known sick contacts or long distance travel, no vision changes, cough, UTI-like symptoms, no hemoptysis, no changes in motor or sensory or neurologic function. She has no history of abdominal issues, no prior surgeries. Admits being a type I diabetic, reports her sugar has been poorly controlled in past 48 hours with all readings being read as "high ". Has no primary care physician, reports being in half-way for past x1 year. Has distant history of heavy alcohol and methamphetamine abuse but due to recent half-way time, has not used, reports last use was greater than 1 year ago prior to her being put in half-way Review of Systems: Review of Systems: Fourteen body systems of review of systems have been reviewed. See HPI for pertinent positives and negative responses, other rai all other systems are negative, non-pertinent or non-contributory Heart Score: C/O Chest Pain: No HEART Score for Chest Pain: HEART Score for Chest Pain Response (Comments) Value History Slighlty/Non-Suspicious 0 ECG Normal 0 Age < 45 0 Risk Factors 1 or 2 Risk Factors 1 Troponin < Normal Limit 0 Total 1 Risk Factors: Risk Factors: DM, Current or recent (<one month) smoker, HTN, HLP, family his tory of CAD, obesity. Risk Scores: Score 0 - 3: 2.5% MACE over next 6 weeks - Discharge Home Score 4 - 6: 20.3% MACE over next 6 weeks - Admit for Clinical Observation Score 7 - 10: 72.7% MACE over next 6 weeks - Early Invasive Strategies Allergies: Allergies: Allergies Coded Allergies Type Severity Reaction Last Updated Verified I S O L A T I O N *CONTACT* Allergy Unknown Swelling 09/26/19 Yes No Known Medication Allergies Allergy Unknown 09/26/19 Yes Physical Exam: PE: Constitutional: Well developed, well nourished, anxious affect and appears to be in mild distress due to pain although nontoxic in appearance HENT: Normocephalic, atraumatic, bilateral external ears normal, oropharynx dry, no oral exudates, nose normal. Eyes: PERRLA, EOMI, conjunctiva normal, no discharge. Neck: Normal range of motion, no tenderness, supple, no stridor. Cardiovascular: Heart rate regular, sinus rhythm, no murmurs rubs or gallops Lungs & Thorax: Bilateral breath sounds clear to auscultation Abdomen: Bowel sounds normal, soft, positive Ruiz sign with tenderness to palpation of right upper and lower quadrants, no rebound or guarding, no masses, no pulsatile masses. Nonsurgical abdomen, no peritoneal signs Skin: Warm, dry, no erythema, no rash. Back: No tenderness, no CVA tenderness. Extremities: No tenderness, no cyanosis, no clubbing, ROM intact, no edema. Neurologic: Alert and oriented X 3, grossly normal motor & sensory function, no focal deficits noted. Psychologic: Anxious affect and mood Current Patient Data: Labs: Laboratory Tests Test 07/29/20 01:40 07/29/20 01:50 07/29/20 05:30 Urine Collection Type Unknown Urine Color Yellow Urine Clarity Clear Urine pH 6.0 Urine Specific [place] >=1.030 Urine Protein Negative mg/dL Urine Glucose (UA) >=1000 mg/dL Urine Ketones (Stick) >=80 mg/dL Urine Blood Large Urine Nitrite Negative Urine Bilirubin Negative Urine Urobilinogen Dipstick 0.2 mg/dL Urine Leukocyte Esterase Small Urine RBC Occ /HPF Urine WBC 5-10 /HPF Urine Squamous Epithelial Cells Mod /LPF Urine Bacteria Few /HPF Urine Opiates Screen Neg Urine Methadone Screen Neg Urine Barbiturates Neg Urine Phencyclidine Screen Neg Urine Amphetamine/Methamphetamine Pos Urine Benzodiazepines Screen Neg Urine Cocaine Screen Neg Urine Cannabinoids Screen Neg Urine Ethyl Alcohol Neg White Blood Count 6.6 x10^3/uL Red Blood Count 4.01 x10^6/uL Hemoglobin 10.0 g/dL Hematocrit 32.0 % Mean Corpuscular Volume 80 fL Mean Corpuscular Hemoglobin 25 pg Mean Corpuscular Hemoglobin Concent 31 g/dL Red Cell Distribution Width 22.3 % Platelet Count 228 x10^3/uL Neutrophils (%) (Auto) 67 % Lymphocytes (%) (Auto) 21 % Monocytes (%) (Auto) 9 % Eosinophils (%) (Auto) 3 % Basophils (%) (Auto) 1 % Neutrophils # (Auto) 4.4 x10^3/uL Lymphocytes # (Auto) 1.4 x10^3/uL Monocytes # (Auto) 0.6 x10^3/uL Eosinophils # (Auto) 0.2 x10^3/uL Basophils # (Auto) 0.0 x10^3/uL Platelet Estimate Adequate Polychromasia Slight Hypochromasia Slight Anisocytosis Mod Sodium Level 136 mmol/L Potassium Level 3.7 mmol/L Chloride Level 96 mmol/L Carbon Dioxide Level 23 mmol/L Anion Gap 17 Blood Urea Nitrogen 12 mg/dL Creatinine 1.0 mg/dL Estimated GFR (Cockcroft-Gault) 62.1 BUN/Creatinine Ratio 12 Glucose Level 705 mg/dL Calcium Level 8.9 mg/dL Total Bilirubin 0.4 mg/dL Aspartate Amino Transf (AST/SGOT) 13 U/L Alanine Aminotransferase (ALT/SGPT) 27 U/L Alkaline Phosphatase 124 U/L Troponin I Quantitative < 0.017 ng/mL Total Protein 6.7 g/dL Albumin 3.4 g/dL Albumin/Globulin Ratio 1.0 Lipase 25 U/L Ethyl Alcohol Level < 10 mg/dL Acetone Level Neg Glucose (Fingerstick) 493 mg/dL Current Medications Medications (Trade) Dose Ordered Sig/Lucio Route PRN Reason Start Time Stop Time Status Last Admin Dose Admin Sodium Chloride 1,000 ml @ 1,000 mls/hr 1X ONCE IV 07/29/20 02:00 07/29/20 02:59 DC 07/29/20 03:05 Fentanyl Citrate (Fentanyl 2ml Vial) 75 mcg 1X ONCE IVP 07/29/20 02:00 07/29/20 02:01 DC 07/29/20 03:06 Iohexol (Omnipaque 300 Mg/ml) 75 ml 1X ONCE IV 07/29/20 02:15 07/29/20 02:16 DC 07/29/20 02:30 Info (CONTRAST GIVEN -- Rx MONITORING) 1 each PRN DAILY PRN MC SEE COMMENTS 07/29/20 02:15 07/29/20 06:36 DC Insulin Human Regular (HumuLIN R VIAL) 10 unit 1X ONCE IV 07/29/20 03:30 07/29/20 03:32 DC 07/29/20 05:07 Metoclopramide HCl (Reglan Vial) 10 mg 1X ONCE IVP 07/29/20 04:00 07/29/20 04:01 DC 07/29/20 05:08 Insulin Human Regular (HumuLIN R VIAL) 7 unit 1X ONCE IV 07/29/20 06:15 07/29/20 06:18 DC 07/29/20 06:24 Vital Signs: Vital Signs Date Time Temp Pulse Resp B/P (MAP) Pulse Ox O2 Delivery O2 Flow Rate FiO2 07/29/20 01:55 98.2 111 18 114/67 (83) 98 Room Air 98.2 Vital Signs Date Time Temp Pulse Resp B/P (MAP) Pulse Ox O2 Delivery O2 Flow Rate FiO2 07/29/20 01:55 98.2 111 18 114/67 (83) 98 Room Air 98.2 EKG: EKG: EKG ordered and interpreted by myself at 0223 hrs. as sinus tachycardia with a rate of 110 bpm, unremarkable intervals, no axis deviation, no acute ischemic findings, no STEMI Radiology/Procedures: Radiology/Procedures: Chest AP portable at 0252: Reason for examination: Chest pain. Comparison is made to previous study dated 09/06/2019. The heart size is normal. Mediastinum is unremarkable. Lung nogueira are clear. No acute bony abnormalities are seen. Impression: No acute cardiopulmonary disease. Electronically signed by: Paty Ogden MD (07/29/2020 3:23 AM) [facility] [place] ///////////////////////////// CT abdomen and pelvis with contrast: Reason for examination: Right upper quadrant abdominal pain. Comparison is made to previous study dated 10/25/2018. Helical images were obtained through the abdomen pelvis with intravenous administration of 75 cc Omnipaque 300. Reconstruction was performed in sagittal and coronal planes. Exposure: One or more of the following individualized dose reduction techniques were utilized for this examination: 1. Automated exposure control 2. Adjustment of the mA and/or kV according to patient size 3. Use of iterative reconstruction technique. The lung bases are clear. The heart size is normal with no pericardial effusion. The liver contains a 2.6 cm hypodense lesion with some peripheral enhancement consistent with a hemangioma. The gallbladder is contracted but no choleliths are evident. No abnormality seen at the spleen, adrenal glands or pancreas. The abdominal aorta and inferior vena cava show no acute abnormalities. The colon shows no diverticulosis, diverticulitis or colitis. No abnormality seen at the appendix. The small intestinal tract shows no abnormal dilatation, wall thickening or obstruction. There is a large amount of gastric content but no gastric obstruction is seen. No abnormality is seen at the duodenum. The kidneys show no renal masses, renal calculi, hydronephrosis or evidence of obstructive uropathy. No abnormality seen at the bladder or uterus. No abnormality seen at the right ovary. There does appear to be a 5.7 x 1.7 cm elongated tubular structure in the left adnexa however which could represent hydrosalpinx. Further evaluation with ultrasound should be considered. No free fluid is present in the abdomen or pelvis. No acute bony abnormalities are seen. IMPRESSION: 2.6 cm hypodense lesion with peripheral enhancement consistent with a hemangioma in the liver. Contracted gallbladder with no cholelithiasis evident. Large amount of gastric content without apparent gastric obstruction. 5.7 x 1.7 cm tubular structure in the left adnexa. Hydrosalpinx cannot be excluded. Electronically signed by: Paty Ogden MD (07/29/2020 3:35 AM) [facility] [place] /////////////////////////////////////////// Pelvic ultrasound complete: Reason for examination: Left adnexal abnormality seen on CT exam. Complains of right flank pain with no pain in the left lower quadrant. Transvaginal ultrasound examination of the pelvis was performed. Uterus measures 10.7 x 5.3 x 6.0 cm in greatest dimension and shows no focal uterine abnormality. The endometrium is not abnormally thickened at 8 mm. No abnormalities evident at the cervix. The right ovary measures 2.5 x 2.8 x 2.1 cm in greatest dimension with good vascular flow and no mass evident. The left ovary appears to measure 2.6 x 1.8 x 2.2 cm in greatest dimension with good vascular flow. There is a tubular structure in the left adnexa however which corresponds to the CT abnormality to be consistent with a hydrosalpinx. IMPRESSION: Tubular structure in the left adnexa separate from the left ovary consistent with hydrosalpinx. Recommend clinical correlation follow-up. Electronically signed by: Paty Ogden MD (07/29/2020 5:00 AM) [facility] [place] Course & Med Decision Making: Course & Med Decision Making Discussed with the patient all findings and diagnostic testing. I discussed most likely diagnosis of hyperglycemia and an uncontrolled type I diabetic, this was improved with IV fluid and IV insulin administration. She also presented for abdominal pain, this was likely due to gastroparesis in nature, I did disclose findings consistent/concerning for left hydrosalpinx but given clinical presentation, this is not likely contributing to her history of present illness. Patient also positive for amphetamine/methamphetamine on UDS, this is likely contributing to her presenting symptoms. As such, I stressed need for close outpatient follow-up to review today's ER visit with primary care physician and [facility]. Strict return precautions were also discussed at length with good understanding by patient. Patient has test strips and insulin at home, reports she has access to her previous primary care physician that she utilize prior to being locked up in half-way and plans to call him/her first thing in the morning when their office opens. Patient voiced understanding and agreement with the plan. Patient knows to come back for repeat evaluation if concerning signs or symptoms present prior to outpatient follow-up. Hemodynamically stable, ambulatory and well-appearing at time of disposition. Dragon Disclaimer: Shoaib Disclaimer: This electronic medical record was generated, in whole or in part, using a voice recognition dictation system. Departure Departure Impression: Primary Impression: Abdominal pain Additional Impressions: Uncontrolled type 1 diabetes mellitus with hyperglycemia Hydrosalpinx Amphetamine abuse Disposition: HOME / SELF CARE / HOMELESS Condition: IMPROVED Referrals: NO PCP (PCP) Patient Instructions: Abdominal Pain (Nonspecific), Hyperglycemia Additional Instructions: As discussed prior to your departure, your heart was slightly fast otherwise vital signs were unremarkable. Physical exam and comprehensive ER work-up was nonconcerning for any emergent or surgical issues. Your sugar was very high without any signs of DKA, you responded to IV insulin and IV fluid rehydration. This condition did not fully resolve prior to ER departure and so, you should continue to monitor your sugar at home and treat as appropriate based on sliding scale insulin for which you are knowledgeable about. We discussed findings of your CT abdomen with findings likely due to gastritis and abnormal left adnexal findings that were later evaluated with ultrasonography and consistent with hydrosalpinx. As disclosed, I do not feel this is contributing to your presenting symptoms today; however, I do recommend you follow-up on this in the outpatient setting with your primary care physician and or [facility] physician. If any concerning signs or symptoms present prior to outpatient follow-up please do not hesitate to come back for repeat evaluation. It was a pleasure to take care of you and I wish you the best going forward JAZZ BRADFORD DO Jul 29, 2020 02:00
[2020-07-29 02:08] LABS: BASO % 1 % (0-3); EOS # 0.2 x10^3/uL (0.0-0.7); EOS % 3 % (0-3); LYMPH # 1.4 x10^3/uL (1.0-4.8); LYMPH % 21 % (24-48); MEAN CORPUSCULAR HEMOGLOBIN 25 pg (25-35); MEAN CORPUSCULAR HGB CONC 31 g/dL (31-37); MEAN CORPUSCULAR VOLUME 80 fL (79-100); MONO # 0.6 x10^3/uL (0.0-1.1); MONO % 9 % (0-9); NEUT # 4.4 x10^3/uL (1.8-7.7); NEUT % 67 % (31-73); PLATELET COUNT 228 x10^3/uL (140-400); RED BLOOD COUNT 4.01 x10^6/uL (3.50-5.40); RED CELL DISTRIBUTION WIDTH 22.3 % (11.5-14.5); WHITE BLOOD COUNT 6.6 x10^3/uL (4.0-11.0)
[2020-07-29 02:09] LABS: BILIRUBIN,URINE NEGATIVE (NEG); CLARITY,URINE CLEAR; COLOR,URINE YELLOW; NITRITE,URINE NEGATIVE (NEG); PROTEIN,URINE NEGATIVE (NEG-TRACE); UROBILINOGEN,URINE 0.2 mg/dL (0.2 mg/dL)
[2020-07-29 02:14] LABS: BARBITURATES NEG (NEG); BENZODIAZEPINES NEG (NEG); CANNABINOIDS NEG (NEG); COCAINE NEG (NEG); METHADONE NEG (NEG); OPIATES NEG (NEG); PHENCYCLIDINE NEG (NEG)
[2020-07-29 02:15] LABS: BACTERIA,URINE FEW /HPF (0-FEW); RBC,URINE OCC /HPF (0-2)
[2020-07-29] MEDS ORDERED: CONTRAST GIVEN. MC PRN (02:15)
[2020-07-29] MEDS ORDERED: IOHEXOL 300 MG/ML 100ML VIAL. IV ONE (02:15)
[2020-07-29 02:18] LABS: AMPHETAMINE/METHAMPHETAMINE POS (NEG)
[2020-07-29 02:26] LABS: ALBUMIN 3.4 g/dL (3.4-5.0); CALCIUM 8.9 mg/dL (8.5-10.1); GFR 62.1; POTASSIUM 3.7 mmol/L (3.5-5.1); TOTAL BILIRUBIN 0.4 mg/dL (0.2-1.0); TOTAL PROTEIN 6.7 g/dL (6.4-8.2)
[2020-07-29 03:01] LABS: PLT ESTIMATE ADEQUATE (ADEQUATE)
[2020-07-29 03:02] LABS: ANISOCYTOSIS MOD; HYPOCHROMIA SLIGHT; POLYCHROMASIA SLIGHT
--- NOTE | 2020-07-29 03:25 | RAD ---
Chest AP portable at 0252: Reason for examination: Chest pain. Comparison is made to previous study dated 09/06/2019. The heart size is normal. Mediastinum is unremarkable. Lung nogueira are clear. No acute bony abnormali ties are seen. Impression: No acute cardiopulmonary disease. Electronically signed by: Paty Ogden MD (07/29/2020 3:23 AM) [facility]
[2020-07-29] MEDS ORDERED: INSULIN REGULAR 100 UNIT/ML 3ML VIAL. IV ONE ×2 (03:30→06:15)
--- NOTE | 2020-07-29 03:37 | RAD ---
CT abdomen and pelvis with contrast: Reason for examination: Right upper quadrant abdominal pain. Comparison is made to previous study dated 10/25/2018. Helical images were obtained through the abdomen pelvis with intravenous administration of 75 cc Omni paque 300. Reconstruction was performed in sagittal and coronal planes. Exposure: One or more of the following individualized dose reduction techniques were utilized for thi s examination: 1. Automated exposure control 2. Adjustment of the mA and/or kV according to patient size 3. Use of iterative reconstruction technique. The lung bases are clear. The heart size is normal with no pericardial effusion. The liver contains a 2.6 cm hypodense lesion with some peripheral enhancement consistent with a heman gioma. The gallbladder is contracted but no choleliths are evident. No abnormality seen at the spleen , adrenal glands or pancreas. The abdominal aorta and inferior vena cava show no acute abnormalities. The colon shows no diverticulosis, diverticulitis or colitis. No abnormality seen at the appendix. T he small intestinal tract shows no abnormal dilatation, wall thickening or obstruction. There is a la rge amount of gastric content but no gastric obstruction is seen. No abnormality is seen at the duode num. The kidneys show no renal masses, renal calculi, hydronephrosis or evidence of obstructive uropa thy. No abnormality seen at the bladder or uterus. No abnormality seen at the right ovary. There does appe ar to be a 5.7 x 1.7 cm elongated tubular structure in the left adnexa however which could represent hydrosalpinx. Further evaluation with ultrasound should be considered. No free fluid is present in th e abdomen or pelvis. No acute bony abnormalities are seen. IMPRESSION: 2.6 cm hypodense lesion with peripheral enhancement consistent with a hemangioma in the liver. Contracted gallbladder with no cholelithiasis evident. Large amount of gastric content without apparent gastric obstruction. 5.7 x 1.7 cm tubular structure in the left adnexa. Hydrosalpinx cannot be excluded. Electronically signed by: Paty Ogden MD (07/29/2020 3:35 AM) [facility]
[2020-07-29] MEDS ORDERED: METOCLOPRAMIDE HCL 10 MG/2 ML VIAL. IVP ONE (04:00)
--- NOTE | 2020-07-29 05:02 | RAD ---
Pelvic ultrasound complete: Reason for examination: Left adnexal abnormality seen on CT exam. Complains of right flank pain with no pain in the left lower quadrant. Transvaginal ultrasound examination of the pelvis was performed. Uterus measures 10.7 x 5.3 x 6.0 cm in greatest dimension and shows no focal uterine abnormality. The endometrium is not abnormally thickened at 8 mm. No abnormalities evident at the cervix. The right ovary measures 2.5 x 2.8 x 2.1 cm in greatest dimension with good vascular flow and no mass evident. The left ovary appears to measure 2.6 x 1.8 x 2.2 cm in greatest dimension with good vascular flow. T here is a tubular structure in the left adnexa however which corresponds to the CT abnormality to be consistent with a hydrosalpinx. IMPRESSION: Tubular structure in the left adnexa separate from the left ovary consistent with hydrosalpinx. Recom mend clinical correlation follow-up. Electronically signed by: Paty Ogden MD (07/29/2020 5:00 AM) [facility]
--- NOTE | 2020-07-29 05:46 | EKG ---
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
[2020-07-29 06:10] VITALS: BP 114/56
== END 2020-07-29 06:36 | disposition home or self-care (01) ==
LOC: ER 01:17
DX: R10.11 Right upper quadrant pain (principal); E10.65 Type 1 diabetes mellitus with hyperglycemia; N70.11 Chronic salpingitis; F15.10 Other stimulant abuse, uncomplicated; E10.9 Type 1 diabetes mellitus without complications; F17.200 Nicotine dependence, unspecified, uncomplicated; F10.20 Alcohol dependence, uncomplicated; Y90.0 Blood alcohol level of less than 20 mg/100 ml
CPT/HCPCS: 36415; 71045; 74177; 76856; 80053; 80307; 81001; 82010; 82962; 83690; 84484; 85025; 87086; 87147; 93005; 96361; 96374; 96375; 96376; 99285; G0480; J1815; J2765; J3010; J7030; Q9967

== ENCOUNTER 2020-09-27 00:11 | Emergency (ER) | payer SELFPAY ==
[~2020-09-27] VITALS: Ht 162.6 cm; Wt 59.1 kg
[~2020-09-27 00:11] MED LIST changes: -DOXY100C2 PO; +DOXY100C3 PO
--- NOTE | 2020-09-27 00:21 | PHYS DOC ---
Past Medical History Past Medical History: Diabetes-Type I Additional Past Medical Histor: LOW IRON, neuropathy Past Surgical History: Other Additional Past Surgical Histo: R AND L TOE SURGERY Smoking Status: Current Every Day Smoker Alcohol Use: Heavy Drug Use: Methamphetamine General Adult HPI: HPI: Patient is a 40 year old female past medical history diabetes neuropathy presents with a chief complaint of concern that she is in DKA. Patient has had 2 days of nausea vomiting and abdominal cramping. Patient states 2 days ago she injured her left great toe and suspect abnormal blood sugars have been related to this injury. On exam patient's toe has a wound that has mild drainage there is no significant surrounding erythema. Patient states she has been taking her insulin as prescribed her blood sugars have been in the 300s. On arrival patient is tachycardic with a heart rate in the 180s. She is not febrile. Review of Systems: Review of Systems: Constitutional: Denies fever or chills. [] Eyes: Denies change in visual acuity. [] HENT: Denies nasal congestion or sore throat. [] Respiratory: Denies cough or shortness of breath. [] Cardiovascular: Denies chest pain or edema. [] GI: Denies , bloody stools or diarrhea. [positive abdominal pain, nausea, vomiting] : Denies dysuria. [] Musculoskeletal: Denies back pain or joint pain. [] Integument: Denies rash. [positive foot wound] Neurologic: Denies headache, focal weakness or sensory changes. [] Endocrine: Denies polyuria or polydipsia. [] Lymphatic: Denies swollen glands. [] Psychiatric: Denies depression or anxiety. [] Heart Score: C/O Chest Pain: N/A Risk Factors: Risk Factors: DM, Current or recent (<one month) smoker, HTN, HLP, family history of CAD, obesity. Risk Scores: Score 0 - 3: 2.5% MACE over next 6 weeks - Discharge Home Score 4 - 6: 20.3% MACE over next 6 weeks - Admit for Clinical Observation Score 7 - 10: 72.7% MACE over next 6 weeks - Early Invasive Strategies Allergies: Allergies: Allergies Coded Allergies Type Severity Reaction Last Updated Verified I S O L A T I O N *CONTACT* Allergy Unknown Swelling 09/26/19 Yes No Known Medication Allergies Allergy Unknown 09/26/19 Yes Physical Exam: PE: General: alert, no acute distress. Skin: warm, dry and intact, no erythema, no rash. healing would left great toe, no surround cellulitis HENT: bilateral external ears normal, oropharynx moist, nose normal. Head:: Normocephalic, atraumatic. Neck: Trachea midline. Eyes: EOMI, Normal conjunctiva, No drainage CARDIOVASCULAR: tachycardia RESPIRATORY: No respiratory distress Back: Full range of motion. MUSCULOSKELETAL: Full range of motion of bilateral upper and lower extremities. GASTROINTESTINAL: Abdomen soft without rebound or guarding. NEUROLOGICAL: Alert and noted to person, place and time. No neurological deficits observed Psychiatric: Cooperative. Normal judgment EKG: EKG: [] Performed at 0017 Rate [address] elevation No ST depression No acute [facility] Radiology/Procedures: Radiology/Procedures: [] Course & Med Decision Making: Course & Med Decision Making Pertinent Labs and Imaging studies reviewed. (See chart for details) []Treated with IV fluids 2 L Treated with Insulin 10 U UA consistent with UTI. Will Rx Keflex. Repeat glucose 97 Dragon Disclaimer: Shoaib Disclaimer: This electronic medical record was generated, in whole or in part, using a voice recognition dictation system. Departure Departure Impression: Primary Impression: Uncontrolled type 1 diabetes mellitus with hyperglycemia Additional Impressions: Wound of foot UTI (urinary tract infection) Disposition: HOME / SELF CARE / HOMELESS Condition: STABLE Referrals: NO PCP (PCP) Patient Instructions: Diabetes and Exercise-SportsMed, Hyperglycemia, Urinary Tract Infection, Wound Care, [id number] Scripts Cephalexin (CEPHALEXIN) 500 Mg Capsule 1 CAP PO QID, #40 CAP Prov: MAGDY MOORE DO 09/27/20 MAGDY MOORE DO Sep 27, 2020 00:21
--- NOTE | 2020-09-27 00:48 | EKG ---
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
[2020-09-27] MEDS ORDERED: IV NORMAL SALINE 1000ML BAG 1,000 ML IV ONE ×2 (01:00→03:15)
[2020-09-27 01:06] LABS: BASO % 1 % (0-3); EOS # 0.2 x10^3/uL (0.0-0.7); EOS % 4 % (0-3); HEMATOCRIT 33.6 % (36.0-47.0); HEMOGLOBIN 10.9 g/dL (12.0-15.5); LYMPH # 1.6 x10^3/uL (1.0-4.8); LYMPH % 29 % (24-48); MEAN CORPUSCULAR HEMOGLOBIN 26 pg (25-35); MEAN CORPUSCULAR HGB CONC 32 g/dL (31-37); MEAN CORPUSCULAR VOLUME 80 fL (79-100); MONO # 0.5 x10^3/uL (0.0-1.1); MONO % 9 % (0-9); NEUT # 3.1 x10^3/uL (1.8-7.7); NEUT % 58 % (31-73); PLATELET COUNT 261 x10^3/uL (140-400); RED BLOOD COUNT 4.22 x10^6/uL (3.50-5.40); RED CELL DISTRIBUTION WIDTH 17.9 % (11.5-14.5); WHITE BLOOD COUNT 5.5 x10^3/uL (4.0-11.0)
[2020-09-27 01:14] LABS: CALCIUM 9.3 mg/dL (8.5-10.1); CREATININE 0.7 mg/dL (0.6-1.0)
[2020-09-27 01:15] LABS: GFR 93.2; POTASSIUM 4.5 mmol/L (3.5-5.1)
[2020-09-27 01:20] LABS: ALBUMIN 3.6 g/dL (3.4-5.0); TOTAL BILIRUBIN 0.3 mg/dL (0.2-1.0); TOTAL PROTEIN 7.3 g/dL (6.4-8.2)
[2020-09-27] MEDS ORDERED: INSULIN REGULAR 100 UNIT/ML 3ML VIAL. IV ONE (03:15)
[2020-09-27 03:18] LABS: BILIRUBIN,URINE NEGATIVE (NEG); CLARITY,URINE CLEAR; COLOR,URINE YELLOW; NITRITE,URINE NEGATIVE (NEG); PROTEIN,URINE NEGATIVE (NEG-TRACE); UROBILINOGEN,URINE 0.2 mg/dL (0.2 mg/dL)
[2020-09-27 03:24] LABS: BACTERIA,URINE MODERATE /HPF (0-FEW)
[2020-09-27] MEDS ORDERED: CEPH500C PO (03:45)
[2020-09-27 04:17] VITALS: BP 107/58
== END 2020-09-27 04:30 | disposition home or self-care (01) ==
LOC: ER 00:11
DX: S91.102A Unspecified open wound of left great toe without damage to nail, initial encounter (principal); N39.0 Urinary tract infection, site not specified; E10.65 Type 1 diabetes mellitus with hyperglycemia; E10.40 Type 1 diabetes mellitus with diabetic neuropathy, unspecified; F17.200 Nicotine dependence, unspecified, uncomplicated; F10.20 Alcohol dependence, uncomplicated; Y90.9 Presence of alcohol in blood, level not specified; Z91.041 Radiographic dye allergy status; X58.XXXA Exposure to other specified factors, initial encounter; Y92.89 Other specified places as the place of occurrence of the external cause; Y93.89 Activity, other specified; Y99.8 Other external cause status
CPT/HCPCS: 36415; 80053; 81001; 81025; 82962; 85025; 87077; 87086; 93005; 96361; 96374; 99285; J1815; J7030

== ENCOUNTER 2020-10-09 02:00 | Inpatient (IN) | payer SELFPAY ==
[~2020-10-09] VITALS: Ht 162.6 cm; Wt 59.1 kg
[~2020-10-09 02:00] MED LIST changes: +CEPH500C PO
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
[2020-10-09 02:58] LABS: BASO # 0.1 x10^3/uL (0.0-0.2); BASO % 1 % (0-3); EOS # 0.2 x10^3/uL (0.0-0.7); EOS % 3 % (0-3); HEMATOCRIT 33.1 % (36.0-47.0); HEMOGLOBIN 10.4 g/dL (12.0-15.5); LYMPH # 1.9 x10^3/uL (1.0-4.8); LYMPH % 24 % (24-48); MEAN CORPUSCULAR HEMOGLOBIN 25 pg (25-35); MEAN CORPUSCULAR HGB CONC 31 g/dL (31-37); MEAN CORPUSCULAR VOLUME 80 fL (79-100); MONO # 0.8 x10^3/uL (0.0-1.1); MONO % 10 % (0-9); NEUT # 4.9 x10^3/uL (1.8-7.7); NEUT % 63 % (31-73); PLATELET COUNT 312 x10^3/uL (140-400); RED BLOOD COUNT 4.17 x10^6/uL (3.50-5.40); RED CELL DISTRIBUTION WIDTH 18.9 % (11.5-14.5); WHITE BLOOD COUNT 7.8 x10^3/uL (4.0-11.0)
[2020-10-09] MEDS ORDERED: VANCOMYCIN 1.25 GM in IV NORMAL SALINE 250ML 250 ML IV ONE (03:00)
[2020-10-09] MEDS ORDERED: ONDANSETRON PF 4 MG/2 ML VIAL. IVP PRN (03:00)
--- NOTE | 2020-10-09 03:22 | RAD ---
RIGHT FOOT AP LATERAL OBLIQUE Clinical Indication: Reason: foot infected / Spl. Instructions: / History: Comparison: Right foot, 3 views September 25, 2019. Findings: Since the prior study there has been resection of the great toe distal phalanx and the second toe dis uday to the base of the middle phalanx. A sliver of bone of the great toe distal phalanx remains. Bipa rtite medial sesamoid. There is no acute fracture or dislocation. The bony alignment is normal. Mineralization is normal. N o bony erosion. Question soft tissue swelling of the great toe stump. No dorsal soft tissue swelling of the foot. The re is soft tissue swelling of the toes, most apparent of the third toe. IMPRESSION: 1. No radiographic evidence of osteomyelitis. 2. Interval resection of the distal first and second toes. 3. Soft tissue swelling of the toes. Electronically signed by: Aldo Winn MD (10/09/2020 3:19 AM) [facility]
[2020-10-09 04:09] LABS: CALCIUM 10.1 mg/dL (8.5-10.1); CREATININE 1.1 mg/dL (0.6-1.0); GFR 55.3; POTASSIUM 3.2 mmol/L (3.5-5.1)
[2020-10-09 04:16] LABS: ALBUMIN 3.7 g/dL (3.4-5.0); ALBUMIN/GLOBULIN RATIO 0.8 (1.0-1.7); TOTAL BILIRUBIN 0.1 mg/dL (0.2-1.0); TOTAL PROTEIN 8.2 g/dL (6.4-8.2)
[2020-10-09] MEDS: IBUPROFEN 200 MG TABLET. PO ONE ×2 (04:28→04:30)
[2020-10-09] MEDS ORDERED: GABA300C18 PO (05:25)
[2020-10-09 05:32] VITALS: BP 116/83
--- NOTE | 2020-10-09 06:33 | NUR ---
IP: Pt adm with possible L foot infection. Pt has a hx of L foot mrsa infections. Pt to be in contact precautions.
[2020-10-09 07:00] VITALS: BP 116/68
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
[2020-10-09 11:00] VITALS: BP 129/78
[2020-10-09] MEDS ORDERED: VANCOMYCIN PER PHARMACY MC PRN (11:45)
[2020-10-09] MEDS ORDERED: PIP/TAZO PER PHARMACY MC PRN (11:45)
--- NOTE | 2020-10-09 12:09 | HP ---
ADMIT DATE: 10/09/2020 CHIEF COMPLAINT: Foot pain. HISTORY OF PRESENT ILLNESS: The patient is a pleasant 40-year-old female who presents to the ER with foot pain. She has a diabetic ulcer. I discussed the case with ER physician. We are going to admit the patient and consult the wound care team and Dr. Chiang and give her IV antibiotics. PAST MEDICAL HISTORY: Diabetes, peripheral vascular disease, anemia, neuropathy, right and left toe surgery, tobacco abuse and methamphetamine abuse. ALLERGIES: None. FAMILY HISTORY: Diabetes. SOCIAL HISTORY: She does smoke and take drugs. Drinks socially. MEDICATIONS: Reviewed. Please refer to the MRAD. REVIEW OF SYSTEMS: GENERAL: No history of weight change, weakness or fevers. SKIN: No bruising, hair changes or rashes. EYES: No blurred, double or loss of vision. NOSE AND THROAT: No history of nosebleeds, hoarseness or sore throat. HEART: No history of palpitations, chest pain or shortness of breath on exertion. LUNGS: Denies cough, hemoptysis, wheezing or shortness of breath. GASTROINTESTINAL: Denies changes in appetite, nausea, vomiting, diarrhea or constipation. GENITOURINARY: No history of frequency, urgency, hesitancy or nocturia. NEUROLOGIC: Denies history of numbness, tingling, tremor or weakness. PSYCHIATRIC: No history of panic, anxiety or depression. ENDOCRINE: No history of heat or cold intolerance, polyuria or polydipsia. EXTREMITIES: She complains of foot pain. PHYSICAL EXAMINATION: VITALS: Within normal limits and are stable. GENERAL: No apparent distress. Alert and oriented. HEENT: Normal cephalic atraumatic, external auditory canals are patent. Eyes: Extraocular muscles are intact, pupils are equally round and reactive to light and accommodation. MUSCULOSKELETAL: Well developed, well nourished, good range of motion. ENDOCRINE: No thyromegaly was palpated. LYMPHATICS: No cervical chain or axillary nodes were noted. HEMATOPOIETIC: No bruising. NECK: Supple, no JVD, no thyromegaly was noted. LUNGS: Clear to auscultation in all lung nogueira without rhonchi or wheezing. HEART: RRR, S1, S2 present. Peripheral pulses intact, no obvious murmurs were noted. ABDOMEN: Soft, nontender. Positive bowel sounds no organomegaly, normal bowel sounds. EXTREMITIES: She has a diabetic foot ulcer on the left. Please see the pictures. NEUROLOGIC: Normal speech, normal tone. A and O x 3, moves all extremities, no obvious focal deficits. PSYCHIATRIC: Normal affect, normal mood. Stable. SKIN: No ulcerations or rashes, good skin turgor, no jaundice. VASCULAR: Good capillary refill, neurovascular bundle appears to be intact. ASSESSMENT AND PLAN: Diabetic foot ulcer. The patient has been admitted. We will consult Dr. Chiang and the wound care team. IV antibiotics, home medications, deep venous thrombosis prophylaxis. Full code. Prognosis guarded. SALVATORE/HUGO DR: SALVATORE/natividad TID: [id number]
--- NOTE | 2020-10-09 12:23 | NUR ---
Pharmacy Vancomycin Dosing Note S:Consulted to monitor and dose vancomycin started 10/09/20. O:FLORESITA JORGE is a 40 year old F with Cellulitis . Height: 5 feet, 4 inches Weight: 59.1 kg [place] Body Weight: 54.70 Adjusted Body Weight: 56.46 Dosing Weight: Actual Other Antibiotics: ZOSYN LABS: Last BUN: 11 Last Creatinine: 1.1 Creatinine Clearance: 61 mL/min Last WBC: 7.8 Last Procalcitonin: Tmax (past 24 hours): Microbiology: HX OF MRSA I/O: Drug Levels: Last level: on at Last dose given at Vancomycin Dosing: Loading Dose: 1250 mg x1 Dosing Weight: Actual Target Trough: 10-20 A: Based on: ht, wt and renal function P: 1. Begin Vancomycin 1000 mg IV q18h 2. Follow up Trough level on 10/10/20 at 1530 3. Pharmacy will continue to monitor, follow and adjust therapy as needed. MICHAEL CAMPBELL, [facility], 10/09/20 [id number]
[2020-10-09] MEDS: HYDROcodone/APAP 5/325MG 1 TAB TABLET PO PRN ×2 (12:30→18:41)
[2020-10-09] MEDS: INSULIN LISPRO 300 UNITS/3 ML VIAL. SQ SCH ×2 (12:58→17:31)
--- NOTE | 2020-10-09 13:13 | NUR ---
SW following. Discussed with RN, pt from home, wound care consulted. Pt reporting she wants to go home. Med Assist following for self pay status. SW will continue to follow.
--- NOTE | 2020-10-09 14:30 | NUR ---
Wound Care Wound Type/Assessment: Consult to eval and treat DFU to R plantar foot, Dr. Chiang present. Wound presents as a deflated blister with dry skin and moderate amount of purulent drainage, macerated margins between 3-4th toes. R 3rd toe is deep red, swollen, and painful. Consents obtained for bedside debridement of R plantar foot wound. Using iris scissors and pickups, Dr. Chiang deroofed blister and removed all superficial tissue. Wound cleansed, pictured and measured. Initially pictured and measured as 2 separate wounds on admission (Plantar foot and R 3rd toe), but after bedside debridement margins demarcate one wound (reflected in detailed wound assessment). Post debridement, wound base is smooth, moist, and pale pink. There is persistent macerated tissue between the toes that is still well attached. Pt also has a healing tattoo infection to R shoulder. There are multiple dry scabs in various stages of healing, minimal redness and swelling isolated to immediate wound margins. No other open wounds noted on head to toe assessment. Treatment Recommendations/Plan: R plantar foot: Cleanse and pat dry. Apply iodoflex (remove white mesh) to open wounds, weave strip of aquacel AG between toes to manage drainage. Cover with ABD and kerlix. Change every 2-3 days. R shoulder: Apply betadine daily and leave ELECTRICIAN UNDERGROUND. May cover with dry gauze and tape to protect pt clothing from betadine stains. Education provided: Educated on blood sugar control, wound care, follow up, and pressure ulcer prevention. Pt states understanding but is historically noncompliant Offloading surface/device: Pt is independent with all mobility Recommended Referrals/Tests: NA (admission xray of R foot negative for osteomyelitis) Discharge Recommendations for dressings: As above
[2020-10-09] MEDS: GABAPENTIN 300 MG CAPSULE. PO SCH ×2 (14:52→21:00)
[2020-10-09] MEDS: PIPERACILLIN/TAZOBACTAM 3.375 GM in IV NORMAL SALINE 50ML 50 ML IV SCH ×2 (14:52→18:43)
[2020-10-09 15:00] VITALS: BP 108/61
[2020-10-09] MEDS ORDERED: INSULIN LISPRO 300 UNITS/3 ML VIAL. SQ SCH (17:00)
[2020-10-09 19:00] VITALS: BP 83/47
[2020-10-09] MEDS: LACTOBACILLUS RHAMNOSUS GG 1 CAPSULE. PO SCH (21:00)
[2020-10-09] MEDS ORDERED: INSULIN GLARGINE SYRINGE. SQ SCH (21:00)
[2020-10-09] MEDS ORDERED: VANCOMYCIN 1 GM in IV NORMAL SALINE 250ML 250 ML IV SCH (22:00)
--- NOTE | 2020-10-09 22:00 | NUR ---
Shortly after starting infusion of Vanco, pt c/o itching in right arm. Small red, raised area noted. Vanco stopped and Dr Mo paged. Will continue to monitor.
[2020-10-09 23:00] VITALS: BP 84/50
[2020-10-10] MEDS: PIPERACILLIN/TAZOBACTAM 3.375 GM in IV NORMAL SALINE 50ML 50 ML IV SCH ×2 (00:59→06:13)
[2020-10-10 03:00] VITALS: BP 97/60
--- NOTE | 2020-10-10 06:19 | NUR ---
Pt with low bp throughout night. Pt sleeping soundly and without complaints when awakened. No return call received from Dr Mo regarding Vanco despite multiple pages. Will pass on to day RN.
[2020-10-10 08:00] VITALS: BP 110/70
[2020-10-10] MEDS: LACTOBACILLUS RHAMNOSUS GG 1 CAPSULE. PO SCH (08:45)
[2020-10-10] MEDS: GABAPENTIN 300 MG CAPSULE. PO SCH (08:45)
[2020-10-10] MEDS: INSULIN LISPRO 300 UNITS/3 ML VIAL. SQ SCH (08:50)
[2020-10-10] MEDS ORDERED: CITALOPRAM 20 MG TABLET. PO SCH (09:00)
--- NOTE | 2020-10-10 10:11 | NUR ---
PATIENT INFORMED THIS CHANDELIER MAKER THAT SHE WANTED TO LEAVE THE HOSPITAL AMA BECAUSE SHE WANTED TO GO AND SMOKE, THIS CHANDELIER MAKER INFORMED THE PATIENT THAT AN ORDER FOR A NICOTENE PATCH COULD BE OBTAINED, PATIENT REFUSED, PATIENT ENCOURAGED TO WAIT AND SEE THE DRReggie FOR RECOMMENDATIONS, SHE AGREED. DR. THAPA ON THE UNIT AND INFORMED. AFTER SEEING/SPEAKING WITH DR. THAPA THE PATIENT CONTINUES TO INSIST ON LEAVING, SHE STATES, "I'M LEAVING TO GO SMOKE, I WILL JUST GO TO ANOTHER HOSPITAL THAT WILL ALLOW ME TO SMOKE". NO ORDERS RECEIVED FROM DR. THAPA AT THIS TIME AND PATIENT HAS SIGNED AM PAPERWORK.
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
--- NOTE | 2020-10-10 11:50 | PDOC ---
[employer] PROGRESS NOTE Date of Service DOS: DATE: 10/10/20 TIME: 11:40 Chief Complaint Chief Complaint CC: Foot pain Diabetes Peripheral vascular disease Anemia Neuropathy Tobacco abuse Methamphetamine abuse Vitals/I&O Vitals/I&O: Vital Signs Date Time Temp Pulse Resp B/P (MAP) Pulse Ox O2 Delivery O2 Flow Rate FiO2 10/10/20 08:00 Room Air 10/10/20 08:00 97.9 104 20 110/70 (83) 97.9 10/10/20 03:00 96 I & O 10/09/20 10/09/20 10/10/20 15:00 23:00 07:00 Intake Total 320 ml 900 ml 350 ml Balance 320 ml 900 ml 350 ml Physical Exam General: Alert, Oriented X3 Heart: Regular rate, Normal S1, Normal S2 Lungs: Clear Abdomen: Soft, No tenderness Extremities: Other (Quanta flow is 1.2 and palpable pulses noted in the foot.) Skin: Other (Right foot demonstrates distal erythema and dorsal foot red streaking. There is relatively superficial blister identified. This is removed and debridement. Deep ulceration beyond skin is not identified. Total area of blistering is 4.5 cm x 3.5 cm in total area of skin loss is 15.75 cm.) Labs Labs: Laboratory Tests Test 10/09/20 16:48 10/09/20 20:51 10/10/20 07:49 Glucose (Fingerstick) 175 mg/dL (70-99) 74 mg/dL (70-99) 373 mg/dL (70-99) Review of Systems Review of Systems: no vision changes. no weight changes. Assessment and Plan Assessmemt and Plan Problems Medical Problems: (1) Cellulitis of foot Status: Acute (2) Diabetic foot ulcer Status: Acute Foot pain Diabetes Peripheral vascular disease Anemia Neuropathy Tobacco abuse Methamphetamine abuse Plan: Continue wound care Continue IV antibiotics Home meds DVT prophylaxis Full code Encourage PO intake DDP Trend labs Comment Review of Relevant I have reviewed the following items olena (where applicable) has been applied. Medications: Current Medications Medications (Trade) Dose Ordered Sig/Lucio Route PRN Reason Start Time Stop Time Status Last Admin Dose Admin Vancomycin HCl (Vanco Per Pharmacy) 1 each PRN DAILY PRN MC SEE COMMENTS 10/09/20 11:45 10/09/20 12:23 Piperacillin Sod/ Tazobactam Sod 3.375 gm/Sodium Chloride 50 ml @ 100 mls/hr Q6HRS IV 10/09/20 13:00 10/10/20 06:13 Vancomycin HCl 1 gm/Sodium Chloride 250 ml @ 250 mls/hr Q18H IV 10/09/20 22:00 10/09/20 21:00 Citalopram Hydrobromide (CeleXA) 20 mg DAILY PO 10/10/20 09:00 10/10/20 08:45 Gabapentin (Neurontin) 300 mg TID PO 10/09/20 14:00 10/10/20 08:45 Insulin Glargine (Lantus Syringe) 30 unit QHS SQ 10/09/20 21:00 10/09/20 21:04 Lactobacillus Rhamnosus (Culturelle) 1 cap BID PO 10/09/20 21:00 10/10/20 08:45 Insulin Human Lispro (HumaLOG) 9 units TIDWMEALS SQ 10/09/20 12:45 10/10/20 08:50 Justifications for Admission Other Justification JB THAPA III DO Oct 10, 2020 11:50
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
== END 2020-10-10 10:33 | disposition left against medical advice (07) | DRG 638 ==
LOC: ER 02:00 → 5 NORTH 03:31 → OBSVTOIN 12:05
PROVIDERS: ADMIT Internal Medicine; ATTEND Internal Medicine
PROC: 0HDNXZZ Extraction of Left Foot Skin, External Approach (ICD-10-PCS; principal; 2020-10-09)
DX: E10.621 Type 1 diabetes mellitus with foot ulcer (principal); L03.116 Cellulitis of left lower limb; D64.9 Anemia, unspecified; E10.40 Type 1 diabetes mellitus with diabetic neuropathy, unspecified; E10.51 Type 1 diabetes mellitus with diabetic peripheral angiopathy without gangrene; F15.10 Other stimulant abuse, uncomplicated; F17.200 Nicotine dependence, unspecified, uncomplicated; I10 Essential (primary) hypertension; J45.909 Unspecified asthma, uncomplicated; L97.519 Non-pressure chronic ulcer of other part of right foot with unspecified severity; F41.9 Anxiety disorder, unspecified; T25.022A Burn of unspecified degree of left foot, initial encounter; X08.8XXA Exposure to other specified smoke, fire and flames, initial encounter; Z53.29 Procedure and treatment not carried out because of patient's decision for other reasons; L97.529 Non-pressure chronic ulcer of other part of left foot with unspecified severity; Z79.4 Long term (current) use of insulin; Z82.49 Family history of ischemic heart disease and other diseases of the circulatory system; Z83.3 Family history of diabetes mellitus; Z91.19 Patient's noncompliance with other medical treatment and regimen; Y93.89 Activity, other specified; Y92.89 Other specified places as the place of occurrence of the external cause; Y99.8 Other external cause status
CPT/HCPCS: 36415; 73630; 80053; 82550; 82962; 85025; 87040; 96365; 96367; 99406; G0378; G0379; J0690; J1815; J2543; J3370; J7050; 99285-25; J7030

== ENCOUNTER 2020-12-11 11:23 | Inpatient (IN) | payer SELFPAY ==
[~2020-12-11] VITALS: Ht 162.6 cm; Wt 75.1 kg
[2020-12-11] MEDS ORDERED: IV RINGERS,LACTATED 500ML 500 ML IV ONE ×2 (12:00)
[2020-12-11 12:25] LABS: BILIRUBIN,URINE NEGATIVE (NEG); CLARITY,URINE CLEAR; COLOR,URINE YELLOW; NITRITE,URINE POSITIVE (NEG); PH,URINE 6.5 (<5.0-8.0); PROTEIN,URINE NEGATIVE (NEG-TRACE); UROBILINOGEN,URINE 0.2 mg/dL (0.2 mg/dL)
[2020-12-11] MEDS ORDERED: KETOROLAC 15 MG/ML VIAL. IVP ONE (12:30)
[2020-12-11] MEDS ORDERED: ONDANSETRON PF 4 MG/2 ML VIAL. IVP ONE (12:30)
[2020-12-11 12:35] LABS: BASO % 1 % (0-3); EOS # 0.1 x10^3/uL (0.0-0.7); EOS % 1 % (0-3); HEMOGLOBIN 12.2 g/dL (12.0-15.5); LYMPH # 1.2 x10^3/uL (1.0-4.8); LYMPH % 19 % (24-48); MEAN CORPUSCULAR HEMOGLOBIN 27 pg (25-35); MEAN CORPUSCULAR HGB CONC 31 g/dL (31-37); MEAN CORPUSCULAR VOLUME 86 fL (79-100); MONO # 0.4 x10^3/uL (0.0-1.1); MONO % 6 % (0-9); NEUT # 4.5 x10^3/uL (1.8-7.7); NEUT % 73 % (31-73); PLATELET COUNT 266 x10^3/uL (140-400); RED BLOOD COUNT 4.56 x10^6/uL (3.50-5.40); RED CELL DISTRIBUTION WIDTH 23.3 % (11.5-14.5); WHITE BLOOD COUNT 6.2 x10^3/uL (4.0-11.0)
[2020-12-11 12:37] LABS: BACTERIA,URINE MANY /HPF (0-FEW); RBC,URINE 0 /HPF (0-2)
[2020-12-11] MEDS ORDERED: RINGERS LACTATED IV ONE (13:00)
[2020-12-11] MEDS ORDERED: cefTRIAXone IV Push 1 GM VIAL. IVP ONE (13:00)
--- NOTE | 2020-12-11 13:02 | RAD ---
EXAM: Left great toe, 3 views. HISTORY: Pain. Erythema. COMPARISON: None. FINDINGS: 3 views of the left great toe are obtained. There is cortical irregularity involving the tu ft of the first distal phalanx, concerning for osteomyelitis. There is a tiny suspected bone fragment adjacent to this location. No radiodense foreign body is seen. There is no fracture, dislocation or subluxation. IMPRESSION: Suspected osteomyelitis involving the tuft of the first distal phalanx. MRI may be useful for further characterization. Electronically signed by: Tegan Calvillo MD (12/11/2020 12:59 PM) [id number]
[2020-12-11 13:28] LABS: PLT ESTIMATE ADEQUATE (ADEQUATE)
[2020-12-11 13:29] LABS: ANISOCYTOSIS PRESENT
[2020-12-11] MEDS ORDERED: MORPHINE SULFATE 10 MG/ML VIAL. IVP ONE (13:30)
[2020-12-11 13:50] LABS: ISTAT BE VENOUS -1 mmol/L (0-3); ISTAT HCO3 VEN 25 mmol/L (24-28); ISTAT PCO2 VEN 48 mmHg (41-51); ISTAT PH VEN 7.33 (7.32-7.42); ISTAT PO2 VEN 106 mmHg (20-40); ISTAT SAT O2 VEN 98 %; ISTAT TCO2 VEN 26 mmol/L (21-32)
[2020-12-11] MEDS ORDERED: VANCOMYCIN 1.75 GM in IV NORMAL SALINE 500ML BAG 500 ML IV ONE (14:00)
[2020-12-11] MEDS ORDERED: MORPHINE SULFATE 4 MG/ML INJ. IVP ONE (14:15)
[2020-12-11 14:20] LABS: ALBUMIN 3.5 g/dL (3.4-5.0); ALBUMIN/GLOBULIN RATIO 0.8 (1.0-1.7); CALCIUM 9.4 mg/dL (8.5-10.1); CREATININE 0.9 mg/dL (0.6-1.0); GFR 69.7; PHOSPHORUS 5.2 mg/dL (2.6-4.7); POTASSIUM 4.9 mmol/L (3.5-5.1); TOTAL BILIRUBIN 0.8 mg/dL (0.2-1.0); TOTAL PROTEIN 7.8 g/dL (6.4-8.2)
--- NOTE | 2020-12-11 14:24 | PHYS DOC ---
Past Medical History Past Medical History: Diabetes-Type I Additional Past Medical Histor: LOW IRON, neuropathy Past Surgical History: , Other Additional Past Surgical Histo: R AND L TOE SURGERY Smoking Status: Current Every Day Smoker Alcohol Use: None Drug Use: Methamphetamine General Adult EDM: Chief Complaint: BLOOD SUGAR PROBLEM HPI: HPI: 40 yo yo F past medical history of diabetes presents the ED with complaints of abdominal pain, nausea, dry mouth, increased her stating " is from my ketoacidosis." C/o a wound on her left toe for the past month that started draining yellow fluid today. Reports her glucose is normally 180-2 30s but has been in the 500s for the past 3 days. Has not been vaccinated for Covid stating "I don't need to, I've already had a twice." Review of Systems: Review of Systems: Constitutional: Denies fever or chills. [] Eyes: Denies change in visual acuity. [] HENT: Denies nasal congestion or sore throat. [] Respiratory: Denies cough or shortness of breath. [] Cardiovascular: Denies chest pain or edema. [] GI: Denies bloody stools or diarrhea. [] : Denies hematuria or vaginal bleeding Musculoskeletal: Denies back pain or joint pain. [] Integument: Denies rash or diaphoresis Neurologic: Denies headache, focal weakness or sensory changes. [] Lymphatic: Denies swollen glands. [] Psychiatric: Denies depression or anxiety. [] Heart Score: C/O Chest Pain: No Risk Factors: Risk Factors: DM, Current or recent (<one month) smoker, HTN, HLP, family history of CAD, obesity. Risk Scores: Score 0 - 3: 2.5% MACE over next 6 weeks - Discharge Home Score 4 - 6: 20.3% MACE over next 6 weeks - Admit for Clinical Observation Score 7 - 10: 72.7% MACE over next 6 weeks - Early Invasive Strategies Current Medications: Current Medications Medications (Trade) Dose Ordered Sig/Lucio Start Time Stop Time Status Last Admin Dose Admin Ceftriaxone Sodium (Rocephin) 1 gm 1X ONCE 12/11/20 13:00 12/11/20 13:01 DC 12/11/20 13:29 1 GM Ketorolac Tromethamine (Toradol 15mg Vial) 15 mg 1X ONCE 12/11/20 12:30 12/11/20 12:31 DC 12/11/20 12:40 15 MG Morphine Sulfate (Morphine Sulfate) 4 mg 1X ONCE 12/11/20 14:15 12/11/20 14:16 DC 12/11/20 14:16 4 MG Ondansetron HCl (Zofran) 4 mg 1X ONCE 12/11/20 12:30 12/11/20 12:31 DC 12/11/20 12:39 4 MG Ringer's Solution 1,360 ml @ 1,000 mls/hr 1X ONCE 12/11/20 13:00 12/11/20 14:21 DC 12/11/20 12:52 1,000 MLS/HR Vancomycin HCl (Vanco Per Pharmacy) 1 each PRN DAILY PRN 12/11/20 13:00 UNV Vancomycin HCl 1.75 gm/Sodium Chloride 500 ml @ 250 mls/hr 1X ONCE 12/11/20 14:00 12/11/20 15:59 12/11/20 13:38 250 MLS/HR Allergies: Allergies: Allergies Coded Allergies Type Severity Reaction Last Updated Verified I S O L A T I O N *CONTACT* Allergy Unknown Swelling 09/26/19 Yes No Known Medication Allergies Allergy Unknown 09/26/19 Yes Physical Exam: PE: Constitutional: Unkept but non-toxic appearance. HENT: Normocephalic, atraumatic, dry mucous membranes Eyes: EOMI, conjunctiva normal, no discharge. Neck: Normal range of motion, supple, Cardiovascular: S1/2 present, tachycardic Lungs & Thorax: Speaking in full sentences, bilateral equal chest rise, no tachypnea or increased work of breathing Abdomen: soft, no tenderness, Skin: Warm, dry, Back: No tenderness, no CVA tenderness. [] Extremities: 1st webspace with skin breakdown (no bleeding) and erythema, left toe w/no nail and distal erythema, cap refill < 1 sec, dp/pt pulses intact, L5- S1 sensation intact Neurologic: Alert and oriented X 3, normal motor function, normal sensory function, no focal deficits noted. [] Psychologic: Affect normal, judgement normal, mood normal. [] Current Patient Data: Labs: Laboratory Tests Test 12/11/20 11:55 12/11/20 12:09 12/11/20 12:18 12/11/20 13:19 Urine Collection Type Unknown Urine Color Yellow Urine Clarity Clear Urine pH 6.5 (<5.0-8.0) Urine Specific [place] 1.025 (1.000-1.030) Urine Protein Negative mg/dL (NEG-TRACE) Urine Glucose (UA) >=1000 mg/dL (NEG) Urine Ketones (Stick) 15 mg/dL (NEG) Urine Blood Negative (NEG) Urine Nitrite Positive (NEG) Urine Bilirubin Negative (NEG) Urine Urobilinogen Dipstick 0.2 mg/dL (0.2 mg/dL) Urine Leukocyte Esterase Small (NEG) Urine RBC 0 /HPF (0-2) Urine WBC 5-10 /HPF (0-4) Urine Squamous Epithelial Cells Occ /LPF Urine Bacteria Many /HPF (0-FEW) POC Urine HCG, Qualitative Hcg negative (Negative) White Blood Count 6.2 x10^3/uL (4.0-11.0) Red Blood Count 4.56 x10^6/uL (3.50-5.40) Hemoglobin 12.2 g/dL (12.0-15.5) Hematocrit 39.0 % (36.0-47.0) Mean Corpuscular Volume 86 fL (79-100) Mean Corpuscular Hemoglobin 27 pg (25-35) Mean Corpuscular Hemoglobin Concent 31 g/dL (31-37) Red Cell Distribution Width 23.3 % (11.5-14.5) H Platelet Count 266 x10^3/uL (140-400) Neutrophils (%) (Auto) 73 % (31-73) Lymphocytes (%) (Auto) 19 % (24-48) L Monocytes (%) (Auto) 6 % (0-9) Eosinophils (%) (Auto) 1 % (0-3) Basophils (%) (Auto) 1 % (0-3) Neutrophils # (Auto) 4.5 x10^3/uL (1.8-7.7) Lymphocytes # (Auto) 1.2 x10^3/uL (1.0-4.8) Monocytes # (Auto) 0.4 x10^3/uL (0.0-1.1) Eosinophils # (Auto) 0.1 x10^3/uL (0.0-0.7) Basophils # (Auto) 0.0 x10^3/uL (0.0-0.2) Platelet Estimate Adequate (ADEQUATE) Anisocytosis Present Lactic Acid Level 1.4 mmol/L (0.4-2.0) Acetone Level Neg (NEG) Test 12/11/20 13:44 POC Venous pH 7.33 (7.32-7.42) POC Venous pCO2 48 mmHg (41-51) POC Venous pO2 106 mmHg (20-40) H Venous Blood HCO3 25 mmol/L (24-28) POC Venous O2 Saturation (Kavon) 98 % POC FiO2 21.0 Laboratory Tests 12/11/20 12:18 Vital Signs: Vital Signs Date Time Temp Pulse Resp B/P (MAP) Pulse Ox O2 Delivery O2 Flow Rate FiO2 12/11/20 14:16 16 98 Room Air 12/11/20 11:29 97.7 112 160/87 (111) 97.7 EKG: EKG: [] Radiology/Procedures: Radiology/Procedures: IMAGING REPORT Signed PATIENT: FLORESITA JORGE AACCOUNT: [id number] : 1980 LOCATION: ER AGE: 40 SEX: F EXAM STATUS: PRE ER ORD. PHYSICIAN: DANICA SUAZO DO REASON: rash/pain, r/o osteomyelitis PROCEDURE: TOES LEFT EXAM: Left great toe, 3 views. HISTORY: Pain. Erythema. COMPARISON: None. FINDINGS: 3 views of the left great toe are obtained. There is cortical irregularity involving the tuft of the first distal phalanx, concerning for osteomyelitis. There is a tiny suspected bone fragment adjacent to this location. No radiodense foreign body is seen. There is no fracture, dislocation or subluxation. IMPRESSION: Suspected osteomyelitis involving the tuft of the first distal phalanx. MRI may be useful for further characterization. Electronically signed by: Tegan Alonzo MD (12/11/2020 12:59 PM) [id number] DICTATED and SIGNED BY: TEGAN ALONZO MD DATE: 12/11/20 [id number] Course & Med Decision Making: Course & Med Decision Making Pertinent Labs and Imaging studies reviewed. (See chart for details) Concern for left toe osteomyelitis in the setting of uncontrolled, nonketotic hyperglycemia (honk) with UTI and pseudohyponatremia. Started on vancomycin and rocephin. Will admit to medicine for further medical management. Patient stable time of admission and agrees with this plan. I have spoken with the patient and/or caregivers. I have explained the patient's condition, diagnosis and treatment plan based on the information available to me at this time. I have answered the patient's and/or caregivers questions and answered any concerns. The patient and/or caregivers have as good an understanding of the patient's diagnosis, condition and treatment plan as can be expected at this point. The patient has been stabilized within the capability of the emergency department. The patient will be transported for further care and management or will be moved to an observation or inpatient service. I have communicated with the staff or medical practitioner taking over this patient's care. Shoaib Disclaimer: Shoaib Disclaimer: This electronic medical record was generated, in whole or in part, using a voice recognition dictation system. Departure Departure Impression: Primary Impression: Osteomyelitis of toe of left foot Additional Impressions: UTI (urinary tract infection) Uncontrolled type 1 diabetes mellitus with hyperglycemia Disposition: ADMITTED INPATIENT Admitting Physician: PEPE (Dr. Arana) Condition: STABLE Referrals: NO PCP (PCP) DANICA SUAZO DO Dec 11, 2020 14:24
[2020-12-11] MEDS ORDERED: IV RINGERS,LACTATED 1000ML 1,000 ML IV ONE (14:30)
[2020-12-11] MEDS: VANCOMYCIN PER PHARMACY MC PRN (16:50)
--- NOTE | 2020-12-11 16:53 | NUR ---
Pharmacy Vancomycin Dosing Note S:Consulted to monitor and dose vancomycin started 12/11/20. O:FLORESITA JORGE is a 40 year old F with Osteomyelitis Height: 5 feet, 4 inches Weight: 68.2 kg [place] Body Weight: 54.70 Adjusted Body Weight: 60.10 Dosing Weight: Actual Other Antibiotics: - LABS: Last BUN: 22 Last Creatinine: 0.9 Creatinine Clearance: 79 mL/min Last WBC: 6.2 Last Procalcitonin: Tmax (past 24 hours): 97.7 Microbiology: - Last dose given 12/11/20 at 1338 Vancomycin Dosing: Loading Dose: 1250 mg x1 Dosing Weight: Actual Target Trough: 15-20 A: Based on: weight and renal function P: 1. Begin Vancomycin 1000 mg IV q12h 2. Follow up Trough level on 12/13/20 at 1330 3. Pharmacy will continue to monitor, follow and adjust therapy as needed. Fannie Eason RPH, 12/11/20 [id number]
[2020-12-11 17:41] VITALS: BP 103/60
[2020-12-11] MEDS ORDERED: DEXTROSE 50% 25 GM / 50ML DISP.SYRIN. IV PRN (17:45)
[2020-12-11] MEDS ORDERED: PIP/TAZO PER PHARMACY MC PRN (18:00)
[2020-12-11] MEDS ORDERED: ACETAMINOPHEN 325 MG TABLET. PO PRN (18:00)
[2020-12-11] MEDS ORDERED: DOCUSATE SODIUM 100 MG CAPSULE. PO PRN (18:00)
[2020-12-11] MEDS: oxyCODONE IR 5 MG TABLET PO PRN (18:05)
[2020-12-11] MEDS: PIPERACILLIN/TAZOBACTAM 3.375 GM in IV NORMAL SALINE 50ML 50 ML IV SCH (18:05)
[2020-12-11] MEDS: INSULIN LISPRO 300 UNITS/3 ML VIAL. SQ SCH ×2 (18:09→21:47)
--- NOTE | 2020-12-11 18:16 | PDOC1 ---
History and Physical Date of Admission Date of Admission DATE: 12/11/20 TIME: 18:16 Identification/Chief Complaint Chief Complaint dry mouth, weak, high blood sugar Source Source: Chart review, Patient History of Present Illness History of Present Illness 40 yo yo F past medical history of diabetes presents the ED with complaints of abdominal pain, nausea, dry mouth, She was previously admitted here 09/26/[address] Vizcarra did I+D surg on her right second toe. She was here in September of this year, after injuring her left great toe in a campfire. Dr. Chiang performed debridement, and pt left AMA the next day she reports good control of her blood sugars until three days ago, and now wildly high levels, 600 range. contripated and very dry, no change in urination, no vaccinated for COVID, does not have PCP care, takes 30 lantus, 9 aspart TID Past Medical History Cardiovascular: HTN Pulmonary: Asthma CENTRAL NERVOUS SYSTEM: Periperal neuropathy Psych: Anxiety, Addictions Renal/: No pertinent hx Past Surgical History Past Surgical History: Other Family History Family History: Diabetes, Hypertension Social History Smoke: <1 pack per day ALCOHOL: rare Drugs: Marijuana, Crystal meth Current Problem List Problem List Problems Medical Problems: (1) Osteomyelitis of toe of left foot Status: Acute (2) Uncontrolled type 1 diabetes mellitus with hyperglycemia Status: Acute (3) UTI (urinary tract infection) Status: Acute Current Medications Current Medications Current Medications Ringer's Solution 500 ml @ 500 mls/hr 1X ONCE IV ; Start 12/11/20 at 12:00; Stop 12/11/20 at 12:59; Status Cancel Ringer's Solution 500 ml @ 500 mls/hr 1X ONCE IV ; Start 12/11/20 at 12:00; Stop 12/11/20 at 12:59; Status Cancel Ondansetron HCl (Zofran) 4 mg 1X ONCE IVP Last administered on 12/11/20at 12:39; Start 12/11/20 at 12:30; Stop 12/11/20 at 12:31; Status DC Ketorolac Tromethamine (Toradol 15mg Vial) 15 mg 1X ONCE IVP Last administered on 12/11/20at 12:40; Start 12/11/20 at 12:30; Stop 12/11/20 at 12:31; Status DC Ringer's Solution 1,360 ml @ 1,000 mls/hr 1X ONCE IV Last administered on 12/11/20at 12:52; Start 12/11/20 at 13:00; Stop 12/11/20 at 14:21; Status DC Vancomycin HCl (Vanco Per Pharmacy) 1 each PRN DAILY PRN MC SEE COMMENTS Last administered on 12/11/20at 16:50; Start 12/11/20 at 13:00 Ceftriaxone Sodium (Rocephin) 1 gm 1X ONCE IVP Last administered on 12/11/20at 13:29; Start 12/11/20 at 13:00; Stop 12/11/20 at 13:01; Status DC Vancomycin HCl 1.75 gm/Sodium Chloride 500 ml @ 250 mls/hr 1X ONCE IV Last administered on 12/11/20at 13:38; Start 12/11/20 at 14:00; Stop 12/11/20 at 15:59; Status DC Morphine Sulfate (Morphine Sulfate) 5 mg 1X ONCE IVP ; Start 12/11/20 at 13:30; Stop 12/11/20 at 13:31; Status DC Morphine Sulfate (Morphine Sulfate) 4 mg 1X ONCE IVP Last administered on 12/11/20at 14:16; Start 12/11/20 at 14:15; Stop 12/11/20 at 14:16; Status DC Ringer's Solution 1,000 ml @ 1,000 mls/hr 1X ONCE IV Last administered on 12/11/20at 14:30; Start 12/11/20 at 14:30; Stop 12/11/20 at 15:29; Status DC Vancomycin HCl 1 gm/Sodium Chloride 250 ml @ 250 mls/hr Q12H IV ; Start 12/12/20 at 02:00 Vancomycin HCl (Vancomycin Trough Level) 1 each 1X ONCE MC ; Start 12/13/20 at 13:30; Stop 12/13/20 at 13:31 Active Scripts Active Humalog (Insulin Lispro) 100 Unit/1 Ml Insuln.pen 9 Units SQ TIDAC 30 Days Lantus (Insulin Glargine,Hum.rec.anlog) 100 Unit/1 Ml Vial 30 Unit SQ QHS 30 Days Celexa (Citalopram Hydrobromide) 20 Mg Tablet 20 Mg PO DAILY 30 Days Reported Gabapentin (Gabapentin) 300 Mg Capsule 300 Mg PO TID Allergies Allergies: Coded Allergies: I S O L A T I O N *CONTACT* (Verified Allergy, Unknown, Swelling, 09/26/19) mrsa No Known Medication Allergies (Verified Allergy, Unknown, 09/26/19) ROS General: YES: Fatigue, Malaise, Appetite PSYCHOLOGICAL ROS: YES: Sleep disturbances; No: Anxiety, Behavioral Disorder, Concentration difficultie, Decreased libido, Depression, Disorientation, Hallucinations, Hostility, Irritablity, Memory difficulties, Mood Swings, Obsessive thoughts, Physical abuse, Sexual abuse, Suicidal ideation, Other Eyes: No Blurry vision, No Decreased vision, No Double vision, No Dry eyes, No Excessive tearing, No Eye Pain, No Itchy Eyes, No Loss of vision, No Photophobia, No Scotomata, No Uses contacts, No Uses glasses, No Other HEENT: YES: Heacaches ENDOCRINE: No: Breast Changes, Galactorrhea, Hair Pattern Changes, Hot Flashes, Malaise/lethargy, Mood Swings, Palpitations, Polydipsia/polyuria, Skin Changes, Temperature Intolerance, Unexpected Weight Changes, Other Respiratory: No: Cough, Hemoptysis, Orthopnea, Pleuritic Pain, Shortness of breath, SOB with excertion, Sputum Changes, Stridor, Tachypnea, Wheezing, Other Cardiovascular: No Chest Pain, No Palpitations, No Orthopnea, No Paroxysmal Noc. Dyspnea, No Edema, No Lt Headedness, No Other Gastrointestinal: Yes Nausea, Yes Constipation Genitourinary: YES Dysuria; No Frequency, No Incontinence, No Hematuria, No Retention, No Discharge, No Urgency, No Pain, No Flank Pain, No Other, No , No , No , No , No , No , No Musculoskeletal: Yes Joint Stiffness; No Gait Disturbance, No Joint Pain, No Joint Swelling, No Muscle Pain, No Muscular Weakness, No Pain In:, No Swelling In:, No Other Neurological: No Behavorial Changes, No Bowel/Bladder ControlChng, No Confusion, No Dizziness, No Gait Disturbance, No Headaches, No Impaired Coord/balance, No Memory Loss, No Numbness/Tingling, No Seizures, No Speech P roblems, No Tremors, No Visual Changes, No Weakness, No Other Skin: Yes Dry Skin; No Eczema, No Hair Changes, No Lumps, No Mole Changes, No Mottling, No Nail Changes, No Pruritus, No Rash, No Skin Lesion Changes, No Other, No Acne Physical Exam General: Alert, Oriented X3, Cooperative, No acute distress HEENT: Atraumatic, PERRLA, Other (dry mouth) Lungs: Clear to auscultation Heart: S1S2 Abdomen: Normal bowel sounds, Soft Extremities: No clubbing, No edema, Other (tender foot area, pain) Skin: Other (left great toe red, swollen, second toe swollen great toe has open lesion, unable to see bone, did not probe) Neuro: Normal speech, Normal tone, Sensation intact Psych/Mental Status: Mood NL Vitals Vitals Vital Signs Date Time Temp Pulse Resp B/P (MAP) Pulse Ox O2 Delivery O2 Flow Rate FiO2 12/11/20 17:41 98.0 101 18 103/60 (74) 98 Room Air 98.0 Labs Labs Laboratory Tests Test 12/11/20 11:55 12/11/20 12:09 12/11/20 12:18 12/11/20 13:19 Urine Collection Type Unknown Urine Color Yellow Urine Clarity Clear Urine pH 6.5 (<5.0-8.0) Urine Specific [place] 1.025 (1.000-1.030) Urine Protein Negative mg/dL (NEG-TRACE) Urine Glucose (UA) >=1000 mg/dL (NEG) Urine Ketones (Stick) 15 mg/dL (NEG) Urine Blood Negative (NEG) Urine Nitrite Positive (NEG) Urine Bilirubin Negative (NEG) Urine Urobilinogen Dipstick 0.2 mg/dL (0.2 mg/dL) Urine Leukocyte Esterase Small (NEG) Urine RBC 0 /HPF (0-2) Urine WBC 5-10 /HPF (0-4) Urine Squamous Epithelial Cells Occ /LPF Urine Bacteria Many /HPF (0-FEW) Bedside Urine HCG, Qualitative Hcg negative (Negative) White Blood Count 6.2 x10^3/uL (4.0-11.0) Red Blood Count 4.56 x10^6/uL (3.50-5.40) Hemoglobin 12.2 g/dL (12.0-15.5) Hematocrit 39.0 % (36.0-47.0) Mean Corpuscular Volume 86 fL (79-100) Mean Corpuscular Hemoglobin 27 pg (25-35) Mean Corpuscular Hemoglobin Concent 31 g/dL (31-37) Red Cell Distribution Width 23.3 % (11.5-14.5) Platelet Count 266 x10^3/uL (140-400) Neutrophils (%) (Auto) 73 % (31-73) Lymphocytes (%) (Auto) 19 % (24-48) Monocytes (%) (Auto) 6 % (0-9) Eosinophils (%) (Auto) 1 % (0-3) Basophils (%) (Auto) 1 % (0-3) Neutrophils # (Auto) 4.5 x10^3/uL (1.8-7.7) Lymphocytes # (Auto) 1.2 x10^3/uL (1.0-4.8) Monocytes # (Auto) 0.4 x10^3/uL (0.0-1.1) Eosinophils # (Auto) 0.1 x10^3/uL (0.0-0.7) Basophils # (Auto) 0.0 x10^3/uL (0.0-0.2) Platelet Estimate Adequate (ADEQUATE) Anisocytosis Present Lactic Acid Level 1.4 mmol/L (0.4-2.0) Sodium Level 129 mmol/L (136-145) Potassium Level 4.9 mmol/L (3.5-5.1) Chloride Level 91 mmol/L (98-107) Carbon Dioxide Level 24 mmol/L (21-32) Anion Gap 14 (6-14) Blood Urea Nitrogen 22 mg/dL (7-20) Creatinine 0.9 mg/dL (0.6-1.0) Estimated GFR (Cockcroft-Gault) 69.7 BUN/Creatinine Ratio 24 (6-20) Glucose Level 696 mg/dL (70-99) Calcium Level 9.4 mg/dL (8.5-10.1) Phosphorus Level 5.2 mg/dL (2.6-4.7) Magnesium Level 2.0 mg/dL (1.8-2.4) Total Bilirubin 0.8 mg/dL (0.2-1.0) Aspartate Amino Transf (AST/SGOT) 82 U/L (15-37) Alanine Aminotransferase (ALT/SGPT) 115 U/L (14-59) Alkaline Phosphatase 137 U/L (46-116) Total Protein 7.8 g/dL (6.4-8.2) Albumin 3.5 g/dL (3.4-5.0) Albumin/Globulin Ratio 0.8 (1.0-1.7) Acetone Level Neg (NEG) Test 12/11/20 13:44 12/11/20 17:37 Bedside Venous pH 7.33 (7.32-7.42) Bedside Venous pCO2 48 mmHg (41-51) Bedside Venous pO2 106 mmHg (20-40) Venous Blood HCO3 25 mmol/L (24-28) POC Venous O2 Saturation (Kavon) 98 % Bedside FiO2 21.0 Glucose (Fingerstick) 423 mg/dL (70-99) Laboratory Tests Test 12/11/20 11:55 12/11/20 12:09 12/11/20 12:18 12/11/20 13:19 Urine Collection Type Unknown Urine Color Yellow Urine Clarity Clear Urine pH 6.5 (<5.0-8.0) Urine Specific [place] 1.025 (1.000-1.030) Urine Protein Negative mg/dL (NEG-TRACE) Urine Glucose (UA) >=1000 mg/dL (NEG) Urine Ketones (Stick) 15 mg/dL (NEG) Urine Blood Negative (NEG) Urine Nitrite Positive (NEG) Urine Bilirubin Negative (NEG) Urine Urobilinogen Dipstick 0.2 mg/dL (0.2 mg/dL) Urine Leukocyte Esterase Small (NEG) Urine RBC 0 /HPF (0-2) Urine WBC 5-10 /HPF (0-4) Urine Squamous Epithelial Cells Occ /LPF Urine Bacteria Many /HPF (0-FEW) Bedside Urine HCG, Qualitative Hcg negative (Negative) White Blood Count 6.2 x10^3/uL (4.0-11.0) Red Blood Count 4.56 x10^6/uL (3.50-5.40) Hemoglobin 12.2 g/dL (12.0-15.5) Hematocrit 39.0 % (36.0-47.0) Mean Corpuscular Volume 86 fL (79-100) Mean Corpuscular Hemoglobin 27 pg (25-35) Mean Corpuscular Hemoglobin Concent 31 g/dL (31-37) Red Cell Distribution Width 23.3 % (11.5-14.5) Platelet Count 266 x10^3/uL (140-400) Neutrophils (%) (Auto) 73 % (31-73) Lymphocytes (%) (Auto) 19 % (24-48) Monocytes (%) (Auto) 6 % (0-9) Eosinophils (%) (Auto) 1 % (0-3) Basophils (%) (Auto) 1 % (0-3) Neutrophils # (Auto) 4.5 x10^3/uL (1.8-7.7) Lymphocytes # (Auto) 1.2 x10^3/uL (1.0-4.8) Monocytes # (Auto) 0.4 x10^3/uL (0.0-1.1) Eosinophils # (Auto) 0.1 x10^3/uL (0.0-0.7) Basophils # (Auto) 0.0 x10^3/uL (0.0-0.2) Platelet Estimate Adequate (ADEQUATE) Anisocytosis Present Lactic Acid Level 1.4 mmol/L (0.4-2.0) Sodium Level 129 mmol/L (136-145) Potassium Level 4.9 mmol/L (3.5-5.1) Chloride Level 91 mmol/L (98-107) Carbon Dioxide Level 24 mmol/L (21-32) Anion Gap 14 (6-14) Blood Urea Nitrogen 22 mg/dL (7-20) Creatinine 0.9 mg/dL (0.6-1.0) Estimated GFR (Cockcroft-Gault) 69.7 BUN/Creatinine Ratio 24 (6-20) Glucose Level 696 mg/dL (70-99) Calcium Level 9.4 mg/dL (8.5-10.1) Phosphorus Level 5.2 mg/dL (2.6-4.7) Magnesium Level 2.0 mg/dL (1.8-2.4) Total Bilirubin 0.8 mg/dL (0.2-1.0) Aspartate Amino Transf (AST/SGOT) 82 U/L (15-37) Alanine Aminotransferase (ALT/SGPT) 115 U/L (14-59) Alkaline Phosphatase 137 U/L (46-116) Total Protein 7.8 g/dL (6.4-8.2) Albumin 3.5 g/dL (3.4-5.0) Albumin/Globulin Ratio 0.8 (1.0-1.7) Acetone Level Neg (NEG) Test 12/11/20 13:44 12/11/20 17:37 Bedside Venous pH 7.33 (7.32-7.42) Bedside Venous pCO2 48 mmHg (41-51) Bedside Venous pO2 106 mmHg (20-40) Venous Blood HCO3 25 mmol/L (24-28) POC Venous O2 Saturation (Kavon) 98 % Bedside FiO2 21.0 Glucose (Fingerstick) 423 mg/dL (70-99) VTE Prophylaxis Ordered VTE Prophylaxis Devices: No VTE Pharmacological Prophylaxi: Yes Assessment/Plan Assessment/Plan Hyperosmolar not ketotic state left toe infection, XRay concern for acute osteo, consult Ortho, check CRP in AM labs, broad IV abx, UTI, zosyn will cover Dm1, poor control, last A1c a 13.6 tobacco use disorder, cessation recommended Justifications for Admission Other Justification POOJA BLACKMAN MD Dec 11, 2020 18:16
[2020-12-11] MEDS ORDERED: POLYETHYLENE GLYCOL 3350 17 GM PACKET. PO ONE (18:30)
[2020-12-11] MEDS ORDERED: ENOXAPARIN 40 MG/0.4 ML SYRINGE. SQ ONE (18:30)
[2020-12-11 19:00] VITALS: BP 107/74
[2020-12-11] MEDS ORDERED: ASCORBIC ACID 500 MG TABLET PO ONE (19:15)
[2020-12-11] MEDS: ZINC SULFATE 220 MG CAPSULE. PO SCH (21:40)
[2020-12-11] MEDS: GABAPENTIN 300 MG CAPSULE. PO SCH (21:41)
[2020-12-11] MEDS: INSULIN GLARGINE SYRINGE. SQ SCH (21:44)
[2020-12-11 23:00] VITALS: BP 132/86
[2020-12-12] MEDS: PIPERACILLIN/TAZOBACTAM 3.375 GM in IV NORMAL SALINE 50ML 50 ML IV SCH ×4 (00:29→16:57)
[2020-12-12] MEDS: VANCOMYCIN 1 GM in IV NORMAL SALINE 250ML 250 ML IV SCH ×2 (02:02→14:29)
[2020-12-12] MEDS: oxyCODONE IR 5 MG TABLET PO PRN ×2 (03:07→18:31)
[2020-12-12 03:10] VITALS: BP 127/90
[2020-12-12 07:00] VITALS: BP 128/79
--- NOTE | 2020-12-12 07:47 | PDOC ---
[employer] PROGRESS NOTE Date of Service DOS: DATE: 12/12/20 TIME: 07:25 Chief Complaint Chief Complaint A/P: Hyperosmolar not ketotic state Left great toe infection - XRay concern for acute osteo, consult Ortho, check CRP in AM labs, broad IV abx, Right foot wound - appears superficial ulceration at 3rd MTP UTI, zosyn will cover Dm1, poor control, last A1c a 13.6 tobacco use disorder, cessation recommended History of Present Illness History of Present Illness Ms Gibson is a 40 yo F past medical history of diabetes presents the ED with complaints of abdominal pain, nausea, dry mouth, She was previously admitted here 09/26/[address] Vizcarra did I+D surg on her right second toe. She was here in September of this year, after injuring her right foot in a campfire. Dr. Chiang performed debridement, and pt left AMA the next day she reports good control of her blood sugars until three days ago, and now wildly high levels, 600 range. constipated and very dry, no change in urination. No vaccinated for COVID, does not have PCP care, takes 30 lantus, 9 aspart TID Febrile overnight. Notes that 2 and half months ago she "stabbed" her left great toe and split has widened and blistered since then now the top of her left foot is a little swollen as well. Otherwise no pain complaints. She does have a blister on the plantar aspect of her right foot.. MTP. No shortness of breath or chest pain glucose improved labs improved Vitals/I&O Vitals/I&O: Vital Signs Date Time Temp Pulse Resp B/P (MAP) Pulse Ox O2 Delivery O2 Flow Rate FiO2 12/12/20 03:46 18 100 Room Air 12/12/20 03:10 98.0 107 127/90 (102) 98.0 I & O 12/11/20 12/11/20 12/12/20 15:00 23:00 07:00 Intake Total 1500 ml 350 ml Balance 1500 ml 350 ml Physical Exam General: Alert, Oriented X3, Cooperative, No acute distress Lungs: Clear Abdomen: Normal bowel sounds, Soft Extremities: No clubbing, No edema, Other (tender foot area, pain) Skin: Other (left great toe red, swollen, second toe swollen great toe has open lesion, unable to see bone, did not probe) Labs Labs: Laboratory Tests Test 12/11/20 11:55 12/11/20 12:09 12/11/20 12:18 12/11/20 13:19 Urine Collection Type Unknown Urine Color Yellow Urine Clarity Clear Urine pH 6.5 (<5.0-8.0) Urine Specific [place] 1.025 (1.000-1.030) Urine Protein Negative mg/dL (NEG-TRACE) Urine Glucose (UA) >=1000 mg/dL (NEG) Urine Ketones (Stick) 15 mg/dL (NEG) Urine Blood Negative (NEG) Urine Nitrite Positive (NEG) Urine Bilirubin Negative (NEG) Urine Urobilinogen Dipstick 0.2 mg/dL (0.2 mg/dL) Urine Leukocyte Esterase Small (NEG) Urine RBC 0 /HPF (0-2) Urine WBC 5-10 /HPF (0-4) Urine Squamous Epithelial Cells Occ /LPF Urine Bacteria Many /HPF (0-FEW) Bedside Urine HCG, Qualitative Hcg negative (Negative) White Blood Count 6.2 x10^3/uL (4.0-11.0) Red Blood Count 4.56 x10^6/uL (3.50-5.40) Hemoglobin 12.2 g/dL (12.0-15.5) Hematocrit 39.0 % (36.0-47.0) Mean Corpuscular Volume 86 fL (79-100) Mean Corpuscular Hemoglobin 27 pg (25-35) Mean Corpuscular Hemoglobin Concent 31 g/dL (31-37) Red Cell Distribution Width 23.3 % (11.5-14.5) Platelet Count 266 x10^3/uL (140-400) Neutrophils (%) (Auto) 73 % (31-73) Lymphocytes (%) (Auto) 19 % (24-48) Monocytes (%) (Auto) 6 % (0-9) Eosinophils (%) (Auto) 1 % (0-3) Basophils (%) (Auto) 1 % (0-3) Neutrophils # (Auto) 4.5 x10^3/uL (1.8-7.7) Lymphocytes # (Auto) 1.2 x10^3/uL (1.0-4.8) Monocytes # (Auto) 0.4 x10^3/uL (0.0-1.1) Eosinophils # (Auto) 0.1 x10^3/uL (0.0-0.7) Basophils # (Auto) 0.0 x10^3/uL (0.0-0.2) Platelet Estimate Adequate (ADEQUATE) Anisocytosis Present Lactic Acid Level 1.4 mmol/L (0.4-2.0) Sodium Level 129 mmol/L (136-145) Potassium Level 4.9 mmol/L (3.5-5.1) Chloride Level 91 mmol/L (98-107) Carbon Dioxide Level 24 mmol/L (21-32) Anion Gap 14 (6-14) Blood Urea Nitrogen 22 mg/dL (7-20) Creatinine 0.9 mg/dL (0.6-1.0) Estimated GFR (Cockcroft-Gault) 69.7 BUN/Creatinine Ratio 24 (6-20) Glucose Level 696 mg/dL (70-99) Calcium Level 9.4 mg/dL (8.5-10.1) Phosphorus Level 5.2 mg/dL (2.6-4.7) Magnesium Level 2.0 mg/dL (1.8-2.4) Total Bilirubin 0.8 mg/dL (0.2-1.0) Aspartate Amino Transf (AST/SGOT) 82 U/L (15-37) Alanine Aminotransferase (ALT/SGPT) 115 U/L (14-59) Alkaline Phosphatase 137 U/L (46-116) Total Protein 7.8 g/dL (6.4-8.2) Albumin 3.5 g/dL (3.4-5.0) Albumin/Globulin Ratio 0.8 (1.0-1.7) Acetone Level Neg (NEG) Test 12/11/20 13:44 12/11/20 17:37 12/11/20 20:23 Bedside Venous pH 7.33 (7.32-7.42) Bedside Venous pCO2 48 mmHg (41-51) Bedside Venous pO2 106 mmHg (20-40) Venous Blood HCO3 25 mmol/L (24-28) POC Venous O2 Saturation (Kavon) 98 % Bedside FiO2 21.0 Glucose (Fingerstick) 423 mg/dL (70-99) 326 mg/dL (70-99) Assessment and Plan Assessmemt and Plan Problems Medical Problems: (1) Osteomyelitis of toe of left foot Status: Acute (2) Uncontrolled type 1 diabetes mellitus with hyperglycemia Status: Acute (3) UTI (urinary tract infection) Status: Acute Comment Review of Relevant I have reviewed the following items olena (where applicable) has been applied. Medications: Current Medications Medications (Trade) Dose Ordered Sig/Lucio Route PRN Reason Start Time Stop Time Status Last Admin Dose Admin Ondansetron HCl (Zofran) 4 mg 1X ONCE IVP 12/11/20 12:30 12/11/20 12:31 DC 12/11/20 12:39 Ketorolac Tromethamine (Toradol 15mg Vial) 15 mg 1X ONCE IVP 12/11/20 12:30 12/11/20 12:31 DC 12/11/20 12:40 Ringer's Solution 1,360 ml @ 1,000 mls/hr 1X ONCE IV 12/11/20 13:00 12/11/20 14:21 DC 12/11/20 12:52 Vancomycin HCl (Vanco Per Pharmacy) 1 each PRN DAILY PRN MC SEE COMMENTS 12/11/20 13:00 12/11/20 16:50 Ceftriaxone Sodium (Rocephin) 1 gm 1X ONCE IVP 12/11/20 13:00 12/11/20 13:01 DC 12/11/20 13:29 Vancomycin HCl 1.75 gm/Sodium Chloride 500 ml @ 250 mls/hr 1X ONCE IV 12/11/20 14:00 12/11/20 15:59 DC 12/11/20 13:38 Morphine Sulfate (Morphine Sulfate) 4 mg 1X ONCE IVP 12/11/20 14:15 12/11/20 14:16 DC 12/11/20 14:16 Ringer's Solution 1,000 ml @ 1,000 mls/hr 1X ONCE IV 12/11/20 14:30 12/11/20 15:29 DC 12/11/20 14:30 Vancomycin HCl 1 gm/Sodium Chloride 250 ml @ 250 mls/hr Q12H IV 12/12/20 02:00 12/12/20 02:02 Insulin Human Lispro (HumaLOG) 0-7 UNITS QIDACHS SQ 12/11/20 21:00 12/11/20 21:47 Gabapentin (Neurontin) 300 mg TID PO 12/11/20 21:00 12/11/20 21:41 Insulin Glargine (Lantus Syringe) 30 unit QHS SQ 12/11/20 21:00 12/11/20 21:44 Insulin Human Lispro (HumaLOG) 9 units TIDWMEALS SQ 12/11/20 18:00 12/11/20 18:09 Oxycodone HCl (Roxicodone) 5 mg PRN Q6HRS PRN PO PAIN 12/11/20 18:00 12/12/20 03:07 Piperacillin Sod/ Tazobactam Sod 3.375 gm/Sodium Chloride 50 ml @ 100 mls/hr Q6HRS IV 12/11/20 18:00 12/12/20 06:05 Polyethylene Glycol (miraLAX PACKET) 17 gm 1X ONCE PO 12/11/20 18:30 12/11/20 18:31 DC 12/11/20 21:40 Zinc Sulfate (Orazinc) 220 mg DAILY PO 12/11/20 19:15 12/11/20 21:40 Ascorbic Acid (Vitamin C) 500 mg 1X ONCE PO 12/11/20 19:15 12/11/20 19:17 DC 12/11/20 21:40 Justifications for Admission Other Justification COREY CAN MD Dec 12, 2020 07:47
[2020-12-12 08:08] LABS: CALCIUM 8.9 mg/dL (8.5-10.1); CREATININE 0.7 mg/dL (0.6-1.0); GFR 93.2; POTASSIUM 4.5 mmol/L (3.5-5.1)
[2020-12-12] MEDS: VANCOMYCIN PER PHARMACY MC PRN (08:18)
[2020-12-12] MEDS: GABAPENTIN 300 MG CAPSULE. PO SCH ×3 (08:21→21:34)
[2020-12-12] MEDS: ZINC SULFATE 220 MG CAPSULE. PO SCH (08:21)
[2020-12-12] MEDS: FOLIC/VIT B COMP W-C (RENAL) TABLET. PO SCH (08:21)
[2020-12-12] MEDS: CITALOPRAM 20 MG TABLET. PO SCH (08:21)
[2020-12-12] MEDS: INSULIN LISPRO 300 UNITS/3 ML VIAL. SQ SCH ×7 (08:24→21:00)
[2020-12-12] MEDS ORDERED: MAGNESIUM HYDROXIDE 2,400 MG/30 ML ORAL.SUSP. PO PRN (09:30)
[2020-12-12] MEDS ORDERED: ONDANSETRON PF 4 MG/2 ML VIAL. IVP PRN (09:30)
[2020-12-12 11:00] VITALS: BP 132/85
[2020-12-12] MEDS: POLYETHYLENE GLYCOL 3350 17 GM PACKET. PO SCH (12:09)
[2020-12-12] MEDS: NICOTINE 21MG PATCH. TD PRN (12:10)
--- NOTE | 2020-12-12 14:23 | RAD ---
EXAM: Left lower extremity arterial Doppler sonogram. HISTORY: Foot wound. Peripheral vascular disease. Atherosclerosis. TECHNIQUE: Barrios scale and color Doppler sonographic imaging of the lower extremity arteries with spec tral analysis was performed. COMPARISON: None. FINDINGS: There are normal triphasic and biphasic waveforms throughout the lower extremity arteries, with exception of a monophasic waveform within the deep femoral artery. There are normal peak systoli c velocities throughout the lower extremity arteries. IMPRESSION: 1. Monophasic waveform within the deep femoral artery. This can be seen with hemodynamically signific ant proximal stenosis. 2. No additional evidence of hemodynamically significant stenosis or occlusion involving the lower ex tremity arteries. Electronically signed by: Tegan Calvillo MD (12/12/2020 2:21 PM) [id number]
[2020-12-12 15:00] VITALS: BP 125/73
[2020-12-12 19:00] VITALS: BP 148/91
[2020-12-12] MEDS: PSYLLIUM HUSK (SUGAR FREE) 1 PKT PACKET PO SCH (21:00)
[2020-12-12] MEDS: INSULIN GLARGINE SYRINGE. SQ SCH (21:33)
[2020-12-12] MEDS: LACTOBACILLUS RHAMNOSUS GG 1 CAPSULE. PO SCH (21:33)
[2020-12-12 23:02] VITALS: BP 141/98
[2020-12-13] MEDS: PIPERACILLIN/TAZOBACTAM 3.375 GM in IV NORMAL SALINE 50ML 50 ML IV SCH ×4 (00:35→19:22)
[2020-12-13] MEDS: ZOLPIDEM 5 MG TABLET. PO PRN (00:35)
[2020-12-13] MEDS: VANCOMYCIN 1 GM in IV NORMAL SALINE 250ML 250 ML IV SCH (01:31)
[2020-12-13 07:00] VITALS: BP 119/70
--- NOTE | 2020-12-13 07:41 | PDOC ---
[employer] [facility] PROGRESS NOTE Date of Service DOS: DATE: 12/13/20 TIME: 07:35 Chief Complaint Chief Complaint A/P: Hyperosmolar not ketotic state Left great toe infection - XRay concern for acute osteo, consult Ortho, check CRP in AM labs, broad IV abx, Right foot wound - appears superficial ulceration at 3rd MTP UTI, zosyn will cover Dm1, poor control, last A1c a 13.6 tobacco use disorder, cessation recommended FEN - would go NPO after midnight History of Present Illness History of Present Illness Ms Gibson is a 40 yo F past medical history of diabetes presents the ED with complaints of abdominal pain, nausea, dry mouth, She was previously admitted here 09/26/[address] Vizcarra did I+D surg on her right second toe. She was here in September of this year, after injuring her right foot in a campfire. Dr. Chiang performed debridement, and pt left AMA the next day she reports good control of her blood sugars until three days ago, and now wildly high levels, 600 range. constipated and very dry, no change in urination. No vaccinated for COVID, does not have PCP care, takes 30 lantus, 9 aspart TID 12/12: Afebrile overnight. Notes that 2 and half months ago she "stabbed" her left great toe and split has widened and blistered since then now the top of her left foot is a little swollen as well. Otherwise no pain complaints. She does have a blister on the plantar aspect of her right foot.. MTP. No shortness of breath or chest pain glucose improved labs improved LLE arterial doppler with monophasic waveform within the deep femoral artery, possible proximal stenosis, no additional evidence of hemodynamically significant stenosis or occlusion. 12/13: Pain controlled. Afebrile overnight. Urine with e. coli. Glucose improved. No SOB or CP. Awaiting surgical eval. Vitals/I&O Vitals/I&O: Vital Signs Date Time Temp Pulse Resp B/P (MAP) Pulse Ox O2 Delivery O2 Flow Rate FiO2 12/12/20 23:02 97.6 111 20 141/98 (112) 100 Room Air 97.6 I & O 12/12/20 12/12/20 12/13/20 15:00 23:00 07:00 Intake Total 380 ml 420 ml Balance 380 ml 420 ml Physical Exam General: Alert, Oriented X3, Cooperative, No acute distress Lungs: Clear Abdomen: Normal bowel sounds, Soft Extremities: No clubbing, No edema, Other (tender foot area, pain) Skin: Other (left great toe red, swollen, second toe swollen great toe has open lesion, unable to see bone, did not probe) Labs Labs: Laboratory Tests Test 12/12/20 11:51 12/12/20 16:53 12/12/20 21:31 Glucose (Fingerstick) 99 mg/dL (70-99) 108 mg/dL (70-99) 126 mg/dL (70-99) Assessment and Plan Assessmemt and Plan Problems Medical Problems: (1) Osteomyelitis of toe of left foot Status: Acute (2) Uncontrolled type 1 diabetes mellitus with hyperglycemia Status: Acute (3) UTI (urinary tract infection) Status: Acute Comment Review of Relevant I have reviewed the following items olena (where applicable) has been applied. Medications: Current Medications Medications (Trade) Dose Ordered Sig/Lucio Route PRN Reason Start Time Stop Time Status Last Admin Dose Admin Citalopram Hydrobromide (CeleXA) 20 mg DAILY PO 12/12/20 09:00 12/12/20 08:21 Vitamin B Complex/ Vitamin C (Loreta-Shyann) 1 tab DAILY PO 12/12/20 09:00 12/12/20 08:21 Polyethylene Glycol (miraLAX PACKET) 17 gm DAILY PO 12/12/20 09:30 12/12/20 12:09 Nicotine (Nicoderm Cq 21mg) 1 patch PRN DAILY PRN TD SMOKING CESSATION 12/12/20 10:30 12/12/20 12:10 Lactobacillus Rhamnosus (Culturelle) 1 cap BID PO 12/12/20 21:00 12/12/20 21:33 Justifications for Admission Other Justification COREY CAN MD Dec 13, 2020 07:41
[2020-12-13] MEDS: GABAPENTIN 300 MG CAPSULE. PO SCH ×3 (08:52→21:07)
[2020-12-13] MEDS: CITALOPRAM 20 MG TABLET. PO SCH (08:53)
[2020-12-13] MEDS: POLYETHYLENE GLYCOL 3350 17 GM PACKET. PO SCH (08:53)
[2020-12-13] MEDS: LACTOBACILLUS RHAMNOSUS GG 1 CAPSULE. PO SCH ×2 (08:53→21:06)
[2020-12-13] MEDS: ZINC SULFATE 220 MG CAPSULE. PO SCH (08:53)
[2020-12-13] MEDS: FOLIC/VIT B COMP W-C (RENAL) TABLET. PO SCH (08:53)
[2020-12-13] MEDS: INSULIN LISPRO 300 UNITS/3 ML VIAL. SQ SCH ×7 (08:58→21:00)
[2020-12-13 11:00] VITALS: BP 129/81
[2020-12-13 13:21] LABS: BASO # 0.1 x10^3/uL (0.0-0.2); BASO % 1 % (0-3); EOS # 0.2 x10^3/uL (0.0-0.7); EOS % 2 % (0-3); HEMATOCRIT 40.6 % (36.0-47.0); HEMOGLOBIN 12.9 g/dL (12.0-15.5); LYMPH # 2.2 x10^3/uL (1.0-4.8); LYMPH % 22 % (24-48); MEAN CORPUSCULAR HEMOGLOBIN 27 pg (25-35); MEAN CORPUSCULAR HGB CONC 32 g/dL (31-37); MEAN CORPUSCULAR VOLUME 84 fL (79-100); MONO # 0.6 x10^3/uL (0.0-1.1); MONO % 6 % (0-9); NEUT # 6.9 x10^3/uL (1.8-7.7); NEUT % 69 % (31-73); PLATELET COUNT 263 x10^3/uL (140-400); RED BLOOD COUNT 4.82 x10^6/uL (3.50-5.40); RED CELL DISTRIBUTION WIDTH 23.9 % (11.5-14.5)
[2020-12-13 13:41] LABS: ALBUMIN 3.4 g/dL (3.4-5.0); ALBUMIN/GLOBULIN RATIO 0.7 (1.0-1.7); CALCIUM 9.2 mg/dL (8.5-10.1); CREATININE 0.7 mg/dL (0.6-1.0); GFR 93.2; POTASSIUM 3.9 mmol/L (3.5-5.1); TOTAL BILIRUBIN 0.2 mg/dL (0.2-1.0); TOTAL PROTEIN 8.1 g/dL (6.4-8.2); VANC TR 12.3 mcg/mL (10.0-20.0)
[2020-12-13] MEDS: VANCOMYCIN PER PHARMACY MC PRN (14:42)
--- NOTE | 2020-12-13 14:46 | NUR ---
Pharmacy Vancomycin Dosing Note S: Consulted to monitor and dose vancomycin started 12/11/20. O: FLORESITA JORGE is a 40 year old F with Osteomyelitis. Other Antibiotics: ZOSYN LABS: Last BUN: 12 Last Creatinine: 0.7 Creatinine Clearance: > 100 mL/min Last WBC: 10.0 Tmax (past 24 hours): 98 Microbiology: 12/11: L big toe culture: s.aureus Drug Levels: Last Trough level: 12.3 on 12/13/20 at 1315 Last dose given 12/13/20 at 0130 Target Trough: 15-20 A: Based on: VANCO dosing guidelines P: 1. Change Vancomycin to 1250 mg IV q12h 2. Follow up Trough level in 5-7 days or if renal function changes 3. Pharmacy will continue to monitor, follow and adjust therapy as needed. TUHAN STEWARD, [facility], 12/13/20 [id number]
[2020-12-13 15:00] VITALS: BP 129/91
[2020-12-13] MEDS: oxyCODONE IR 5 MG TABLET PO PRN (16:32)
[2020-12-13] MEDS: VANCOMYCIN 1.25 GM in IV NORMAL SALINE 250ML 250 ML IV SCH (17:29)
[2020-12-13] MEDS ORDERED: INSULIN LISPRO 300 UNITS/3 ML VIAL. SQ ONE (18:00)
[2020-12-13 19:00] VITALS: BP 127/85
[2020-12-13] MEDS: PSYLLIUM HUSK (SUGAR FREE) 1 PKT PACKET PO SCH (19:39)
[2020-12-13] MEDS: INSULIN GLARGINE SYRINGE. SQ SCH (21:07)
[2020-12-13 23:01] VITALS: BP 143/92
[2020-12-14] MEDS: PIPERACILLIN/TAZOBACTAM 3.375 GM in IV NORMAL SALINE 50ML 50 ML IV SCH ×5 (01:01→23:32)
[2020-12-14] MEDS: ZOLPIDEM 5 MG TABLET. PO PRN ×2 (01:10→23:45)
[2020-12-14] MEDS: oxyCODONE IR 5 MG TABLET PO PRN ×3 (01:10→20:53)
[2020-12-14 03:10] VITALS: BP 151/96
[2020-12-14] MEDS: VANCOMYCIN 1.25 GM in IV NORMAL SALINE 250ML 250 ML IV SCH ×2 (03:32→14:33)
--- NOTE | 2020-12-14 05:01 | NUR ---
Pt. was smoking an e-cig in the [place]. Explained to pt. the they are not allowed and offered a nicotine patch. She stated that she understood. Took e-cig away and put it in her bin in the med room.
[2020-12-14] MEDS: NICOTINE 21MG PATCH. TD PRN (05:42)
[2020-12-14 07:00] VITALS: BP 147/96
[2020-12-14] MEDS: ZINC SULFATE 220 MG CAPSULE. PO SCH (08:31)
[2020-12-14] MEDS: LACTOBACILLUS RHAMNOSUS GG 1 CAPSULE. PO SCH ×2 (08:31→20:53)
[2020-12-14] MEDS: FOLIC/VIT B COMP W-C (RENAL) TABLET. PO SCH (08:31)
[2020-12-14] MEDS: GABAPENTIN 300 MG CAPSULE. PO SCH ×3 (08:31→20:53)
[2020-12-14] MEDS: CITALOPRAM 20 MG TABLET. PO SCH (08:32)
[2020-12-14 08:33] LABS: BASO % 1 % (0-3); EOS # 0.2 x10^3/uL (0.0-0.7); EOS % 3 % (0-3); HEMATOCRIT 36.4 % (36.0-47.0); HEMOGLOBIN 11.4 g/dL (12.0-15.5); LYMPH # 1.8 x10^3/uL (1.0-4.8); LYMPH % 30 % (24-48); MEAN CORPUSCULAR HEMOGLOBIN 27 pg (25-35); MEAN CORPUSCULAR HGB CONC 31 g/dL (31-37); MEAN CORPUSCULAR VOLUME 87 fL (79-100); MONO # 0.4 x10^3/uL (0.0-1.1); MONO % 7 % (0-9); NEUT # 3.6 x10^3/uL (1.8-7.7); NEUT % 60 % (31-73); PLATELET COUNT 208 x10^3/uL (140-400); RED BLOOD COUNT 4.19 x10^6/uL (3.50-5.40); RED CELL DISTRIBUTION WIDTH 23.7 % (11.5-14.5)
[2020-12-14] MEDS: INSULIN LISPRO 300 UNITS/3 ML VIAL. SQ SCH ×7 (08:35→20:10)
[2020-12-14] MEDS: POLYETHYLENE GLYCOL 3350 17 GM PACKET. PO SCH (08:36)
[2020-12-14 08:51] LABS: ALBUMIN 3.2 g/dL (3.4-5.0); ALBUMIN/GLOBULIN RATIO 0.8 (1.0-1.7); CALCIUM 8.6 mg/dL (8.5-10.1); CREATININE 0.7 mg/dL (0.6-1.0); GFR 93.2; POTASSIUM 4.3 mmol/L (3.5-5.1); TOTAL BILIRUBIN 0.3 mg/dL (0.2-1.0); TOTAL PROTEIN 7.3 g/dL (6.4-8.2)
[2020-12-14 11:00] VITALS: BP 125/81
--- NOTE | 2020-12-14 11:01 | PDOC ---
[employer] [facility] PROGRESS NOTE Date of Service DOS: DATE: 12/14/20 TIME: 10:48 Chief Complaint Chief Complaint Hyperosmolar not ketotic state Left Toe osteomyelitis Right foot wound UTI DM1 (poorly controlled) tobacco use disorder Hx of substance abuse disorder History of Present Illness History of Present Illness 12/14 Patient seen and examined Pt up in chair, comfortable Feet examined, Left toe bandaged (clean, dry, intact) Discussed plans for surgery evaluation Pt has no complaints at time of exam Chart reviewed Discussed case with RN and SW 12/13: Pain controlled. Afebrile overnight. Urine with e. coli. Glucose improved. No SOB or CP. Awaiting surgical eval. 12/12: Afebrile overnight. Notes that 2 and half months ago she "stabbed" her left great toe and split has widened and blistered since then now the top of her left foot is a little swollen as well. Otherwise no pain complaints. She does have a blister on the plantar aspect of her right foot.. MTP. No shortness of breath or chest pain glucose improved labs improved LLE arterial doppler with monophasic waveform within the deep femoral artery, possible proximal stenosis, no additional evidence of hemodynamically significant stenosis or occlusion. Vitals/I&O Vitals/I&O: Vital Signs Date Time Temp Pulse Resp B/P (MAP) Pulse Ox O2 Delivery O2 Flow Rate FiO2 12/14/20 10:39 98 Room Air 12/14/20 07:00 98.1 111 20 147/96 (113) 98.1 I & O 12/13/20 12/13/20 12/14/20 15:00 23:00 07:00 Intake Total 440 ml 220 ml 350 ml Balance 440 ml 220 ml 350 ml Physical Exam General: Alert, Oriented X3, Cooperative, No acute distress Heart: Regular rate, Normal S1, Normal S2 Lungs: Clear Abdomen: Normal bowel sounds, Soft Extremities: No clubbing, No edema, Other (tender foot area, pain) Skin: Other (left great toe red, swollen, second toe swollen great toe has open lesion, unable to see bone, did not probe) Labs Labs: Laboratory Tests Test 12/13/20 11:54 12/13/20 13:15 12/13/20 16:50 12/13/20 20:29 Glucose (Fingerstick) 82 mg/dL (70-99) 384 mg/dL (70-99) 123 mg/dL (70-99) White Blood Count 10.0 x10^3/uL (4.0-11.0) Red Blood Count 4.82 x10^6/uL (3.50-5.40) Hemoglobin 12.9 g/dL (12.0-15.5) Hematocrit 40.6 % (36.0-47.0) Mean Corpuscular Volume 84 fL (79-100) Mean Corpuscular Hemoglobin 27 pg (25-35) Mean Corpuscular Hemoglobin Concent 32 g/dL (31-37) Red Cell Distribution Width 23.9 % (11.5-14.5) Platelet Count 263 x10^3/uL (140-400) Neutrophils (%) (Auto) 69 % (31-73) Lymphocytes (%) (Auto) 22 % (24-48) Monocytes (%) (Auto) 6 % (0-9) Eosinophils (%) (Auto) 2 % (0-3) Basophils (%) (Auto) 1 % (0-3) Neutrophils # (Auto) 6.9 x10^3/uL (1.8-7.7) Lymphocytes # (Auto) 2.2 x10^3/uL (1.0-4.8) Monocytes # (Auto) 0.6 x10^3/uL (0.0-1.1) Eosinophils # (Auto) 0.2 x10^3/uL (0.0-0.7) Basophils # (Auto) 0.1 x10^3/uL (0.0-0.2) Sodium Level 138 mmol/L (136-145) Potassium Level 3.9 mmol/L (3.5-5.1) Chloride Level 102 mmol/L (98-107) Carbon Dioxide Level 21 mmol/L (21-32) Anion Gap 15 (6-14) Blood Urea Nitrogen 12 mg/dL (7-20) Creatinine 0.7 mg/dL (0.6-1.0) Estimated GFR (Cockcroft-Gault) 93.2 BUN/Creatinine Ratio 17 (6-20) Glucose Level 107 mg/dL (70-99) Calcium Level 9.2 mg/dL (8.5-10.1) Total Bilirubin 0.2 mg/dL (0.2-1.0) Aspartate Amino Transf (AST/SGOT) 231 U/L (15-37) Alanine Aminotransferase (ALT/SGPT) 169 U/L (14-59) Alkaline Phosphatase 121 U/L (46-116) Total Protein 8.1 g/dL (6.4-8.2) Albumin 3.4 g/dL (3.4-5.0) Albumin/Globulin Ratio 0.7 (1.0-1.7) Vancomycin Level Trough 12.3 mcg/mL (10.0-20.0) Vancomycin Last Dose Date 12/12/20 Vancomycin Last Dose Time 0200 Test 12/14/20 07:31 12/14/20 08:10 Glucose (Fingerstick) 383 mg/dL (70-99) White Blood Count 6.0 x10^3/uL (4.0-11.0) Red Blood Count 4.19 x10^6/uL (3.50-5.40) Hemoglobin 11.4 g/dL (12.0-15.5) Hematocrit 36.4 % (36.0-47.0) Mean Corpuscular Volume 87 fL (79-100) Mean Corpuscular Hemoglobin 27 pg (25-35) Mean Corpuscular Hemoglobin Concent 31 g/dL (31-37) Red Cell Distribution Width 23.7 % (11.5-14.5) Platelet Count 208 x10^3/uL (140-400) Neutrophils (%) (Auto) 60 % (31-73) Lymphocytes (%) (Auto) 30 % (24-48) Monocytes (%) (Auto) 7 % (0-9) Eosinophils (%) (Auto) 3 % (0-3) Basophils (%) (Auto) 1 % (0-3) Neutrophils # (Auto) 3.6 x10^3/uL (1.8-7.7) Lymphocytes # (Auto) 1.8 x10^3/uL (1.0-4.8) Monocytes # (Auto) 0.4 x10^3/uL (0.0-1.1) Eosinophils # (Auto) 0.2 x10^3/uL (0.0-0.7) Basophils # (Auto) 0.0 x10^3/uL (0.0-0.2) Sodium Level 134 mmol/L (136-145) Potassium Level 4.3 mmol/L (3.5-5.1) Chloride Level 100 mmol/L (98-107) Carbon Dioxide Level 27 mmol/L (21-32) Anion Gap 7 (6-14) Blood Urea Nitrogen 13 mg/dL (7-20) Creatinine 0.7 mg/dL (0.6-1.0) Estimated GFR (Cockcroft-Gault) 93.2 BUN/Creatinine Ratio 19 (6-20) Glucose Level 374 mg/dL (70-99) Calcium Level 8.6 mg/dL (8.5-10.1) Total Bilirubin 0.3 mg/dL (0.2-1.0) Aspartate Amino Transf (AST/SGOT) 186 U/L (15-37) Alanine Aminotransferase (ALT/SGPT) 183 U/L (14-59) Alkaline Phosphatase 115 U/L (46-116) Total Protein 7.3 g/dL (6.4-8.2) Albumin 3.2 g/dL (3.4-5.0) Albumin/Globulin Ratio 0.8 (1.0-1.7) Review of Systems Review of Systems: ROS negative Assessment and Plan Assessmemt and Plan Problems Medical Problems: (1) Osteomyelitis of toe of left foot Status: Acute (2) Uncontrolled type 1 diabetes mellitus with hyperglycemia Status: Acute (3) UTI (urinary tract infection) Status: Acute Hyperosmolar not ketotic state Left Toe osteomyelitis Right foot wound UTI DM1 (poorly controlled) tobacco use disorder Hx of substance abuse disorder Plan Podiatry, Ortho, and WC consulted, input appreciated Pt to go to surgery today or tomorrow Continue IV Abx Trend labs PT/OT consulted Tobacco cessation encouraged NPO (possible surgery) DVT prophylaxis (consider SCDs d/t possible surgery) Full Code Discharge Disposition pending subspecialist input Comment Review of Relevant I have reviewed the following items olena (where applicable) has been applied. Medications: Current Medications Medications (Trade) Dose Ordered Sig/Lucio Route PRN Reason Start Time Stop Time Status Last Admin Dose Admin Vancomycin HCl (Vancomycin Trough Level) 1 each 1X ONCE MC 12/13/20 13:30 12/13/20 13:31 DC 12/13/20 13:30 Vancomycin HCl 1.25 gm/Sodium Chloride 250 ml @ 167 mls/hr Q12H IV 12/13/20 15:00 12/14/20 03:32 Insulin Human Lispro (HumaLOG) 20 units 1X ONCE SQ 12/13/20 18:00 12/13/20 18:01 DC 12/13/20 17:47 Justifications for Admission Other Justification JB THAPA III DO Dec 14, 2020 11:01
--- NOTE | 2020-12-14 12:00 | NUR ---
SS following for discharge planning. SS reviewed pt chart and discussed with pt RN. Pt is from home and is currently on room air. Self pay. Med Assist following. Dr. Boggs in Ortho consulted. Pt on IV Vancomycin and IV Zosyn. PT/OT ordered. SS will continue to follow for discharge planning.
[2020-12-14] MEDS: ASCORBIC ACID 500 MG TABLET PO SCH (12:01)
[2020-12-14] MEDS: VANCOMYCIN PER PHARMACY MC PRN (12:15)
[2020-12-14 15:00] VITALS: BP 143/86
--- NOTE | 2020-12-14 15:33 | NUR ---
Wound/Ostomy Care Wound Type/Assessment: Wound care consult for Left great toe and right plantar foot wounds. Dr Boggs consulted but has not seen patient yet. Cleansed and redressed wound. Left great toe is s/p toe nail removal and right plantar foot is closed. Treatment Recommendations/Plan: Cleanse wounds, applied xeroform and kerlix for great toe, recommend to change every 2 days. Covered right plantar foot with telfa. Education provided: WC POC and PU prevention. Offloading surface/device: offload with pillows Recommended Referrals/Tests: awaiting Dr Boggs assessment Discharge Recommendations for dressings: see above
[2020-12-14 19:00] VITALS: BP 143/92
[2020-12-14] MEDS: PSYLLIUM HUSK (SUGAR FREE) 1 PKT PACKET PO SCH (20:54)
[2020-12-14] MEDS: INSULIN GLARGINE SYRINGE. SQ SCH (21:00)
[2020-12-14 22:43] VITALS: BP 148/89
[2020-12-15] MEDS: VANCOMYCIN 1.25 GM in IV NORMAL SALINE 250ML 250 ML IV SCH ×2 (02:34→15:00)
--- NOTE | 2020-12-15 04:30 | NUR ---
Pt's IV to right hand infiltrated shortly after vanco administration. Attempted to start another IV. Poor venous access noted. Pt. refusing to let anyone attempt another IV after 2 trys. Will let MD know and see if he wants any terminal block assembler access at this point. Right hand red and swollen. Offered ice or heat pack. Denies at this time.
[2020-12-15] MEDS: PIPERACILLIN/TAZOBACTAM 3.375 GM in IV NORMAL SALINE 50ML 50 ML IV SCH (05:44)
[2020-12-15 07:00] VITALS: BP 118/63
--- NOTE | 2020-12-15 07:04 | NUR ---
Dr. Hernandez ordered PICC line placement. Santiago RN notified of order and she will notify nursing loss prevention supervisor.
[2020-12-15 07:41] LABS: BASO % 1 % (0-3); EOS # 0.2 x10^3/uL (0.0-0.7); EOS % 4 % (0-3); HEMATOCRIT 34.6 % (36.0-47.0); HEMOGLOBIN 10.9 g/dL (12.0-15.5); LYMPH # 2.4 x10^3/uL (1.0-4.8); LYMPH % 36 % (24-48); MEAN CORPUSCULAR HEMOGLOBIN 27 pg (25-35); MEAN CORPUSCULAR HGB CONC 32 g/dL (31-37); MEAN CORPUSCULAR VOLUME 86 fL (79-100); MONO # 0.7 x10^3/uL (0.0-1.1); MONO % 10 % (0-9); NEUT # 3.4 x10^3/uL (1.8-7.7); NEUT % 50 % (31-73); PLATELET COUNT 196 x10^3/uL (140-400); RED BLOOD COUNT 4.05 x10^6/uL (3.50-5.40); RED CELL DISTRIBUTION WIDTH 23.5 % (11.5-14.5); WHITE BLOOD COUNT 6.8 x10^3/uL (4.0-11.0)
[2020-12-15 08:14] LABS: CREATININE 0.8 mg/dL (0.6-1.0); GFR 79.9; POTASSIUM 4.7 mmol/L (3.5-5.1)
[2020-12-15] MEDS: POLYETHYLENE GLYCOL 3350 17 GM PACKET. PO SCH (09:00)
[2020-12-15] MEDS: LACTOBACILLUS RHAMNOSUS GG 1 CAPSULE. PO SCH ×2 (09:13→20:23)
[2020-12-15] MEDS: GABAPENTIN 300 MG CAPSULE. PO SCH ×3 (09:13→20:23)
[2020-12-15] MEDS: ZINC SULFATE 220 MG CAPSULE. PO SCH (09:13)
[2020-12-15] MEDS: FOLIC/VIT B COMP W-C (RENAL) TABLET. PO SCH (09:13)
[2020-12-15] MEDS: CITALOPRAM 20 MG TABLET. PO SCH (09:13)
[2020-12-15] MEDS: ASCORBIC ACID 500 MG TABLET PO SCH (09:13)
[2020-12-15] MEDS: NICOTINE 21MG PATCH. TD PRN (09:14)
[2020-12-15] MEDS: INSULIN LISPRO 300 UNITS/3 ML VIAL. SQ SCH ×7 (09:27→21:00)
[2020-12-15] MEDS: VANCOMYCIN PER PHARMACY MC PRN (10:52)
--- NOTE | 2020-12-15 10:55 | PDOC ---
[facility] PROGRESS NOTE Date of Service DOS: DATE: 12/15/20 TIME: 10:48 Chief Complaint Chief Complaint Hyperosmolar not ketotic state Left Toe osteomyelitis Right foot wound UTI DM1 (poorly controlled) tobacco use disorder Hx of substance abuse disorder History of Present Illness History of Present Illness 12/15 Patient seen and examined at bedside Chart reviewed Pt afebrile overnight Pt's blood sugar elevated on fingerstick today Pt resting comfortably at time of exam, NAD Pt going for PICC placement today Foot examined SCARLETRBrennan 12/14 Patient seen and examined Pt up in chair, comfortable Feet examined, Left toe bandaged (clean, dry, intact) Discussed plans for surgery evaluation Pt has no complaints at time of exam Chart reviewed Discussed case with RN and PERCY 12/13: Pain controlled. Afebrile overnight. Urine with e. coli. Glucose improved. No SOB or CP. Awaiting surgical eval. 12/12: Afebrile overnight. Notes that 2 and half months ago she "stabbed" her left great toe and split has widened and blistered since then now the top of her left foot is a little swollen as well. Otherwise no pain complaints. She does have a blister on the plantar aspect of her right foot.. MTP. No shortness of breath or chest pain glucose improved labs improved LLE arterial doppler with monophasic waveform within the deep femoral artery, possible proximal stenosis, no additional evidence of hemodynamically significant stenosis or occlusion. Vitals/I&O Vitals/I&O: Vital Signs Date Time Temp Pulse Resp B/P (MAP) Pulse Ox O2 Delivery O2 Flow Rate FiO2 12/15/20 07:00 98.0 112 14 118/63 (81) 97 Room Air 98.0 I & O 12/14/20 12/14/20 12/15/20 15:00 23:00 07:00 Intake Total 480 ml 590 ml 1340 ml Balance 480 ml 590 ml 1340 ml Physical Exam General: Alert, Oriented X3, Cooperative, No acute distress Heart: Regular rate, Normal S1, Normal S2 Lungs: Clear Abdomen: Normal bowel sounds, Soft Extremities: No clubbing, No edema, Other (tender foot area, pain) Skin: Other (left great toe red, swollen, second toe swollen great toe has open lesion, unable to see bone, did not probe) Labs Labs: Laboratory Tests Test 12/14/20 11:28 12/14/20 16:17 12/14/20 18:37 12/15/20 07:00 Glucose (Fingerstick) 122 mg/dL (70-99) 185 mg/dL (70-99) 78 mg/dL (70-99) White Blood Count 6.8 x10^3/uL (4.0-11.0) Red Blood Count 4.05 x10^6/uL (3.50-5.40) Hemoglobin 10.9 g/dL (12.0-15.5) Hematocrit 34.6 % (36.0-47.0) Mean Corpuscular Volume 86 fL (79-100) Mean Corpuscular Hemoglobin 27 pg (25-35) Mean Corpuscular Hemoglobin Concent 32 g/dL (31-37) Red Cell Distribution Width 23.5 % (11.5-14.5) Platelet Count 196 x10^3/uL (140-400) Neutrophils (%) (Auto) 50 % (31-73) Lymphocytes (%) (Auto) 36 % (24-48) Monocytes (%) (Auto) 10 % (0-9) Eosinophils (%) (Auto) 4 % (0-3) Basophils (%) (Auto) 1 % (0-3) Neutrophils # (Auto) 3.4 x10^3/uL (1.8-7.7) Lymphocytes # (Auto) 2.4 x10^3/uL (1.0-4.8) Monocytes # (Auto) 0.7 x10^3/uL (0.0-1.1) Eosinophils # (Auto) 0.2 x10^3/uL (0.0-0.7) Basophils # (Auto) 0.0 x10^3/uL (0.0-0.2) Sodium Level 135 mmol/L (136-145) Potassium Level 4.7 mmol/L (3.5-5.1) Chloride Level 102 mmol/L (98-107) Carbon Dioxide Level 26 mmol/L (21-32) Anion Gap 7 (6-14) Blood Urea Nitrogen 15 mg/dL (7-20) Creatinine 0.8 mg/dL (0.6-1.0) Estimated GFR (Cockcroft-Gault) 79.9 Glucose Level 417 mg/dL (70-99) Calcium Level 9.0 mg/dL (8.5-10.1) Test 12/15/20 07:44 Glucose (Fingerstick) 376 mg/dL (70-99) Review of Systems Review of Systems: ROS negative Assessment and Plan Assessmemt and Plan Problems Medical Problems: (1) Osteomyelitis of toe of left foot Status: Acute (2) Uncontrolled type 1 diabetes mellitus with hyperglycemia Status: Acute (3) UTI (urinary tract infection) Status: Acute Hyperosmolar not ketotic state Left Toe osteomyelitis Right foot wound UTI DM1 (poorly controlled) tobacco use disorder Hx of substance abuse disorder Plan Podiatry, Ortho, and WC consulted, input appreciated Pt having PICC placed today Continue IV Abx Restarted home meds as indicated Trend labs PT/OT consulted Tobacco cessation encouraged NPO (possible surgery) DVT prophylaxis (consider SCDs d/t possible surgery) Full Code Discharge Disposition pending subspecialist input Comment Review of Relevant I have reviewed the following items olena (where applicable) has been applied. Medications: Current Medications Medications (Trade) Dose Ordered Sig/Lucio Route PRN Reason Start Time Stop Time Status Last Admin Dose Admin Ascorbic Acid (Vitamin C) 500 mg DAILY PO 12/14/20 11:30 12/15/20 09:13 Justifications for Admission Other Justification JB THAPA III DO Dec 15, 2020 10:55
[2020-12-15 11:00] VITALS: BP 122/65
--- NOTE | 2020-12-15 11:22 | NUR ---
Allergies and reactions NKDA INR BUN 15 Cr 0.8 Platelets 196 Blood culture done Y blood culture results Negative 12/11/20 Order Verified Y Consent signed Y Previous PICC placement Y Past Medical/Surgical history and current diagnosis reviewed Y Patient Medical /Surgical History Related to PICC line placement Diabetes Infectious Disease consult Special considerations for PICC line placement None PICC placement indication cargo agent antibiotic usage Tiff Lee RN name of PICC Nurse
--- NOTE | 2020-12-15 11:38 | NUR ---
SW following. Discussed with RN, pt from home, room air, ada diet. Pt getting PICC line placed today. Some discussion about possible amputation of toe. Med Assist following for self pay status. SW will continue to follow.
--- NOTE | 2020-12-15 12:16 | NUR ---
Procedure: Following complete explanation of the PICC procedure including the indications, risks, and potential complications, informed consent was obtained. The possibility for infection was discussed along with signs, symptoms, and prevention. All the questions were answered. Written and verbal patient education was provided. Hand hygiene performed. Standardized central line checklist was utilized. The patient was placed in the supine position, the arm was prepped with chlorhexidine and patient draped with maximum sterile barrier. 4 mL 1% lidocaine was infiltrated into the skin to provide local anesthesia. A thorough assessment of right upper extremity completed. Using real-time ultrasound guidance and standardized micro puncture set, the brachial vein was punctured and a peel away sheath was placed using the modified Seldinger technique. A tip location device was used to ensure adequate catheter placement. The catheter was secured using a securement device and an antimicrobial patch was applied directly on the insertion site followed by a transparent dressing. All ports withdraw blood and flush without resistance. Patient tolerated the procedure without apparent complication(s). Single Lumen Power PICC placement successful and uncomplicated. Placement verified by EKG tip confirmation system and/or chest x-ray. Tip located in the CAJ/SVC Complications: None
[2020-12-15] MEDS: cefTRIAXone IV Push 1 GM VIAL. IVP SCH (13:53)
[2020-12-15] MEDS: oxyCODONE IR 5 MG TABLET PO PRN ×2 (14:07→20:23)
[2020-12-15 15:00] VITALS: BP 136/89
[2020-12-15 19:00] VITALS: BP 121/80
[2020-12-15] MEDS: PSYLLIUM HUSK (SUGAR FREE) 1 PKT PACKET PO SCH (20:23)
[2020-12-15] MEDS: INSULIN GLARGINE SYRINGE. SQ SCH (22:20)
[2020-12-15 23:00] VITALS: BP 118/75
[2020-12-16 03:00] VITALS: BP 104/53
[2020-12-16] MEDS: VANCOMYCIN 1.25 GM in IV NORMAL SALINE 250ML 250 ML IV SCH ×2 (03:38→14:39)
[2020-12-16 04:02] LABS: BASO % 1 % (0-3); EOS # 0.2 x10^3/uL (0.0-0.7); EOS % 2 % (0-3); HEMATOCRIT 33.9 % (36.0-47.0); HEMOGLOBIN 10.8 g/dL (12.0-15.5); LYMPH # 1.7 x10^3/uL (1.0-4.8); LYMPH % 22 % (24-48); MEAN CORPUSCULAR HEMOGLOBIN 27 pg (25-35); MEAN CORPUSCULAR HGB CONC 32 g/dL (31-37); MEAN CORPUSCULAR VOLUME 85 fL (79-100); MONO # 0.4 x10^3/uL (0.0-1.1); MONO % 5 % (0-9); NEUT # 5.2 x10^3/uL (1.8-7.7); NEUT % 70 % (31-73); PLATELET COUNT 163 x10^3/uL (140-400); RED BLOOD COUNT 3.99 x10^6/uL (3.50-5.40); RED CELL DISTRIBUTION WIDTH 23.3 % (11.5-14.5); WHITE BLOOD COUNT 7.5 x10^3/uL (4.0-11.0)
[2020-12-16] MEDS: oxyCODONE IR 5 MG TABLET PO PRN ×3 (04:08→21:03)
[2020-12-16 04:12] LABS: CALCIUM 8.5 mg/dL (8.5-10.1); CREATININE 0.8 mg/dL (0.6-1.0); GFR 79.9; POTASSIUM 4.8 mmol/L (3.5-5.1)
[2020-12-16 07:15] VITALS: BP 90/47
[2020-12-16] MEDS: ASCORBIC ACID 500 MG TABLET PO SCH (08:47)
[2020-12-16] MEDS: CITALOPRAM 20 MG TABLET. PO SCH (08:47)
[2020-12-16] MEDS: LACTOBACILLUS RHAMNOSUS GG 1 CAPSULE. PO SCH ×2 (08:47→20:50)
[2020-12-16] MEDS: FOLIC/VIT B COMP W-C (RENAL) TABLET. PO SCH (08:47)
[2020-12-16] MEDS: GABAPENTIN 300 MG CAPSULE. PO SCH ×3 (08:47→20:50)
[2020-12-16] MEDS: ZINC SULFATE 220 MG CAPSULE. PO SCH (08:47)
[2020-12-16] MEDS: POLYETHYLENE GLYCOL 3350 17 GM PACKET. PO SCH (08:52)
[2020-12-16] MEDS: INSULIN LISPRO 300 UNITS/3 ML VIAL. SQ SCH ×7 (08:52→21:00)
--- NOTE | 2020-12-16 09:12 | PDOC ---
[facility] PROGRESS NOTE Date of Service DOS: DATE: 12/16/20 TIME: 09:02 Chief Complaint Chief Complaint Hyperosmolar not ketotic state Left Toe osteomyelitis Right foot wound UTI DM1 (poorly controlled) tobacco use disorder Hx of substance abuse disorder History of Present Illness History of Present Illness 12/16: Pt was seen, examined, and their chart was reviewed. Pt was sleeping when we visited and her PICC placement was successful yesterday. Pt's blood sugar continues to be elevated today. Discussed with RN and PERCY. 12/15 Patient seen and examined at bedside Chart reviewed Pt afebrile overnight Pt's blood sugar elevated on fingerstick today Pt resting comfortably at time of exam, NAD Pt going for PICC placement today Foot examined DWRYamil and PERCY 12/14 Patient seen and examined Pt up in chair, comfortable Feet examined, Left toe bandaged (clean, dry, intact) Discussed plans for surgery evaluation Pt has no complaints at time of exam Chart reviewed Discussed case with RN and PERCY 12/13: Pain controlled. Afebrile overnight. Urine with e. coli. Glucose improved. No SOB or CP. Awaiting surgical eval. 12/12: Afebrile overnight. Notes that 2 and half months ago she "stabbed" her left great toe and split has widened and blistered since then now the top of her left foot is a little swollen as well. Otherwise no pain complaints. She does have a blister on the plantar aspect of her right foot.. MTP. No shortness of breath or chest pain glucose improved labs improved LLE arterial doppler with monophasic waveform within the deep femoral artery, possible proximal stenosis, no additional evidence of hemodynamically significant stenosis or occlusion. Vitals/I&O Vitals/I&O: Vital Signs Date Time Temp Pulse Resp B/P (MAP) Pulse Ox O2 Delivery O2 Flow Rate FiO2 12/16/20 07:15 98.4 106 14 90/47 (61) 97 98.4 12/16/20 04:38 Room Air I & O 12/15/20 12/15/20 12/16/20 15:00 23:00 07:00 Intake Total 600 ml 680 ml 360 ml Balance 600 ml 680 ml 360 ml Physical Exam General: Alert (sleeping), Oriented X3, Cooperative, No acute distress Heart: Regular rate, Normal S1, Normal S2 Lungs: Clear Abdomen: Normal bowel sounds, Soft Extremities: No clubbing, No edema, Other (tender foot area, pain) Skin: Other (left great toe red and swollen, second toe swollen, great toe has open lesion, unable to see bone, did not probe) Labs Labs: Laboratory Tests Test 12/15/20 12:06 12/15/20 17:32 12/15/20 21:33 12/16/20 03:50 Glucose (Fingerstick) 174 mg/dL (70-99) 348 mg/dL (70-99) 114 mg/dL (70-99) White Blood Count 7.5 x10^3/uL (4.0-11.0) Red Blood Count 3.99 x10^6/uL (3.50-5.40) Hemoglobin 10.8 g/dL (12.0-15.5) Hematocrit 33.9 % (36.0-47.0) Mean Corpuscular Volume 85 fL (79-100) Mean Corpuscular Hemoglobin 27 pg (25-35) Mean Corpuscular Hemoglobin Concent 32 g/dL (31-37) Red Cell Distribution Width 23.3 % (11.5-14.5) Platelet Count 163 x10^3/uL (140-400) Neutrophils (%) (Auto) 70 % (31-73) Lymphocytes (%) (Auto) 22 % (24-48) Monocytes (%) (Auto) 5 % (0-9) Eosinophils (%) (Auto) 2 % (0-3) Basophils (%) (Auto) 1 % (0-3) Neutrophils # (Auto) 5.2 x10^3/uL (1.8-7.7) Lymphocytes # (Auto) 1.7 x10^3/uL (1.0-4.8) Monocytes # (Auto) 0.4 x10^3/uL (0.0-1.1) Eosinophils # (Auto) 0.2 x10^3/uL (0.0-0.7) Basophils # (Auto) 0.0 x10^3/uL (0.0-0.2) Sodium Level 133 mmol/L (136-145) Potassium Level 4.8 mmol/L (3.5-5.1) Chloride Level 100 mmol/L (98-107) Carbon Dioxide Level 26 mmol/L (21-32) Anion Gap 7 (6-14) Blood Urea Nitrogen 20 mg/dL (7-20) Creatinine 0.8 mg/dL (0.6-1.0) Estimated GFR (Cockcroft-Gault) 79.9 Glucose Level 458 mg/dL (70-99) Calcium Level 8.5 mg/dL (8.5-10.1) Test 12/16/20 07:43 Glucose (Fingerstick) 259 mg/dL (70-99) Review of Systems Review of Systems: ROS Negative Assessment and Plan Assessmemt and Plan Problems Medical Problems: (1) Osteomyelitis of toe of left foot Status: Acute (2) Uncontrolled type 1 diabetes mellitus with hyperglycemia Status: Acute (3) UTI (urinary tract infection) Status: Acute Hyperosmolar not ketotic state Left Toe osteomyelitis Right foot wound UTI DM1 (poorly controlled) tobacco use disorder Hx of substance abuse disorder Plan: - Continue IV Abx - Wound care management - Continue home meds as indicated - Continue to trend labs - Continue PT/OT - Tobacco cessation encouraged - Continue DVT Prophylaxis Appreciate subspecialist input Full Code Discharge Disposition pending subspecialist input Comment Review of Relevant I have reviewed the following items olena (where applicable) has been applied. Medications: Current Medications Medications (Trade) Dose Ordered Sig/Lucio Route PRN Reason Start Time Stop Time Status Last Admin Dose Admin Ceftriaxone Sodium (Rocephin) 1 gm Q24H IVP 12/15/20 13:00 12/15/20 13:53 Justifications for Admission Other Justification JB THAPA III DO Dec 16, 2020 09:12
[2020-12-16 10:35] VITALS: BP 108/76
[2020-12-16] MEDS: cefTRIAXone IV Push 1 GM VIAL. IVP SCH (12:26)
[2020-12-16 15:00] VITALS: BP 129/84
[2020-12-16 19:48] VITALS: BP 155/88
[2020-12-16] MEDS: PSYLLIUM HUSK (SUGAR FREE) 1 PKT PACKET PO SCH (20:50)
[2020-12-16] MEDS: INSULIN GLARGINE SYRINGE. SQ SCH (20:57)
[2020-12-16 23:44] VITALS: BP_SYST 132; BP_SYST 142; BP_DIAS 92; BP_DIAS 96
[2020-12-17] MEDS: VANCOMYCIN 1.25 GM in IV NORMAL SALINE 250ML 250 ML IV SCH ×2 (03:23→16:55)
[2020-12-17] MEDS: oxyCODONE IR 5 MG TABLET PO PRN ×2 (03:31→12:47)
[2020-12-17 03:45] VITALS: BP 151/96
[2020-12-17 06:29] LABS: BASO % 1 % (0-3); EOS # 0.2 x10^3/uL (0.0-0.7); EOS % 2 % (0-3); HEMOGLOBIN 10.9 g/dL (12.0-15.5); LYMPH # 1.7 x10^3/uL (1.0-4.8); LYMPH % 20 % (24-48); MEAN CORPUSCULAR HEMOGLOBIN 27 pg (25-35); MEAN CORPUSCULAR HGB CONC 31 g/dL (31-37); MEAN CORPUSCULAR VOLUME 85 fL (79-100); MONO # 0.6 x10^3/uL (0.0-1.1); MONO % 7 % (0-9); NEUT # 5.9 x10^3/uL (1.8-7.7); NEUT % 69 % (31-73); PLATELET COUNT 210 x10^3/uL (140-400); RED BLOOD COUNT 4.12 x10^6/uL (3.50-5.40); WHITE BLOOD COUNT 8.4 x10^3/uL (4.0-11.0)
[2020-12-17 06:41] LABS: CALCIUM 8.7 mg/dL (8.5-10.1); CREATININE 0.8 mg/dL (0.6-1.0); GFR 79.9; POTASSIUM 4.2 mmol/L (3.5-5.1)
[2020-12-17 07:00] VITALS: BP 150/83
[2020-12-17] MEDS: POLYETHYLENE GLYCOL 3350 17 GM PACKET. PO SCH (09:00)
[2020-12-17] MEDS: LACTOBACILLUS RHAMNOSUS GG 1 CAPSULE. PO SCH (09:05)
[2020-12-17] MEDS: CITALOPRAM 20 MG TABLET. PO SCH (09:05)
[2020-12-17] MEDS: FOLIC/VIT B COMP W-C (RENAL) TABLET. PO SCH (09:05)
[2020-12-17] MEDS: ASCORBIC ACID 500 MG TABLET PO SCH (09:06)
[2020-12-17] MEDS: GABAPENTIN 300 MG CAPSULE. PO SCH ×2 (09:06→16:54)
[2020-12-17] MEDS: ZINC SULFATE 220 MG CAPSULE. PO SCH (09:06)
[2020-12-17] MEDS: INSULIN LISPRO 300 UNITS/3 ML VIAL. SQ SCH ×6 (09:12→17:00)
--- NOTE | 2020-12-17 10:51 | PDOC ---
[facility] PROGRESS NOTE Date of Service DOS: DATE: 12/17/20 TIME: 10:49 Chief Complaint Chief Complaint Hyperosmolar not ketotic state Left Toe osteomyelitis Right foot wound UTI DM1 (poorly controlled) tobacco use disorder Hx of substance abuse disorder History of Present Illness History of Present Illness 12/17: Pt was seen, examined, and their chart was reviewed. Pt is still waiting for further surgical inquiry and her blood sugar continues to be elevated again today. Discussed with RN and PERCY. 12/16: Pt was seen, examined, and their chart was reviewed. Pt was sleeping when we visited and her PICC placement was successful yesterday. Pt's blood sugar continues to be elevated today. Discussed with RN and PERCY. 12/15 Patient seen and examined at bedside Chart reviewed Pt afebrile overnight Pt's blood sugar elevated on fingerstick today Pt resting comfortably at time of exam, NAD Pt going for PICC placement today Foot examined Jaspreet 12/14 Patient seen and examined Pt up in chair, comfortable Feet examined, Left toe bandaged (clean, dry, intact) Discussed plans for surgery evaluation Pt has no complaints at time of exam Chart reviewed Discussed case with RN and PERCY 12/13: Pain controlled. Afebrile overnight. Urine with e. coli. Glucose improved. No SOB or CP. Awaiting surgical eval. 12/12: Afebrile overnight. Notes that 2 and half months ago she "stabbed" her left great toe and split has widened and blistered since then now the top of her left foot is a little swollen as well. Otherwise no pain complaints. She does have a blister on the plantar aspect of her right foot.. MTP. No shortness of breath or chest pain glucose improved labs improved LLE arterial doppler with monophasic waveform within the deep femoral artery, possible proximal stenosis, no additional evidence of hemodynamically significant stenosis or occlusion. Vitals/I&O Vitals/I&O: Vital Signs Date Time Temp Pulse Resp B/P (MAP) Pulse Ox O2 Delivery O2 Flow Rate FiO2 12/17/20 07:00 98.2 115 20 150/83 (105) 95 Room Air 98.2 I & O 12/16/20 12/16/20 12/17/20 15:00 23:00 07:00 Intake Total 560 ml 500 ml 570 ml Balance 560 ml 500 ml 570 ml Physical Exam General: Alert, Oriented X3, Cooperative, No acute distress Heart: Regular rate, Normal S1, Normal S2 Lungs: Clear Abdomen: Normal bowel sounds, Soft Extremities: No clubbing, No edema, Other (tender foot area, pain) Skin: Other (left great toe red and swollen, second toe swollen, great toe has open lesion, unable to see bone, did not probe) Labs Labs: Laboratory Tests Test 12/16/20 12:02 12/16/20 16:52 12/16/20 20:06 12/17/20 06:00 Glucose (Fingerstick) 80 mg/dL (70-99) 140 mg/dL (70-99) 123 mg/dL (70-99) White Blood Count 8.4 x10^3/uL (4.0-11.0) Red Blood Count 4.12 x10^6/uL (3.50-5.40) Hemoglobin 10.9 g/dL (12.0-15.5) Hematocrit 35.0 % (36.0-47.0) Mean Corpuscular Volume 85 fL (79-100) Mean Corpuscular Hemoglobin 27 pg (25-35) Mean Corpuscular Hemoglobin Concent 31 g/dL (31-37) Red Cell Distribution Width 24.0 % (11.5-14.5) Platelet Count 210 x10^3/uL (140-400) Neutrophils (%) (Auto) 69 % (31-73) Lymphocytes (%) (Auto) 20 % (24-48) Monocytes (%) (Auto) 7 % (0-9) Eosinophils (%) (Auto) 2 % (0-3) Basophils (%) (Auto) 1 % (0-3) Neutrophils # (Auto) 5.9 x10^3/uL (1.8-7.7) Lymphocytes # (Auto) 1.7 x10^3/uL (1.0-4.8) Monocytes # (Auto) 0.6 x10^3/uL (0.0-1.1) Eosinophils # (Auto) 0.2 x10^3/uL (0.0-0.7) Basophils # (Auto) 0.0 x10^3/uL (0.0-0.2) Test 12/17/20 06:10 12/17/20 07:45 Sodium Level 134 mmol/L (136-145) Potassium Level 4.2 mmol/L (3.5-5.1) Chloride Level 102 mmol/L (98-107) Carbon Dioxide Level 28 mmol/L (21-32) Anion Gap 4 (6-14) Blood Urea Nitrogen 16 mg/dL (7-20) Creatinine 0.8 mg/dL (0.6-1.0) Estimated GFR (Cockcroft-Gault) 79.9 Glucose Level 303 mg/dL (70-99) Calcium Level 8.7 mg/dL (8.5-10.1) Glucose (Fingerstick) 328 mg/dL (70-99) Review of Systems Review of Systems: ROS Negative Assessment and Plan Assessmemt and Plan Problems Medical Problems: (1) Osteomyelitis of toe of left foot Status: Acute (2) Uncontrolled type 1 diabetes mellitus with hyperglycemia Status: Acute (3) UTI (urinary tract infection) Status: Acute Hyperosmolar not ketotic state Left Toe osteomyelitis Right foot wound UTI DM1 (poorly controlled) tobacco use disorder Hx of substance abuse disorder Plan: I spoke with Dr. Boggs of the podiatry service is going to see the patient today She might go for a greater toe amputation For now continue the following: - Continue IV Abx - Continue Wound care management - Continue home meds as indicated - Continue to trend labs - Continue PT/OT - Continue DVT Prophylaxis - Tobacco cessation encouraged - Subspecialist input is appreciated Full Code Discharge Disposition pending subspecialist input Comment Review of Relevant I have reviewed the following items olena (where applicable) has been applied. Justifications for Admission Other Justification JB THAPA III, DO Dec 17, 2020 10:51
[2020-12-17 11:00] VITALS: BP 142/94
[2020-12-17] MEDS: VANCOMYCIN PER PHARMACY MC PRN (11:18)
[2020-12-17] MEDS: cefTRIAXone IV Push 1 GM VIAL. IVP SCH (12:43)
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
[2020-12-17 15:00] VITALS: BP 154/108
--- NOTE | 2020-12-17 15:02 | NUR ---
SW following. Discussed with RN, pt from home, room air, ada diet. Ortho following. PICC line - currently on IV abx. SW will continue to follow.
[2020-12-17 19:00] VITALS: BP 152/101
--- NOTE | 2020-12-17 20:00 | NUR ---
Patient in room, reporting that she wants to go home, "I'm not getting surgery now, so I don't have to stay...there's no need to" She is informed that it would be beneficial for her to complete her Vancomycin antibiotics for her wounds, she continues to inform me that she's leaving, Her PICC line is pulled out, she asks for the number of the physician that will see her tomorrow,(Dr Cazares), this is written on her AMA papers, which she signed, her monitor and storage bin tender was off per patient's removal. Patient, and a friend of hers, were escorted out per myself, and security, to the ED waiting room.
[2020-12-22] MEDS ORDERED: INSU100V5 IJ (12:41)
[2020-12-22] MEDS ORDERED: FERR325T3 PO (12:41)
== END 2020-12-17 20:25 | disposition left against medical advice (07) | DRG 638 ==
LOC: ER 11:23 → 5 SOUTH 15:09
PROVIDERS: ADMIT Internal Medicine; ATTEND Internal Medicine
DX: E11.69 Type 2 diabetes mellitus with other specified complication (principal); N39.0 Urinary tract infection, site not specified; M86.8X8 Other osteomyelitis, other site; E11.00 Type 2 diabetes mellitus with hyperosmolarity without nonketotic hyperglycemic-hyperosmolar coma (NKHHC); E11.40 Type 2 diabetes mellitus with diabetic neuropathy, unspecified; F17.210 Nicotine dependence, cigarettes, uncomplicated; I10 Essential (primary) hypertension; I70.209 Unspecified atherosclerosis of native arteries of extremities, unspecified extremity; J45.909 Unspecified asthma, uncomplicated; K59.00 Constipation, unspecified; L03.032 Cellulitis of left toe; L97.519 Non-pressure chronic ulcer of other part of right foot with unspecified severity; L97.529 Non-pressure chronic ulcer of other part of left foot with unspecified severity; M20.40 Other hammer toe(s) (acquired), unspecified foot; Z53.29 Procedure and treatment not carried out because of patient's decision for other reasons; Z79.4 Long term (current) use of insulin; Z82.49 Family history of ischemic heart disease and other diseases of the circulatory system; Z83.3 Family history of diabetes mellitus; F41.9 Anxiety disorder, unspecified; B96.20 Unspecified Escherichia coli [E. coli] as the cause of diseases classified elsewhere; Z71.6 Tobacco abuse counseling
CPT/HCPCS: 36415; 36569; 73660; 80048; 80053; 80202; 81001; 81025; 82010; 82803; 82962; 83605; 83735; 84100; 85025; 87040; 87070; 87077; 87086; 87147; 87186; 93926; 96361; 96365; 96375; J0696; J1815; J1885; J2270; J2405; J2543; J3370; J7040; J7050; J7120; 99285-25; G0378; J7030

== ENCOUNTER 2020-12-23 08:17 | Day surgery (SDC) | payer SELFPAY ==
[~2020-12-23] VITALS: Ht 162.6 cm; Wt 63.6 kg
[~2020-12-23 08:17] MED LIST changes: +BUPIVACAINE MPF 0.25% 30 ML VIAL. ONE; +FERR325T3 PO; +HYDROmorphone 2 MG/ML VIAL IVP PRN; +INSU100V5 IJ; +IV RINGERS,LACTATED 1000ML 1,000 ML IV SCH; +MORPHINE SULFATE 2 MG/ML INJ. IVP PRN; +PROCHLORPERAZINE 10 MG/2 ML VIAL. IVP PRN; +VANCOMYCIN 1 GM VIAL. ONE; +ceFAZolin SODIUM IV Push 1 GM VIAL. IVP PRN; +fentaNYL PF VIAL 100 MCG/2 ML VIAL IVP PRN
[2020-12-23 08:59] VITALS: BP 127/70
[2020-12-23] MEDS ORDERED: BUPIVACAINE MPF 0.25% 30 ML VIAL. ONE (10:05)
[2020-12-23] MEDS ORDERED: VANCOMYCIN 1 GM VIAL. ONE (10:05)
[2020-12-23] MEDS ORDERED: fentaNYL PF VIAL 100 MCG/2 ML VIAL ONE (10:11)
[2020-12-23] MEDS ORDERED: INSULIN LISPRO 100 UNIT/ML 3ML VIAL for OP,RR ONLY. SQ PRN (10:15)
[2020-12-23] MEDS ORDERED: ONDANSETRON PF 4 MG/2 ML VIAL. ONE (10:53)
[2020-12-23] MEDS ORDERED: BUPIVACAINE MPF 0.25% 30 ML VIAL. INJ ONE (10:54)
[2020-12-23] MEDS ORDERED: GABAPENTIN 100 MG CAPSULE. PO ONE (11:15)
[2020-12-23] MEDS ORDERED: oxyCODONE/APAP 5/325 1 TAB TABLET PO ONE (11:15)
[2020-12-23] MEDS ORDERED: ACETAMINOPHEN 325 MG TABLET. PO ONE (11:15)
--- NOTE | 2020-12-23 11:17 | PDOC4 ---
OPERATIVE NOTE Date: Date: Dec 23, 2020 Pre-Op Diagnosis: Left hallux chronic recurrent ulcer, cellulitis and hammertoe contracture Post-Op Diagnosis: Same as above Procedure Performed: Disarticulation of the left hallux at the IPJ, I&D Surgeon: Randell Baca DPM Anesthesia Type: Local MAC Blood Loss: 10 cc Specimans Obtained: Distal hallux, left Findings: No proximal tracking, necrotic tissue passing the level of hallux IPJ. Adequate skin flap perfusion Complications: None Operative Note: Patient was brought into the operating room and placed on the operating table in a supine position. A timeout was performed to confirm patient's identity, location of surgery and procedure. After induction of conscious sedation, a pneumatic left high ankle tourniquet was placed with pressure set 250 mmHg. 10 cc of 0.25% Marcaine plain was infiltrated to the distal hallux as a digital block. The left lower extremity was then scrubbed, prepped and draped in the usual sterile manner. The left lower extremity was elevated for gravity exsanguination and the tourniquet was inflated to 250 mmHg. Then the attention was directed to the left hallux. A modified fishmouth incision was carried over to the medial lateral aspect of the hallux IPJ. The i ncision was carried to deep to expose and visualize the IPJ joint capsule. Disarticulation was performed with a #15 blade while preserving the articular cartilage at the distal hallux head. Intraoperative finding was insignificant for proximal tracking, necrotic or osteolytic bone changes. There was no fluctuance to the wound base. The distal hallux was sent for pathology with the proximal margin of the metatarsal bone inked for clear margin study. Copious saline solution was used to irrigate the wound. Afterwards, the tissue appeared granular with healthy pinpoint bleeding. The skin was closed with 3-0 and 4-0 nylon. Tourniquet was deflated and adequate digital perfusion was noted. The surgical site was dressed with Betadine soaked Adaptic. The left surgical foot was dressed with 4 x 4 gauze, soft roll and Alfa bandage with minimal compression. Patient tolerated procedure anesthesia well with vital signs stable and neurovascular status intact. Patient was then transferred to PACU for continued recovery. Pending left foot 3 view x-ray. RANDELL BACA DPM Dec 23, 2020 11:17
[2020-12-23] MEDS ORDERED: INSULIN LISPRO 100 UNIT/ML 3ML VIAL for OP,RR ONLY. SQ ONE (11:35)
[2020-12-23] MEDS ORDERED: HYDR-2761 PO (11:42)
[2020-12-23] MEDS ORDERED: ASPI-630 PO (11:44)
[2020-12-23] MEDS ORDERED: ACET500T68 PO (11:45)
[2020-12-23] MEDS ORDERED: IBUP-1007 PO (11:45)
[2020-12-23 12:05] VITALS: BP 110/70
--- NOTE | 2020-12-23 15:24 | RAD ---
EXAM: 3 views of the left foot DATE: 12/23/2020 11:33 AM INDICATION: Reason: post-op / Spl. Instructions: / History: COMPARISON: 12/11/2020 FINDINGS/ IMPRESSION: 1. Amputation changes through the IP joint of the great toe without associated erosive/destructive c hange or radiographic evidence for osteomyelitis. 2. Chronic fracture base of second metatarsal. 3. Associated first and second MTP DJD. Forefoot soft tissue swelling. Electronically signed by: Mayo Hall MD (12/23/2020 3:21 PM) [id number]
--- NOTE | 2020-12-30 14:14 | PATHOLOGY ---
[facility] Accession Number: [id number] . 01 Material submitted: . hallux - LEFT GREAT TOE R/O OSTEO. Modifiers: left . 01 Clinical history: . DIABETES L PARTIAL HALLUX AMPUTATION . 02 Diagnosis: Left partial hallux amputation: - Pseudoepitheliomatous hyperplasia, hyperkeratosis, and focal ulceration and acute inflammation of skin of distal toe with underlying fibrosis and chronic inflammation. - Focal bony destruction and chronic osteomyelitis of distal phalangeal bone. - Proximal amputation margin of toe negative for acute cellulitis/osteomyelitis. (JPM/db; 12/30/2020) LBQ 12/30/2020 1326 Local . 02 Electronically signed: . Mark Denise MD, Pathologist NPI- [id number] . 01 Gross description: . Received in formalin labeled "Enid Gibson, left great toe rule out osteo" is a toe disarticulation specimen measuring 3.8 x 3.5 x 1.9 cm. The skin surface displays a duong-white nail measuring 1.4 x 0.9 x 0.2 cm. Distal to the nail is a duong-brown focally ulcerated lesion measuring 2.6 x 1.4 x 0.8 cm. The lesion is located 0.2 cm from the closest skin and soft tissue margin. The skin and soft tissue resection margin is smooth and consistent with a surgical margin and the proximal aspect of the bone displays a concave cartilage covered disarticulation. The margin is inked entirely black. The previously described lesion is located 1.4 cm to the bone disarticulation. Linen Sorter sections of the specimen are submitted in cassettes A1-A3 following decalcification. (SKC; 12/24/2020) SYC/SYC 12/24/2020 0918 Local . 02 Pathologist provided ICD-10: L85.8, L08.9, M86.672 . 02 CPT . 937938, 268297 Specimen Comment: A courtesy copy of this report has been sent to [phone] Specimen Comment: Report sent to Performed at: 01 [facility] [address] [facility] [address], [place] [id number] MD Brant Ureña MD Phone: [phone] Performed at: 02 [facility] [address] [place], [place] [id number] MD Mark Denise MD Phone: [phone]
== END 2020-12-23 12:45 | disposition home or self-care (01) ==
LOC: SURG 08:17
PROVIDERS: ATTEND Podiatrist
DX: E10.621 Type 1 diabetes mellitus with foot ulcer (principal); L97.529 Non-pressure chronic ulcer of other part of left foot with unspecified severity; L03.032 Cellulitis of left toe; M24.575 Contracture, left foot; I10 Essential (primary) hypertension; F17.210 Nicotine dependence, cigarettes, uncomplicated; F32.9 Major depressive disorder, single episode, unspecified; F41.9 Anxiety disorder, unspecified; K21.9 Gastro-esophageal reflux disease without esophagitis; Z98.890 Other specified postprocedural states; Z79.899 Other long term (current) drug therapy; Z88.8 Allergy status to other drugs, medicaments and biological substances
CPT/HCPCS: 28825; 73630; 81025; 82962; 87426; A4213; A4930; J0690; J1815; J2405; J3490; 88305; 88311; A4657; J3010; J3370